=== PATIENT | female | born 1980 | race African-American/Black ===

== ENCOUNTER 2017-02-08 16:02 | Emergency (ER) | payer BC, MEDICAID ==
[~2017-02-08] VITALS: Ht 165.1 cm; Wt 100.0 kg
[2017-02-08 16:03] VITALS: BP 209/104; PULSE 90; RESP 18; TEMP 98.5; O2SAT 99
--- NOTE | 2017-02-08 16:10 | PD ---
Physical Exam Time Seen by Provider: 16:06 Narrative 36yo F c/o migraine EUBANKS and pain down back of neck started today. Hx of migraines. +vomiting. +blurred vision in R eye. Hx of pseudotumor with peritoneal shunt. Not currently on BP medications. Has been given BP medications from here and has not taken them for awhile. Patient seen in triage. VS reviewed. Awaiting bed placement. Data Data Last Documented VS Vital Signs Date Time Temp Pulse Resp B/P Pulse Ox O2 Delivery O2 Flow Rate FiO2 02/08/17 16:03 98.5 90 18 209/104 99 Room Air MDM Supervised Visit with CAMILO: No Scripts No Active Prescriptions or Reported Meds Dary Treviño Feb 08, 2017 16:10
--- NOTE | 2017-02-08 16:46 | PD ---
HPI Chief Complaint: Headache Time Seen by Provider: 16:44 Travel History International Travel<30 days: No Contact w/Intl Traveler<30days: No Traveled to known affect area: No PFSH Past Medical History Autoimmune Disease: No Blood Disorders: No Anxiety: No Depression: Yes Cancer: No Cardiovascular Problems: Yes (HTN) Chemotherapy: No Cerebrovascular Accident: Yes (PT DENIES) Diabetes: No Diminished Hearing: No Endocrine: No Gastrointestinal Disorders: No Genitourinary: No Headaches: Yes Hypertension: Yes Immune Disorder: No Implanted Vascular Access Dvce: Yes Musculoskeletal: No Neurologic: Yes (PSEUDO-TUMOR CEREBRAL) Psychiatric: No Reproductive: No Respiratory: No Migraines: Yes Radiation Therapy: No : 2 Para: 2 Miscarriage: 0 : 0 Tubal Ligation: Yes Past Surgical History AICD: No Body Medical Devices: PERITONEAL SHUNT IN BACK Section: Yes (X1) Cholecystectomy: Yes Gynecologic Surgery: Yes () Neurologic Surgery: Yes (LUMBAR SHUNT 2009) Pacemaker: No Other Surgery: Yes (LUMBAR SHUNT 2009) Social History Alcohol Use: No Tobacco Use: No Substance Use: No Allergies-Medications (Allergen,Severity, Reaction): Coded Allergies: Amoxicillin (Verified Allergy, Mild, Hives, 06/16/16) Reported Meds & Prescriptions Reported Meds & Active Scripts Active No Active Prescriptions or Reported Medications Data Data Last Documented VS Vital Signs Date Time Temp Pulse Resp B/P Pulse Ox O2 Delivery O2 Flow Rate FiO2 02/08/17 16:03 98.5 90 18 209/104 99 Room Air MDM Scripts No Active Prescriptions or Reported Meds Jenny Ocampo Feb 08, 2017 16:46
== END 2017-02-08 16:46 | disposition left against medical advice (07) ==
LOC: NETRI 16:02
DX: R51 Headache (principal); R11.10 Vomiting, unspecified; H53.8 Other visual disturbances; R03.0 Elevated blood-pressure reading, without diagnosis of hypertension; Z86.69 Personal history of other diseases of the nervous system and sense organs
CPT/HCPCS: 99281

== ENCOUNTER 2017-04-09 00:21 | Emergency (ER) | payer MEDICAID ==
[~2017-04-09] VITALS: Ht 165.1 cm; Wt 100.0 kg
[2017-04-09 00:22] VITALS: BP 226/111; PULSE 83; RESP 16; TEMP 98.4; O2SAT 97
[2017-04-09 00:53] VITALS: BP 145/97; PULSE 80; RESP 18; O2SAT 99
[2017-04-09] MEDS ORDERED: PROCHLORPERAZINE INJ 10 MG/2 ML VIAL IV PUSH ONE (01:30)
--- NOTE | 2017-04-09 02:16 | RADRPT ---
EXAM DATE/TIME: 04/09/2017 01:55 [facility] COMPARISON: CT BRAIN W/O CONTRAST, June 16, 2016, 3:19. INDICATIONS : Cephalgia. RADIATION DOSE: 56.35 CTDIvol (mGy) MEDICAL HISTORY : Hypertension. Pseudotumor cerebral. SURGICAL HISTORY : Tubal ligation. ENCOUNTER: Initial ACUITY: 1 day PAIN SCALE: 10/10 LOCATION: cranial TECHNIQUE: Multiple contiguous axial images were obtained of the head. Using automated exposure control and adj ustment of the mA and/or kV according to patient size, radiation dose was kept as low as reasonably a chievable to obtain optimal diagnostic quality images. DICOM format image data is available electro nically for review and comparison. FINDINGS: CEREBRUM: The ventricles are normal for age. No evidence of midline shift, mass lesion, hemorrhage or acute in farction. No extra-axial fluid collections are seen. POSTERIOR FOSSA: The cerebellum and brainstem are intact. The 4th ventricle is midline. The cerebellopontine angle i s unremarkable. EXTRACRANIAL: The visualized portion of the orbits is intact. SKULL: The calvaria is intact. No evidence of skull fracture. CONCLUSION: 1. No acute intracranial abnormalities. Clint Olivia MD on April 09, 2017 at 2:11 Board Certified Radiologist. This report was verified electronically.
[2017-04-09] MEDS ORDERED: TYLE325T PO (03:57)
--- NOTE | 2017-04-09 03:58 | PD ---
HPI Chief Complaint: Headache Time Seen by Provider: 01:12 Travel History International Travel<30 days: No Contact w/Intl Traveler<30days: No Traveled to known affect area: No History of Present Illness HPI 36yo F with PMH of migraine headache, pseudotumor cerebri s/p [employer] shunt presents to the ED with c/o frontal headache since yesterday. Took percocet which relieved pain but returned today. Said she took her last percocet. Denies any fever, chest pain, sob, n/v, abdominal pain, focal weakness or numbness. States it feels like her usual headache. No trauma. PFSH Past Medical History Autoimmune Disease: No Blood Disorders: No Anxiety: No Depression: Yes Cancer: No Cardiovascular Problems: Yes (HTN) Chemotherapy: No Cerebrovascular Accident: Yes (PT DENIES) Diabetes: No Diminished Hearing: No Endocrine: No Gastrointestinal Disorders: No Genitourinary: No Headaches: Yes Hypertension: Yes Immune Disorder: No Implanted Vascular Access Dvce: Yes Musculoskeletal: No Neurologic: Yes (PSEUDO-TUMOR CEREBRAL) Psychiatric: No Reproductive: No Respiratory: No Migraines: Yes Radiation Therapy: No ?: Not LMP: 03/28/17 : 2 Para: 2 Miscarriage: 0 : 0 Tubal Ligation: Yes Past Surgical History AICD: No Body Medical Devices: PERITONEAL SHUNT IN BACK Section: Yes (X1) Cholecystectomy: Yes Gynecologic Surgery: Yes () Neurologic Surgery: Yes (LUMBAR SHUNT 2009) Pacemaker: No Other Surgery: Yes (LUMBAR SHUNT 2009) Social History Alcohol Use: No Tobacco Use: No Substance Use: No Allergies-Medications (Allergen,Severity, Reaction): Coded Allergies: amoxicillin (Unverified Allergy, Mild, Hives, 04/09/17) Reported Meds & Prescriptions Reported Meds & Active Scripts Active No Active Prescriptions or Reported Medications Review of Systems Except as stated in HPI: all other systems reviewed are Neg Physical Exam Narrative GENERAL: 36yo F not in distress. SKIN: Focused skin assessment warm/dry. HEAD: Atraumatic. Normocephalic. EYES: Pupils equal and round. EOMI. ENT: No nasal bleeding or discharge. Mucous membranes pink and moist. NECK: Trachea midline. No JVD. No nuchal rigidity. CARDIOVASCULAR: Regular rate and rhythm. No murmur appreciated. RESPIRATORY: No accessory muscle use. Clear to auscultation. Breath sounds equal bilaterally. GASTROINTESTINAL: Abdomen soft, non-tender, nondistended. Hepatic and splenic margins not palpable. MUSCULOSKELETAL: No obvious deformities. No clubbing. No cyanosis. No edema. NEUROLOGICAL: Awake and alert. No obvious cranial nerve deficits. Motor grossly within normal limits. Normal speech. PSYCHIATRIC: Appropriate mood and affect; insight and judgment normal. Data Data Last Documented VS Vital Signs Date Time Temp Pulse Resp B/P (MAP) Pulse Ox O2 Delivery O2 Flow Rate FiO2 04/09/17 00:53 80 18 145/97 (113) 99 Room Air 04/09/17 00:[address] Brain W/O Iv Contrast(Rout) (04/09/17 ) Ed Urine Pregnancytest Poc (04/09/17 01:29) Prochlorperazine Inj (Compazine Inj) (04/09/17 01:30) MDM Medical Decision Making Medical Screen Exam Complete: Yes Emergency Medical Condition: Yes Differential Diagnosis Migraine headache vs. hydrocephalus vs. tension headache vs. sinus headache Narrative Course 36yo F with history of migraine and pseudotumor cerebri here with her usual headache. Urine negative. CT brain negative. Pt given compazine IV. Pt reevaluated at bedside and headache has resolved. Return precautions given. Diagnosis Primary Impression: Migraine headache Qualified Codes: G43.909 - Migraine, unspecified, not intractable, without status migrainosus Referrals: Kb Whitney PhD MD call for appointment History of pseuotumor cerebri with headaches. Patient Instructions: General Instructions Departure Forms: Tests/Procedures Additional Instructions: Please follow up with neurology as outpatient. Return to the ED if symptoms worsen. Med/Other Pt SpecificInfo: Prescription(s) given Scripts Acetaminophen (Tylenol) 325 Mg Tab 650 MG PO Q6H Y for PAIN SCALE 1 TO 4, #20 TAB 0 Refills Prov: Gema Duong DO 04/09/17 Disposition: 01 DISCHARGE HOME Condition: Stable Gema Duong DO Apr 09, 2017 03:58
== END 2017-04-09 04:39 | disposition home or self-care (01) ==
LOC: NEPE 00:21
DX: G43.909 Migraine, unspecified, not intractable, without status migrainosus (principal); F32.9 Major depressive disorder, single episode, unspecified; I10 Essential (primary) hypertension
CPT/HCPCS: 70450; 84703; 96374; 99285; J0780

== ENCOUNTER 2017-04-27 10:34 | Inpatient (IN) | payer OTHER, MEDICAID ==
[~2017-04-27] VITALS: Ht 165.1 cm; Wt 92.0 kg
[~2017-04-27 10:34] MED LIST: TYLE325T PO
[2017-04-27 10:36] VITALS: BP 168/113; PULSE 138; RESP 20; TEMP 99.3; O2SAT 100
[2017-04-27] MEDS ORDERED: ONDANSETRON HCL 4 MG/2 ML VIAL IV PUSH ONE ×2 (11:15)
[2017-04-27] MEDS ORDERED: MORPHINE SULFATE 4 MG/ML INJ IV PUSH ONE ×2 (11:15)
[2017-04-27] MEDS ORDERED: LABETALOL HCL 100 MG/20 ML VIAL IV PUSH ONE ×2 (11:15)
--- NOTE | 2017-04-27 11:40 | PD ---
HPI Chief Complaint: Back/ Neck Pain or Injury Time Seen by Provider: 10:47 Travel History International Travel<30 days: No Contact w/Intl Traveler<30days: No Traveled to known affect area: No History of Present Illness HPI 37-year-old female complains of headache, neck pain, blurring vision, upper and mid back pain, nausea vomiting. Patient has history of pseudotumor cerebri status post LP shunt placement. Patient states that the LP shunt was placed by Dr. Dumont in the past. Patient has history of recurrent headache and neck pain number back pain. Patient states that the symptoms started about 3 weeks ago. Patient has been taking hydrocodone for the symptom. Patient was admitted to [facility] 4 days ago and discharged yesterday for the same problem. Shunt series done on March reported by radiologist as shunt in place however cannot rule out obstruction. Patient was seen by neurologist today Dr. Branch and was advised to go to ED for evaluation. Patient denies fever chills. Patient states that her blood pressure and pulse has been elevated recently. Patient states the headache is diffuse aching headache over the head. Patient states that she has persistent blurring vision. Patient denies any double vision. Patient denies any stiff neck however complain of neck pain. Patient complains of upper back pain. Patient states that she had chest wall pain. Patient denies any shortness of breath. Patient denies abdominal pain. Patient denies any dysuria or frequency. Patient denies any fever chills. PFSH Past Medical History Autoimmune Disease: No Blood Disorders: No Anxiety: No Depression: Yes Cancer: No Cardiovascular Problems: Yes (HTN) Chemotherapy: No Cerebrovascular Accident: Yes (PT DENIES) Diabetes: No Diminished Hearing: No Endocrine: No Gastrointestinal Disorders: No Genitourinary: No Headaches: Yes Hypertension: Yes Immune Disorder: No Implanted Vascular Access Dvce: Yes Musculoskeletal: No Neurologic: Yes (PSEUDO-TUMOR CEREBRAL) Psychiatric: No Reproductive: No Respiratory: No Migraines: Yes Radiation Therapy: No : 2 Para: 2 Miscarriage: 0 : 0 Tubal Ligation: Yes Past Surgical History AICD: No Body Medical Devices: PERITONEAL SHUNT IN BACK Section: Yes (X1) Cholecystectomy: Yes Gynecologic Surgery: Yes () Neurologic Surgery: Yes (LUMBAR SHUNT 2009) Pacemaker: No Other Surgery: Yes (LUMBAR SHUNT 2009) Social History Alcohol Use: No Tobacco Use: No Substance Use: No Allergies-Medications (Allergen,Severity, Reaction): Coded Allergies: amoxicillin (Unverified Allergy, Mild, Hives, 04/09/17) Reported Meds & Prescriptions Reported Meds & Active Scripts Active Tylenol (Acetaminophen) 325 Mg Tab 650 Mg PO Q6H PRN Review of Systems General / Constitutional: No: Fever Eyes: No: Visual changes HENT: Positive: Headaches, Neck Pain Cardiovascular: Positive: Chest Pain or Discomfort Respiratory: No: Shortness of Breath Gastrointestinal: No: Abdominal Pain Genitourinary: No: Dysuria Musculoskeletal: No: Pain Skin: No Rash Neurologic: No: Weakness Psychiatric: No: Depression Endocrine: No: Polydipsia Hematologic/Lymphatic: No: Easy Bruising Physical Exam Narrative GENERAL: Well-nourished, well-developed patient. SKIN: Focused skin assessment warm/dry. HEAD: Normocephalic. EYES: No scleral icterus. No injection or drainage. Pupils 3 mm equal reactive. Unable to visualize the fundi. NECK: Supple, trachea midline. No JVD or lymphadenopathy. Moderate tenderness paraspinal areas cervical spine. No midline tenderness. No meningismus. CARDIOVASCULAR: Regular rate and rhythm without murmurs, gallops, or rubs. RESPIRATORY: Breath sounds equal bilaterally. No accessory muscle use. GASTROINTESTINAL: Abdomen soft, non-tender, nondistended. MUSCULOSKELETAL: No cyanosis, or edema. BACK: Nontender without obvious deformity. No CVA tenderness. Neurologic exam: Patient's awake and alert oriented 3. No obvious focal neurological deficit. Data Data Last Documented VS Vital Signs Date Time Temp Pulse Resp B/P (MAP) Pulse Ox O2 Delivery O2 Flow Rate FiO2 04/27/17 12:33 81 11 199/113 (141) 98 Room Air 04/27/17 10:36 99.3 Orders Orders Complete Blood Count With Diff (04/27/17 10:57) Comprehensive Metabolic Panel (04/27/17 10:57) Prothrombin Time / Inr (Pt) (04/27/17 10:57) Act Partial Throm Time (Ptt) (04/27/17 10:57) C-Reactive Protein (Crp) (04/27/17 10:57) Urinalysis - C+S If Indicated (04/27/17 10:57) Westergren Sedimentation Rate (04/27/17 10:57) Chest, Single Ap (04/27/17 10:57) Ct Brain W/O Iv Contrast(Rout) (04/27/17 10:57) Iv Access Insert/Monitor (04/27/17 10:57) Ecg Monitoring (04/27/17 10:57) Oximetry (04/27/17 10:57) Shunt Series (04/27/17 ) Sodium Chlor 0.9% 1000 Ml Inj (Ns 1000 M (04/27/17 11:15) Morphine Inj (Morphine Inj) (04/27/17 11:15) Ondansetron Inj (Zofran Inj) (04/27/17 11:15) Labetalol Inj (Trandate Inj) (04/27/17 11:15) Potassium Chlor 20 Meq Premix (Kcl 20 Me (04/27/17 13:00) Lumbar Puncture (04/27/17 ) Vital Signs (Adult) .On admission (04/27/17 13:19) Notify Radiology (04/27/17 13:19) Diet Npo (04/27/17 Lunch) Labs Laboratory Tests Test 04/27/17 11:14 White Blood Count 12.5 TH/MM3 Red Blood Count 4.71 MIL/MM3 Hemoglobin 10.6 GM/DL Hematocrit 32.7 % Mean Corpuscular Volume 69.5 FL Mean Corpuscular Hemoglobin 22.4 PG Mean Corpuscular Hemoglobin Concent 32.3 % Red Cell Distribution Width 18.2 % Platelet Count 542 TH/MM3 Mean Platelet Volume 8.0 FL Neutrophils (%) (Auto) 75.0 % Lymphocytes (%) (Auto) 16.8 % Monocytes (%) (Auto) 6.2 % Eosinophils (%) (Auto) 1.3 % Basophils (%) (Auto) 0.7 % Neutrophils # (Auto) 9.4 TH/MM3 Lymphocytes # (Auto) 2.1 TH/MM3 Monocytes # (Auto) 0.8 TH/MM3 Eosinophils # (Auto) 0.2 TH/MM3 Basophils # (Auto) 0.1 TH/MM3 CBC Comment DIFF FINAL Differential Comment Erythrocyte Sedimentation Rate 45 mm/hr Prothrombin Time 11.9 SEC Prothromb Time International Ratio 1.1 RATIO Activated Partial Thromboplast Time 28.5 SEC Blood Urea Nitrogen 8 MG/DL Creatinine 1.06 MG/DL Random Glucose 91 MG/DL Total Protein 8.2 GM/DL Albumin 3.8 GM/DL Calcium Level 9.4 MG/DL Alkaline Phosphatase 95 U/L Aspartate Amino Transf (AST/SGOT) 45 U/L Alanine Aminotransferase (ALT/SGPT) 105 U/L Total Bilirubin 1.0 MG/DL Sodium Level 132 MEQ/L Potassium Level 3.0 MEQ/L Chloride Level 98 MEQ/L Carbon Dioxide Level 23.3 MEQ/L Anion Gap 11 MEQ/L Estimat Glomerular Filtration Rate 71 ML/MIN C-Reactive Protein 3.80 MG/DL MDM Medical Decision Making Medical Screen Exam Complete: Yes Emergency Medical Condition: Yes Interpretation(s) Last Impressions Head CT 04/27/171056 Signed Impressions: Service Date/Time: Thursday, April 27, 2017 11:16 - CONCLUSION: No acute disease. Sundeep Bolton MD Chest X-Ray 04/27/171056 Signed Impressions: Service Date/Time: Thursday, April 27, 2017 11:34 - CONCLUSION: No acute cardiopulmonary abnormality is identified. Wilian Miguel MD Shunt Study (Imaging) 04/27/17 0000 Signed Impressions: Service Date/Time: Thursday, April 27, 2017 11:37 - CONCLUSION: Lumboperitoneal shunt is identified. The proximal aspect overlying the inferior thoracic spinal canal is stable. However, shunt tubing is discontinuous over the right abdomen adjacent to the connection with the valve. Distal tip is in the left upper quadrant. Wilian Miguel MD 12:49 PM. CBC WBC 12.5. Hemoglobin 10.6 hematocrit 32.7. MCV 69.5. Later 542. 75 neutrophil. ESR 45. Sodium 1:30. Potassium 3.0. Creatinine 1.06. AST 45. ALT 105. C-reactive protein 3.8. Differential Diagnosis Differential diagnosis including migraine headache, shunt malfunction, digital hypertension, hypertensive urgency, hypertensive crisis, encephalitis. Narrative Course 37-year-old female with headache, neck pain, nausea vomiting. History of migraine. History of pseudotumor cerebri status post LP shunt placement. Patient has elevated blood pressure and tachycardia. Normal saline solution 1 25 cc an hour. Labetalol 10 mg IV. Morphine 4 mg IV. Zofran 4 mg IV. KCl 20 mEq IV given. I spoke with Dr. Dumont. Advised medical service admission and consult neurosurgeon. Diagnosis Primary Impression: Lumboperitoneal shunt leak Qualified Codes: T85.635A - Leakage of other nervous system device, implant or graft, initial encounter Additional Impressions: Cephalgia Qualified Codes: R51 - Headache Uncontrolled hypertension Rafael Dykes MD Apr 27, 2017 11:39
--- NOTE | 2017-04-27 11:47 | RADRPT ---
EXAM DATE/TIME: 04/27/2017 11:16 [facility] COMPARISON: CT BRAIN W/O CONTRAST, April 09, 2017, 1:55. INDICATIONS : Cephalgia. History of pseudotumor cerebri LP shunt. RADIATION DOSE: 56.35 CTDIvol (mGy) MEDICAL HISTORY : Hypertension. LP shunt. Pseudo tumor. SURGICAL HISTORY : Tubal ligation. ENCOUNTER: Initial ACUITY: 1 day PAIN SCALE: 0/10 LOCATION: cranial TECHNIQUE: Multiple contiguous axial images were obtained of the head. Using automated exposure control and adj ustment of the mA and/or kV according to patient size, radiation dose was kept as low as reasonably a chievable to obtain optimal diagnostic quality images. DICOM format image data is available electro nically for review and comparison. FINDINGS: CEREBRUM: The ventricles are normal for age. No evidence of midline shift, mass lesion, hemorrhage or acute in farction. No extra-axial fluid collections are seen. POSTERIOR FOSSA: The cerebellum and brainstem are intact. The 4th ventricle is midline. The cerebellopontine angle i s unremarkable. EXTRACRANIAL: The visualized portion of the orbits is intact. SKULL: The calvaria is intact. No evidence of skull fracture. CONCLUSION: No acute disease. Sundeep Bolton MD on April 27, 2017 at 11:44 Board Certified Radiologist. This report was verified electronically.
[2017-04-27 11:48] LABS: AUTOMATED NEUTROPHIL # 9.4 TH/MM3 (1.8-7.7); BASOPHIL # 0.1 TH/MM3 (0-0.2); BASOPHIL % 0.7 % (0.0-2.0); EOSINOPHIL # 0.2 TH/MM3 (0-0.4); EOSINOPHIL % 1.3 % (0.0-4.0); HEMATOCRIT 32.7 % (35.0-46.0); HEMOGLOBIN 10.6 GM/DL (11.6-15.3); LYMPH % 16.8 % (9.0-44.0); LYMPHOCYTE # 2.1 TH/MM3 (1.0-4.8); MEAN CELL VOLUME 69.5 FL (80.0-100.0); MEAN CORPUSCULAR HEMOGLOBIN 22.4 PG (27.0-34.0); MEAN CORPUSCULAR HGB CONC 32.3 % (32.0-36.0); MONO % 6.2 % (0.0-8.0); MONOCYTE # 0.8 TH/MM3 (0-0.9); PLATELET COUNT 542 TH/MM3 (150-450); RED BLOOD COUNT 4.71 MIL/MM3 (4.00-5.30); RED CELL DISTRIBUTION WIDTH 18.2 % (11.6-17.2); WHITE BLOOD COUNT 12.5 TH/MM3 (4.0-11.0)
[2017-04-27 11:58] LABS: INTERNATIONAL NORMALIZED RATIO 1.1 RATIO; PROTHROMBIN TIME - PATIENT 11.9 SEC (9.8-11.6)
--- NOTE | 2017-04-27 12:06 | RADRPT ---
EXAM DATE/TIME: 04/27/2017 11:34 [facility] COMPARISON: SHUNT SERIES, July 26, 2013, 13:12. INDICATIONS : Short of breath. MEDICAL HISTORY : Hypertension. SURGICAL HISTORY : Shunt placed in her back. Cholecystectomy. section ENCOUNTER: Initial ACUITY: 1 day PAIN SCORE: 0/10 LOCATION: Bilateral chest FINDINGS: Portable AP view of the chest demonstrates a normal-sized cardiac silhouette. No effusion, consolidat ion, or pneumothorax is identified. Bones and soft tissues demonstrate no acute finding. EKG lines ov erlie the patient. CONCLUSION: No acute cardiopulmonary abnormality is identified. Wilian Miguel MD on April 27, 2017 at 12:05 Board Certified Radiologist. This report was verified electronically.
[2017-04-27 12:09] LABS: ALBUMIN 3.8 GM/DL (3.4-5.0); ALT (GPT) 105 U/L (10-53); AST (GOT) 45 U/L (15-37); BICARBONATE 23.3 MEQ/L (21.0-32.0); BLOOD UREA NITROGEN 8 MG/DL (7-18); CALCIUM 9.4 MG/DL (8.5-10.1); CHLORIDE 98 MEQ/L (98-107); CREATININE 1.06 MG/DL (0.50-1.00); GLOMERULAR FILTRATION RATE 71 ML/MIN (>89); GLUCOSE,RANDOM 91 MG/DL (74-106); SODIUM (NA) 132 MEQ/L (136-145)
[2017-04-27 12:12] LABS: ALKALINE PHOSPHATASE 95 U/L (45-117); TOTAL PROTEIN 8.2 GM/DL (6.4-8.2)
--- NOTE | 2017-04-27 12:23 | RADRPT ---
EXAM DATE/TIME: 04/27/2017 11:37 [facility] COMPARISON: SHUNT SERIES, July 26, 2013, 13:12. EXTERNAL COMPARISON : None. INDICATIONS : Severe headache, neck ache, dizziness x3 weeks. MEDICAL HISTORY : Lumbar shunt 2009 SURGICAL HISTORY : Lumbar shunt ENCOUNTER: Initial ACUITY: 3 weeks PAIN SCORE: 10/10 LOCATION: Abdomen, skull, neck, chest. FINDINGS: 6 views of the head, neck, chest, abdomen, and pelvis demonstrate a shunt tubing looped over the infe rior thoracic spinal canal with distal tip at the T11 level. The distal tip of the shunt tubing overl ies the left upper quadrant. The valve overlies the right abdomen. There is a gap in the tubing measu ring approximately 2.3 cm adjacent to the valve. Otherwise, cholecystectomy clips are present. A single clip is present in the pelvis. Head, neck, and chest demonstrate no significant abnormality. CONCLUSION: Lumboperitoneal shunt is identified. The proximal aspect overlying the inferior thoracic spinal canal is stable. However, shunt tubing is discontinuous over the right abdomen adjacent to the connection with the valve. Distal tip is in the left upper quadrant. Wilian Miguel MD on April 27, 2017 at 12:17 Board Certified Radiologist. This report was verified electronically.
[2017-04-27] MEDS: SODIUM CHLOR 0.9% 1000 ML INJ 1,000 ML IV SCH ×4 (12:30→19:48)
[2017-04-27 12:33] VITALS: BP 199/113; PULSE 81; RESP 11; O2SAT 98
[2017-04-27] MEDS ORDERED: POTASSIUM CHLOR 20 MEQ PREMIX 100 ML IV ONE ×4 (13:00→15:30)
[2017-04-27 13:54] VITALS: BP 185/96; PULSE 87; RESP 16; O2SAT 98
--- NOTE | 2017-04-27 14:16 | HHI.HP ---
HPI Service Family Medicine Primary Care Physician No Primary Care Physician Admission Diagnosis lumboperitoneal shunt leaking. Cephalgia. Uncontrolled hypertensio Diagnoses: International Travel<30 Days: No Contact w/Intl Traveler<30days: No Known Affected Area: No History of Present Illness Patient is a very pleasant 37 year old woman with a h/o pseudotumor cerebri s/p LP shunt placement and HTN sent to the ED by her neurologist Dr. Branch. Patient reports headaches, blurry vision, vomiting, pain between shoulders as well as neck pain, dizziness, and nausea present for about the past 3 weeks. Symptoms have not gotten any better over this time period. She states she was diagnosed with pseudotumor cerebri back in 2009 and had her LP shunt placed this year as well. Patient states she has been to [facility] 3 times over the past few weeks and most recently was admitted 4 days ago and just discharged yesterday for these same problems. She denies any erika loss of vision. She states her headache is diffuse and aches all over her head. She has had symptoms as severe as this about 3 to 4 times she states since being diagnosed in 2009. She also reports numbness and tingling in the fingers of her left hand and left leg. She reports vomiting multiple times daily over at least the past 2 weeks. States she has not eaten a meal over the past 3 weeks. (Wood Gauthier MD R2) Review of Systems Constitutional: COMPLAINS OF: Weight loss (Mild amount of weight loss secondary to decreased PO intake over past 3 weeks), Change in appetite, DENIES : Fever, Weight gain, Chills, Night Sweats Eyes: COMPLAINS OF: Blurred vision, DENIES: Diplopia, Eye pain, Vision loss, Double Vision Respiratory: DENIES: Cough, Wheezing, Sputum production, Shortness of breath Cardiovascular: COMPLAINS OF: Palpitations (States she does sometimes feel palpitations and her heart racing when moving from sitting to standing position) , DENIES: Chest pain, Lower Extremity Edema Gastrointestinal: COMPLAINS OF: Nausea, Vomiting, DENIES: Abdominal pain, Black stools, Bloody stools, Constipation, Diarrhea Genitourinary: DENIES: Hematuria, Dysuria Musculoskeletal: COMPLAINS OF: Neck pain Integumentary: DENIES: Rash Neurologic: COMPLAINS OF: Headache (Wood Gauthier MD R2) Past Family Social History Past Medical History HTN Pseudotumor cerebri Past Surgical History Cholecystectomy CXN and BTL LP shunt placement (Wood Gauthier MD R2) Allergies: Coded Allergies: amoxicillin (Unverified Allergy, Mild, Hives, 04/09/17) Family History Mother: history of multiple CVAs, HTN Father: from a gunshot wound when patient was 4 years of age Social History Tobacco: denies Etoh: social occasions only Illicit drug use: denies Lives with and two children No PCP (Wood Gauthier MD R2) Physical Exam Vital Signs Vital Signs Date Time Temp Pulse Resp B/P (MAP) Pulse Ox O2 Delivery O2 Flow Rate FiO2 04/27/17 13:54 87 16 185/96 (125) 98 Room Air 04/27/17 12:33 81 11 199/113 (141) 98 Room Air 04/27/17 10:36 99.3 138 20 168/113 (131) 100 Room Air Physical Exam GENERAL: Appearing tired, lying flat in bed with lights out NEURO: Alert. Normal speech. 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 Motor grossly normal. Strength 5/5 in extremities. SKIN: Warm and dry. No rashes or erythema. HEAD: Normocephalic. Atraumatic. EYES: PERRL. EOMI. No scleral icterus. No injection or drainage. ENT: No nasal drainage. Moist mucous membranes. NECK: Supple, trachea midline. No JVD or lymphadenopathy. No thyromegaly. CARDIOVASCULAR: Regular rate and rhythm without murmurs, rubs, or gallops. Peripheral pulses 2+. RESPIRATORY: Breath sounds clear to auscultation and equal bilaterally, without wheezes, rales, or rhonchi. No accessory muscle use. GASTROINTESTINAL: Abdomen soft, nontender, nondistended, normal BS. No organomegaly or masses. No rebound tenderness. No guarding. MUSCULOSKELETAL: No lower extremity edema. Normal range of motion. Laboratory Laboratory Tests Test 04/27/17 11:14 White Blood Count 12.5 Red Blood Count 4.71 Hemoglobin 10.6 Hematocrit 32.7 Mean Corpuscular Volume 69.5 Mean Corpuscular Hemoglobin 22.4 Mean Corpuscular Hemoglobin Concent 32.3 Red Cell Distribution Width 18.2 Platelet Count 542 Mean Platelet Volume 8.0 Neutrophils (%) (Auto) 75.0 Lymphocytes (%) (Auto) 16.8 Monocytes (%) (Auto) 6.2 Eosinophils (%) (Auto) 1.3 Basophils (%) (Auto) 0.7 Neutrophils # (Auto) 9.4 Lymphocytes # (Auto) 2.1 Monocytes # (Auto) 0.8 Eosinophils # (Auto) 0.2 Basophils # (Auto) 0.1 CBC Comment DIFF FINAL Differential Comment Erythrocyte Sedimentation Rate 45 Prothrombin Time 11.9 Prothromb Time International Ratio 1.1 Activated Partial Thromboplast Time 28.5 Blood Urea Nitrogen 8 Creatinine 1.06 Random Glucose 91 Total Protein 8.2 Albumin 3.8 Calcium Level 9.4 Alkaline Phosphatase 95 Aspartate Amino Transf (AST/SGOT) 45 Alanine Aminotransferase (ALT/SGPT) 105 Total Bilirubin 1.0 Sodium Level 132 Potassium Level 3.0 Chloride Level 98 Carbon Dioxide Level 23.3 Anion Gap 11 Estimat Glomerular Filtration Rate 71 C-Reactive Protein 3.80 (Wood Gauthier MD R2) Result Diagram: 04/27/17 1114 04/27/17 1114 Caprini VTE Risk Assessment Caprini VTE Risk Assessment: No/Low Risk (score <= 1) Caprini Risk Assessment Model Point Value = 1 Point Value = 2 Point Value = 3 Point Value = 5 Age 41-60 Minor surgery BMI > 25 kg/m2 Swollen legs Varicose veins or History of unexplained or recurrent spontaneous Oral contraceptives or hormone replacement Sepsis (< 1 month) Serious lung disease, including pneumonia (< 1 month) Abnormal pulmonary function Acute myocardial infarction Congestive heart failure (< 1 month) History of inflammatory bowel disease Medical patient at bed rest Age 61-74 Arthroscopic surgery Major open surgery (> 45 min) Laparoscopic surgery (> 45 min) Malignancy Confined to bed (> 72 hours) Immobilizing plaster cast Central venous access Age >= 75 History of VTE Family history of VTE Factor V Leiden Prothrombin [id number] Lupus anticoagulant Anticardiolipin antibodies Elevated serum homocysteine Heparin-induced thrombocytopenia Other congenital or acquired thrombophilia Stroke (< 1 month) Elective arthroplasty Hip, pelvis, or leg fracture Acute spinal cord injury (< 1 month) Prophylaxis Regimen Total Risk Factor Score Risk Level Prophylaxis Regimen 0-1 Low Early ambulation 2 Moderate Order ONE of the following: *Sequential Compression Device (SCD) *Heparin 5000 units SQ BID 3-4 Higher Order ONE of the following medications: *Heparin 5000 units SQ TID *Enoxaparin/Lovenox 40 mg SQ daily (WT < 150 kg, CrCl > 30 mL/min) *Enoxaparin/Lovenox 30 mg SQ daily (WT < 150 kg, CrCl > 10-29 mL/min) *Enoxaparin/Lovenox 30 mg SQ BID (WT < 150 kg, CrCl > 30 mL/min) AND/OR *Sequential Compression Device (SCD) 5 or more Highest Order ONE of the following medications: *Heparin 5000 units SQ TID (Preferred with Epidurals) *Enoxaparin/Lovenox 40 mg SQ daily (WT < 150 kg, CrCl > 30 mL/min) *Enoxaparin/Lovenox 30 mg SQ daily (WT < 150 kg, CrCl > 10-29 mL/min) *Enoxaparin/Lovenox 30 mg SQ BID (WT < 150 kg, CrCl > 30 mL/min) AND *Sequential Compression Device (SCD) (Wood Gauthier MD R2) Assessment and Plan Assessment and Plan Very pleasant 37 year old woman being admitted with features consistent with pseudotumor cerebri. Code Status Full code Discussed Condition With Dr. Faith Huggins (Wood Gauthier MD R2) Attending Attestation Patient seen and examined. Case reviewed and discussed with the resident team. Agree with plan of care as discussed with me and documented in the resident note. pt seen on admission with residents. appreciate help Neurosurgery (Cheryl Cuevas MD) Problem List: (1) Pseudotumor cerebri ICD Codes: G93.2 - Benign intracranial hypertension Status: Chronic Plan: - Dr. Dykes discussed case with IR as well as Dr. Dumont, neurosurgery. Planning for LP for opening pressure and for symptomatic relief for patient. Consult placed to Dr. Dumont as patient is known to him - Patient to be NPO until LP and evaluation by neurosurgery - Morphine 4 mg IV q4h prn pain - Zofran as needed for nausea - Consider need for medical therapy ie carbonic anhydrase inhibitors or diuretic therapy after resolution of acute symptoms unless symptoms are adequately controlled with repair of LP shunt (2) Lumboperitoneal shunt leak ICD Codes: T85.635A - Leakage of other nervous system device, implant or graft , initial encounter Status: Acute Plan: Neurosurgery consulted Plan as above (3) HTN (hypertension) ICD Codes: I10 - Essential (primary) hypertension Status: Chronic Plan: Continue labetalol 10 mg IV prn BP > 180/100 Vitals q4h (4) Leukocytosis ICD Codes: D72.829 - Elevated white blood cell count, unspecified Status: Acute Plan: Consider secondary to stress reaction Non suspecting meningitis at this time Patient does complain of neck pain and vague symptoms of stiffness but without fevers and neck supple on examination UA ordered CXR normal Continue to monitor clinically (5) AGUS (acute kidney injury) ICD Codes: N17.9 - Acute kidney failure, unspecified Status: Acute Plan: Likely pre-renal due to dehydration Continue MIVF Continue to monitor renal function (6) Hypokalemia ICD Codes: E87.6 - Hypokalemia Status: Acute Plan: 3.0 on admission KCl 40 mEq IV ordered Continue to monitor (7) Hyponatremia ICD Codes: E87.1 - Hypo-osmolality and hyponatremia Status: Acute Plan: Continue NS at 125 cc/hr (8) Anemia ICD Codes: D64.9 - Anemia, unspecified Status: Acute Plan: Hgb 10.6 on admission Microcytic Continue to monitor (9) Nutrition, metabolism, and development symptoms ICD Codes: R63.8 - Other symptoms and signs concerning food and fluid intake Status: Acute Plan: Fluids: NS at 125 cc/hr Electrolytes: as above, continue to monitor Nutrition: NPO DVT ppx: b/l SCDs, no chemical anticoagulation ahead of LP and possible neurosurgical intervention (Wood Gauthier MD R2) Physician Certification 2 Midnight Certification Type: Admission for Inpatient Services Order for Inpatient Services The services are ordered in accordance with Medicare regulations or non- Medicare payer requirements, as applicable. In the case of services not specified as inpatient-only, they are appropriately provided as inpatient services in accordance with the 2-midnight benchmark. Estimated LOS (days): 2 days is the estimated time the patient will need to remain in the hospital, assuming treatment plan goals are met and no additional complications. Post-Hospital Plan: Home (Wood Gauthier MD R2) Problem Qualifiers (1) Lumboperitoneal shunt leak: Qualified Codes: T85.635A - Leakage of other nervous system device, implant or graft, initial encounter (2) HTN (hypertension): Qualified Codes: I15.8 - Other secondary hypertension (3) Leukocytosis: Qualified Codes: D72.829 - Elevated white blood cell count, unspecified (4) Anemia: Qualified Codes: D64.9 - Anemia, unspecified Wood Gauthier MD R2 Apr 27, 2017 14:16 Cheryl Cuevas MD Apr 28, 2017 12:24
[2017-04-27] MEDS ORDERED: SODIUM CHLOR 0.9% 1000 ML INJ 1,000 ML IV SCH ×2 (14:39)
[2017-04-27] MEDS ORDERED: LABETALOL HCL 100 MG/20 ML VIAL IV PUSH PRN ×2 (14:45)
[2017-04-27] MEDS ORDERED: ACETAMINOPHEN 325 MG TAB PO PRN ×2 (14:45)
[2017-04-27] MEDS ORDERED: NALOXONE HCL 0.4 MG/ML AMP IV PUSH PRN ×2 (14:45)
[2017-04-27] MEDS ORDERED: SODIUM CHLORIDE 0.9% FLUSH 10 ML FLUSH IV FLUSH PRN ×2 (14:45)
--- NOTE | 2017-04-27 14:55 | PD.CONS ---
(Shreyas Dumont MD) HPI Consult Requested By Primary Care Physician No Primary Care Physician (Shreyas Dumont MD) Consult Requested By Dr. Dykes Reason for Consult lumboperitoneal shunt History of Present Illness Ms. Landis is a 37-year-old female with a history of idiopathic intracranial hypertension who underwent placement of a lumboperitoneal shunt in 2009. She was doing well until recently she developed recurrent headaches with nausea, vomiting, and blurry vision. She denies fevers and chills. She underwent a CT head which was unremarkable. She underwent a shunt series of her lumbar peritoneal shunt which shows detachment of the catheter from the device. A neurosurgical evaluation was requested. (Ani Langley) Review of Systems Constitutional: DENIES: Fever, Chills Eyes: COMPLAINS OF: Blurred vision Ears, nose, mouth, throat: DENIES: Hearing loss Respiratory: DENIES: Apneas, Hemoptysis, Shortness of breath Gastrointestinal: COMPLAINS OF: Nausea, Vomiting Neurologic: COMPLAINS OF: Headache Psychiatric: DENIES: Hallucinations (Ani Langley) Past Family Social History Allergies: Coded Allergies: amoxicillin (Unverified Allergy, Mild, Hives, 04/09/17) Active Ordered Medications Current Medications Sodium Chloride 1,000 ml @ 125 mls/hr Q8H IV Last administered on 04/27/17 12:30; Start 04/27/17 at 11:15 Morphine Sulfate (Morphine Inj) 4 mg ONCE ONCE IV PUSH Last administered on 12:31; Start 04/27/17 at 11:15; Stop 04/27/17 at 11:16; Status DC Ondansetron HCl (Zofran Inj) 4 mg ONCE ONCE IV PUSH Last administered on 04/27 12:31; Start 04/27/17 at 11:15; Stop 04/27/17 at 11:16; Status DC Labetalol HCl (Trandate Inj) 10 mg ONCE ONCE IV PUSH Last administered on 12:32; Start 04/27/17 at 11:15; Stop 04/27/17 at 11:16; Status DC Potassium Chloride 100 ml @ 50 mls/hr BOLUS ONCE IV Last administered on t 13:12; Start 04/27/17 at 13:00; Stop 04/27/17 at 14:59; Status DC Sodium Chloride 1,000 ml @ 100 mls/hr Q10H IV ; Start 04/27/17 at 14:39; Stop 04/27/17 at 15:03; Status DC Sodium Chloride (NS Flush) 2 ml UNSCH PRN IV FLUSH FLUSH AFTER USING IV ACCESS ; Start 04/27/17 at 14:45 Sodium Chloride (NS Flush) 2 ml BID IV FLUSH ; Start 04/27/17 at 14:45 Acetaminophen (Tylenol) 650 mg Q4H PRN PO TEMP > 100.4; Start 04/27/17 at 14: 45 Ondansetron HCl (Zofran Inj) 4 mg Q6H PRN IVP NAUSEA OR VOMITING; Start at 14:45 Naloxone HCl (Narcan Inj) 0.4 mg UNSCH PRN IV PUSH SEE LABEL COMMENTS; Start 04/27/17 at 14:45 Morphine Sulfate (Morphine Inj) 4 mg Q4HR PRN IV PUSH PAIN SCALE 6 TO 10; Start 04/27/17 at 14:45 Labetalol HCl (Trandate Inj) 10 mg Q6H PRN IV PUSH SBP> OR = 180, DBP> OR = 100 ; Start 04/27/17 at 14:45 Potassium Chloride 100 ml @ 50 mls/hr BOLUS ONCE IV ; Start 04/27/17 at 15:30 ; Stop 04/27/17 at 17:29; Status DC (Shreyas Dumont MD) Past Medical History HTN Pseudotumor cerebri Past Surgical History Cholecystectomy CXN and BTL Lumboperitoneal shunt placement Reported Medications reviewed per EMR Active Ordered Medications Current Medications Medications (Trade) Dose Ordered Sig/David Route PRN Reason Start Time Stop Time Status Last Admin Dose Admin Sodium Chloride 1,000 ml @ 125 mls/hr Q8H IV 04/27/17 11:15 04/27/17 12:30 Sodium Chloride (NS Flush) 2 ml UNSCH PRN IV FLUSH FLUSH AFTER USING IV ACCESS 04/27/17 14:45 UNV Sodium Chloride (NS Flush) 2 ml BID IV FLUSH 04/27/17 14:45 UNV Acetaminophen (Tylenol) 650 mg Q4H PRN PO TEMP > 100.4 04/27/17 14:45 UNV Ondansetron HCl (Zofran Inj) 4 mg Q6H PRN IVP NAUSEA OR VOMITING 04/27/17 14:45 UNV Naloxone HCl (Narcan Inj) 0.4 mg UNSCH PRN IV PUSH SEE LABEL COMMENTS 04/27/17 14:45 UNV Morphine Sulfate (Morphine Inj) 4 mg Q4HR PRN IV PUSH PAIN SCALE 6 TO 10 04/27/17 14:45 UNV Labetalol HCl (Trandate Inj) 10 mg Q6H PRN IV PUSH SBP> OR = 180, DBP> OR = 100 04/27/17 14:45 UNV Potassium Chloride 100 ml @ 50 mls/hr BOLUS ONCE IV 04/27/17 15:15 04/27/17 17:14 UNV Family History Her Mother has had stroke Social History she denies tobacco use, she drinks etoh occasionally (Ani Langley) Physical Exam Vital Signs Vital Signs Date Time Temp Pulse Resp B/P (MAP) Pulse Ox O2 Delivery O2 Flow Rate FiO2 04/27/17 13:54 87 16 185/96 (125) 98 Room Air 04/27/17 12:33 81 11 199/113 (141) 98 Room Air 04/27/17 10:36 99.3 138 20 168/113 (131) 100 Room Air Physical Exam Ms Blanchard is alert, awake and oriented to time, place and person. Speech is fluent. She is very uncomfortable with severe headaches. Cranial nerve examination demonstrates the pupils to be equal, round, and reactive to light. Extra-ocular movements are intact. She has bilateral papiledema. Facial motor and sensory function are normal and symmetrical. Gross hearing is intact, bilaterally. The uvula is midline and elevates symmetrically with the soft palate. Sternocleidomastoid and trapezius muscles have normal and symmetrical strength. Other cranial nerves are intact. Neck is soft and supple. Cervical spine has a full range of motion in anterior flexion, extension, lateral bending, and rotation without pain. There is no tenderness to palpation to the spinous processes or paraspinal muscles. Muscle testing reveals normal bulk and tone overall without rigidity, spasticity , fasciculations, or atrophy. Muscle strength is 5/5 in all muscle groups of both upper extremities including deltoid, biceps, triceps, brachioradialis, wrist extension and network support engineer. In the lower extremities, strength is 5/5 in both iliopsoas, quadriceps, hamstrings, plantar flexion, dorsiflexion, and extensor hallicus longus. Sensory examination is intact to light touch and sharp/dull discrimination in both the upper and lower extremities, symmetrically. Deep tendon reflexes are 2+ and symmetrical in the biceps, triceps, and brachioradialis, bilaterally, in the upper extremities. In the lower extremities , the patellar and Achilles are 2+, bilaterally. There is a bilateral plantar flexion response. Hoffmanns sign is negative. There is no clonus or other abnormal reflexes noted. Cerebellar examination is intact to [id number] test, rapid rhythmic alternating motion. There is no dysmetria, dysdiadochokinesia, truncal ataxia, or tremor. Laboratory Laboratory Tests Test 04/27/17 11:14 White Blood Count 12.5 Red Blood Count 4.71 Hemoglobin 10.6 Hematocrit 32.7 Mean Corpuscular Volume 69.5 Mean Corpuscular Hemoglobin 22.4 Mean Corpuscular Hemoglobin Concent 32.3 Red Cell Distribution Width 18.2 Platelet Count 542 Mean Platelet Volume 8.0 Neutrophils (%) (Auto) 75.0 Lymphocytes (%) (Auto) 16.8 Monocytes (%) (Auto) 6.2 Eosinophils (%) (Auto) 1.3 Basophils (%) (Auto) 0.7 Neutrophils # (Auto) 9.4 Lymphocytes # (Auto) 2.1 Monocytes # (Auto) 0.8 Eosinophils # (Auto) 0.2 Basophils # (Auto) 0.1 CBC Comment DIFF FINAL Differential Comment Erythrocyte Sedimentation Rate 45 Prothrombin Time 11.9 Prothromb Time International Ratio 1.1 Activated Partial Thromboplast Time 28.5 Blood Urea Nitrogen 8 Creatinine 1.06 Random Glucose 91 Total Protein 8.2 Albumin 3.8 Calcium Level 9.4 Alkaline Phosphatase 95 Aspartate Amino Transf (AST/SGOT) 45 Alanine Aminotransferase (ALT/SGPT) 105 Total Bilirubin 1.0 Sodium Level 132 Potassium Level 3.0 Chloride Level 98 Carbon Dioxide Level 23.3 Anion Gap 11 Estimat Glomerular Filtration Rate 71 C-Reactive Protein 3.80 (Shreyas Dumont MD) Result Diagram: 04/27/17 1114 04/27/17 1114 Imaging Last [address] 04/27/17 1057 Signed Impressions: Service Date/Time: Thursday, April 27, 2017 11:16 - CONCLUSION: No acute disease. Sundeep Bolton MD Chest X-Ray 04/27/17 1057 Signed Impressions: Service Date/Time: Thursday, April 27, 2017 11:34 - CONCLUSION: No acute cardiopulmonary abnormality is identified. Wilian Miguel MD Shunt Study (Imaging) 04/27/17 0000 Signed Impressions: Service Date/Time: Thursday, April 27, 2017 11:37 - CONCLUSION: Lumboperitoneal shunt is identified. The proximal aspect overlying the inferior thoracic spinal canal is stable. However, shunt tubing is discontinuous over the right abdomen adjacent to the connection with the valve. Distal tip is in the left upper quadrant. Wilian Miguel MD Lumbar Puncture Fluoroscopy 04/27/17 0000 Signed Impressions: Service Date/Time: Thursday, April 27, 2017 17:34 - CONCLUSION: Uncomplicated fluoroscopically guided lumbar puncture with pressures as above. Albaro Walker MD (Shreyas Dumont MD) Assessment and Plan Assessment and Plan Caprini VTE Risk Assessment Caprini VTE Risk Assessment Caprini VTE Risk Assessment: No/Low Risk (score <= 1) Caprini Risk Assessment Model Point Value = 1 Point Value = 2 Point Value = 3 Point Value = 5 Age 41-60 Minor surgery BMI > 25 kg/m2 Swollen legs Varicose veins or History of unexplained or recurrent spontaneous Oral contraceptives or hormone replacement Sepsis (< 1 month) Serious lung disease, including pneumonia (< 1 month) Abnormal pulmonary function Acute myocardial infarction Congestive heart failure (< 1 month) History of inflammatory bowel disease Medical patient at bed rest Age 61-74 Arthroscopic surgery Major open surgery (> 45 min) Laparoscopic surgery (> 45 min) Malignancy Confined to bed (> 72 hours) Immobilizing plaster cast Central venous access Age >= 75 History of VTE Family history of VTE Factor V Leiden Prothrombin [id number] Lupus anticoagulant Anticardiolipin antibodies Elevated serum homocysteine Heparin-induced thrombocytopenia Other congenital or acquired thrombophilia Stroke (< 1 month) Elective arthroplasty Hip, pelvis, or leg fracture Acute spinal cord injury (< 1 month) Prophylaxis Regimen Total Risk Factor Score Risk Level Prophylaxis Regimen 0-1 Low Early ambulation 2 Moderate Order ONE of the following: *Sequential Compression Device (SCD) *Heparin 5000 units SQ BID 3-4 Higher Order ONE of the following medications: *Heparin 5000 units SQ TID *Enoxaparin/Lovenox 40 mg SQ daily (WT < 150 kg, CrCl > 30 mL/min) *Enoxaparin/Lovenox 30 mg SQ daily (WT < 150 kg, CrCl > 10-29 mL/min) *Enoxaparin/Lovenox 30 mg SQ BID (WT < 150 kg, CrCl > 30 mL/min) AND/OR *Sequential Compression Device (SCD) 5 or more Highest Order ONE of the following medications: *Heparin 5000 units SQ TID (Preferred with Epidurals) *Enoxaparin/Lovenox 40 mg SQ daily (WT < 150 kg, CrCl > 30 mL/min) *Enoxaparin/Lovenox 30 mg SQ daily (WT < 150 kg, CrCl > 10-29 mL/min) *Enoxaparin/Lovenox 30 mg SQ BID (WT < 150 kg, CrCl > 30 mL/min) AND *Sequential Compression Device (SCD) (Shreyas Dumont MD) Attending Statement 37 year old woman with pseudotumor cerebri and shunt malfunction. (1) Pseudotumor cerebri ICD Codes: G93.2 - Benign intracranial hypertension Recominedo LP for opening pressure and for symptomatic relief. NPO after midnight Her opening pressure are elevated. Will proceed with placement of a ventriculoperitoneal shunt. We have discussed the details including the step-by- step details of the surgical procedure, its indications, alternatives, risks, and potential complications. Risks and potential complications include, but are not limited to, infection, blood loss, CSF leak, partial or complete loss of sight in one or both eyes, paresis, paralysis, permanent pain or difficulty swallowing, loss of bowel or bladder function, complications from anesthesia, blood clot, stroke, myocardial infarction, or even . - Morphine 4 mg IV q4h prn pain - Zofran as needed for nausea - Consider need for medical therapy ie carbonic anhydrase inhibitors or diuretic therapy after resolution of acute symptoms unless symptoms are adequately controlled with repair of LP shunt (2) HTN (hypertension) ICD Codes: I10 - Essential (primary) hypertension Status: Chronic Plan: Continue labetalol 10 mg IV prn BP > 180/100 (3) Leukocytosis ICD Codes: D72.829 - Elevated white blood cell count, unspecified Status: Acute Plan: secondary to stress reaction Non suspecting meningitis at this time UA ordered CXR normal Continue to monitor clinically (4) AGUS (acute kidney injury) ICD Codes: N17.9 - Acute kidney failure, unspecified Status: Acute Plan: Likely pre-renal due to dehydration Continue IIVF Continue to monitor renal function (5) Hypokalemia ICD Codes: E87.6 - Hypokalemia Status: Acute Plan: 3.0 on admission KCl 40 mEq IV ordered Continue to monitor (6) Hyponatremia ICD Codes: E87.1 - Hypo-osmolality and hyponatremia Status: Acute Plan: Continue NS at 125 cc/hr (7) Anemia ICD Codes: D64.9 - Anemia, unspecified Status: Acute Plan: Hgb 10.6 on admission Microcytic Continue to monitor (8) Nutrition, metabolism, and development symptoms ICD Codes: R63.8 - Other symptoms and signs concerning food and fluid intake Status: Acute Plan: Fluids: NS at 125 cc/hr Electrolytes: as above, continue to monitor Nutrition: NPO Protonix for stress ulcer prophylaxis DVT Jerrell hose and SCDs, no chemical anticoagulation ahead of LP and possible neurosurgical intervention The exam, history, and the medical decision-making described in the above note were completed with the assistance of the mid-level provider. I reviewed and agree with the findings presented. I attest that I had a [id number] encounter with the patient on the same day, and personally performed and documented my assessment and findings in the medical record. (Shreyas Dumont MD) Shreyas Dumont MD Apr 27, 2017 14:55 Ani Langley Apr 27, 2017 15:18
[2017-04-27 15:21] VITALS: BP 182/96; PULSE 83; RESP 17; O2SAT 98
--- NOTE | 2017-04-27 17:44 | PD.RAD ---
Post Procedure Progress Note Pre Procedure Diagnosis: (1) Pseudotumor cerebri Post Procedure Diagnosis: (1) Pseudotumor cerebri Procedure Date: Apr 27, 2017 Supervising Radiologist: Albaro Walker Proceduralist/Assist: RT Phillip(R) Anesthesia: Local Plan of Activity Patient to Unit: Nursing Unit Patient Condition: Good See PACS Report for procedural detail/treatment Spinal Procedure Lumbar Puncture L3-L4 Fluid Removal (CCs): 25 Fluid Description: Clear (opening pressure 46) Albaro Walker MD Apr 27, 2017 17:43
--- NOTE | 2017-04-27 18:00 | RADRPT ---
EXAM DATE/TIME: 04/27/2017 17:34 [facility] COMPARISON: LUMBAR PUNCTURE W/OPENING PRESSURES, July 26, 2013, 16:04. INDICATIONS : Patient presnts with headache and neck pain, blurry vision, nausea and vomiting. MEDICAL HISTORY : HTN Headaches Migraines Pseudo-Tumor Cerebral SURGICAL HISTORY : Peritoneal Shunt in back Cholecystectomy :umbar Shunt 2009 ENCOUNTER: Initial ACUITY: 3 weeks PAIN SCORE: 8/10 LOCATION: cranial LUMBAR PUNCTURE TIME: 17:32 hours FLUORO TIME: 0.9 minutes IMAGE SERIES: 1 ACCESS LEVEL: L3-4 OPENING PRESSURE: 45 Not requested. FLUID: 16 cc of clear CSF was collected and sent to the laboratory for analysis. PROCEDURE : 1. Fluoroscopic guided lumbar puncture. 2. Recording of opening pressure. The risks, benefits and alternatives to the procedure were explained and verbal and written consent w as obtained. The site was prepped in sterile fashion. Full sterile technique was used, including ca p, mask, sterile gloves and gown and a large sterile sheet. Hand hygiene and 2% chlorhexidine and/or betadine/alcohol prep was utilized per protocol for cutaneous antisepsis. The skin and subcutaneous tissues were infiltrated with local anesthetic solution. With fluoroscopic guidance the lumbar thecal sac was punctured at the above level described above and the opening pressure was recorded. The above described fluid was removed without difficulty. A tota l of 25 cc was removed The patient tolerated the procedure well and there were no complications. CONCLUSION: Uncomplicated fluoroscopically guided lumbar puncture with pressures as above. Albaro Walker MD on April 27, 2017 at 17:58 Board Certified Radiologist. This report was verified electronically.
[2017-04-27 19:41] VITALS: BP 158/97; PULSE 112; RESP 19; TEMP 96.7; O2SAT 98
[2017-04-27] MEDS: SODIUM CHLORIDE 0.9% FLUSH 10 ML FLUSH IV FLUSH SCH ×2 (19:53)
[2017-04-27] MEDS: MORPHINE SULFATE 4 MG/ML INJ IV PUSH PRN ×2 (22:09)
[2017-04-27] MEDS ORDERED: POVIDONE IODINE 5% (ANTISEPSIS KIT) 4 APPLICATIONS EACH NARE PRN ×2 (22:30)
[2017-04-27] MEDS ORDERED: INSULIN HUMAN REGULAR 1,000 UNITS/10 ML VIAL SQ PRN ×2 (22:30)
[2017-04-27] MEDS ORDERED: SODIUM CHLORID 0.9% 500 ML IV PRN ×2 (22:30)
[2017-04-27] MEDS ORDERED: CHLORHEXIDINE GLUCONATE 2 % 1 PACK (2 CLOTHS) TOPICAL PRN ×2 (22:30)
[2017-04-27] MEDS ORDERED: METOPROLOL TARTRATE 25 MG TAB PO PRN ×2 (22:30)
[2017-04-27] MEDS ORDERED: LACTATED RINGER'S 1000 ML IV PRN ×2 (22:30)
[2017-04-28] VITALS (7 sets, daily range): BP systolic 119–187; BP diastolic 65–113; PULSE 95–116; RESP 16–19; TEMP 97.1–98.8; O2SAT 98–100
[2017-04-28 00:49] LABS: AMORPHOUS SEDIMENT, URINE RARE; BACTERIA, URINE MANY /hpf; BILIRUBIN, URINE NEG (NEG); BLOOD, URINE NEG (NEG); GLUCOSE,URINE NEG (NEG); HYALINE CAST, URINE 1 /lpf (RARE); KETONE, URINE TRACE mg/dL (NEG); MUCUS URINE FEW /lpf (OCC); NITRITE,URINE NEG (NEG); PH, URINE 6.5 (5.0-8.5); SQUAMOUS EPITHELIAL CELL URINE 2 /hpf (0-5); URINE COLOR YELLOW (YELLW/STRAW); URINE LEUKOCYTE ESTERASE SMALL (NEG)
[2017-04-28] MEDS: MORPHINE SULFATE 4 MG/ML INJ IV PUSH PRN ×6 (02:42→11:38)
[2017-04-28] MEDS: SODIUM CHLOR 0.9% 1000 ML INJ 1,000 ML IV SCH ×4 (03:15→11:15)
[2017-04-28] MEDS: cloNIDine HCL 0.1 MG TAB PO PRN ×2 (05:27)
[2017-04-28 06:15] LABS: AUTOMATED NEUTROPHIL # 9.7 TH/MM3 (1.8-7.7); BASOPHIL # 0.1 TH/MM3 (0-0.2); BASOPHIL % 0.5 % (0.0-2.0); EOSINOPHIL # 0.2 TH/MM3 (0-0.4); EOSINOPHIL % 1.4 % (0.0-4.0); HEMATOCRIT 29.9 % (35.0-46.0); HEMOGLOBIN 9.2 GM/DL (11.6-15.3); LYMPH % 15.7 % (9.0-44.0); MEAN CELL VOLUME 70.3 FL (80.0-100.0); MEAN CORPUSCULAR HEMOGLOBIN 21.7 PG (27.0-34.0); MEAN CORPUSCULAR HGB CONC 30.9 % (32.0-36.0); MEAN PLATELET VOLUME 7.5 FL (7.0-11.0); MONO % 5.3 % (0.0-8.0); MONOCYTE # 0.7 TH/MM3 (0-0.9); NEUT % 77.1 % (16.0-70.0); PLATELET COUNT 463 TH/MM3 (150-450); RED BLOOD COUNT 4.25 MIL/MM3 (4.00-5.30); RED CELL DISTRIBUTION WIDTH 18.1 % (11.6-17.2); WHITE BLOOD COUNT 12.6 TH/MM3 (4.0-11.0)
[2017-04-28 06:54] LABS: BICARBONATE 26.1 MEQ/L (21.0-32.0); CALCIUM 8.6 MG/DL (8.5-10.1); CREATININE 0.76 MG/DL (0.50-1.00)
[2017-04-28] MEDS ORDERED: GELFOAM SIZE 100 ONE ×2 (07:34)
[2017-04-28] MEDS ORDERED: ceFAZolin 2 GM PREMIX 50 ML ONE ×2 (07:34)
[2017-04-28] MEDS ORDERED: THROMBIN (TOPICAL) 5,000 UNIT VIAL ONE ×2 (07:34)
[2017-04-28] MEDS ORDERED: GENTAMICIN SULFATE 80 MG/2 ML VIAL ONE ×2 (07:35)
[2017-04-28] MEDS ORDERED: BACITRACIN TOP OINT 15 GM TUBE ONE ×2 (07:35)
[2017-04-28] MEDS ORDERED: LIDOCAINE 1%/EPINEPHrine 1:100,000 SOLN 20 ML VIAL ONE ×2 (07:35)
[2017-04-28] MEDS: SODIUM CHLORIDE 0.9% FLUSH 10 ML FLUSH IV FLUSH SCH ×2 (09:00)
[2017-04-28] MEDS: ONDANSETRON HCL 4 MG/2 ML VIAL IVP PRN ×2 (09:24)
--- NOTE | 2017-04-28 09:34 | HHI.HP ---
HPI Service Family Medicine Primary Care Physician No Primary Care Physician Admission Diagnosis lumboperitoneal shunt leaking. Cephalgia. Uncontrolled hypertensio Diagnoses: (1) Pseudotumor cerebri Diagnosis: Principal (2) Lumboperitoneal shunt leak Diagnosis: Principal (3) HTN (hypertension) Diagnosis: Principal (4) Leukocytosis Diagnosis: Principal (5) AGUS (acute kidney injury) Diagnosis: Principal (6) Hypokalemia Diagnosis: Principal (7) Hyponatremia Diagnosis: Principal (8) Anemia Diagnosis: Principal (9) Nutrition, metabolism, and development symptoms Diagnosis: Principal International Travel<30 Days: No Contact w/Intl Traveler<30days: No Known Affected Area: No History of Present Illness Ms Landis is a very pleasant 37 year old woman with a h/o pseudotumor cerebri s/p LP shunt placement and HTN sent to the ED by her neurologist Dr. Branch. Patient reports headaches, blurry vision, vomiting, pain between shoulders as well as neck pain, dizziness, and nausea present for about the past 3 weeks. Symptoms have not gotten any better over this time period. She states she was diagnosed with pseudotumor cerebri back in 2009 and had her LP shunt placed this year as well. Patient states she has been to [facility] 3 times over the past few weeks and most recently was admitted 4 days ago and just discharged yesterday for these same problems. She denies any erika loss of vision. She states her headache is diffuse and aches all over her head. She has had symptoms as severe as this about 3 to 4 times she states since being diagnosed in 2009. She also reports numbness and tingling in the fingers of her left hand and left leg. She reports vomiting multiple times daily over at least the past 2 weeks. States she has not eaten a meal over the past 3 weeks. She had a LP yesterday but is still suffering the same sxs as before. She is scheduled to have a shunt placed today but when her medicine team entered the room she was very anxious and did not want surgery. Gave her 1 mg of ativan and asked her nurse to let Dr Everett know she was nervous. Explained to her that she has been unable to fxn in her current state and she needed to have this fixed. Review of Systems Other Constitutional: COMPLAINS OF: Weight loss (Mild amount of weight loss secondary to decreased PO intake over past 3 weeks), Change in appetite, DENIES : Fever, Weight gain, Chills, Night Sweats Eyes: COMPLAINS OF: Blurred vision, DENIES: Diplopia, Eye pain, Vision loss, Double Vision Respiratory: DENIES: Cough, Wheezing, Sputum production, Shortness of breath Cardiovascular: COMPLAINS OF: Palpitations (States she does sometimes feel palpitations and her heart racing when moving from sitting to standing position) , DENIES: Chest pain, Lower Extremity Edema Gastrointestinal: COMPLAINS OF: Nausea, Vomiting, DENIES: Abdominal pain, Black stools, Bloody stools, Constipation, Diarrhea Genitourinary: DENIES: Hematuria, Dysuria Musculoskeletal: COMPLAINS OF: Neck pain Integumentary: DENIES: Rash Neurologic: COMPLAINS OF: Headache Past Family Social History Past Medical History HTN Pseudotumor cerebri Past Surgical History Cholecystectomy CXN and BTL LP shunt placement Allergies: Coded Allergies: amoxicillin (Unverified Allergy, Mild, Hives, 04/09/17) Family History Mother: history of multiple CVAs, HTN Father: from a gunshot wound when patient was 4 years of age Social History Tobacco: denies Etoh: social occasions only Illicit drug use: denies Lives with and two children No PCP Physical Exam Vital Signs Vital Signs Date Time Temp Pulse Resp B/P (MAP) Pulse Ox O2 Delivery O2 Flow Rate FiO2 04/28/17 07:57 98.5 98 19 167/113 (131) 99 04/28/17 04:20 97.1 99 16 173/107 (129) 100 04/28/17 00:30 98.0 95 16 168/104 (125) 98 04/27/17 19:41 96.7 112 19 158/97 (117) 98 04/27/17 17:45 04/27/17 15:21 83 17 182/96 (124) 98 Room Air 04/27/17 13:54 87 16 185/96 (125) 98 Room Air 04/27/17 12:33 81 11 199/113 (141) 98 Room Air 04/27/17 10:36 99.3 138 20 168/113 (131) 100 Room Air Physical Exam GENERAL: Appearing tired, lying flat in bed with lights out. anxious NEURO: Alert. Normal speech. vacuum bottle assembler intact. Motor grossly normal. Strength 5/5 in extremities. SKIN: Warm and dry. No rashes or erythema. HEAD: Normocephalic. Atraumatic. EYES: PERRL. EOMI. No scleral icterus. No injection or drainage. ENT: No nasal drainage. Moist mucous membranes. NECK: Supple, trachea midline. No JVD or lymphadenopathy. No thyromegaly. CARDIOVASCULAR: Regular rate and rhythm without murmurs, rubs, or gallops. Peripheral pulses 2+. RESPIRATORY: Breath sounds clear to auscultation and equal bilaterally, without wheezes, rales, or rhonchi. No accessory muscle use. GASTROINTESTINAL: Abdomen soft, nontender, nondistended, normal BS. No organomegaly or masses. No rebound tenderness. No guarding. MUSCULOSKELETAL: No lower extremity edema. Normal range of motion. Laboratory Laboratory Tests Test 04/27/17 11:14 04/28/17 00:15 04/28/17 05:05 White Blood Count 12.5 12.6 Red Blood Count 4.71 4.25 Hemoglobin 10.6 9.2 Hematocrit 32.7 29.9 Mean Corpuscular Volume 69.5 70.3 Mean Corpuscular Hemoglobin 22.4 21.7 Mean Corpuscular Hemoglobin Concent 32.3 30.9 Red Cell Distribution Width 18.2 18.1 Platelet Count 542 463 Mean Platelet Volume 8.0 7.5 Neutrophils (%) (Auto) 75.0 77.1 Lymphocytes (%) (Auto) 16.8 15.7 Monocytes (%) (Auto) 6.2 5.3 Eosinophils (%) (Auto) 1.3 1.4 Basophils (%) (Auto) 0.7 0.5 Neutrophils # (Auto) 9.4 9.7 Lymphocytes # (Auto) 2.1 2.0 Monocytes # (Auto) 0.8 0.7 Eosinophils # (Auto) 0.2 0.2 Basophils # (Auto) 0.1 0.1 CBC Comment DIFF FINAL DIFF FINAL Differential Comment Erythrocyte Sedimentation Rate 45 Prothrombin Time 11.9 Prothromb Time International Ratio 1.1 Activated Partial Thromboplast Time 28.5 Blood Urea Nitrogen 8 8 Creatinine 1.06 0.76 Random Glucose 91 96 Total Protein 8.2 Albumin 3.8 Calcium Level 9.4 8.6 Alkaline Phosphatase 95 Aspartate Amino Transf (AST/SGOT) 45 Alanine Aminotransferase (ALT/SGPT) 105 Total Bilirubin 1.0 Sodium Level 132 136 Potassium Level 3.0 3.5 Chloride Level 98 102 Carbon Dioxide Level 23.3 26.1 Anion Gap 11 8 Estimat Glomerular Filtration Rate 71 105 C-Reactive Protein 3.80 Urine Color YELLOW Urine Turbidity HAZY Urine pH 6.5 Urine Specific [place] 1.011 Urine Protein TRACE Urine Glucose (UA) NEG Urine Ketones TRACE Urine Occult Blood NEG Urine Nitrite NEG Urine Bilirubin NEG Urine Urobilinogen LESS THAN 2.0 Urine Leukocyte Esterase SMALL Urine RBC 1 Urine WBC 8 Urine Squamous Epithelial Cells 2 Urine Amorphous Sediment RARE Urine Bacteria MANY Urine Hyaline Casts 1 Urine Mucus FEW Microscopic Urinalysis Comment CULTURE INDICATED Date/Time Source Procedure Growth Status 04/28/17 00:15 Urine Random Urine Urine Culture Pending Received Result Diagram: 04/28/17 0505 04/28/17 0505 Caprintoby VTE Risk Assessment Francoisrini VTE Risk Assessment: No/Low Risk (score <= 1) Caprini Risk Assessment Model Point Value = 1 Point Value = 2 Point Value = 3 Point Value = 5 Age 41-60 Minor surgery BMI > 25 kg/m2 Swollen legs Varicose veins or History of unexplained or recurrent spontaneous Oral contraceptives or hormone replacement Sepsis (< 1 month) Serious lung disease, including pneumonia (< 1 month) Abnormal pulmonary function Acute myocardial infarction Congestive heart failure (< 1 month) History of inflammatory bowel disease Medical patient at bed rest Age 61-74 Arthroscopic surgery Major open surgery (> 45 min) Laparoscopic surgery (> 45 min) Malignancy Confined to bed (> 72 hours) Immobilizing plaster cast Central venous access Age >= 75 History of VTE Family history of VTE Factor V Leiden Prothrombin [id number] Lupus anticoagulant Anticardiolipin antibodies Elevated serum homocysteine Heparin-induced thrombocytopenia Other congenital or acquired thrombophilia Stroke (< 1 month) Elective arthroplasty Hip, pelvis, or leg fracture Acute spinal cord injury (< 1 month) Prophylaxis Regimen Total Risk Factor Score Risk Level Prophylaxis Regimen 0-1 Low Early ambulation 2 Moderate Order ONE of the following: *Sequential Compression Device (SCD) *Heparin 5000 units SQ BID 3-4 Higher Order ONE of the following medications: *Heparin 5000 units SQ TID *Enoxaparin/Lovenox 40 mg SQ daily (WT < 150 kg, CrCl > 30 mL/min) *Enoxaparin/Lovenox 30 mg SQ daily (WT < 150 kg, CrCl > 10-29 mL/min) *Enoxaparin/Lovenox 30 mg SQ BID (WT < 150 kg, CrCl > 30 mL/min) AND/OR *Sequential Compression Device (SCD) 5 or more Highest Order ONE of the following medications: *Heparin 5000 units SQ TID (Preferred with Epidurals) *Enoxaparin/Lovenox 40 mg SQ daily (WT < 150 kg, CrCl > 30 mL/min) *Enoxaparin/Lovenox 30 mg SQ daily (WT < 150 kg, CrCl > 10-29 mL/min) *Enoxaparin/Lovenox 30 mg SQ BID (WT < 150 kg, CrCl > 30 mL/min) AND *Sequential Compression Device (SCD) Assessment and Plan Assessment and Plan Very pleasant 37 year old woman being admitted with features consistent with severe pseudotumor cerebri. Problem List: (1) Pseudotumor cerebri ICD Codes: G93.2 - Benign intracranial hypertension Status: Chronic Plan: - Dr. Dykes discussed case with IR as well as Dr. Dumont, neurosurgery. had LP for opening pressure and for symptomatic relief for patient. Consult placed to Dr. Dumont as patient is known to him - Patient to be NPO until LP and evaluation by neurosurgery - Morphine 4 mg IV q4h prn pain - Zofran as needed for nausea - Consider need for medical therapy ie carbonic anhydrase inhibitors or diuretic therapy after resolution of acute symptoms unless symptoms are adequately controlled with repair of LP shunt (2) Lumboperitoneal shunt leak ICD Codes: T85.635A - Leakage of other nervous system device, implant or graft , initial encounter Status: Acute Plan: Neurosurgery consulted Plan as above (3) HTN (hypertension) ICD Codes: I10 - Essential (primary) hypertension Status: Chronic Plan: Continue labetalol 10 mg IV prn BP > 180/100 Vitals q4h (4) Leukocytosis ICD Codes: D72.829 - Elevated white blood cell count, unspecified Status: Acute Plan: Consider secondary to stress reaction Not suspecting meningitis at this time Patient does complain of neck pain and vague symptoms of stiffness but without fevers and neck supple on examination UA ordered CXR normal Continue to monitor clinically (5) AGUS (acute kidney injury) ICD Codes: N17.9 - Acute kidney failure, unspecified Status: Acute Plan: Likely pre-renal due to dehydration Continue MIVF Continue to monitor renal function (6) Hypokalemia ICD Codes: E87.6 - Hypokalemia Status: Acute Plan: 3.0 on admission KCl 40 mEq IV ordered Continue to monitor (7) Hyponatremia ICD Codes: E87.1 - Hypo-osmolality and hyponatremia Status: Acute Plan: Continue NS at 125 cc/hr (8) Anemia ICD Codes: D64.9 - Anemia, unspecified Status: Acute Plan: Hgb 10.6 on admission Microcytic Continue to monitor can investigate if Fe deficient (9) Nutrition, metabolism, and development symptoms ICD Codes: R63.8 - Other symptoms and signs concerning food and fluid intake Status: Acute Plan: Fluids: NS at 125 cc/hr Electrolytes: as above, continue to monitor Nutrition: NPO DVT ppx: b/l SCDs, no chemical anticoagulation ahead of LP and possible neurosurgical intervention Problem Qualifiers (1) Lumboperitoneal shunt leak: Qualified Codes: T85.635A - Leakage of other nervous system device, implant or graft, initial encounter (2) HTN (hypertension): Qualified Codes: I15.8 - Other secondary hypertension (3) Leukocytosis: Qualified Codes: D72.829 - Elevated white blood cell count, unspecified (4) Anemia: Qualified Codes: D64.9 - Anemia, unspecified Cheryl Cuevas MD Apr 28, 2017 09:34
[2017-04-28] MEDS ORDERED: LORazepam 1 MG TAB PO ONE ×2 (11:30)
[2017-04-28] MEDS: ENALAPRILAT 1.25 MG/ML VIAL IV PUSH PRN ×2 (11:37)
[2017-04-28] MEDS ORDERED: SODIUM CHLOR 0.9% 250 ML INJ 250 ML ONE ×2 (14:34)
[2017-04-28] MEDS ORDERED: VANCOMYCIN HCL 1000 MG VIAL ONE ×2 (14:34)
[2017-04-28] MEDS ORDERED: ACETAMINOPHEN 325 MG TAB PO PRN ×2 (14:45)
[2017-04-28] MEDS ORDERED: SODIUM CHLORIDE 0.9% FLUSH 5 ML FLUSH IVF PRN ×2 (14:45)
[2017-04-28] MEDS ORDERED: NS + KCL 20 MEQ INJ 1,000 ML ONE ×2 (15:49)
[2017-04-28] MEDS ORDERED: DO NOT ADM ANY ANTICOAGULANT DRUGS PRN ×2 (16:07)
[2017-04-28] MEDS: NS + KCL 20 MEQ INJ 1,000 ML IV SCH ×2 (16:30)
[2017-04-28] MEDS ORDERED: niCARdipine 25 MG/NS 250 ML Vial2Bag or IV room IV PRN ×4 (16:45)
--- NOTE | 2017-04-28 17:04 | PD.OP ---
Operative Report Date of Surgery: Apr 28, 2017 Preoperative Diagnosis: Pseudotumor cerebri Postoperative Diagnosis: Pseudotumor cerebri Procedure: Ventriculoperitoneal shunt Anesthesia: general Surgeon: Shreyas Dumont Endoscopy Registered Nurse(s): Tracey Noel Operation and Findings: INTRAOPERATIVE FINDINGS:~ Clear cerebrospinal fluid with an opening pressure of 190 mm of water. INDICATIONS FOR PROCEDURE: Ms Landis is a 37 year old male with history of pseudotumor cerebri and a non functional lumbar peritoneal shunt who presented with intractable headaches and papiledema. She underwent evaluation with a lumbar puncture and cerebrospinal fluid pressured of 450 mm H20 and improvement in her symptoms . A ventriculoperitoneal shunt was indicated The [id number] details of the procedure, its indications, alternatives, risks , and potential complications of the surgery were fully discussed with the patient and his family. They fully understood. All their questions were answered. No guarantees were given. They voiced requesting the surgery and signed informed consent.They were offered the alternative of continuing nonsurgical treatment. DETAILS OF THE SURGICAL PROCEDURE: After the induction of general anesthesia, endotracheal intubation was performed. A Ybarra catheter, bilateral MATA hose and sequential compression devices were placed and kept throughout the procedure. The patient was positioned supine on a 30-80 table with the head over a gel doughnut. All pressure points were carefully padded with eggcrate mattress. The right frontotemporal parietal area was shaved prepped and draped in the usual sterile fashion, as well as the neck, chest and abdomen. A small incision was made in the patient's right upper quadrant with a #10 blade and the dissection was carried out through the subcutaneous tissue and Marga's fascia. The rectus sheath was carefully opened with Metzenbaum scissors and the rectus muscles were split along its fibers. The posterior rectus sheath was elevated and carefully opened. The peritoneum was elevated with mosquitoes and opened in the standard fashion. The peritoneal cavity was visualized and exposed. A pursestring suture was placed around the peritoneal opening. Using a tunneler a subcutaneous tunnel was created connecting the abdominal incision with the planned head incision. A small incision was made in the right frontal area and a self-retaining retractor was placed in the incision. An entry point for the catheter was selected 90 mm posterior to the supraorbital rim and 25 mm lateral to the midline. A Midas Alexander was used to create the justina hole. The dura was coagulated with the bipolar in a cruciform fashion. A peritoneal catheter was placed in the subcutaneous tunnel previously created and a pocket was created underneath the galea for placement of the valve. A [employer] programmable valve has calibrated at a pressure of 120 mmHg and flushed according to the market consultant's instructions. The valve was secured to the proximal end of the peritoneal catheter using a 2-0 silk. Then, a ventricular catheter was advanced into the ventricular system. A good flow of cerebrospinal fluid was obtained. The catheter was connected to the valve and the connection secured with a 2-0 silk. Cerebrospinal fluid was noted to drip through the distal end of the peritoneal catheter. The peritoneal catheter was placed in the peritoneal cavity under direct visualization. The pursestring suture was carefully adjusted with special care not to strangulate the catheter. The rectus sheath was closed using interrupted 2-0 Vicryl suture. The Marga's fascia was approximated with 3-0 Vicryl, and the subcutaneous with 3-0 Vicryl. The skin was closed with running subcuticular 4-0 Vicryl in the abdomen. The skin incision was closed using interrupted 3-0 Vicryl for the galea and yari to the skin. At the end of the procedure, the sponge, needle and instrument counts were all correct. The estimated blood was less than 50 cc. No blood transfusion was given. No intraoperative complications occurred. The patient received preoperative prophylactic antibiotics. The patient was then extubated and transferred to the recovery room in stable condition. Shreyas Dumont MD Apr 28, 2017 17:04
[2017-04-28 17:45] LABS: TOTAL PROTEIN,CSF 16.7 MG/DL (15.0-45.0)
--- NOTE | 2017-04-28 19:23 | PD.CONS ---
HPI Service Critical Care Medicine Consult Requested By Primary Care Physician No Primary Care Physician History of Present Illness 37 year old female with history of pseudotumor cerebri and a non functional lumbar peritoneal shunt presented with intractable headaches and papiledema. She underwent evaluation with a lumbar puncture and cerebrospinal fluid pressured of 450 mm H20 and improvement in her symptoms. She underwent a ventriculoperitoneal shunt placement by Dr. Dumont. Review of Systems Constitutional: DENIES: Diaphoretic episodes, Fatigue, Fever, Weight gain, Weight loss, Chills, Dizziness, Change in appetite, Night Sweats Endocrine: DENIES: Abnorml menstrual pattern, Heat/cold intolerance, Polydipsia , Polyuria, Polyphagia Eyes: COMPLAINS OF: Blurred vision, DENIES: Diplopia, Eye inflammation, Eye pain, Vision loss, Photosensitivity, Double Vision Ears, nose, mouth, throat: DENIES: Tinnitus, Hearing loss, Vertigo, Nasal discharge, Oral lesions, Throat pain, Hoarseness, Ear Pain, Running Nose, Epistaxis, Sinus Pain, Toothache, Odynophagia Respiratory: DENIES: Apneas, Cough, Snoring, Wheezing, Hemoptysis, Sputum production, Shortness of breath Cardiovascular: DENIES: Chest pain, Palpitations, Syncope, Dyspnea on Exertion , PND, Lower Extremity Edema, Orthopnea, Claudication Gastrointestinal: DENIES: Abdominal pain, Black stools, Bloody stools, Constipation, Diarrhea, Nausea, Vomiting, Difficulty Swallowing, Anorexia Genitourinary: DENIES: Abnormal vaginal bleeding, Dysmenorrhea, Dyspareunia, Sexual dysfunction, Urinary frequency, Urinary incontinence, Urgency, Hematuria , Dysuria, Nocturia, Vaginal discharge Musculoskeletal: DENIES: Joint pain, Muscle aches, Stiffness, Joint Swelling, Back pain, Neck pain Integumentary: DENIES: Abnormal pigmentation, Pruritus, Rash, Nail changes, Breast masses, Breast skin changes, Nipple discharge Hematologic/lymphatic: DENIES: Bruising, Lymphadenopathy Immunologic/allergic: DENIES: Eczema, Urticaria Neurologic: COMPLAINS OF: Headache, DENIES: Abnormal gait, Localized weakness, Paresthesias, Seizures, Speech Problems, Tremor, Poor Balance Psychiatric: DENIES: Anxiety, Confusion, Mood changes, Depression, Hallucinations, Agitation, Suicidal Ideation, Homicidal Ideation, Delusions Past Family Social History Allergies: Coded Allergies: amoxicillin (Unverified Allergy, Mild, Hives, 04/09/17) Past Medical History HTN Pseudotumor cerebri Past Surgical History Cholecystectomy CXN and BTL LP shunt placement Reported Medications Reported Meds & Active Scripts Active Tylenol (Acetaminophen) 325 Mg Tab 650 Mg PO Q6H PRN Active Ordered Medications Current Medications Medications (Trade) Dose Ordered Sig/David Route PRN Reason Start Time Stop Time Status Last Admin Dose Admin Ondansetron HCl (Zofran Inj) 4 mg Q6H PRN IVP NAUSEA OR VOMITING 04/27/17 14:45 04/28/17 09:24 Naloxone HCl (Narcan Inj) 0.4 mg UNSCH PRN IV PUSH SEE LABEL COMMENTS 04/27/17 14:45 Metoprolol Tartrate (Lopressor) 25 mg TRANSPORTATION SUPERINTENDENT PRN PO SEE LABEL COMMENTS 04/27/17 22:30 04/30/17 22:29 Povidone Iodine (Betadine 5% Antisepsis Kit) 1 applic TRANSPORTATION SUPERINTENDENT PRN EACH NARE SEE LABEL COMMENTS 04/27/17 22:30 04/30/17 22:29 Chlorhexidine Gluconate (Chlorhexidine 2% Cloth) 3 pack TRANSPORTATION SUPERINTENDENT PRN TOPICAL SEE LABEL COMMENTS 04/27/17 22:30 04/30/17 22:29 Insulin Human Regular (NovoLIN R INJ) See Protocol Table ... TRANSPORTATION SUPERINTENDENT PRN SQ SEE PROTOCOL TABLE 04/27/17 22:30 04/30/17 22:29 Clonidine (Catapres) 0.1 mg Q6H PRN PO SBP> OR = 180, DBP> OR = 100 04/28/17 05:15 04/28/17 05:27 Enalaprilat (Vasotec Inj) 1.25 mg Q6H PRN IV PUSH BP > 180/90 04/28/17 09:45 04/28/17 11:37 Potassium Chloride/Sodium Chloride 1,000 ml @ 100 mls/hr Q10H IV 04/28/17 14:39 04/29/17 01:23 IV Flush (NS Flush) 2 ml UNSCH PRN IVF FLUSH AFTER USING IV ACCESS 04/28/17 14:45 IV Flush (NS Flush) 2 ml BID IVF 04/28/17 21:00 Cefazolin Sodium/ Dextrose 50 ml @ 100 mls/hr Q8H IV 04/28/17 23:00 04/29/17 15:29 11/1/17 23:01 Pantoprazole Sodium (Protonix Inj) 40 mg DAILY IVP 04/29/17 09:00 Acetaminophen/ Hydrocodone Bitart ([place] 10-325 Mg) 1 tab Q4H PRN PO PAIN SCALE 1 TO 5 04/28/17 14:45 Acetaminophen/ Hydrocodone Bitart ([place] 10-325 Mg) 2 tab Q4H PRN PO PAIN SCALE 6 TO 10 04/28/17 14:45 Morphine Sulfate (Morphine Inj) 2 mg Q2H PRN IV PUSH PAIN SCALE 1 TO 6 04/28/17 14:45 Morphine Sulfate (Morphine Inj) 4 mg Q2H PRN IV PUSH PAIN SCALE 7 TO 10 04/28/17 14:45 Acetaminophen (Tylenol) 650 mg Q4H PRN PO TEMPERATURE > 101.5 F 04/28/17 14:45 Miscellaneous Information ALL NURSING DEPARTME... UNSCH PRN .XX SEE LABEL COMMENTS 04/28/17 16:07 04/29/17 16:06 Labetalol HCl 500 mg/Sodium Chloride 250 ml @ 60 mls/hr TITRATE PRN IV Blood pressure management 04/28/17 19:30 04/29/17 00:38 Family History Mother: history of multiple CVAs, HTN Father: from a gunshot wound when patient was 4 years of age Social History Tobacco: denies Etoh: social occasions only Illicit drug use: denies Lives with and two children No PCP Physical Exam Vital Signs Vital Signs Date Time Temp Pulse Resp B/P (MAP) Pulse Ox O2 Delivery O2 Flow Rate FiO2 04/28/17 18:00 106 17 125/67 (86) 98 Nasal Cannula 2 137/65 (89) 04/28/17 17:45 106 16 124/76 (92) 100 Nasal Cannula 2 141/67 (91) 04/28/17 17:30 106 16 125/67 (86) 95 Nasal Cannula 2 146/73 (97) 04/28/17 17:15 106 16 127/71 (89) 100 Nasal Cannula 2 143/72 (95) 04/28/17 17:00 100 16 125/70 (88) 100 Nasal Cannula 2 149/73 (98) 04/28/17 16:45 103 16 127/73 (91) 100 Nasal Cannula 2 153/75 (101) 04/28/17 16:30 99 16 127/73 (91) 100 Nasal Cannula 2 158/74 (102) 04/28/17 16:15 101 16 131/67 (88) 99 Nasal Cannula 2 04/28/17 16:07 98.1 108 16 130/68 (88) 98 Nasal Cannula 2 04/28/17 16:07 108 130/68 04/28/17 16:07 106 147/71 04/28/17 11:46 98.8 100 19 187/102 (130) 99 04/28/17 11:46 184/105 (131) 04/28/17 11:43 18 04/28/17 07:57 98.5 98 19 167/113 (131) 99 04/28/17 04:20 97.1 99 16 173/107 (129) 100 04/28/17 00:30 98.0 95 16 168/104 (125) 98 04/27/17 19:41 96.7 112 19 158/97 (117) 98 Physical Exam GENERAL: Well-nourished, well-developed patient. SKIN: Warm and dry. HEAD: Normocephalic. EYES: No scleral icterus. No injection or drainage. NECK: Supple, trachea midline. No JVD or lymphadenopathy. CARDIOVASCULAR: Regular rate and rhythm without murmurs, gallops, or rubs. RESPIRATORY: Breath sounds equal bilaterally. No accessory muscle use. GASTROINTESTINAL: Abdomen soft, non-tender, nondistended. MUSCULOSKELETAL: No cyanosis, or edema. BACK: Nontender without obvious deformity. NEURO EXAM: Mental Status: The patient is alert and oriented to person, place, and time with normal speech. Cranial Nerves: Visual acuity intact bilaterally. Visual moise normal in all quadrants. Pupils are round, reactive to light. Extraocular movements are intact without ptosis. Hearing is normal bilaterally. Voice is normal. Tongue protrudes midline and moves symmetrically. Reflexes: Biceps, patellar, and Achilles are 2/4 bilaterally. No clonus. Laboratory Laboratory Tests Test 04/28/17 00:15 04/28/17 05:05 04/28/17 15:00 Urine Color YELLOW Urine Turbidity HAZY Urine pH 6.5 Urine Specific [place] 1.011 Urine Protein TRACE Urine Glucose (UA) NEG Urine Ketones TRACE Urine Occult Blood NEG Urine Nitrite NEG Urine Bilirubin NEG Urine Urobilinogen LESS THAN 2.0 Urine Leukocyte Esterase SMALL Urine RBC 1 Urine WBC 8 Urine Squamous Epithelial Cells 2 Urine Amorphous Sediment RARE Urine Bacteria MANY Urine Hyaline Casts 1 Urine Mucus FEW Microscopic Urinalysis Comment CULTURE INDICATED White Blood Count 12.6 Red Blood Count 4.25 Hemoglobin 9.2 Hematocrit 29.9 Mean Corpuscular Volume 70.3 Mean Corpuscular Hemoglobin 21.7 Mean Corpuscular Hemoglobin Concent 30.9 Red Cell Distribution Width 18.1 Platelet Count 463 Mean Platelet Volume 7.5 Neutrophils (%) (Auto) 77.1 Lymphocytes (%) (Auto) 15.7 Monocytes (%) (Auto) 5.3 Eosinophils (%) (Auto) 1.4 Basophils (%) (Auto) 0.5 Neutrophils # (Auto) 9.7 Lymphocytes # (Auto) 2.0 Monocytes # (Auto) 0.7 Eosinophils # (Auto) 0.2 Basophils # (Auto) 0.1 CBC Comment DIFF FINAL Differential Comment Blood Urea Nitrogen 8 Creatinine 0.76 Random Glucose 96 Calcium Level 8.6 Sodium Level 136 Potassium Level 3.5 Chloride Level 102 Carbon Dioxide Level 26.1 Anion Gap 8 Estimat Glomerular Filtration Rate 105 CSF Glucose 67 CSF Total Protein 16.7 Date/Time Source Procedure Growth Status 04/28/17 15:00 Cerebral Spinal Fluid Shunt Fluid Gram Stain - Final Resulted 04/28/17 15:00 Cerebral Spinal Fluid Shunt Fluid CSF Culture Pending Resulted 04/28/17 00:15 Urine Random Urine Urine Culture Pending Received Result Diagram: 04/28/17 0505 04/28/17 0505 Assessment and Plan Assessment and Plan Pseudotumor cerebri - Status post MILL TENDER WARM UP shunt placement by Dr. Dumont - Management per neurosurgeon - Morphine 4 mg IV q4h prn pain - Zofran as needed for nausea Hypertension - With tachycardia - Change Cardene drip to labetalol drip - Labetalol by mouth - SBP goal less than 140 Acute kidney injury - Dehydration - IV fluid resuscitation - Monitor I's and O's while in the ICU - Monitor electrolytes and creatinine levels Leukocytosis - Reactive - No signs of systemic infection - Follow-up cultures - No antibiotics indicated at this time Hyponatremia - Volume replacement with normal saline Anemia - Microcytic - Ferrous sulfate DVT GI prophylaxis - Teds SCDs - Early aggressive mobilization - Pharmacological DVT prophylaxis per neurosurgeon - Regular diet Critical Care: The total critical care time was 35 minutes. Time to perform other separately billable procedures was not included in the critical care time. Vishnu Smith MD Apr 28, 2017 7:23 pm
[2017-04-28] MEDS ORDERED: LABETALOL HCL 100 MG/20 ML VIAL IV PUSH ONE ×2 (19:30)
[2017-04-28 19:48] LABS: CSF NEUTROPHILS 100 %
[2017-04-28 20:09] LABS: CSF LYMPHOCYTES 0 %; RBC TUBE #1 447 /MM3; SUPERNATE COLOR TUBE #1 CLEAR (CLEAR); WBC TUBE #1 5 /MM3 (0-10)
[2017-04-28] MEDS: SODIUM CHLORIDE 0.9% FLUSH 5 ML FLUSH IVF SCH ×2 (20:35)
[2017-04-28] MEDS: LABETALOL INJ 500 MG in SODIUM CHLORIDE 0.9% INJ 150 ML IV PRN ×4 (20:42)
[2017-04-28] MEDS: ceFAZolin 2 GM PREMIX 50 ML IV SCH ×2 (23:01)
[2017-04-29] VITALS (12 sets, daily range): BP systolic 122–151; BP diastolic 70–84; PULSE 71–90; RESP 14–16; TEMP 97.3–98.5; O2SAT 94–99
[2017-04-29] MEDS: LABETALOL INJ 500 MG in SODIUM CHLORIDE 0.9% INJ 150 ML IV PRN ×8 (00:38→04:32)
[2017-04-29] MEDS: NS + KCL 20 MEQ INJ 1,000 ML IV SCH ×6 (01:23→20:38)
[2017-04-29] MEDS: MORPHINE SULFATE 4 MG/ML INJ IV PUSH PRN ×4 (02:40→05:17)
[2017-04-29] MEDS: ONDANSETRON HCL 4 MG/2 ML VIAL IVP PRN ×2 (05:36)
[2017-04-29 05:57] LABS: AUTOMATED NEUTROPHIL # 9.8 TH/MM3 (1.8-7.7); BASOPHIL % 0.2 % (0.0-2.0); EOSINOPHIL % 0.2 % (0.0-4.0); HEMATOCRIT 25.7 % (35.0-46.0); HEMOGLOBIN 8.2 GM/DL (11.6-15.3); LYMPH % 10.5 % (9.0-44.0); LYMPHOCYTE # 1.2 TH/MM3 (1.0-4.8); MEAN CELL VOLUME 71.5 FL (80.0-100.0); MEAN CORPUSCULAR HEMOGLOBIN 22.6 PG (27.0-34.0); MEAN CORPUSCULAR HGB CONC 31.7 % (32.0-36.0); MEAN PLATELET VOLUME 7.4 FL (7.0-11.0); MONO % 4.8 % (0.0-8.0); MONOCYTE # 0.6 TH/MM3 (0-0.9); NEUT % 84.3 % (16.0-70.0); PLATELET COUNT 402 TH/MM3 (150-450); RED CELL DISTRIBUTION WIDTH 18.2 % (11.6-17.2); WHITE BLOOD COUNT 11.7 TH/MM3 (4.0-11.0)
--- NOTE | 2017-04-29 06:01 | RADRPT ---
EXAM DATE/TIME: 04/29/2017 04:48 [facility] COMPARISON: CT BRAIN W/O CONTRAST, April 27, 2017, 11:16. INDICATIONS : Follow up shunt adjustment. RADIATION DOSE: 40.17 CTDIvol (mGy) MEDICAL HISTORY : Hypertension. SURGICAL HISTORY : Cholecystectomy. Tubal ligation. section.LP shunt ENCOUNTER: Subsequent ACUITY: 3 days PAIN SCALE: Non-responsive LOCATION: cranial TECHNIQUE: Multiple contiguous axial images were obtained of the head. Using automated exposure control and adj ustment of the mA and/or kV according to patient size, radiation dose was kept as low as reasonably a chievable to obtain optimal diagnostic quality images. DICOM format image data is available electro nically for review and comparison. FINDINGS: There is been interval placement of a ventricular shunt which enters the right frontal region and microsoft dynamics ax developer sses the frontal horn of left lateral ventricle. Ventricular size and configuration is stable. Minima l pneumocephalus is present post procedure. No evidence of hemorrhage. Shunt tubing then traverses th e right scalp down into the posterior right neck. In yari are present. CONCLUSION: Interval ventricular shunt placement as above Wilian Lewis MD on April 29, 2017 at 5:57 Board Certified Radiologist. This report was verified electronically.
--- NOTE | 2017-04-29 06:01 | RADRPT ---
EXAM DATE/TIME: 04/29/2017 04:48 [facility] COMPARISON: CT BRAIN W/O CONTRAST, April 27, 2017, 11:16. INDICATIONS : Follow up shunt adjustment. RADIATION DOSE: 40.17 CTDIvol (mGy) MEDICAL HISTORY : Hypertension. SURGICAL HISTORY : Cholecystectomy. Tubal ligation. section.LP shunt ENCOUNTER: Subsequent ACUITY: 3 days PAIN SCALE: Non-responsive LOCATION: cranial TECHNIQUE: Multiple contiguous axial images were obtained of the head. Using automated exposure control and adj ustment of the mA and/or kV according to patient size, radiation dose was kept as low as reasonably a chievable to obtain optimal diagnostic quality images. DICOM format image data is available electro nically for review and comparison. FINDINGS: There is been interval placement of a ventricular shunt which enters the right frontal region and crop ranch hand sses the frontal horn of left lateral ventricle. Ventricular size and configuration is stable. Minima l pneumocephalus is present post procedure. No evidence of hemorrhage. Shunt tubing then traverses th e right scalp down into the posterior right neck. In yari are present. CONCLUSION: Interval ventricular shunt placement as above Wilian Lewis MD on April 29, 2017 at 5:57 Board Certified Radiologist. This report was verified electronically.
[2017-04-29 06:22] LABS: BICARBONATE 24.7 MEQ/L (21.0-32.0); CALCIUM 8.3 MG/DL (8.5-10.1); CREATININE 0.82 MG/DL (0.50-1.00)
[2017-04-29] MEDS: ceFAZolin 2 GM PREMIX 50 ML IV SCH ×4 (06:50→16:09)
[2017-04-29] MEDS: PANTOPRAZOLE SODIUM 40 MG VIAL IVP SCH ×2 (08:38)
[2017-04-29] MEDS: LABETALOL HCL 200 MG TAB PO SCH ×4 (08:38→20:37)
[2017-04-29] MEDS: SODIUM CHLORIDE 0.9% FLUSH 5 ML FLUSH IVF SCH ×4 (09:00→20:37)
--- NOTE | 2017-04-29 09:02 | HHI.NSPN ---
(Ani Langley) Note Status Status: Progress Note (Ani Langley) Interval History Interval History Ms. Landis is a 37-year-old female with a history of idiopathic intracranial hypertension who underwent placement of a lumboperitoneal shunt in 2009. She was doing well until recently she developed recurrent headaches with nausea, vomiting, and blurry vision. She denies fevers and chills. She underwent a CT head which was unremarkable. She underwent a shunt series of her lumbar peritoneal shunt which shows detachment of the catheter from the device. A neurosurgical evaluation was requested. 04/29: s/p placement of ventriculoperitoneal shunt on 04/28/17. on labetolol drip for hypertension and tachycardia. pt reports headaches improved, has mild nausea. eating her breakfast. (Ani Langley) Labs, Micro, & Vital Signs Results Date Time Temp Pulse Resp B/P (MAP) Pulse Ox O2 Delivery O2 Flow Rate FiO2 04/29/17 06:00 84 04/29/17 04:00 98.3 88 16 142/72 (95) 99 04/29/17 04:00 88 04/29/17 02:00 85 04/29/17 00:00 98.2 90 14 138/70 (92) 99 04/29/17 00:00 85 04/28/17 22:06 98 21 04/28/17 22:00 108 04/28/17 20:00 116 04/28/17 20:00 98.7 116 16 119/65 (83) 98 04/28/17 19:30 98.6 118 18 126/61 (82) 98 Nasal Cannula 2 130/69 (89) 04/28/17 19:00 121 18 128/68 (88) 98 Nasal Cannula 2 133/70 (91) 04/28/17 18:45 141 18 98 04/28/17 18:30 122 17 126/74 (91) 98 Nasal Cannula 2 148/73 (98) 04/28/17 18:15 112 17 130/63 (85) 98 Nasal Cannula 2 141/65 (90) 04/28/17 18:00 106 17 125/67 (86) 98 Nasal Cannula 2 137/65 (89) 04/28/17 17:45 106 16 124/76 (92) 100 Nasal Cannula 2 141/67 (91) 04/28/17 17:30 106 16 125/67 (86) 95 Nasal Cannula 2 146/73 (97) 04/28/17 17:15 106 16 127/71 (89) 100 Nasal Cannula 2 143/72 (95) 04/28/17 17:00 100 16 125/70 (88) 100 Nasal Cannula 2 149/73 (98) 04/28/17 16:45 103 16 127/73 (91) 100 Nasal Cannula 2 153/75 (101) 04/28/17 16:30 99 16 127/73 (91) 100 Nasal Cannula 2 158/74 (102) 04/28/17 16:15 101 16 131/67 (88) 99 Nasal Cannula 2 04/28/17 16:07 98.1 108 16 130/68 (88) 98 Nasal Cannula 2 04/28/17 16:07 108 130/68 04/28/17 16:07 106 147/71 04/28/17 11:46 98.8 100 19 187/102 (130) 99 04/28/17 11:46 184/105 (131) 04/28/17 11:43 18 Constitutional Vital Signs Date Time Temp Pulse Resp B/P (MAP) Pulse Ox O2 Delivery O2 Flow Rate FiO2 04/29/17 06:00 84 04/29/17 04:00 98.3 88 16 142/72 (95) 99 04/29/17 04:00 88 04/29/17 02:00 85 04/29/17 00:00 98.2 90 14 138/70 (92) 99 04/29/17 00:00 85 04/28/17 22:06 98 21 04/28/17 22:00 108 04/28/17 20:00 116 04/28/17 20:00 98.7 116 16 119/65 (83) 98 04/28/17 19:30 98.6 118 18 126/61 (82) 98 Nasal Cannula 2 130/69 (89) 04/28/17 19:00 121 18 128/68 (88) 98 Nasal Cannula 2 133/70 (91) 04/28/17 18:45 141 18 98 04/28/17 18:30 122 17 126/74 (91) 98 Nasal Cannula 2 148/73 (98) 04/28/17 18:15 112 17 130/63 (85) 98 Nasal Cannula 2 141/65 (90) 04/28/17 18:00 106 17 125/67 (86) 98 Nasal Cannula 2 137/65 (89) 04/28/17 17:45 106 16 124/76 (92) 100 Nasal Cannula 2 141/67 (91) 04/28/17 17:30 106 16 125/67 (86) 95 Nasal Cannula 2 146/73 (97) 04/28/17 17:15 106 16 127/71 (89) 100 Nasal Cannula 2 143/72 (95) 04/28/17 17:00 100 16 125/70 (88) 100 Nasal Cannula 2 149/73 (98) 04/28/17 16:45 103 16 127/73 (91) 100 Nasal Cannula 2 153/75 (101) 04/28/17 16:30 99 16 127/73 (91) 100 Nasal Cannula 2 158/74 (102) 04/28/17 16:15 101 16 131/67 (88) 99 Nasal Cannula 2 04/28/17 16:07 98.1 108 16 130/68 (88) 98 Nasal Cannula 2 04/28/17 16:07 108 130/68 04/28/17 16:07 106 147/71 04/28/17 11:46 98.8 100 19 187/102 (130) 99 04/28/17 11:46 184/105 (131) 04/28/17 11:43 18 (Ani Langley) Review of Systems Constitutional: DENIES: Fever, Chills Eyes: COMPLAINS OF: Blurred vision Gastrointestinal: COMPLAINS OF: Nausea Neurologic: COMPLAINS OF: Headache (mild and improved) (Ani Langley) Physical Exam Ms. Landis is alert, awake and oriented to time, place and person. Speech is fluent. Eating her breakfast. Surgical incision with clean, dry dressing. Cranial nerve examination: pupils 4 mm equal, round and reactive to light. Extra-ocular movements are intact. Facial motor and sensory function are normal and symmetrical. Neck is soft and supple Motor: moving all four extremities well (Ani Langley) Medications Current Medications Current Medications Medications (Trade) Dose Ordered Sig/David Route PRN Reason Start Time Stop Time Status Last Admin Dose Admin Ondansetron HCl (Zofran Inj) 4 mg Q6H PRN IVP NAUSEA OR VOMITING 04/27/17 14:45 04/29/17 05:36 Naloxone HCl (Narcan Inj) 0.4 mg UNSCH PRN IV PUSH SEE LABEL COMMENTS 04/27/17 14:45 Metoprolol Tartrate (Lopressor) 25 mg WORKFORCE MANAGER PRN PO SEE LABEL COMMENTS 04/27/17 22:30 04/30/17 22:29 Povidone Iodine (Betadine 5% Antisepsis Kit) 1 applic WORKFORCE MANAGER PRN EACH NARE SEE LABEL COMMENTS 04/27/17 22:30 04/30/17 22:29 Chlorhexidine Gluconate (Chlorhexidine 2% Cloth) 3 pack WORKFORCE MANAGER PRN TOPICAL SEE LABEL COMMENTS 04/27/17 22:30 04/30/17 22:29 Insulin Human Regular (NovoLIN R INJ) See Protocol Table ... WORKFORCE MANAGER PRN SQ SEE PROTOCOL TABLE 04/27/17 22:30 04/30/17 22:29 Clonidine (Catapres) 0.1 mg Q6H PRN PO SBP> OR = 180, DBP> OR = 100 04/28/17 05:15 04/28/17 05:27 Enalaprilat (Vasotec Inj) 1.25 mg Q6H PRN IV PUSH BP > 180/90 04/28/17 09:45 04/28/17 11:37 Potassium Chloride/Sodium Chloride 1,000 ml @ 100 mls/hr Q10H IV 04/28/17 14:39 04/29/17 01:23 IV Flush (NS Flush) 2 ml UNSCH PRN IVF FLUSH AFTER USING IV ACCESS 04/28/17 14:45 IV Flush (NS Flush) 2 ml BID IVF 04/28/17 21:00 Cefazolin Sodium/ Dextrose 50 ml @ 100 mls/hr Q8H IV 04/28/17 23:00 04/29/17 15:29 04/29/17 06:50 Pantoprazole Sodium (Protonix Inj) 40 mg DAILY IVP 04/29/17 09:00 04/29/17 08:38 Acetaminophen/ Hydrocodone Bitart ([place] 10-325 Mg) 1 tab Q4H PRN PO PAIN SCALE 1 TO 5 04/28/17 14:45 Acetaminophen/ Hydrocodone Bitart ([place] 10-325 Mg) 2 tab Q4H PRN PO PAIN SCALE 6 TO 10 04/28/17 14:45 Morphine Sulfate (Morphine Inj) 2 mg Q2H PRN IV PUSH PAIN SCALE 1 TO 6 04/28/17 14:45 04/29/17 05:17 Morphine Sulfate (Morphine Inj) 4 mg Q2H PRN IV PUSH PAIN SCALE 7 TO 10 04/28/17 14:45 Acetaminophen (Tylenol) 650 mg Q4H PRN PO TEMPERATURE > 101.5 F 04/28/17 14:45 Miscellaneous Information ALL NURSING DEPARTME... UNSCH PRN .XX SEE LABEL COMMENTS 04/28/17 16:07 04/29/17 16:06 Labetalol HCl 500 mg/Sodium Chloride 250 ml @ 60 mls/hr TITRATE PRN IV Blood pressure management 04/28/17 19:30 04/29/17 04:32 Labetalol HCl (Trandate) 200 mg Q12HR PO 04/29/17 09:00 04/29/17 08:38 (Ani Langley) Medical Decision Making MDM Remarks 37 y/o female with idiopathic intracranial hypertension, with nonfunctioning lumboperitoneal shunt s/p placement of ventriculoperitoneal shunt 04/28/17 (Ani Langley) Plan Plan Remarks cont bp mgt per critical care clear to restart PT, OOB in chair supportive care antiemetics prn N/V SCDs and TEDs for DVT prophylaxis Protonix for GI proph (Ani Langley) Attending Statement The exam, history, and the medical decision-making described in the above note were completed with the assistance of the mid-level provider. I reviewed and agree with the findings presented. I attest that I had a [id number] encounter with the patient on the same day, and personally performed and documented my assessment and findings in the medical record. (Shreyas Dumont MD) Ani Langley Apr 29, 2017 09:02 Shreyas Dumont MD Apr 30, 2017 21:40
--- NOTE | 2017-04-29 09:02 | HHI.NSPN ---
(Ani Langley) Note Status Status: Progress Note (Ani Langley) Interval History Interval History Ms. Landis is a 37-year-old female with a history of idiopathic intracranial hypertension who underwent placement of a lumboperitoneal shunt in 2009. She was doing well until recently she developed recurrent headaches with nausea, vomiting, and blurry vision. She denies fevers and chills. She underwent a CT head which was unremarkable. She underwent a shunt series of her lumbar peritoneal shunt which shows detachment of the catheter from the device. A neurosurgical evaluation was requested. 04/29: s/p placement of ventriculoperitoneal shunt on 04/28/17. on labetolol drip for hypertension and tachycardia. pt reports headaches improved, has mild nausea. eating her breakfast. (Ani Langley) Labs, Micro, & Vital Signs Results Date Time Temp Pulse Resp B/P (MAP) Pulse Ox O2 Delivery O2 Flow Rate FiO2 04/29/17 06:00 84 04/29/17 04:00 98.3 88 16 142/72 (95) 99 04/29/17 04:00 88 04/29/17 02:00 85 04/29/17 00:00 98.2 90 14 138/70 (92) 99 04/29/17 00:00 85 04/28/17 22:06 98 21 04/28/17 22:00 108 04/28/17 20:00 116 04/28/17 20:00 98.7 116 16 119/65 (83) 98 04/28/17 19:30 98.6 118 18 126/61 (82) 98 Nasal Cannula 2 130/69 (89) 04/28/17 19:00 121 18 128/68 (88) 98 Nasal Cannula 2 133/70 (91) 04/28/17 18:45 141 18 98 04/28/17 18:30 122 17 126/74 (91) 98 Nasal Cannula 2 148/73 (98) 04/28/17 18:15 112 17 130/63 (85) 98 Nasal Cannula 2 141/65 (90) 04/28/17 18:00 106 17 125/67 (86) 98 Nasal Cannula 2 137/65 (89) 04/28/17 17:45 106 16 124/76 (92) 100 Nasal Cannula 2 141/67 (91) 04/28/17 17:30 106 16 125/67 (86) 95 Nasal Cannula 2 146/73 (97) 04/28/17 17:15 106 16 127/71 (89) 100 Nasal Cannula 2 143/72 (95) 04/28/17 17:00 100 16 125/70 (88) 100 Nasal Cannula 2 149/73 (98) 04/28/17 16:45 103 16 127/73 (91) 100 Nasal Cannula 2 153/75 (101) 04/28/17 16:30 99 16 127/73 (91) 100 Nasal Cannula 2 158/74 (102) 04/28/17 16:15 101 16 131/67 (88) 99 Nasal Cannula 2 04/28/17 16:07 98.1 108 16 130/68 (88) 98 Nasal Cannula 2 04/28/17 16:07 108 130/68 04/28/17 16:07 106 147/71 04/28/17 11:46 98.8 100 19 187/102 (130) 99 04/28/17 11:46 184/105 (131) 04/28/17 11:43 18 Constitutional Vital Signs Date Time Temp Pulse Resp B/P (MAP) Pulse Ox O2 Delivery O2 Flow Rate FiO2 04/29/17 06:00 84 04/29/17 04:00 98.3 88 16 142/72 (95) 99 04/29/17 04:00 88 04/29/17 02:00 85 04/29/17 00:00 98.2 90 14 138/70 (92) 99 04/29/17 00:00 85 04/28/17 22:06 98 21 04/28/17 22:00 108 04/28/17 20:00 116 04/28/17 20:00 98.7 116 16 119/65 (83) 98 04/28/17 19:30 98.6 118 18 126/61 (82) 98 Nasal Cannula 2 130/69 (89) 04/28/17 19:00 121 18 128/68 (88) 98 Nasal Cannula 2 133/70 (91) 04/28/17 18:45 141 18 98 04/28/17 18:30 122 17 126/74 (91) 98 Nasal Cannula 2 148/73 (98) 04/28/17 18:15 112 17 130/63 (85) 98 Nasal Cannula 2 141/65 (90) 04/28/17 18:00 106 17 125/67 (86) 98 Nasal Cannula 2 137/65 (89) 04/28/17 17:45 106 16 124/76 (92) 100 Nasal Cannula 2 141/67 (91) 04/28/17 17:30 106 16 125/67 (86) 95 Nasal Cannula 2 146/73 (97) 04/28/17 17:15 106 16 127/71 (89) 100 Nasal Cannula 2 143/72 (95) 04/28/17 17:00 100 16 125/70 (88) 100 Nasal Cannula 2 149/73 (98) 04/28/17 16:45 103 16 127/73 (91) 100 Nasal Cannula 2 153/75 (101) 04/28/17 16:30 99 16 127/73 (91) 100 Nasal Cannula 2 158/74 (102) 04/28/17 16:15 101 16 131/67 (88) 99 Nasal Cannula 2 04/28/17 16:07 98.1 108 16 130/68 (88) 98 Nasal Cannula 2 04/28/17 16:07 108 130/68 04/28/17 16:07 106 147/71 04/28/17 11:46 98.8 100 19 187/102 (130) 99 04/28/17 11:46 184/105 (131) 04/28/17 11:43 18 (Ani Langley) Review of Systems Constitutional: DENIES: Fever, Chills Eyes: COMPLAINS OF: Blurred vision Gastrointestinal: COMPLAINS OF: Nausea Neurologic: COMPLAINS OF: Headache (mild and improved) (Ani Langley) Physical Exam Ms. Landis is alert, awake and oriented to time, place and person. Speech is fluent. Eating her breakfast. Surgical incision with clean, dry dressing. Cranial nerve examination: pupils 4 mm equal, round and reactive to light. Extra-ocular movements are intact. Facial motor and sensory function are normal and symmetrical. Neck is soft and supple Motor: moving all four extremities well (Ani Langley) Medications Current Medications Current Medications Medications (Trade) Dose Ordered Sig/David Route PRN Reason Start Time Stop Time Status Last Admin Dose Admin Ondansetron HCl (Zofran Inj) 4 mg Q6H PRN IVP NAUSEA OR VOMITING 04/27/17 14:45 04/29/17 05:36 Naloxone HCl (Narcan Inj) 0.4 mg UNSCH PRN IV PUSH SEE LABEL COMMENTS 04/27/17 14:45 Metoprolol Tartrate (Lopressor) 25 mg NEWSPAPER DELIVERY COUNSELOR PRN PO SEE LABEL COMMENTS 04/27/17 22:30 04/30/17 22:29 Povidone Iodine (Betadine 5% Antisepsis Kit) 1 applic NEWSPAPER DELIVERY COUNSELOR PRN EACH NARE SEE LABEL COMMENTS 04/27/17 22:30 04/30/17 22:29 Chlorhexidine Gluconate (Chlorhexidine 2% Cloth) 3 pack NEWSPAPER DELIVERY COUNSELOR PRN TOPICAL SEE LABEL COMMENTS 04/27/17 22:30 04/30/17 22:29 Insulin Human Regular (NovoLIN R INJ) See Protocol Table ... NEWSPAPER DELIVERY COUNSELOR PRN SQ SEE PROTOCOL TABLE 04/27/17 22:30 04/30/17 22:29 Clonidine (Catapres) 0.1 mg Q6H PRN PO SBP> OR = 180, DBP> OR = 100 04/28/17 05:15 04/28/17 05:27 Enalaprilat (Vasotec Inj) 1.25 mg Q6H PRN IV PUSH BP > 180/90 04/28/17 09:45 04/28/17 11:37 Potassium Chloride/Sodium Chloride 1,000 ml @ 100 mls/hr Q10H IV 04/28/17 14:39 04/29/17 01:23 IV Flush (NS Flush) 2 ml UNSCH PRN IVF FLUSH AFTER USING IV ACCESS 04/28/17 14:45 IV Flush (NS Flush) 2 ml BID IVF 04/28/17 21:00 Cefazolin Sodium/ Dextrose 50 ml @ 100 mls/hr Q8H IV 04/28/17 23:00 04/29/17 15:29 04/29/17 06:50 Pantoprazole Sodium (Protonix Inj) 40 mg DAILY IVP 04/29/17 09:00 04/29/17 08:38 Acetaminophen/ Hydrocodone Bitart ([place] 10-325 Mg) 1 tab Q4H PRN PO PAIN SCALE 1 TO 5 04/28/17 14:45 Acetaminophen/ Hydrocodone Bitart ([place] 10-325 Mg) 2 tab Q4H PRN PO PAIN SCALE 6 TO 10 04/28/17 14:45 Morphine Sulfate (Morphine Inj) 2 mg Q2H PRN IV PUSH PAIN SCALE 1 TO 6 04/28/17 14:45 04/29/17 05:17 Morphine Sulfate (Morphine Inj) 4 mg Q2H PRN IV PUSH PAIN SCALE 7 TO 10 04/28/17 14:45 Acetaminophen (Tylenol) 650 mg Q4H PRN PO TEMPERATURE > 101.5 F 04/28/17 14:45 Miscellaneous Information ALL NURSING DEPARTME... UNSCH PRN .XX SEE LABEL COMMENTS 04/28/17 16:07 04/29/17 16:06 Labetalol HCl 500 mg/Sodium Chloride 250 ml @ 60 mls/hr TITRATE PRN IV Blood pressure management 04/28/17 19:30 04/29/17 04:32 Labetalol HCl (Trandate) 200 mg Q12HR PO 04/29/17 09:00 04/29/17 08:38 (Ani Langley) Medical Decision Making MDM Remarks 37 y/o female with idiopathic intracranial hypertension, with nonfunctioning lumboperitoneal shunt s/p placement of ventriculoperitoneal shunt 04/28/17 (Ani Langley) Plan Plan Remarks cont bp mgt per critical care clear to restart PT, OOB in chair supportive care antiemetics prn N/V SCDs and TEDs for DVT prophylaxis Protonix for GI proph (Ani Langley) Attending Statement The exam, history, and the medical decision-making described in the above note were completed with the assistance of the mid-level provider. I reviewed and agree with the findings presented. I attest that I had a [id number] encounter with the patient on the same day, and personally performed and documented my assessment and findings in the medical record. (Shreyas Dumont MD) Ani Langley Apr 29, 2017 09:02 Shreyas Dumont MD Apr 30, 2017 21:40
--- NOTE | 2017-04-29 09:02 | HHI.NSPN ---
(Ani Langley) Note Status Status: Progress Note (Ani Langley) Interval History Interval History Ms. Landis is a 37-year-old female with a history of idiopathic intracranial hypertension who underwent placement of a lumboperitoneal shunt in 2009. She was doing well until recently she developed recurrent headaches with nausea, vomiting, and blurry vision. She denies fevers and chills. She underwent a CT head which was unremarkable. She underwent a shunt series of her lumbar peritoneal shunt which shows detachment of the catheter from the device. A neurosurgical evaluation was requested. 04/29: s/p placement of ventriculoperitoneal shunt on 04/28/17. on labetolol drip for hypertension and tachycardia. pt reports headaches improved, has mild nausea. eating her breakfast. (Ani Langley) Labs, Micro, & Vital Signs Results Date Time Temp Pulse Resp B/P (MAP) Pulse Ox O2 Delivery O2 Flow Rate FiO2 04/29/17 06:00 84 04/29/17 04:00 98.3 88 16 142/72 (95) 99 04/29/17 04:00 88 04/29/17 02:00 85 04/29/17 00:00 98.2 90 14 138/70 (92) 99 04/29/17 00:00 85 04/28/17 22:06 98 21 04/28/17 22:00 108 04/28/17 20:00 116 04/28/17 20:00 98.7 116 16 119/65 (83) 98 04/28/17 19:30 98.6 118 18 126/61 (82) 98 Nasal Cannula 2 130/69 (89) 04/28/17 19:00 121 18 128/68 (88) 98 Nasal Cannula 2 133/70 (91) 04/28/17 18:45 141 18 98 04/28/17 18:30 122 17 126/74 (91) 98 Nasal Cannula 2 148/73 (98) 04/28/17 18:15 112 17 130/63 (85) 98 Nasal Cannula 2 141/65 (90) 04/28/17 18:00 106 17 125/67 (86) 98 Nasal Cannula 2 137/65 (89) 04/28/17 17:45 106 16 124/76 (92) 100 Nasal Cannula 2 141/67 (91) 04/28/17 17:30 106 16 125/67 (86) 95 Nasal Cannula 2 146/73 (97) 04/28/17 17:15 106 16 127/71 (89) 100 Nasal Cannula 2 143/72 (95) 04/28/17 17:00 100 16 125/70 (88) 100 Nasal Cannula 2 149/73 (98) 04/28/17 16:45 103 16 127/73 (91) 100 Nasal Cannula 2 153/75 (101) 04/28/17 16:30 99 16 127/73 (91) 100 Nasal Cannula 2 158/74 (102) 04/28/17 16:15 101 16 131/67 (88) 99 Nasal Cannula 2 04/28/17 16:07 98.1 108 16 130/68 (88) 98 Nasal Cannula 2 04/28/17 16:07 108 130/68 04/28/17 16:07 106 147/71 04/28/17 11:46 98.8 100 19 187/102 (130) 99 04/28/17 11:46 184/105 (131) 04/28/17 11:43 18 Constitutional Vital Signs Date Time Temp Pulse Resp B/P (MAP) Pulse Ox O2 Delivery O2 Flow Rate FiO2 04/29/17 06:00 84 04/29/17 04:00 98.3 88 16 142/72 (95) 99 04/29/17 04:00 88 04/29/17 02:00 85 04/29/17 00:00 98.2 90 14 138/70 (92) 99 04/29/17 00:00 85 04/28/17 22:06 98 21 04/28/17 22:00 108 04/28/17 20:00 116 04/28/17 20:00 98.7 116 16 119/65 (83) 98 04/28/17 19:30 98.6 118 18 126/61 (82) 98 Nasal Cannula 2 130/69 (89) 04/28/17 19:00 121 18 128/68 (88) 98 Nasal Cannula 2 133/70 (91) 04/28/17 18:45 141 18 98 04/28/17 18:30 122 17 126/74 (91) 98 Nasal Cannula 2 148/73 (98) 04/28/17 18:15 112 17 130/63 (85) 98 Nasal Cannula 2 141/65 (90) 04/28/17 18:00 106 17 125/67 (86) 98 Nasal Cannula 2 137/65 (89) 04/28/17 17:45 106 16 124/76 (92) 100 Nasal Cannula 2 141/67 (91) 04/28/17 17:30 106 16 125/67 (86) 95 Nasal Cannula 2 146/73 (97) 04/28/17 17:15 106 16 127/71 (89) 100 Nasal Cannula 2 143/72 (95) 04/28/17 17:00 100 16 125/70 (88) 100 Nasal Cannula 2 149/73 (98) 04/28/17 16:45 103 16 127/73 (91) 100 Nasal Cannula 2 153/75 (101) 04/28/17 16:30 99 16 127/73 (91) 100 Nasal Cannula 2 158/74 (102) 04/28/17 16:15 101 16 131/67 (88) 99 Nasal Cannula 2 04/28/17 16:07 98.1 108 16 130/68 (88) 98 Nasal Cannula 2 04/28/17 16:07 108 130/68 04/28/17 16:07 106 147/71 04/28/17 11:46 98.8 100 19 187/102 (130) 99 04/28/17 11:46 184/105 (131) 04/28/17 11:43 18 (Ani Langley) Review of Systems Constitutional: DENIES: Fever, Chills Eyes: COMPLAINS OF: Blurred vision Gastrointestinal: COMPLAINS OF: Nausea Neurologic: COMPLAINS OF: Headache (mild and improved) (Ani Langley) Physical Exam Ms. Landis is alert, awake and oriented to time, place and person. Speech is fluent. Eating her breakfast. Surgical incision with clean, dry dressing. Cranial nerve examination: pupils 4 mm equal, round and reactive to light. Extra-ocular movements are intact. Facial motor and sensory function are normal and symmetrical. Neck is soft and supple Motor: moving all four extremities well (Ani Langley) Medications Current Medications Current Medications Medications (Trade) Dose Ordered Sig/David Route PRN Reason Start Time Stop Time Status Last Admin Dose Admin Ondansetron HCl (Zofran Inj) 4 mg Q6H PRN IVP NAUSEA OR VOMITING 04/27/17 14:45 04/29/17 05:36 Naloxone HCl (Narcan Inj) 0.4 mg UNSCH PRN IV PUSH SEE LABEL COMMENTS 04/27/17 14:45 Metoprolol Tartrate (Lopressor) 25 mg DIRECTOR OF FIELD COORDINATION PRN PO SEE LABEL COMMENTS 04/27/17 22:30 04/30/17 22:29 Povidone Iodine (Betadine 5% Antisepsis Kit) 1 applic DIRECTOR OF FIELD COORDINATION PRN EACH NARE SEE LABEL COMMENTS 04/27/17 22:30 04/30/17 22:29 Chlorhexidine Gluconate (Chlorhexidine 2% Cloth) 3 pack DIRECTOR OF FIELD COORDINATION PRN TOPICAL SEE LABEL COMMENTS 04/27/17 22:30 04/30/17 22:29 Insulin Human Regular (NovoLIN R INJ) See Protocol Table ... DIRECTOR OF FIELD COORDINATION PRN SQ SEE PROTOCOL TABLE 04/27/17 22:30 04/30/17 22:29 Clonidine (Catapres) 0.1 mg Q6H PRN PO SBP> OR = 180, DBP> OR = 100 04/28/17 05:15 04/28/17 05:27 Enalaprilat (Vasotec Inj) 1.25 mg Q6H PRN IV PUSH BP > 180/90 04/28/17 09:45 04/28/17 11:37 Potassium Chloride/Sodium Chloride 1,000 ml @ 100 mls/hr Q10H IV 04/28/17 14:39 04/29/17 01:23 IV Flush (NS Flush) 2 ml UNSCH PRN IVF FLUSH AFTER USING IV ACCESS 04/28/17 14:45 IV Flush (NS Flush) 2 ml BID IVF 04/28/17 21:00 Cefazolin Sodium/ Dextrose 50 ml @ 100 mls/hr Q8H IV 04/28/17 23:00 04/29/17 15:29 04/29/17 06:50 Pantoprazole Sodium (Protonix Inj) 40 mg DAILY IVP 04/29/17 09:00 04/29/17 08:38 Acetaminophen/ Hydrocodone Bitart ([place] 10-325 Mg) 1 tab Q4H PRN PO PAIN SCALE 1 TO 5 04/28/17 14:45 Acetaminophen/ Hydrocodone Bitart ([place] 10-325 Mg) 2 tab Q4H PRN PO PAIN SCALE 6 TO 10 04/28/17 14:45 Morphine Sulfate (Morphine Inj) 2 mg Q2H PRN IV PUSH PAIN SCALE 1 TO 6 04/28/17 14:45 04/29/17 05:17 Morphine Sulfate (Morphine Inj) 4 mg Q2H PRN IV PUSH PAIN SCALE 7 TO 10 04/28/17 14:45 Acetaminophen (Tylenol) 650 mg Q4H PRN PO TEMPERATURE > 101.5 F 04/28/17 14:45 Miscellaneous Information ALL NURSING DEPARTME... UNSCH PRN .XX SEE LABEL COMMENTS 04/28/17 16:07 04/29/17 16:06 Labetalol HCl 500 mg/Sodium Chloride 250 ml @ 60 mls/hr TITRATE PRN IV Blood pressure management 04/28/17 19:30 04/29/17 04:32 Labetalol HCl (Trandate) 200 mg Q12HR PO 04/29/17 09:00 04/29/17 08:38 (Ani Langley) Medical Decision Making MDM Remarks 37 y/o female with idiopathic intracranial hypertension, with nonfunctioning lumboperitoneal shunt s/p placement of ventriculoperitoneal shunt 04/28/17 (Ani Langley) Plan Plan Remarks cont bp mgt per critical care clear to restart PT, OOB in chair supportive care antiemetics prn N/V SCDs and TEDs for DVT prophylaxis Protonix for GI proph (Ani Langley) Attending Statement The exam, history, and the medical decision-making described in the above note were completed with the assistance of the mid-level provider. I reviewed and agree with the findings presented. I attest that I had a [id number] encounter with the patient on the same day, and personally performed and documented my assessment and findings in the medical record. (Shreyas Dumont MD) Ani Langley Apr 29, 2017 09:02 Shreyas Dumont MD Apr 30, 2017 21:40
--- NOTE | 2017-04-29 13:56 | EKG ---
Date Performed: 04/28/2017 Time Performed: 12:29:47 PTAGE: 37 years EKG: Sinus rhythm MODERATE VOLTAGE CRITERIA FOR LVH, CONSIDER NORMAL VARIANT MODERATE T-WAVE ABNORMALITY, CONSIDER ANT ERIOR ISCHEMIA Anterior ST T changes are new since prior tracing Clinical correlation is recommended ABNORMAL ECG PREVIOUS TRACING : 03/18/2010 14.00 DOCTOR: Dre Fong Interpretating Date/Time 04/29/2017 13:54:57
[2017-04-29] MEDS: ACETAMINOPHEN/HYDROcodone 325 MG/10 MG TAB PO PRN ×6 (14:05→20:55)
--- NOTE | 2017-04-29 14:20 | HHI.CCPN ---
Subjective Remarks/Hospital Course 04/28: 37 year old female with history of pseudotumor cerebri and a non functional lumbar peritoneal shunt presented with intractable headaches and papilledema. She underwent evaluation with a lumbar puncture and cerebrospinal fluid pressured of 450 mm H20 and improvement in her symptoms. She underwent a ventriculoperitoneal shunt placement by Dr. Dumont. 04/29: Underwent EXPENDITURE REQUISITION CLERK shunt placement yesterday. Awake and alert. On labetalol drip for hypertension. Objective Vital Signs Date Time Temp Pulse Resp B/P (MAP) Pulse Ox O2 Delivery O2 Flow Rate FiO2 04/29/17 10:14 Room Air 04/29/17 10:00 86 04/29/17 08:00 97.3 14 122/74 (90) 98 144/84 (104) 04/28/17 22:06 21 04/28/17 19:30 2 Intake and Output 04/29/17 04/29/17 04/30/17 08:00 16:00 00:00 Intake Total 1941 ml Output Total 900 ml Balance 1041 ml Result Diagram: 04/29/17 0540 04/29/17 0540 Objective Remarks GENERAL: Well-nourished, well-developed patient. SKIN: Warm and dry. HEAD: Normocephalic. EYES: No scleral icterus. No injection or drainage. NECK: Supple, trachea midline. No JVD or lymphadenopathy. CARDIOVASCULAR: Regular rate and rhythm without murmurs, gallops, or rubs. RESPIRATORY: Breath sounds equal bilaterally. No accessory muscle use. GASTROINTESTINAL: Abdomen soft, non-tender, nondistended. MUSCULOSKELETAL: No cyanosis, or edema. BACK: Nontender without obvious deformity. NEURO EXAM: Mental Status: The patient is alert and oriented to person, place, and time with normal speech. Cranial Nerves: Visual acuity intact bilaterally. Visual moise normal in all quadrants. Pupils are round, reactive to light. Extraocular movements are intact without ptosis. Hearing is normal bilaterally. Voice is normal. Tongue protrudes midline and moves symmetrically. Reflexes: Biceps, patellar, and Achilles are 2/4 bilaterally. No clonus. A/P Assessment and Plan Pseudotumor cerebri - Status post EXPENDITURE REQUISITION CLERK shunt placement by Dr. Dumont - Management per neurosurgeon - Morphine 4 mg IV q4h prn pain - Zofran as needed for nausea Hypertension - With tachycardia - labetalol drip, labetalol 10 mg IV every 4 hourly when necessary. - Labetalol by mouth. Add lisinopril 10 mg by mouth daily - SBP goal less than 140 Acute kidney injury - Dehydration - IV fluid resuscitation - Monitor I's and O's while in the ICU - Monitor electrolytes and creatinine levels Leukocytosis - Reactive - No signs of systemic infection - Follow-up cultures - No antibiotics indicated at this time Hyponatremia - Volume replacement with normal saline Anemia - Microcytic - Ferrous sulfate DVT GI prophylaxis - Teds SCDs - Early aggressive mobilization - Pharmacological DVT prophylaxis per neurosurgeon - Regular diet Jose Phoenix MD Apr 29, 2017 14:20
[2017-04-29] MEDS: LISINOPRIL 10 MG TAB PO SCH ×2 (14:32)
[2017-04-29] MEDS: LABETALOL HCL 100 MG/20 ML VIAL IV PUSH PRN ×4 (14:33→18:11)
--- NOTE | 2017-04-29 14:46 | HHI.FPPN ---
Subjective Remarks No acute events overnight. Patient states overall she feels better. Her headache is much improved she states but still present and primarily in the occipital region. Still having nausea and vomiting. Denies blurry vision, dizziness, fevers, chills, neck pain or stiffness, chest pain, SOB. (Wood Gauthier MD R2) Objective Vitals Vital Signs Date Time Temp Pulse Resp B/P (MAP) Pulse Ox O2 Delivery O2 Flow Rate FiO2 04/29/17 14:00 73 04/29/17 12:00 71 04/29/17 10:14 Room Air 04/29/17 10:00 86 04/29/17 08:00 80 04/29/17 08:00 97.3 80 14 122/74 (90) 98 144/84 (104) 04/29/17 06:00 84 04/29/17 04:00 98.3 88 16 142/72 (95) 99 04/29/17 04:00 88 04/29/17 02:00 85 04/29/17 00:00 98.2 90 14 138/70 (92) 99 04/29/17 00:00 85 04/28/17 22:06 98 21 04/28/17 22:00 108 04/28/17 20:00 116 04/28/17 20:00 98.7 116 16 119/65 (83) 98 04/28/17 19:30 98.6 118 18 126/61 (82) 98 Nasal Cannula 2 130/69 (89) 04/28/17 19:00 121 18 128/68 (88) 98 Nasal Cannula 2 133/70 (91) 04/28/17 18:45 141 18 98 04/28/17 18:30 122 17 126/74 (91) 98 Nasal Cannula 2 148/73 (98) 04/28/17 18:15 112 17 130/63 (85) 98 Nasal Cannula 2 141/65 (90) 04/28/17 18:00 106 17 125/67 (86) 98 Nasal Cannula 2 137/65 (89) 04/28/17 17:45 106 16 124/76 (92) 100 Nasal Cannula 2 141/67 (91) 04/28/17 17:30 106 16 125/67 (86) 95 Nasal Cannula 2 146/73 (97) 04/28/17 17:15 106 16 127/71 (89) 100 Nasal Cannula 2 143/72 (95) 04/28/17 17:00 100 16 125/70 (88) 100 Nasal Cannula 2 149/73 (98) 04/28/17 16:45 103 16 127/73 (91) 100 Nasal Cannula 2 153/75 (101) 04/28/17 16:30 99 16 127/73 (91) 100 Nasal Cannula 2 158/74 (102) 04/28/17 16:15 101 16 131/67 (88) 99 Nasal Cannula 2 04/28/17 16:07 98.1 108 16 130/68 (88) 98 Nasal Cannula 2 04/28/17 16:07 108 130/68 04/28/17 16:07 106 147/71 I/O 04/28/17 04/28/17 04/28/17 04/29/17 04/29/17 04/29/17 07:00 15:00 23:00 07:00 15:00 23:00 Intake Total 0 ml 0 ml 2830 ml 1941 ml Output Total 1070 ml 900 ml Balance 0 ml 0 ml 1760 ml 1041 ml Intake Oral 0 ml 0 ml IV Total 330 ml 1941 ml Other 2500 ml Output Urine Total 1050 ml 900 ml Estimated Blood Loss 20 ml # Voids 1 3 # Bowel Movements 0 1 (Wood Gauthier MD R2) Result Diagram: 04/29/1753904/29/17539 Objective Remarks GENERAL: Appearing tired, lying in bed with lights out NEURO: Alert. Normal speech. surgical garment assembler intact. Motor grossly normal. SKIN: Warm and dry. No rashes or erythema. HEAD: Normocephalic. Atraumatic. EYES: EOMI. No injection or drainage. ENT: No nasal drainage. Moist mucous membranes. NECK: Supple, trachea midline. No JVD. CARDIOVASCULAR: Regular rate and rhythm without murmurs, rubs, or gallops. Peripheral pulses 2+. RESPIRATORY: Breath sounds clear to auscultation and equal bilaterally, without wheezes, rales, or rhonchi. No accessory muscle use. GASTROINTESTINAL: Abdomen soft, nontender, nondistended. No organomegaly or masses. No rebound tenderness. No guarding. MUSCULOSKELETAL: No lower extremity edema. (Wood Gauthier MD R2) A/P Assessment and Plan Very pleasant 37 year old woman being admitted with pseudotumor cerebri and shunt malfunction. (Wood Gauthier MD R2) Attending Attestation Patient seen and examined. Case reviewed and discussed with the resident team. Agree with plan of care as discussed with me and documented in the resident note. she is markedly improved from admission and the weeks before. she and her requested disability paperwork to be filled out as she has been out of work for 3 weeks. I asked them to bring it into the hospital or have it faxed here if possible and it can be addressed (Cheryl Cuevas MD) Problem List: (1) Pseudotumor cerebri ICD Codes: G93.2 - Benign intracranial hypertension Status: Chronic Plan: - Neurosurgery consulted, Dr. Dumont managing - S/p placement of ventriculoperitoneal shunt on 04/28 by NS - Morphine 4 mg IV q4h prn pain - Zofran as needed for nausea - DVT ppx per neurosurgery, b/l SCDs and TEDs - Stress ulcer prophylaxis with protonix (2) Lumboperitoneal shunt leak ICD Codes: T85.635A - Leakage of other nervous system device, implant or graft , initial encounter Status: Resolved Plan: Neurosurgery consulted Plan as above (3) HTN (hypertension) ICD Codes: I10 - Essential (primary) hypertension Status: Chronic Plan: Continue labetalol drip as needed for control of blood pressure Continue labetalol 200 mg po q12h (4) Leukocytosis ICD Codes: D72.829 - Elevated white blood cell count, unspecified Status: Acute Plan: Consider secondary to stress reaction Not suspecting meningitis at this time Without fevers and neck supple on examination CXR normal Continue to monitor clinically (5) AGUS (acute kidney injury) ICD Codes: N17.9 - Acute kidney failure, unspecified Status: Resolved Plan: Likely pre-renal due to dehydration Continue MIVF Continue to monitor renal function (6) Hypokalemia ICD Codes: E87.6 - Hypokalemia Status: Resolved Plan: Resolved Continue to monitor (7) Hyponatremia ICD Codes: E87.1 - Hypo-osmolality and hyponatremia Status: Resolved Plan: Continue NS at 125 cc/hr (8) Anemia ICD Codes: D64.9 - Anemia, unspecified Status: Acute Plan: Hgb 10.6 on admission Microcytic Noted to be downtrending May be dilutional vs post-surgical however EBL less than 50 cc in OR Continue to monitor Further workup if Hgb continues to downtrend (9) Nutrition, metabolism, and development symptoms ICD Codes: R63.8 - Other symptoms and signs concerning food and fluid intake Status: Acute Plan: Fluids: NS at 100 cc/hr Electrolytes: WNL, continue to monitor Nutrition: CLD DVT ppx: b/l SCDs GI ppx: Protonix (Wood Gauthier MD R2) Problem Qualifiers (1) Lumboperitoneal shunt leak: Qualified Codes: T85.635A - Leakage of other nervous system device, implant or graft, initial encounter (2) HTN (hypertension): Qualified Codes: I15.8 - Other secondary hypertension (3) Leukocytosis: Qualified Codes: D72.829 - Elevated white blood cell count, unspecified (4) Anemia: Qualified Codes: D64.9 - Anemia, unspecified Wood Gauthier MD R2 Apr 29, 2017 14:46 Cheryl Cuevas MD Apr 30, 2017 15:46
[2017-04-30] VITALS (12 sets, daily range): BP systolic 143–189; BP diastolic 74–88; PULSE 66–82; RESP 15–18; TEMP 98.2–98.6; O2SAT 96–97
[2017-04-30] MEDS: cloNIDine HCL 0.1 MG TAB PO PRN ×2 (00:17)
[2017-04-30] MEDS: LABETALOL HCL 100 MG/20 ML VIAL IV PUSH PRN ×8 (02:16→17:16)
[2017-04-30] MEDS: ACETAMINOPHEN/HYDROcodone 325 MG/10 MG TAB PO PRN ×8 (02:26→19:56)
[2017-04-30] MEDS: ENALAPRILAT 1.25 MG/ML VIAL IV PUSH PRN ×4 (03:11→17:16)
[2017-04-30] MEDS: LABETALOL INJ 500 MG in SODIUM CHLORIDE 0.9% INJ 150 ML IV PRN ×24 (04:00→22:28)
[2017-04-30] MEDS: NS + KCL 20 MEQ INJ 1,000 ML IV SCH ×4 (05:15→11:50)
[2017-04-30 05:17] LABS: AUTOMATED NEUTROPHIL # 6.5 TH/MM3 (1.8-7.7); BASOPHIL # 0.1 TH/MM3 (0-0.2); BASOPHIL % 0.8 % (0.0-2.0); EOSINOPHIL # 0.5 TH/MM3 (0-0.4); EOSINOPHIL % 5.5 % (0.0-4.0); HEMATOCRIT 23.9 % (35.0-46.0); HEMOGLOBIN 7.4 GM/DL (11.6-15.3); LYMPH % 15.5 % (9.0-44.0); LYMPHOCYTE # 1.4 TH/MM3 (1.0-4.8); MEAN CELL VOLUME 70.9 FL (80.0-100.0); MEAN CORPUSCULAR HEMOGLOBIN 21.9 PG (27.0-34.0); MEAN CORPUSCULAR HGB CONC 30.9 % (32.0-36.0); MEAN PLATELET VOLUME 7.2 FL (7.0-11.0); MONO % 6.7 % (0.0-8.0); MONOCYTE # 0.6 TH/MM3 (0-0.9); NEUT % 71.5 % (16.0-70.0); PLATELET COUNT 363 TH/MM3 (150-450); RED BLOOD COUNT 3.37 MIL/MM3 (4.00-5.30); RED CELL DISTRIBUTION WIDTH 18.6 % (11.6-17.2); WHITE BLOOD COUNT 9.1 TH/MM3 (4.0-11.0)
[2017-04-30 05:42] LABS: BICARBONATE 26.4 MEQ/L (21.0-32.0); CREATININE 0.68 MG/DL (0.50-1.00)
[2017-04-30] MEDS: LISINOPRIL 10 MG TAB PO SCH ×2 (08:59)
[2017-04-30] MEDS: PANTOPRAZOLE SODIUM 40 MG VIAL IVP SCH ×2 (08:59)
[2017-04-30] MEDS: LABETALOL HCL 200 MG TAB PO SCH ×2 (08:59)
[2017-04-30] MEDS: SODIUM CHLORIDE 0.9% FLUSH 5 ML FLUSH IVF SCH ×4 (09:00→21:00)
[2017-04-30] MEDS ORDERED: amLODIPine BESYLATE 5 MG TAB PO ONE ×2 (11:30)
[2017-04-30] MEDS: CARVEDILOL 12.5 MG TAB PO SCH ×4 (11:40→19:56)
--- NOTE | 2017-04-30 12:39 | HHI.NSPN ---
(Ani Langley) Note Status Status: Progress Note (Ani Langley) Interval History Interval History Ms. Landis is a 37-year-old female with a history of idiopathic intracranial hypertension who underwent placement of a lumboperitoneal shunt in 2009. She was doing well until recently she developed recurrent headaches with nausea, vomiting, and blurry vision. She denies fevers and chills. She underwent a CT head which was unremarkable. She underwent a shunt series of her lumbar peritoneal shunt which shows detachment of the catheter from the device. A neurosurgical evaluation was requested. 04/29: s/p placement of ventriculoperitoneal shunt on 04/28/17. on labetolol drip for hypertension and tachycardia. pt reports headaches improved, has mild nausea. eating her breakfast. 04/30: remains on labetolol drip for blood pressure control. no acute events overnight, tolerating clear liquid diet better. (Ani Langley) Labs, Micro, & Vital Signs Results Date Time Temp Pulse Resp B/P (MAP) Pulse Ox O2 Delivery O2 Flow Rate FiO2 04/30/17 10:00 75 04/30/17 08:00 98.6 72 18 150/86 (107) 97 04/30/17 08:00 72 04/30/17 06:00 77 04/30/17 04:00 98.6 77 16 171/76 (107) 96 04/30/17 04:00 77 04/30/17 02:00 69 04/30/17 00:00 71 04/30/17 00:00 98.6 66 16 173/88 (116) 96 04/29/17 22:00 74 04/29/17 20:00 86 04/29/17 20:00 98.5 86 16 151/81 (104) 94 Arterial Line 04/29/17 18:00 78 04/29/17 16:00 74 04/29/17 14:00 73 Constitutional Vital Signs Date Time Temp Pulse Resp B/P (MAP) Pulse Ox O2 Delivery O2 Flow Rate FiO2 04/30/17 10:00 75 04/30/17 08:00 98.6 72 18 150/86 (107) 97 04/30/17 08:00 72 04/30/17 06:00 77 04/30/17 04:00 98.6 77 16 171/76 (107) 96 04/30/17 04:00 77 04/30/17 02:00 69 04/30/17 00:00 71 04/30/17 00:00 98.6 66 16 173/88 (116) 96 04/29/17 22:00 74 04/29/17 20:00 86 04/29/17 20:00 98.5 86 16 151/81 (104) 94 Arterial Line 04/29/17 18:00 78 04/29/17 16:00 74 04/29/17 14:00 73 (Ani Langley) Review of Systems Constitutional: DENIES: Fever, Chills Cardiovascular: DENIES: Chest pain Neurologic: COMPLAINS OF: Headache (mild), DENIES: Seizures (Ani Langley ) Physical Exam Ms. Landis is alert, awake and oriented to time, place and person. Speech is fluent. Eating her breakfast. Surgical incision with clean, dry dressing. Cranial nerve examination: pupils 4 mm equal, round and reactive to light. Extra-ocular movements are intact. Facial motor and sensory function are normal and symmetrical. Neck is soft and supple Motor: moving all four extremities well (Ani Langley) Medications Current Medications Current Medications Medications (Trade) Dose Ordered Sig/David Route PRN Reason Start Time Stop Time Status Last Admin Dose Admin Ondansetron HCl (Zofran Inj) 4 mg Q6H PRN IVP NAUSEA OR VOMITING 04/27/17 14:45 04/29/17 05:36 Naloxone HCl (Narcan Inj) 0.4 mg UNSCH PRN IV PUSH SEE LABEL COMMENTS 04/27/17 14:45 Metoprolol Tartrate (Lopressor) 25 mg STORAGE ENGINEER PRN PO SEE LABEL COMMENTS 04/27/17 22:30 04/30/17 22:29 Povidone Iodine (Betadine 5% Antisepsis Kit) 1 applic STORAGE ENGINEER PRN EACH NARE SEE LABEL COMMENTS 04/27/17 22:30 04/30/17 22:29 Chlorhexidine Gluconate (Chlorhexidine 2% Cloth) 3 pack STORAGE ENGINEER PRN TOPICAL SEE LABEL COMMENTS 04/27/17 22:30 04/30/17 22:29 Insulin Human Regular (NovoLIN R INJ) See Protocol Table ... STORAGE ENGINEER PRN SQ SEE PROTOCOL TABLE 04/27/17 22:30 04/30/17 22:29 Clonidine (Catapres) 0.1 mg Q6H PRN PO SBP> OR = 180, DBP> OR = 100 04/28/17 05:15 04/30/17 00:17 Enalaprilat (Vasotec Inj) 1.25 mg Q6H PRN IV PUSH BP > 180/90 04/28/17 09:45 04/30/17 03:11 Potassium Chloride/Sodium Chloride 1,000 ml @ 100 mls/hr Q10H IV 04/28/17 14:39 04/30/17 11:50 IV Flush (NS Flush) 2 ml UNSCH PRN IVF FLUSH AFTER USING IV ACCESS 04/28/17 14:45 IV Flush (NS Flush) 2 ml BID IVF 04/28/17 21:00 04/30/17 09:00 Pantoprazole Sodium (Protonix Inj) 40 mg DAILY IVP 04/29/17 09:00 04/30/17 08:59 Acetaminophen/ Hydrocodone Bitart ([place] 10-325 Mg) 1 tab Q4H PRN PO PAIN SCALE 1 TO 5 04/28/17 14:45 04/29/17 16:55 Acetaminophen/ Hydrocodone Bitart ([place] 10-325 Mg) 2 tab Q4H PRN PO PAIN SCALE 6 TO 10 04/28/17 14:45 04/30/17 09:00 Morphine Sulfate (Morphine Inj) 2 mg Q2H PRN IV PUSH PAIN SCALE 1 TO 6 04/28/17 14:45 04/29/17 05:17 Morphine Sulfate (Morphine Inj) 4 mg Q2H PRN IV PUSH PAIN SCALE 7 TO 10 04/28/17 14:45 Acetaminophen (Tylenol) 650 mg Q4H PRN PO TEMPERATURE > 101.5 F 04/28/17 14:45 Labetalol HCl 500 mg/Sodium Chloride 250 ml @ 60 mls/hr TITRATE PRN IV Blood pressure management 04/28/17 19:30 04/30/17 10:28 Labetalol HCl (Trandate Inj) 10 mg Q4H PRN IV PUSH SBP greater than 145mm Hg 04/29/17 15:00 04/30/17 09:30 Lisinopril (Prinivil) 10 mg Q12HR PO 04/30/17 21:00 Carvedilol (Coreg) 12.5 mg Q12HR PO 04/30/17 11:00 04/30/17 11:40 Amlodipine Besylate (Norvasc) 5 mg DAILY PO 05/01/17 09:00 (Ani Langley) Medical Decision Making MDM Remarks 37 y/o female with idiopathic intracranial hypertension, with nonfunctioning lumboperitoneal shunt s/p placement of ventriculoperitoneal shunt 04/28/[address] Head 04/29 stable postop findings uncontrolled hypertension, remains on labetolol drip (Ani Langley) Plan Plan Remarks cont bp mgt per critical care clear to restart PT, OOB in chair cont supportive care antiemetics prn N/V advance diet as tolerated cont SCDs and TEDs for DVT prophylaxis Protonix for GI proph (Ani Langley) Attending Statement The exam, history, and the medical decision-making described in the above note were completed with the assistance of the mid-level provider. I reviewed and agree with the findings presented. I attest that I had a [id number] encounter with the patient on the same day, and personally performed and documented my assessment and findings in the medical record. (Shreyas Dumont MD) Ani Langley Apr 30, 2017 12:39 Shreyas Dumont MD Apr 30, 2017 21:46
--- NOTE | 2017-04-30 12:39 | HHI.NSPN ---
(Ani Langley) Note Status Status: Progress Note (Ani Langley) Interval History Interval History Ms. Landis is a 37-year-old female with a history of idiopathic intracranial hypertension who underwent placement of a lumboperitoneal shunt in 2009. She was doing well until recently she developed recurrent headaches with nausea, vomiting, and blurry vision. She denies fevers and chills. She underwent a CT head which was unremarkable. She underwent a shunt series of her lumbar peritoneal shunt which shows detachment of the catheter from the device. A neurosurgical evaluation was requested. 04/29: s/p placement of ventriculoperitoneal shunt on 04/28/17. on labetolol drip for hypertension and tachycardia. pt reports headaches improved, has mild nausea. eating her breakfast. 04/30: remains on labetolol drip for blood pressure control. no acute events overnight, tolerating clear liquid diet better. (Ani Langley) Labs, Micro, & Vital Signs Results Date Time Temp Pulse Resp B/P (MAP) Pulse Ox O2 Delivery O2 Flow Rate FiO2 04/30/17 10:00 75 04/30/17 08:00 98.6 72 18 150/86 (107) 97 04/30/17 08:00 72 04/30/17 06:00 77 04/30/17 04:00 98.6 77 16 171/76 (107) 96 04/30/17 04:00 77 04/30/17 02:00 69 04/30/17 00:00 71 04/30/17 00:00 98.6 66 16 173/88 (116) 96 04/29/17 22:00 74 04/29/17 20:00 86 04/29/17 20:00 98.5 86 16 151/81 (104) 94 Arterial Line 04/29/17 18:00 78 04/29/17 16:00 74 04/29/17 14:00 73 Constitutional Vital Signs Date Time Temp Pulse Resp B/P (MAP) Pulse Ox O2 Delivery O2 Flow Rate FiO2 04/30/17 10:00 75 04/30/17 08:00 98.6 72 18 150/86 (107) 97 04/30/17 08:00 72 04/30/17 06:00 77 04/30/17 04:00 98.6 77 16 171/76 (107) 96 04/30/17 04:00 77 04/30/17 02:00 69 04/30/17 00:00 71 04/30/17 00:00 98.6 66 16 173/88 (116) 96 04/29/17 22:00 74 04/29/17 20:00 86 04/29/17 20:00 98.5 86 16 151/81 (104) 94 Arterial Line 04/29/17 18:00 78 04/29/17 16:00 74 04/29/17 14:00 73 (Ani Langley) Review of Systems Constitutional: DENIES: Fever, Chills Cardiovascular: DENIES: Chest pain Neurologic: COMPLAINS OF: Headache (mild), DENIES: Seizures (Ani Langley ) Physical Exam Ms. Landis is alert, awake and oriented to time, place and person. Speech is fluent. Eating her breakfast. Surgical incision with clean, dry dressing. Cranial nerve examination: pupils 4 mm equal, round and reactive to light. Extra-ocular movements are intact. Facial motor and sensory function are normal and symmetrical. Neck is soft and supple Motor: moving all four extremities well (Ani Langley) Medications Current Medications Current Medications Medications (Trade) Dose Ordered Sig/David Route PRN Reason Start Time Stop Time Status Last Admin Dose Admin Ondansetron HCl (Zofran Inj) 4 mg Q6H PRN IVP NAUSEA OR VOMITING 04/27/17 14:45 04/29/17 05:36 Naloxone HCl (Narcan Inj) 0.4 mg UNSCH PRN IV PUSH SEE LABEL COMMENTS 04/27/17 14:45 Metoprolol Tartrate (Lopressor) 25 mg WEB OFFSET PRESS FEEDER PRN PO SEE LABEL COMMENTS 04/27/17 22:30 04/30/17 22:29 Povidone Iodine (Betadine 5% Antisepsis Kit) 1 applic WEB OFFSET PRESS FEEDER PRN EACH NARE SEE LABEL COMMENTS 04/27/17 22:30 04/30/17 22:29 Chlorhexidine Gluconate (Chlorhexidine 2% Cloth) 3 pack WEB OFFSET PRESS FEEDER PRN TOPICAL SEE LABEL COMMENTS 04/27/17 22:30 04/30/17 22:29 Insulin Human Regular (NovoLIN R INJ) See Protocol Table ... WEB OFFSET PRESS FEEDER PRN SQ SEE PROTOCOL TABLE 04/27/17 22:30 04/30/17 22:29 Clonidine (Catapres) 0.1 mg Q6H PRN PO SBP> OR = 180, DBP> OR = 100 04/28/17 05:15 04/30/17 00:17 Enalaprilat (Vasotec Inj) 1.25 mg Q6H PRN IV PUSH BP > 180/90 04/28/17 09:45 04/30/17 03:11 Potassium Chloride/Sodium Chloride 1,000 ml @ 100 mls/hr Q10H IV 04/28/17 14:39 04/30/17 11:50 IV Flush (NS Flush) 2 ml UNSCH PRN IVF FLUSH AFTER USING IV ACCESS 04/28/17 14:45 IV Flush (NS Flush) 2 ml BID IVF 04/28/17 21:00 04/30/17 09:00 Pantoprazole Sodium (Protonix Inj) 40 mg DAILY IVP 04/29/17 09:00 04/30/17 08:59 Acetaminophen/ Hydrocodone Bitart ([place] 10-325 Mg) 1 tab Q4H PRN PO PAIN SCALE 1 TO 5 04/28/17 14:45 04/29/17 16:55 Acetaminophen/ Hydrocodone Bitart ([place] 10-325 Mg) 2 tab Q4H PRN PO PAIN SCALE 6 TO 10 04/28/17 14:45 04/30/17 09:00 Morphine Sulfate (Morphine Inj) 2 mg Q2H PRN IV PUSH PAIN SCALE 1 TO 6 04/28/17 14:45 04/29/17 05:17 Morphine Sulfate (Morphine Inj) 4 mg Q2H PRN IV PUSH PAIN SCALE 7 TO 10 04/28/17 14:45 Acetaminophen (Tylenol) 650 mg Q4H PRN PO TEMPERATURE > 101.5 F 04/28/17 14:45 Labetalol HCl 500 mg/Sodium Chloride 250 ml @ 60 mls/hr TITRATE PRN IV Blood pressure management 04/28/17 19:30 04/30/17 10:28 Labetalol HCl (Trandate Inj) 10 mg Q4H PRN IV PUSH SBP greater than 145mm Hg 04/29/17 15:00 04/30/17 09:30 Lisinopril (Prinivil) 10 mg Q12HR PO 04/30/17 21:00 Carvedilol (Coreg) 12.5 mg Q12HR PO 04/30/17 11:00 04/30/17 11:40 Amlodipine Besylate (Norvasc) 5 mg DAILY PO 05/01/17 09:00 (Ani Langley) Medical Decision Making MDM Remarks 37 y/o female with idiopathic intracranial hypertension, with nonfunctioning lumboperitoneal shunt s/p placement of ventriculoperitoneal shunt 04/28/[address] Head 04/29 stable postop findings uncontrolled hypertension, remains on labetolol drip (Ani Langley) Plan Plan Remarks cont bp mgt per critical care clear to restart PT, OOB in chair cont supportive care antiemetics prn N/V advance diet as tolerated cont SCDs and TEDs for DVT prophylaxis Protonix for GI proph (Ani Langley) Attending Statement The exam, history, and the medical decision-making described in the above note were completed with the assistance of the mid-level provider. I reviewed and agree with the findings presented. I attest that I had a [id number] encounter with the patient on the same day, and personally performed and documented my assessment and findings in the medical record. (Shreyas Dumont MD) Ani Langley Apr 30, 2017 12:39 Shreyas Dumont MD Apr 30, 2017 21:46
--- NOTE | 2017-04-30 12:39 | HHI.NSPN ---
(Ani Langley) Note Status Status: Progress Note (Ani Langley) Interval History Interval History Ms. Landis is a 37-year-old female with a history of idiopathic intracranial hypertension who underwent placement of a lumboperitoneal shunt in 2009. She was doing well until recently she developed recurrent headaches with nausea, vomiting, and blurry vision. She denies fevers and chills. She underwent a CT head which was unremarkable. She underwent a shunt series of her lumbar peritoneal shunt which shows detachment of the catheter from the device. A neurosurgical evaluation was requested. 04/29: s/p placement of ventriculoperitoneal shunt on 04/28/17. on labetolol drip for hypertension and tachycardia. pt reports headaches improved, has mild nausea. eating her breakfast. 04/30: remains on labetolol drip for blood pressure control. no acute events overnight, tolerating clear liquid diet better. (Ani Langley) Labs, Micro, & Vital Signs Results Date Time Temp Pulse Resp B/P (MAP) Pulse Ox O2 Delivery O2 Flow Rate FiO2 04/30/17 10:00 75 04/30/17 08:00 98.6 72 18 150/86 (107) 97 04/30/17 08:00 72 04/30/17 06:00 77 04/30/17 04:00 98.6 77 16 171/76 (107) 96 04/30/17 04:00 77 04/30/17 02:00 69 04/30/17 00:00 71 04/30/17 00:00 98.6 66 16 173/88 (116) 96 04/29/17 22:00 74 04/29/17 20:00 86 04/29/17 20:00 98.5 86 16 151/81 (104) 94 Arterial Line 04/29/17 18:00 78 04/29/17 16:00 74 04/29/17 14:00 73 Constitutional Vital Signs Date Time Temp Pulse Resp B/P (MAP) Pulse Ox O2 Delivery O2 Flow Rate FiO2 04/30/17 10:00 75 04/30/17 08:00 98.6 72 18 150/86 (107) 97 04/30/17 08:00 72 04/30/17 06:00 77 04/30/17 04:00 98.6 77 16 171/76 (107) 96 04/30/17 04:00 77 04/30/17 02:00 69 04/30/17 00:00 71 04/30/17 00:00 98.6 66 16 173/88 (116) 96 04/29/17 22:00 74 04/29/17 20:00 86 04/29/17 20:00 98.5 86 16 151/81 (104) 94 Arterial Line 04/29/17 18:00 78 04/29/17 16:00 74 04/29/17 14:00 73 (Ani Langley) Review of Systems Constitutional: DENIES: Fever, Chills Cardiovascular: DENIES: Chest pain Neurologic: COMPLAINS OF: Headache (mild), DENIES: Seizures (Ani Langley ) Physical Exam Ms. Landis is alert, awake and oriented to time, place and person. Speech is fluent. Eating her breakfast. Surgical incision with clean, dry dressing. Cranial nerve examination: pupils 4 mm equal, round and reactive to light. Extra-ocular movements are intact. Facial motor and sensory function are normal and symmetrical. Neck is soft and supple Motor: moving all four extremities well (Ani Langley) Medications Current Medications Current Medications Medications (Trade) Dose Ordered Sig/David Route PRN Reason Start Time Stop Time Status Last Admin Dose Admin Ondansetron HCl (Zofran Inj) 4 mg Q6H PRN IVP NAUSEA OR VOMITING 04/27/17 14:45 04/29/17 05:36 Naloxone HCl (Narcan Inj) 0.4 mg UNSCH PRN IV PUSH SEE LABEL COMMENTS 04/27/17 14:45 Metoprolol Tartrate (Lopressor) 25 mg PACKING ROOM INSPECTOR PRN PO SEE LABEL COMMENTS 04/27/17 22:30 04/30/17 22:29 Povidone Iodine (Betadine 5% Antisepsis Kit) 1 applic PACKING ROOM INSPECTOR PRN EACH NARE SEE LABEL COMMENTS 04/27/17 22:30 04/30/17 22:29 Chlorhexidine Gluconate (Chlorhexidine 2% Cloth) 3 pack PACKING ROOM INSPECTOR PRN TOPICAL SEE LABEL COMMENTS 04/27/17 22:30 04/30/17 22:29 Insulin Human Regular (NovoLIN R INJ) See Protocol Table ... PACKING ROOM INSPECTOR PRN SQ SEE PROTOCOL TABLE 04/27/17 22:30 04/30/17 22:29 Clonidine (Catapres) 0.1 mg Q6H PRN PO SBP> OR = 180, DBP> OR = 100 04/28/17 05:15 04/30/17 00:17 Enalaprilat (Vasotec Inj) 1.25 mg Q6H PRN IV PUSH BP > 180/90 04/28/17 09:45 04/30/17 03:11 Potassium Chloride/Sodium Chloride 1,000 ml @ 100 mls/hr Q10H IV 04/28/17 14:39 04/30/17 11:50 IV Flush (NS Flush) 2 ml UNSCH PRN IVF FLUSH AFTER USING IV ACCESS 04/28/17 14:45 IV Flush (NS Flush) 2 ml BID IVF 04/28/17 21:00 04/30/17 09:00 Pantoprazole Sodium (Protonix Inj) 40 mg DAILY IVP 04/29/17 09:00 04/30/17 08:59 Acetaminophen/ Hydrocodone Bitart ([place] 10-325 Mg) 1 tab Q4H PRN PO PAIN SCALE 1 TO 5 04/28/17 14:45 04/29/17 16:55 Acetaminophen/ Hydrocodone Bitart ([place] 10-325 Mg) 2 tab Q4H PRN PO PAIN SCALE 6 TO 10 04/28/17 14:45 04/30/17 09:00 Morphine Sulfate (Morphine Inj) 2 mg Q2H PRN IV PUSH PAIN SCALE 1 TO 6 04/28/17 14:45 04/29/17 05:17 Morphine Sulfate (Morphine Inj) 4 mg Q2H PRN IV PUSH PAIN SCALE 7 TO 10 04/28/17 14:45 Acetaminophen (Tylenol) 650 mg Q4H PRN PO TEMPERATURE > 101.5 F 04/28/17 14:45 Labetalol HCl 500 mg/Sodium Chloride 250 ml @ 60 mls/hr TITRATE PRN IV Blood pressure management 04/28/17 19:30 04/30/17 10:28 Labetalol HCl (Trandate Inj) 10 mg Q4H PRN IV PUSH SBP greater than 145mm Hg 04/29/17 15:00 04/30/17 09:30 Lisinopril (Prinivil) 10 mg Q12HR PO 04/30/17 21:00 Carvedilol (Coreg) 12.5 mg Q12HR PO 04/30/17 11:00 04/30/17 11:40 Amlodipine Besylate (Norvasc) 5 mg DAILY PO 05/01/17 09:00 (Ani Langley) Medical Decision Making MDM Remarks 37 y/o female with idiopathic intracranial hypertension, with nonfunctioning lumboperitoneal shunt s/p placement of ventriculoperitoneal shunt 04/28/[address] Head 04/29 stable postop findings uncontrolled hypertension, remains on labetolol drip (Ani Langley) Plan Plan Remarks cont bp mgt per critical care clear to restart PT, OOB in chair cont supportive care antiemetics prn N/V advance diet as tolerated cont SCDs and TEDs for DVT prophylaxis Protonix for GI proph (Ani Langley) Attending Statement The exam, history, and the medical decision-making described in the above note were completed with the assistance of the mid-level provider. I reviewed and agree with the findings presented. I attest that I had a [id number] encounter with the patient on the same day, and personally performed and documented my assessment and findings in the medical record. (Shreyas Dumont MD) Ani Langley Apr 30, 2017 12:39 Shreyas Dumont MD Apr 30, 2017 21:46
--- NOTE | 2017-04-30 14:04 | HHI.CCPN ---
Subjective Remarks/Hospital Course 04/28: 37 year old female with history of pseudotumor cerebri and a non functional lumbar peritoneal shunt presented with intractable headaches and papilledema. She underwent evaluation with a lumbar puncture and cerebrospinal fluid pressured of 450 mm H20 and improvement in her symptoms. She underwent a ventriculoperitoneal shunt placement by Dr. Dumont. 04/29: Underwent BOX COVERING MACHINE OPERATOR shunt placement yesterday. Awake and alert. On labetalol drip for hypertension. Subjective 04/30: Headache currently 4-10. Previously 03/07 before receiving hydrocodone/ acetaminophen. Remains hypertensive. Goal systolic blood pressure less than 150 per neurosurgery. Objective Vital Signs Date Time Temp Pulse Resp B/P (MAP) Pulse Ox O2 Delivery O2 Flow Rate FiO2 04/30/17 12:00 80 04/30/17 12:00 98.2 15 143/74 (97) 97 04/29/17 10:14 Room Air 04/28/17 22:06 21 04/28/17 19:30 2 Intake and Output 04/30/17 04/30/17 05/01/17 08:00 16:00 00:00 Intake Total 2920 ml Output Total 1000 ml Balance 1920 ml Result Diagram: 04/30/17 0437 04/30/17 0437 Other Results Microbiology Date/Time Source Procedure Growth Status 04/28/17 15:00 Cerebral Spinal Fluid Shunt Fluid Gram Stain - Final Resulted 04/28/17 15:00 Cerebral Spinal Fluid Shunt Fluid CSF Culture - Preliminary NO GROWTH IN 48 HOURS. Resulted 04/28/17 00:15 Urine Random Urine Urine Culture - Preliminary Streptococcus Species Resulted Imaging Last Impressions Head CT 04/29/17 0000 Signed Impressions: Service Date/Time: April 04:48 - CONCLUSION: Interval ventricular shunt placement as above Wilian Lewis MD Chest X-Ray 04/27/17 1057 Signed Impressions: Service Date/Time: Thursday, April 27, 2017 11:34 - CONCLUSION: No acute cardiopulmonary abnormality is identified. Wilian Miguel MD Shunt Study (Imaging) 04/27/17 0000 Signed Impressions: Service Date/Time: Thursday, April 27, 2017 11:37 - CONCLUSION: Lumboperitoneal shunt is identified. The proximal aspect overlying the inferior thoracic spinal canal is stable. However, shunt tubing is discontinuous over the right abdomen adjacent to the connection with the valve. Distal tip is in the left upper quadrant. Wilian Miguel MD Lumbar Puncture Fluoroscopy 04/27/17 0000 Signed Impressions: Service Date/Time: Thursday, April 27, 2017 17:34 - CONCLUSION: Uncomplicated fluoroscopically guided lumbar puncture with pressures as above. Albaro Walker MD Objective Remarks GENERAL: 37-year-old AA female resting in bed in no acute distress SKIN: Warm and dry. HEAD: Surgical incision is clean dry and intact EYES: Pupils equal and round 4 mm bilaterally and reactive. No scleral icterus. No injection or drainage. ENT: No nasal bleeding or discharge. Mucous membranes pink and moist. NECK: Trachea midline. No JVD. CARDIOVASCULAR: Regular rate and rhythm. S1, S2. No S4. RESPIRATORY: No accessory muscle use. Clear to auscultation. Breath sounds equal bilaterally. GASTROINTESTINAL: Abdomen soft, non-tender, nondistended. Hepatic and splenic margins not palpable. MUSCULOSKELETAL: Extremities without clubbing, cyanosis, or edema. No obvious deformities. NEUROLOGICAL: Awake and alert. No obvious cranial nerve deficits. Motor grossly within normal limits. Five out of 5 muscle strength in the arms and legs. Normal speech. A/P Assessment and Plan Neuro/Psych: Status post BOX COVERING MACHINE OPERATOR shunt secondary to pseudotumor tumor cerebri with nonfunctioning lumbar drain/intractable headaches with papilledema Headache NOS Currently on acetaminophen/hydrocodone 10/325 one every 4 hours as needed pain along with morphine sulfate 2-4 mill grams IV every 2 hours. As needed for pain Neurosurgery - Dr. Dumont actively following Opening pressures - 190 IR - 04/27 - nonfunctioning lumbar drain CV: Hypertension Currently on carvedilol 12.5 mg 2x daily, amlodipine 5 mill grams daily and lisinopril 10 mg twice a day for hypertension. Labetalol drip to be weaned off today if able Resp: Patient is currently in room air Incentive spirometry while awake GI: Currently on pantoprazole 40 mg by mouth daily : No indication for Ybarra catheter with underlying cystitis Endo: Sliding-scale insulin if indicated Renal: Monitor urine output Accurate I's and O's Currently on normal saline with 20 mEq KCl 200 cc an hour Heme: Microcytic anemia Monitor CBC daily. Follow trends No indication for transfusion of blood proximally at this time ID: Cystitis Levofloxacin 250 mg by mouth daily 3 days for strep species and urine MSK: Out of bed/PT evaluate and treat FEN: Replace electrolytes as clinically indicated Prophylaxis GI - pantoprazole DVT - SCD/pharmacological prophylaxis when okay with neurosurgery Level II follow-up Jluis Penny MD Apr 30, 2017 14:04
--- NOTE | 2017-04-30 15:32 | HHI.FPPN ---
Subjective Remarks Ms Landis is lying in bed resting when we entered room but woke to the sound of our voices. She complained mainly about nausea. Her headache is markedly improved since she had the shunt placed but is still present at a low level. Her BPs are controlled with her labetolol drip today and other meds. Objective Vitals Vital Signs Date Time Temp Pulse Resp B/P (MAP) Pulse Ox O2 Delivery O2 Flow Rate FiO2 04/30/17 14:00 75 04/30/17 12:00 80 04/30/17 12:00 98.2 80 15 143/74 (97) 97 04/30/17 10:00 75 04/30/17 08:00 98.6 72 18 150/86 (107) 97 04/30/17 08:00 72 04/30/17 06:00 77 04/30/17 04:00 98.6 77 16 171/76 (107) 96 04/30/17 04:00 77 04/30/17 02:00 69 04/30/17 00:00 71 04/30/17 00:00 98.6 66 16 173/88 (116) 96 04/29/17 22:00 74 04/29/17 20:00 86 04/29/17 20:00 98.5 86 16 151/81 (104) 94 Arterial Line 04/29/17 18:00 78 04/29/17 16:00 74 I/O 04/29/17 04/29/17 04/29/17 04/30/17 04/30/17 04/30/17 07:00 15:00 23:00 07:00 15:00 23:00 Intake Total 1941 ml 950 ml 650 ml 2920 ml Output Total 900 ml 300 ml 1000 ml Balance 1041 ml 950 ml 350 ml 1920 ml Intake Oral 600 ml 720 ml IV Total 1941 ml 950 ml 50 ml 2200 ml Output Urine Total 900 ml 300 ml 1000 ml # Bowel Movements 0 Result Diagram: 04/30/1743604/30/17436 Objective Remarks GENERAL: Appearing tired, lying in bed with lights out NEURO: Alert. Normal speech. 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 Motor grossly normal. SKIN: Warm and dry. No rashes or erythema. HEAD: Normocephalic. Atraumatic. EYES: EOMI. No injection or drainage. ENT: No nasal drainage. Moist mucous membranes. NECK: Supple, trachea midline. No JVD. CARDIOVASCULAR: Regular rate and rhythm without murmurs, rubs, or gallops. Peripheral pulses 2+. RESPIRATORY: Breath sounds clear to auscultation and equal bilaterally, without wheezes, rales, or rhonchi. No accessory muscle use. GASTROINTESTINAL: Abdomen soft, nontender, nondistended. No organomegaly or masses. No rebound tenderness. No guarding. MUSCULOSKELETAL: No lower extremity edema. A/P Assessment and Plan Very pleasant 37 year old woman admitted with pseudotumor cerebri and shunt malfunction s/p shunt replacement. Problem List: (1) Pseudotumor cerebri ICD Codes: G93.2 - Benign intracranial hypertension Status: Chronic Plan: - Neurosurgery consulted, Dr. Dumont managing this problem, as well as Accounting Machine Servicer with her need for close monitoring in SICU - S/p placement of ventriculoperitoneal shunt on 04/28 by NS - Morphine 4 mg IV q4h prn pain - Zofran as needed for nausea - DVT ppx per neurosurgery, b/l SCDs and TEDs - Stress ulcer prophylaxis with protonix unsure when to restart anticoagulants (2) Lumboperitoneal shunt leak ICD Codes: T85.635A - Leakage of other nervous system device, implant or graft , initial encounter Status: Resolved Plan: Neurosurgery consulted Plan as above (3) HTN (hypertension) ICD Codes: I10 - Essential (primary) hypertension Status: Chronic Plan: Continue labetalol drip as needed for control of blood pressure Continue labetalol 200 mg po q12h (4) Leukocytosis ICD Codes: D72.829 - Elevated white blood cell count, unspecified Status: Acute Plan: Consider secondary to stress reaction Not suspecting meningitis at this time Without fevers and neck supple on examination CXR normal Continue to monitor clinically (5) AGUS (acute kidney injury) ICD Codes: N17.9 - Acute kidney failure, unspecified Status: Resolved Plan: Likely pre-renal due to dehydration Continue MIVF Continue to monitor renal function (6) Hypokalemia ICD Codes: E87.6 - Hypokalemia Status: Resolved Plan: Resolved Continue to monitor (7) Hyponatremia ICD Codes: E87.1 - Hypo-osmolality and hyponatremia Status: Resolved Plan: Continue NS at 125 cc/hr (8) Anemia ICD Codes: D64.9 - Anemia, unspecified Status: Acute Plan: Hgb 10.6 on admission Microcytic Noted to be downtrending May be dilutional vs post-surgical however EBL less than 50 cc in OR Continue to monitor Further workup if Hgb continues to downtrend as a young woman Fe deficiency anemia is the most likely (9) Nutrition, metabolism, and development symptoms ICD Codes: R63.8 - Other symptoms and signs concerning food and fluid intake Status: Acute Plan: Fluids: NS at 100 cc/hr Electrolytes: WNL, continue to monitor Nutrition: CLD DVT ppx: b/l SCDs GI ppx: Protonix Problem Qualifiers (1) Lumboperitoneal shunt leak: Qualified Codes: T85.635A - Leakage of other nervous system device, implant or graft, initial encounter (2) HTN (hypertension): Qualified Codes: I15.8 - Other secondary hypertension (3) Leukocytosis: Qualified Codes: D72.829 - Elevated white blood cell count, unspecified (4) Anemia: Qualified Codes: D64.9 - Anemia, unspecified Cheryl Cuevas MD Apr 30, 2017 15:32
[2017-04-30] MEDS: LEVOFLOXACIN 250 MG TAB PO SCH ×2 (17:18)
[2017-04-30] MEDS: ONDANSETRON HCL 4 MG/2 ML VIAL IVP SCH ×2 (18:00)
[2017-04-30] MEDS ORDERED: LISINOPRIL 10 MG TAB PO SCH ×2 (21:00)
[2017-05-01] VITALS (12 sets, daily range): BP systolic 120–169; BP diastolic 71–88; PULSE 74–92; RESP 15–28; TEMP 97.1–98.7; O2SAT 78–98
[2017-05-01] MEDS: LABETALOL HCL 300 MG TAB PO SCH ×4 (00:42→04:40)
[2017-05-01] MEDS: MORPHINE SULFATE 4 MG/ML INJ IV PUSH PRN ×8 (00:43→19:46)
[2017-05-01] MEDS: ONDANSETRON HCL 4 MG/2 ML VIAL IVP SCH ×10 (00:43→23:48)
[2017-05-01] MEDS: LABETALOL INJ 500 MG in SODIUM CHLORIDE 0.9% INJ 150 ML IV PRN ×24 (01:51→09:47)
[2017-05-01] MEDS: NS + KCL 20 MEQ INJ 1,000 ML IV SCH ×6 (04:00→19:39)
[2017-05-01] MEDS: ACETAMINOPHEN/HYDROcodone 325 MG/10 MG TAB PO PRN ×6 (04:41→23:06)
[2017-05-01 05:59] LABS: HEMATOCRIT 22.6 % (35.0-46.0); HEMOGLOBIN 7.3 GM/DL (11.6-15.3); MEAN CELL VOLUME 71.7 FL (80.0-100.0); MEAN CORPUSCULAR HEMOGLOBIN 23.1 PG (27.0-34.0); MEAN CORPUSCULAR HGB CONC 32.3 % (32.0-36.0); MEAN PLATELET VOLUME 7.7 FL (7.0-11.0); PLATELET COUNT 342 TH/MM3 (150-450); RED BLOOD COUNT 3.15 MIL/MM3 (4.00-5.30); RED CELL DISTRIBUTION WIDTH 18.4 % (11.6-17.2); WHITE BLOOD COUNT 9.4 TH/MM3 (4.0-11.0)
[2017-05-01 06:19] LABS: BICARBONATE 25.7 MEQ/L (21.0-32.0); BLOOD UREA NITROGEN 3 MG/DL (7-18); CALCIUM 8.1 MG/DL (8.5-10.1); CHLORIDE 103 MEQ/L (98-107); CREATININE 0.56 MG/DL (0.50-1.00); GLOMERULAR FILTRATION RATE 149 ML/MIN (>89); GLUCOSE,RANDOM 110 MG/DL (74-106); MAGNESIUM 1.4 MG/DL (1.5-2.5); PHOSPHORUS 2.3 MG/DL (2.5-4.9); SODIUM (NA) 135 MEQ/L (136-145)
[2017-05-01] MEDS ORDERED: SODIUM PHOSPHATE INJ 30 MMOL in SODIUM CHLOR 0.9% 250 ML INJ 250 ML IV ONE ×4 (06:45)
--- NOTE | 2017-05-01 06:47 | HHI.CCPN ---
Subjective Remarks/Hospital Course 04/28: 37 year old female with history of pseudotumor cerebri and a non functional lumbar peritoneal shunt presented with intractable headaches and papilledema. She underwent evaluation with a lumbar puncture and cerebrospinal fluid pressured of 450 mm H20 and improvement in her symptoms. She underwent a ventriculoperitoneal shunt placement by Dr. Dumont. 04/29: Underwent COMPRESSION MOLDING MACHINE TENDER shunt placement yesterday. Awake and alert. On labetalol drip for hypertension. 04/30: Headache currently 4-10. Previously 03/07 before receiving hydrocodone/ acetaminophen. Remains hypertensive. Goal systolic blood pressure less than 150 per neurosurgery. Subjective 05/01: Remains on labetalol drip currently at 4 mg a minute which is above maximum dosage daily. Increase maximum dosages of carvedilol, amlodipine and lisinopril oral dosages and added hydrochlorothiazide. Pain management with narcotics for headache acutely. Obviously amlodipine could be contributing to headache Objective Vital Signs Date Time Temp Pulse Resp B/P (MAP) Pulse Ox O2 Delivery O2 Flow Rate FiO2 05/01/17 06:00 81 05/01/17 04:00 98.7 17 144/82 (102) 78 04/29/17 10:14 Room Air 04/28/17 22:06 21 04/28/17 19:30 2 Intake and Output 05/01/17 05/01/17 05/02/17 08:00 16:00 00:00 Intake Total 2000 ml Output Total 1400 ml Balance 600 ml Result Diagram: 05/01/17 0437 05/01/17 0437 Other Results Microbiology Date/Time Source Procedure Growth Status 04/28/17 15:00 Cerebral Spinal Fluid Shunt Fluid Gram Stain - Final Resulted 04/28/17 15:00 Cerebral Spinal Fluid Shunt Fluid CSF Culture - Preliminary NO GROWTH IN 48 HOURS. Resulted 04/28/17 00:15 Urine Random Urine Urine Culture - Final Enterococcus Faecalis Complete Imaging Last Impressions Head CT 04/29/17 0000 Signed Impressions: Service Date/Time: April 04:48 - CONCLUSION: Interval ventricular shunt placement as above Wilian Lewis MD Chest X-Ray 04/27/17 1057 Signed Impressions: Service Date/Time: Thursday, April 27, 2017 11:34 - CONCLUSION: No acute cardiopulmonary abnormality is identified. Wilian Miguel MD Shunt Study (Imaging) 04/27/17 0000 Signed Impressions: Service Date/Time: Thursday, April 27, 2017 11:37 - CONCLUSION: Lumboperitoneal shunt is identified. The proximal aspect overlying the inferior thoracic spinal canal is stable. However, shunt tubing is discontinuous over the right abdomen adjacent to the connection with the valve. Distal tip is in the left upper quadrant. Wilian Miguel MD Lumbar Puncture Fluoroscopy 04/27/17 0000 Signed Impressions: Service Date/Time: Thursday, April 27, 2017 17:34 - CONCLUSION: Uncomplicated fluoroscopically guided lumbar puncture with pressures as above. Ablaro Walker MD Objective Remarks GENERAL: 37-year-old AA female resting in bed in no acute distress SKIN: Warm and dry. HEAD: Surgical incision is clean dry and intact EYES: Pupils equal and round 4 mm bilaterally and reactive. No scleral icterus. No injection or drainage. ENT: No nasal bleeding or discharge. Mucous membranes pink and moist. NECK: Trachea midline. No JVD. CARDIOVASCULAR: Regular rate and rhythm. S1, S2. No S4. RESPIRATORY: No accessory muscle use. Clear to auscultation. Breath sounds equal bilaterally. GASTROINTESTINAL: Abdomen soft, non-tender, nondistended. Hepatic and splenic margins not palpable. MUSCULOSKELETAL: Extremities without clubbing, cyanosis, or edema. No obvious deformities. NEUROLOGICAL: Awake and alert. No obvious cranial nerve deficits. Motor grossly within normal limits. Five out of 5 muscle strength in the arms and legs. Normal speech. A/P Assessment and Plan Neuro/Psych: Status post COMPRESSION MOLDING MACHINE TENDER shunt secondary to pseudotumor tumor cerebri with nonfunctioning lumbar drain/intractable headaches with papilledema Headache NOS Currently on acetaminophen/hydrocodone 10/325 one to 2 tablets every 4 hours as needed pain along with morphine sulfate 2-4 mill grams IV every 2 hours. As needed for pain Neurosurgery - Dr. Dumont actively following Opening pressures - 190 IR - 04/27 - nonfunctioning lumbar drain Plan for repeat CT brain 05/02 CV: Hypertension Currently on carvedilol 25 mg 2x daily, amlodipine 10 mill grams daily and lisinopril 20 mg twice a day and added hydrochlorothiazide 25 mg for hypertension. Labetalol drip to be weaned off today if able. Currently 4 mg a minute Goal keep sets systolic blood pressure less than 160 per neurosurgery As needed enalapril, hydralazine and clonidine ordered Resp: Patient is currently in room air Incentive spirometry while awake GI: Elevated transaminases on 04/27 Advanced to full liquid diet Currently on pantoprazole 40 mg by mouth daily Recheck LFTs in a.m. 05/02 : No indication for Ybarra catheter with underlying cystitis Endo: Sliding-scale insulin if indicated Renal: Monitor urine output Accurate I's and O's Currently on normal saline with 20 mEq KCl 200 cc an hour Heme: Microcytic anemia Monitor CBC daily. Follow trends No indication for transfusion of blood proximally at this time ID: Cystitis - uncomplicated Levofloxacin 250 mg by mouth daily 3 days for Enterococcus faecalis species MSK: Out of bed/PT evaluate and treat FEN: Hypophosphatemia Hyponatremia Hypo-magnesium 2 g mag sulfate and Mag-Ox 40 mg twice a day 1 day, sodium phosphate 30 mmol IV 1. Recheck in a.m. Replace electrolytes as clinically indicated Prophylaxis GI - pantoprazole DVT - SCD/pharmacological prophylaxis when okay with neurosurgery Discontinue Ybarra catheter Level II follow-up Jluis Penny MD May 01, 2017 06:47
[2017-05-01] MEDS: SODIUM CHLORIDE 0.9% FLUSH 5 ML FLUSH IVF SCH ×4 (09:00→20:22)
[2017-05-01] MEDS ORDERED: amLODIPine BESYLATE 5 MG TAB PO SCH ×2 (09:00)
[2017-05-01] MEDS: MAGNESIUM SULFATE 1 GM PREMIX 100 ML IV SCH ×4 (09:12→10:14)
[2017-05-01] MEDS: PANTOPRAZOLE SOD 40 MG DELAYED RELEASE TAB PO SCH ×2 (09:13)
[2017-05-01] MEDS: LEVOFLOXACIN 250 MG TAB PO SCH ×2 (09:13)
[2017-05-01] MEDS: HYDROCHLOROTHIAZIDE 25 MG TAB PO SCH ×2 (09:13)
[2017-05-01] MEDS: LISINOPRIL 20 MG TAB PO SCH ×4 (09:13→20:24)
[2017-05-01] MEDS: CARVEDILOL 12.5 MG TAB PO SCH ×4 (09:13→20:23)
[2017-05-01 09:23] LABS: RETIC # 49.8 MIL/L (20.0-150.0); RETIC % 1.6 % (0.4-3.0)
[2017-05-01 09:37] LABS: % SATURATION IRON PROFILE 4.3 % (20-50); IRON (FE) 13 MCG/DL (50-170); TOTAL IRON BINDING CAPACITY 302 MCG/DL (250-450)
[2017-05-01] MEDS ORDERED: MAGNESIUM SULFATE 1 GM PREMIX 100 ML IV SCH ×2 (10:00)
--- NOTE | 2017-05-01 10:04 | HHI.NSPN ---
(Ani Langley) Note Status Status: Progress Note (Ani Langley) Interval History Interval History Ms. Landis is a 37-year-old female with a history of idiopathic intracranial hypertension who underwent placement of a lumboperitoneal shunt in 2009. She was doing well until recently she developed recurrent headaches with nausea, vomiting, and blurry vision. She denies fevers and chills. She underwent a CT head which was unremarkable. She underwent a shunt series of her lumbar peritoneal shunt which shows detachment of the catheter from the device. A neurosurgical evaluation was requested. 04/29: s/p placement of ventriculoperitoneal shunt on 04/28/17. on labetolol drip for hypertension and tachycardia. pt reports headaches improved, has mild nausea. eating her breakfast. 04/30: remains on labetolol drip for blood pressure control. no acute events overnight, tolerating clear liquid diet better. 05/01: increased headaches today with visual disturbance, mild nausea. blood pressure remains elevated on labetolol drip. (Ani Langley) Labs, Micro, & Vital Signs Results Date Time Temp Pulse Resp B/P (MAP) Pulse Ox O2 Delivery O2 Flow Rate FiO2 05/01/17 08:00 81 05/01/17 08:00 98.4 80 15 139/82 (101) 94 05/01/17 06:00 81 05/01/17 04:00 98.7 78 17 144/82 (102) 78 05/01/17 04:00 92 05/01/17 02:00 84 05/01/17 00:00 88 05/01/17 00:00 98.6 88 26 154/88 (110) 98 04/30/17 22:00 80 04/30/17 20:00 76 04/30/17 20:00 98.5 75 17 189/87 (121) 96 04/30/17 18:00 80 04/30/17 16:00 82 04/30/17 16:00 98.2 82 17 152/83 (106) 96 04/30/17 14:00 75 04/30/17 12:00 80 04/30/17 12:00 98.2 80 15 143/74 (97) 97 05/02/17 07:00 Intake Total 215 ml Balance 215 ml Constitutional Vital Signs Date Time Temp Pulse Resp B/P (MAP) Pulse Ox O2 Delivery O2 Flow Rate FiO2 05/01/17 08:00 81 05/01/17 08:00 98.4 80 15 139/82 (101) 94 05/01/17 06:00 81 05/01/17 04:00 98.7 78 17 144/82 (102) 78 05/01/17 04:00 92 05/01/17 02:00 84 05/01/17 00:00 88 05/01/17 00:00 98.6 88 26 154/88 (110) 98 04/30/17 22:00 80 04/30/17 20:00 76 04/30/17 20:00 98.5 75 17 189/87 (121) 96 04/30/17 18:00 80 04/30/17 16:00 82 04/30/17 16:00 98.2 82 17 152/83 (106) 96 04/30/17 14:00 75 04/30/17 12:00 80 04/30/17 12:00 98.2 80 15 143/74 (97) 97 05/02/17 07:00 Intake Total 215 ml Balance 215 ml (Ani Langley) Review of Systems Constitutional: DENIES: Fever Eyes: COMPLAINS OF: Blurred vision Cardiovascular: DENIES: Chest pain Neurologic: COMPLAINS OF: Headache, DENIES: Seizures (Ani Langley) Physical Exam Ms. Landis is alert and oriented to time, place and person. Speech is slow but fluent. Surgical incisions are healing well, new dressing placed. Cranial nerve examination: pupils 4 mm equal, round and reactive to light. Extra-ocular movements are intact. Facial motor and sensory function are normal and symmetrical. Neck is soft and supple Motor: moving all four extremities symmetrically, poor effort with examination Sensory: reports intact to light touch x 4 Plantars downgoing bilaterally (Ani Langley) Medications Current Medications Current Medications Medications (Trade) Dose Ordered Sig/David Route PRN Reason Start Time Stop Time Status Last Admin Dose Admin Naloxone HCl (Narcan Inj) 0.4 mg UNSCH PRN IV PUSH SEE LABEL COMMENTS 04/27/17 14:45 Clonidine (Catapres) 0.1 mg Q6H PRN PO SBP> OR = 165, DBP> OR = 90 04/28/17 05:15 04/30/17 00:17 Potassium Chloride/Sodium Chloride 1,000 ml @ 100 mls/hr Q10H IV 04/28/17 14:39 05/01/17 05:51 IV Flush (NS Flush) 2 ml UNSCH PRN IVF FLUSH AFTER USING IV ACCESS 04/28/17 14:45 IV Flush (NS Flush) 2 ml BID IVF 04/28/17 21:00 05/01/17 09:00 Acetaminophen/ Hydrocodone Bitart ([place] 10-325 Mg) 1 tab Q4H PRN PO PAIN SCALE 1 TO 5 04/28/17 14:45 04/29/17 16:55 Acetaminophen/ Hydrocodone Bitart ([place] 10-325 Mg) 2 tab Q4H PRN PO PAIN SCALE 6 TO 10 04/28/17 14:45 05/01/17 04:41 Morphine Sulfate (Morphine Inj) 2 mg Q2H PRN IV PUSH PAIN SCALE 1 TO 6 04/28/17 14:45 05/01/17 00:43 Morphine Sulfate (Morphine Inj) 4 mg Q2H PRN IV PUSH PAIN SCALE 7 TO 10 04/28/17 14:45 05/01/17 04:59 Acetaminophen (Tylenol) 650 mg Q4H PRN PO TEMPERATURE > 101.5 F 04/28/17 14:45 Labetalol HCl 500 mg/Sodium Chloride 250 ml @ 60 mls/hr TITRATE PRN IV Blood pressure management 04/28/17 19:30 05/01/17 09:47 Labetalol HCl (Trandate Inj) 10 mg Q4H PRN IV PUSH SBP>155, DBP>90, HR>65 04/29/17 15:00 04/30/17 17:16 Enalaprilat (Vasotec Inj) 1.25 mg Q1HR PRN IV PUSH BP > 165/90 04/30/17 14:15 04/30/17 17:16 Pantoprazole Sodium (Protonix) 40 mg DAILY PO 05/01/17 09:00 05/01/17 09:13 Levofloxacin (Levaquin) 250 mg DAILY PO 04/30/17 14:15 05/03/17 14:14 05/01/17 09:13 Ondansetron HCl (Zofran Inj) 4 mg Q6HR IVP 04/30/17 18:00 05/01/17 00:43 Amlodipine Besylate (Norvasc) 10 mg DAILY PO 04/30/17 22:45 05/01/17 09:13 Sodium Phosphate 30 mmol/Sodium Chloride 260 ml @ 43.333 mls/ hr ONCE ONCE IV 05/01/17 06:45 05/01/17 12:44 05/01/17 09:12 Magnesium Oxide (Mag-Ox) 400 mg Q12H PO 05/01/17 11:00 05/02/17 10:59 Carvedilol (Coreg) 25 mg Q12HR PO 05/01/17 09:00 05/01/17 09:13 Lisinopril (Prinivil) 20 mg Q12HR PO 05/01/17 09:00 05/01/17 09:13 Hydrochlorothiazide (Hydrodiuril) 25 mg DAILY PO 05/01/17 09:00 05/01/17 09:13 Hydralazine HCl (Apresoline Inj) 10 mg Q1HR PRN IV PUSH SBP>165, DBP>90 05/01/17 06:45 Magnesium Sulfate/ Dextrose 100 ml @ 100 mls/hr Q1H IV 05/01/17 10:00 05/01/17 10:59 (Ani Langley) Medical Decision Making MDM Remarks 37 y/o female with idiopathic intracranial hypertension, with nonfunctioning lumboperitoneal shunt s/p placement of ventriculoperitoneal shunt 04/28/[address] Head 04/29 stable postop findings uncontrolled hypertension (Ani Langley) Plan Plan Remarks cont bp mgt per critical care PT, ambulate, encourage mobilization OOB, decrease her shunt to 90 mm H20, with xray confirmation cont supportive care antiemetics prn N/V advance diet as tolerated (Ani Langley) Attending Statement The exam, history, and the medical decision-making described in the above note were completed with the assistance of the mid-level provider. I reviewed and agree with the findings presented. I attest that I had a [id number] encounter with the patient on the same day, and personally performed and documented my assessment and findings in the medical record. (Shreyas Dumont MD) Ani Langley May 01, 2017 10:04 Shreyas Dumont MD May 02, 2017 19:08
--- NOTE | 2017-05-01 10:20 | HHI.FPPN ---
Subjective Remarks No acute events overnight. BPs ranging 130s-180s/70s-80s over past 24 hours. HR WNL. Patient sleeping in bed this morning. She continues to report a headache that is dull, achy, and constant that is similar in pain to yesterday. Overall headache is improved since admission. She endorses continued nausea and vomiting as well. States she has not been ambulatory much. Denying blurry vision. (Wood Gauthier MD R2) Objective Vitals Vital Signs Date Time Temp Pulse Resp B/P (MAP) Pulse Ox O2 Delivery O2 Flow Rate FiO2 05/01/17 08:00 81 05/01/17 08:00 98.4 80 15 139/82 (101) 94 05/01/17 06:00 81 05/01/17 04:00 98.7 78 17 144/82 (102) 78 05/01/17 04:00 92 05/01/17 02:00 84 05/01/17 00:00 88 05/01/17 00:00 98.6 88 26 154/88 (110) 98 04/30/17 22:00 80 04/30/17 20:00 76 04/30/17 20:00 98.5 75 17 189/87 (121) 96 04/30/17 18:00 80 04/30/17 16:00 82 04/30/17 16:00 98.2 82 17 152/83 (106) 96 04/30/17 14:00 75 04/30/17 12:00 80 04/30/17 12:00 98.2 80 15 143/74 (97) 97 I/O 04/30/17 04/30/17 04/30/17 05/01/17 05/01/17 05/01/17 07:00 15:00 23:00 07:00 15:00 23:00 Intake Total 2920 ml 1220 ml 2000 ml 315 ml Output Total 1000 ml 650 ml 1400 ml Balance 1920 ml 570 ml 600 ml 315 ml Intake Oral 720 ml 720 ml IV Total 2200 ml 500 ml 2000 ml 315 ml Output Urine Total 1000 ml 650 ml 1400 ml # Bowel Movements 0 0 (Wood Gauthier MD R2) Result Diagram: 05/01/1743605/01/17436 Objective Remarks GENERAL: Appearing tired, lying in bed with lights out NEURO: Alert. Normal speech. design sales consultant intact. Motor grossly normal. SKIN: Warm and dry. No rashes or erythema. HEAD: Normocephalic. Atraumatic. EYES: EOMI. No injection or drainage. ENT: No nasal drainage. Moist mucous membranes. NECK: Supple, trachea midline. No JVD. CARDIOVASCULAR: Regular rate and rhythm without murmurs, rubs, or gallops. Peripheral pulses 2+. RESPIRATORY: Breath sounds clear to auscultation and equal bilaterally, without wheezes, rales, or rhonchi. No accessory muscle use. GASTROINTESTINAL: Abdomen soft, nontender, nondistended. No organomegaly or masses. No rebound tenderness. No guarding. MUSCULOSKELETAL: No lower extremity edema. (Wood Gauthier MD R2) A/P Assessment and Plan Very pleasant 37 year old woman admitted with pseudotumor cerebri and shunt malfunction s/p shunt replacement. (Wood Gauthier MD R2) Attending Attestation Patient seen and examined. Case reviewed and discussed with the resident team. Agree with plan of care as discussed with me and documented in the resident note. appreciate help of Dr Everett! (Cheryl Cuevas MD) Problem List: (1) Pseudotumor cerebri ICD Codes: G93.2 - Benign intracranial hypertension Status: Chronic Plan: - Neurosurgery consulted, Dr. Dumont managing, as well as Sales Representative [employer] with her need for close monitoring in SICU - S/p placement of ventriculoperitoneal shunt on 04/28 by NS - Morphine 4 mg IV q4h prn pain - Zofran as needed for nausea - DVT ppx per neurosurgery, b/l SCDs and TEDs - Stress ulcer prophylaxis with Protonix (2) HTN (hypertension) ICD Codes: I10 - Essential (primary) hypertension Status: Chronic Plan: Continue labetalol drip for blood pressure control, wean as tolerated, management per critical care Continue Coreg 25 mg po q12h Continue amlodipine 10 mg po daily Continue lisinopril 20 mg po q12h Continue HCTZ 25 mg po daily (3) Lumboperitoneal shunt leak ICD Codes: T85.635A - Leakage of other nervous system device, implant or graft , initial encounter Status: Resolved Plan: Neurosurgery consulted Plan as above (4) Leukocytosis ICD Codes: D72.829 - Elevated white blood cell count, unspecified Status: Resolved Plan: Resolved Continue to monitor (5) Anemia ICD Codes: D64.9 - Anemia, unspecified Status: Acute Plan: Hgb 10.6 on admission Microcytic Noted to be downtrending to 7.3 this AM May be dilutional vs post-surgical however EBL less than 50 cc in OR Continue to monitor Further workup if Hgb continues to downtrend Iron panel c/w iron deficiency anemia, ferritin not obtained Transfuse if Hgb < 7.0 Started ferrous sulfate 325 mg po bid (6) Nutrition, metabolism, and development symptoms ICD Codes: R63.8 - Other symptoms and signs concerning food and fluid intake Status: Acute Plan: Fluids: NS at 100 cc/hr Electrolytes: WNL, continue to monitor Nutrition: CLD DVT ppx: b/l SCDs GI ppx: Protonix (Wood Gauthier MD R2) Problem Qualifiers (1) HTN (hypertension): Qualified Codes: I15.8 - Other secondary hypertension (2) Lumboperitoneal shunt leak: Qualified Codes: T85.635A - Leakage of other nervous system device, implant or graft, initial encounter (3) Leukocytosis: Qualified Codes: D72.829 - Elevated white blood cell count, unspecified (4) Anemia: Qualified Codes: D50.8 - Other iron deficiency anemias Wood Gauthier MD R2 May 01, 2017 10:20 Cheryl Cuevas MD May 04, 2017 14:16
[2017-05-01] MEDS: MAGNESIUM OXIDE 400 MG TAB PO SCH ×4 (12:00→23:08)
--- NOTE | 2017-05-01 17:30 | RADRPT ---
EXAM DATE/TIME: 05/01/2017 16:43 [facility] COMPARISON: No previous studies available for comparison. INDICATIONS : Access codman shunt setting is at 90. MEDICAL HISTORY : Hypertension. SURGICAL HISTORY : Cholecystectomy. Tubal ligation. section.LP shunt ENCOUNTER: Subsequent ACUITY: 4 - 6 days PAIN SCORE: Non-responsive. LOCATION: Cranial. FINDINGS: Ventriculostomy catheter with valve present. Valve setting is 100 mm of water. CONCLUSION: Valve set at 100 mm H2O. Wilian Tinajero MD on May 01, 2017 at 17:26 Board Certified Radiologist. This report was verified electronically.
[2017-05-01] MEDS: FERROUS SULFATE 325 MG (65 MG ELEMENTAL IRON) TAB PO SCH ×2 (20:23)
[2017-05-01] MEDS: cloNIDine HCL 0.1 MG TAB PO PRN ×2 (21:50)
[2017-05-01] MEDS: ENALAPRILAT 1.25 MG/ML VIAL IV PUSH PRN ×4 (21:51→23:48)
[2017-05-02] VITALS (9 sets, daily range): BP systolic 140–189; BP diastolic 63–89; PULSE 72–91; RESP 14–20; TEMP 97.3–99.1; O2SAT 95–100
[2017-05-02] MEDS: hydrALAZINE HCL 20 MG/ML VIAL IV PUSH PRN ×6 (00:33→12:42)
[2017-05-02] MEDS: MORPHINE SULFATE 4 MG/ML INJ IV PUSH PRN ×10 (01:46→21:18)
[2017-05-02] MEDS: ENALAPRILAT 1.25 MG/ML VIAL IV PUSH PRN ×6 (02:33→17:31)
[2017-05-02] MEDS: cloNIDine HCL 0.1 MG TAB PO PRN ×2 (05:06)
[2017-05-02] MEDS: ONDANSETRON HCL 4 MG/2 ML VIAL IVP SCH ×6 (05:06→17:31)
[2017-05-02 06:26] LABS: AUTOMATED NEUTROPHIL # 6.8 TH/MM3 (1.8-7.7); BASOPHIL # 0.1 TH/MM3 (0-0.2); BASOPHIL % 0.6 % (0.0-2.0); EOSINOPHIL # 0.7 TH/MM3 (0-0.4); HEMATOCRIT 24.7 % (35.0-46.0); LYMPH % 14.3 % (9.0-44.0); LYMPHOCYTE # 1.4 TH/MM3 (1.0-4.8); MEAN CELL VOLUME 70.8 FL (80.0-100.0); MEAN CORPUSCULAR HEMOGLOBIN 22.9 PG (27.0-34.0); MEAN CORPUSCULAR HGB CONC 32.3 % (32.0-36.0); MEAN PLATELET VOLUME 7.5 FL (7.0-11.0); MONOCYTE # 0.7 TH/MM3 (0-0.9); NEUT % 71.1 % (16.0-70.0); PLATELET COUNT 373 TH/MM3 (150-450); RED BLOOD COUNT 3.48 MIL/MM3 (4.00-5.30); RED CELL DISTRIBUTION WIDTH 18.4 % (11.6-17.2); WHITE BLOOD COUNT 9.5 TH/MM3 (4.0-11.0)
[2017-05-02 06:43] LABS: ALBUMIN 2.6 GM/DL (3.4-5.0); BICARBONATE 27.7 MEQ/L (21.0-32.0); CREATININE 0.57 MG/DL (0.50-1.00); DIRECT BILIRUBIN ADULT 0.1 MG/DL (0.0-0.2); MAGNESIUM 1.9 MG/DL (1.5-2.5)
[2017-05-02 06:45] LABS: INDIRECT BILIRUBIN 0.3 MG/DL (0.0-0.8); PHOSPHORUS 2.5 MG/DL (2.5-4.9); TOTAL BILIRUBIN ADULT 0.4 MG/DL (0.2-1.0); TOTAL PROTEIN 6.4 GM/DL (6.4-8.2)
[2017-05-02] MEDS ORDERED: BISACODYL 10 MG SUPP RECTAL PRN ×2 (07:45)
[2017-05-02] MEDS ORDERED: LACTULOSE SYRUP 20 GM/30 ML CUP PO PRN ×2 (07:45)
[2017-05-02] MEDS ORDERED: MAGNESIUM HYDROXIDE SUSP 30 ML CUP PO PRN ×2 (07:45)
[2017-05-02] MEDS ORDERED: SENNOSIDES 8.6 MG TAB PO PRN ×2 (07:45)
--- NOTE | 2017-05-02 08:09 | HHI.CCPN ---
Subjective Remarks/Hospital Course 04/28: 37 year old female with history of pseudotumor cerebri and a non functional lumbar peritoneal shunt presented with intractable headaches and papilledema. She underwent evaluation with a lumbar puncture and cerebrospinal fluid pressured of 450 mm H20 and improvement in her symptoms. She underwent a ventriculoperitoneal shunt placement by Dr. Dumont. 04/29: Underwent PACKAGING SALES REPRESENTATIVE shunt placement yesterday. Awake and alert. On labetalol drip for hypertension. 04/30: Headache currently 4-10. Previously 03/07 before receiving hydrocodone/ acetaminophen. Remains hypertensive. Goal systolic blood pressure less than 150 per neurosurgery. Subjective 05/01: Remains on labetalol drip currently at 4 mg a minute which is above maximum dosage daily. Increase maximum dosages of carvedilol, amlodipine and lisinopril oral dosages and added hydrochlorothiazide. Pain management with narcotics for headache acutely. Obviously amlodipine could be contributing to headache. 05/02: Off labetalol. Add oral prn BP meds. Otherwise doing well. Objective Vital Signs Date Time Temp Pulse Resp B/P (MAP) Pulse Ox O2 Delivery O2 Flow Rate FiO2 05/02/17 07:35 100 21 05/02/17 06:00 78 05/02/17 04:00 97.5 16 171/82 (111) 04/29/17 10:14 Room Air 04/28/17 19:30 2 Intake and Output 05/02/17 05/02/17 05/03/17 08:00 16:00 00:00 Intake Total 720 ml Balance 720 ml Result Diagram: 05/02/17 0514 05/02/17 0514 Imaging Last Impressions Head CT 04/29/17 0000 Signed Impressions: Service Date/Time: April 04:48 - CONCLUSION: Interval ventricular shunt placement as above Wilian Lewis MD Chest X-Ray 04/27/17 1057 Signed Impressions: Service Date/Time: Thursday, April 27, 2017 11:34 - CONCLUSION: No acute cardiopulmonary abnormality is identified. Wilian Miguel MD Shunt Study (Imaging) 04/27/17 0000 Signed Impressions: Service Date/Time: Thursday, April 27, 2017 11:37 - CONCLUSION: Lumboperitoneal shunt is identified. The proximal aspect overlying the inferior thoracic spinal canal is stable. However, shunt tubing is discontinuous over the right abdomen adjacent to the connection with the valve. Distal tip is in the left upper quadrant. Wilian Miguel MD Lumbar Puncture Fluoroscopy 04/27/17 0000 Signed Impressions: Service Date/Time: Thursday, April 27, 2017 17:34 - CONCLUSION: Uncomplicated fluoroscopically guided lumbar puncture with pressures as above. Albaro Walker MD Objective Remarks GENERAL: 37-year-old AA female resting in bed, calm and in no acute distress SKIN: Warm and dry. HEAD: Surgical incision is clean dry and intact EYES: Pupils equal and round 3 mm bilaterally and reactive. No scleral icterus. No injection or drainage. ENT: No nasal bleeding or discharge. Mucous membranes pink and moist. NECK: Trachea midline. Airway widely patent. CARDIOVASCULAR: Regular rate and rhythm. S1, S2. No S4. No JVD. RESPIRATORY: No accessory muscle use. Clear to auscultation. Breath sounds equal bilaterally. GASTROINTESTINAL: Abdomen soft, non-tender, nondistended. BS active. MUSCULOSKELETAL: Extremities without clubbing, cyanosis, or edema. No obvious deformities. Well perfused. NEUROLOGICAL: Awake and alert. No obvious cranial nerve deficits. Motor grossly within normal limits. Five out of 5 muscle strength in the arms and legs. Normal speech. A/P Assessment and Plan Neuro/Psych: Status post PACKAGING SALES REPRESENTATIVE shunt secondary to pseudotumor tumor cerebri with nonfunctioning lumbar drain/intractable headaches with papilledema Headache NOS Currently on acetaminophen/hydrocodone 10/325 one to 2 tablets every 4 hours as needed pain along with morphine sulfate 2-4 mill grams IV every 2 hours. As needed for pain Neurosurgery - Dr. Dumont actively following Opening pressures - 190 IR - 04/27 - nonfunctioning lumbar drain Plan for repeat CT brain 05/02 CV: Hypertension Currently on carvedilol 25 mg 2x daily, amlodipine 10 mill grams daily and lisinopril 20 mg twice a day and added hydrochlorothiazide 25 mg for hypertension. Labetalol drip to be weaned off today if able. Currently 4 mg a minute Goal keep sets systolic blood pressure less than 160 per neurosurgery As needed enalapril, hydralazine and clonidine ordered Resp: Patient is currently in room air Incentive spirometry while awake GI: Elevated transaminases on 04/27 Full liquid diet Currently on pantoprazole 40 mg by mouth daily Recheck LFTs in a.m. 05/02 : No indication for Ybarra catheter with underlying cystitis Endo: Sliding-scale insulin if indicated Renal: Monitor urine output Accurate I's and O's Heme: Microcytic anemia Monitor CBC daily. Follow trends No indication for transfusion of blood proximally at this time ID: Cystitis - uncomplicated Levofloxacin 250 mg by mouth daily 3 days for Enterococcus faecalis species MSK: Out of bed/PT evaluate and treat FEN: Hypophosphatemia Hyponatremia Hypo-magnesium 2 g mag sulfate and Mag-Ox 40 mg twice a day 1 day, sodium phosphate 30 mmol IV 1. Recheck in a.m. Replace electrolytes as clinically indicated Prophylaxis GI - pantoprazole DVT - SCD/pharmacological prophylaxis when okay with neurosurgery Discontinue Ybarra catheter Overall: Stable neurological status. Transfer to floor. Increase oral BP meds. Adan Osuna MD May 02, 2017 08:09
[2017-05-02] MEDS: NS + KCL 20 MEQ INJ 1,000 ML IV SCH ×4 (08:48→17:31)
[2017-05-02] MEDS: SODIUM CHLORIDE 0.9% FLUSH 5 ML FLUSH IVF SCH ×4 (09:00→21:00)
[2017-05-02] MEDS: LISINOPRIL 20 MG TAB PO SCH ×4 (09:12→21:18)
[2017-05-02] MEDS: DOCUSATE SODIUM 50 MG/SENNA 8.6 MG TAB PO SCH ×4 (09:12→21:18)
[2017-05-02] MEDS: FERROUS SULFATE 325 MG (65 MG ELEMENTAL IRON) TAB PO SCH ×4 (09:12→21:18)
[2017-05-02] MEDS: CARVEDILOL 12.5 MG TAB PO SCH ×4 (09:12→21:18)
[2017-05-02] MEDS: HYDROCHLOROTHIAZIDE 25 MG TAB PO SCH ×2 (09:12)
[2017-05-02] MEDS: LEVOFLOXACIN 250 MG TAB PO SCH ×2 (09:12)
[2017-05-02] MEDS: PANTOPRAZOLE SOD 40 MG DELAYED RELEASE TAB PO SCH ×2 (09:12)
[2017-05-02] MEDS: ACETAMINOPHEN/HYDROcodone 325 MG/10 MG TAB PO PRN ×4 (09:13→14:44)
[2017-05-02] MEDS: hydrALAZINE HCL 50 MG TAB PO SCH ×6 (09:17→21:18)
--- NOTE | 2017-05-02 10:28 | HHI.NSPN ---
(Ani Langley) Note Status Status: Progress Note (Ani Langley) Interval History Interval History Ms. Landis is a 37-year-old female with a history of idiopathic intracranial hypertension who underwent placement of a lumboperitoneal shunt in 2009. She was doing well until recently she developed recurrent headaches with nausea, vomiting, and blurry vision. She denies fevers and chills. She underwent a CT head which was unremarkable. She underwent a shunt series of her lumbar peritoneal shunt which shows detachment of the catheter from the device. A neurosurgical evaluation was requested. 04/29: s/p placement of ventriculoperitoneal shunt on 04/28/17. on labetolol drip for hypertension and tachycardia. pt reports headaches improved, has mild nausea. eating her breakfast. 04/30: remains on labetolol drip for blood pressure control. no acute events overnight, tolerating clear liquid diet better. 05/01: increased headaches today with visual disturbance, mild nausea. blood pressure remains elevated on labetolol drip. 05/02: reports headaches a bit better today, no changes to neuro checks overnight. (Ani Langley) Labs, Micro, & Vital Signs Results Date Time Temp Pulse Resp B/P (MAP) Pulse Ox O2 Delivery O2 Flow Rate FiO2 05/02/17 08:00 87 05/02/17 07:35 100 21 05/02/17 06:00 78 05/02/17 04:00 74 05/02/17 04:00 97.5 74 16 171/82 (111) 97 05/02/17 02:00 79 05/02/17 00:00 78 05/02/17 00:00 97.3 78 14 189/89 (122) 95 05/01/17 22:00 88 05/01/17 20:00 97.1 90 28 169/79 (109) 98 05/01/17 20:00 90 05/01/17 18:00 84 05/01/17 16:00 74 05/01/17 16:00 98.4 74 18 156/81 (106) 97 05/01/17 14:00 74 05/01/17 12:00 80 05/01/17 12:00 98.3 80 15 120/71 (87) 94 Constitutional Vital Signs Date Time Temp Pulse Resp B/P (MAP) Pulse Ox O2 Delivery O2 Flow Rate FiO2 05/02/17 08:00 87 05/02/17 07:35 100 21 05/02/17 06:00 78 05/02/17 04:00 74 05/02/17 04:00 97.5 74 16 171/82 (111) 97 05/02/17 02:00 79 05/02/17 00:00 78 05/02/17 00:00 97.3 78 14 189/89 (122) 95 05/01/17 22:00 88 05/01/17 20:00 97.1 90 28 169/79 (109) 98 05/01/17 20:00 90 05/01/17 18:00 84 05/01/17 16:00 74 05/01/17 16:00 98.4 74 18 156/81 (106) 97 05/01/17 14:00 74 05/01/17 12:00 80 05/01/17 12:00 98.3 80 15 120/71 (87) 94 (Ani Langley) Review of Systems Eyes: COMPLAINS OF: Blurred vision Neurologic: COMPLAINS OF: Headache (Ani Langley) Physical Exam Ms. Landis is alert and oriented to time, place and person. Speech is slow but fluent. Surgical incisions are healing well, new dressing placed. Cranial nerve examination: pupils 4 mm equal, round and reactive to light. Extra-ocular movements are intact. Facial motor and sensory function are normal and symmetrical. Neck is soft and supple Motor: moving all four extremities symmetrically, poor effort with examination Sensory: reports intact to light touch x 4 Plantars downgoing bilaterally (Ani Langley) Medications Current Medications Current Medications Medications (Trade) Dose Ordered Sig/David Route PRN Reason Start Time Stop Time Status Last Admin Dose Admin Naloxone HCl (Narcan Inj) 0.4 mg UNSCH PRN IV PUSH SEE LABEL COMMENTS 04/27/17 14:45 Clonidine (Catapres) 0.1 mg Q6H PRN PO SBP> OR = 165, DBP> OR = 90 04/28/17 05:15 05/02/17 05:06 Potassium Chloride/Sodium Chloride 1,000 ml @ 75 mls/hr [id number] IV 04/28/17 14:39 05/01/17 04:00 IV Flush (NS Flush) 2 ml UNSCH PRN IVF FLUSH AFTER USING IV ACCESS 04/28/17 14:45 IV Flush (NS Flush) 2 ml BID IVF 04/28/17 21:00 05/02/17 09:00 Acetaminophen/ Hydrocodone Bitart ([place] 10-325 Mg) 1 tab Q4H PRN PO PAIN SCALE 1 TO 5 04/28/17 14:45 04/29/17 16:55 Acetaminophen/ Hydrocodone Bitart ([place] 10-325 Mg) 2 tab Q4H PRN PO PAIN SCALE 6 TO 10 04/28/17 14:45 05/02/17 09:13 Morphine Sulfate (Morphine Inj) 2 mg Q2H PRN IV PUSH PAIN SCALE 1 TO 6 04/28/17 14:45 05/01/17 00:43 Morphine Sulfate (Morphine Inj) 4 mg Q2H PRN IV PUSH PAIN SCALE 7 TO 10 04/28/17 14:45 05/02/17 05:13 Acetaminophen (Tylenol) 650 mg Q4H PRN PO TEMPERATURE > 101.5 F 04/28/17 14:45 Labetalol HCl 500 mg/Sodium Chloride 250 ml @ 60 mls/hr TITRATE PRN IV Blood pressure management 04/28/17 19:30 05/01/17 09:47 Labetalol HCl (Trandate Inj) 10 mg Q4H PRN IV PUSH SBP>155, DBP>90, HR>65 04/29/17 15:00 04/30/17 17:16 Enalaprilat (Vasotec Inj) 1.25 mg Q1HR PRN IV PUSH BP > 165/90 04/30/17 14:15 05/02/17 05:06 Pantoprazole Sodium (Protonix) 40 mg DAILY PO 05/01/17 09:00 05/02/17 09:12 Levofloxacin (Levaquin) 250 mg DAILY PO 04/30/17 14:15 05/03/17 14:14 05/02/17 09:12 Ondansetron HCl (Zofran Inj) 4 mg Q6HR IVP 04/30/17 18:00 05/02/17 05:06 Amlodipine Besylate (Norvasc) 10 mg DAILY PO 04/30/17 22:45 05/02/17 09:12 Magnesium Oxide (Mag-Ox) 400 mg Q12H PO 05/01/17 11:00 05/02/17 10:59 05/01/17 23:08 Carvedilol (Coreg) 25 mg Q12HR PO 05/01/17 09:00 05/02/17 09:12 Lisinopril (Prinivil) 20 mg Q12HR PO 05/01/17 09:00 05/02/17 09:12 Hydrochlorothiazide (Hydrodiuril) 25 mg DAILY PO 05/01/17 09:00 05/02/17 09:12 Hydralazine HCl (Apresoline Inj) 10 mg Q1HR PRN IV PUSH SBP>165, DBP>90 05/01/17 06:45 05/02/17 06:12 Ferrous Sulfate (Ferrous Sulfate) 325 mg BID PO 05/01/17 21:00 05/02/17 09:12 Senna/Docusate Sodium (Mary-Colace) 1 tab BID PO 05/02/17 09:00 05/02/17 09:12 Magnesium Hydroxide (Milk Of Magnesia Liq) 30 ml Q12H PRN PO Mild constipation 05/02/17 07:45 Sennosides (Senokot) 17.2 mg Q12H PRN PO Moderate constipation 05/02/17 07:45 Bisacodyl (Dulcolax Supp) 10 mg DAILY PRN RECTAL SEVERE CONSITIPATION 05/02/17 07:45 Lactulose (Lactulose Liq) 30 ml DAILY PRN PO SEVERE CONSITIPATION 05/02/17 07:45 Hydralazine HCl (Apresoline) 50 mg Q8HR PO 05/02/17 09:00 05/02/17 09:17 (Ani Langley) Medical Decision Making MDM Remarks 37 y/o female with idiopathic intracranial hypertension, with nonfunctioning lumboperitoneal shunt s/p placement of ventriculoperitoneal shunt 04/28/17, shunt readjusted 05/01 with xray confirmation set to [address] Head 04/29 stable postop findings uncontrolled hypertension (Ani Langley) Plan Plan Remarks cont bp mgt per critical care cont PT, ambulate, encourage mobilization OOB, cont supportive care advance diet as tolerated (Ani Langley) Attending Statement The exam, history, and the medical decision-making described in the above note were completed with the assistance of the mid-level provider. I reviewed and agree with the findings presented. I attest that I had a [id number] encounter with the patient on the same day, and personally performed and documented my assessment and findings in the medical record. (Shreyas Dumont MD) Ani Langley May 02, 2017 10:28 Shreyas Dumont MD May 02, 2017 19:09
[2017-05-02] MEDS ORDERED: POTASSIUM CHLORIDE 10 MEQ CONTROLLED RELEASE TAB PO ONE ×2 (11:30)
--- NOTE | 2017-05-02 13:20 | HHI.FPPN ---
Subjective Remarks Patient states her headache has improved, no vomiting, improved PO intake, no other complaints. Got up and sat in chair yesterday. (Chary Huggins MD R1) Objective Vitals Vital Signs Date Time Temp Pulse Resp B/P (MAP) Pulse Ox O2 Delivery O2 Flow Rate FiO2 05/02/17 12:00 98.8 72 17 159/80 (106) 99 05/02/17 12:00 72 05/02/17 08:00 98.4 86 18 140/63 (88) 99 05/02/17 08:00 87 05/02/17 07:35 100 21 05/02/17 06:00 78 05/02/17 04:00 74 05/02/17 04:00 97.5 74 16 171/82 (111) 97 05/02/17 02:00 79 05/02/17 00:00 78 05/02/17 00:00 97.3 78 14 189/89 (122) 95 05/01/17 22:00 88 05/01/17 20:00 97.1 90 28 169/79 (109) 98 05/01/17 20:00 90 05/01/17 18:00 84 05/01/17 16:00 74 05/01/17 16:00 98.4 74 18 156/81 (106) 97 05/01/17 14:00 74 I/O 05/01/17 05/01/17 05/01/17 05/02/17 05/02/17 05/02/17 07:00 15:00 23:00 07:00 15:00 23:00 Intake Total 2000 ml 1115 ml 1480 ml 720 ml 664 ml Output Total 1400 ml 3650 ml 1000 ml Balance 600 ml 1115 ml -2170 ml -280 ml 664 ml Intake Oral 480 ml 720 ml IV Total 2000 ml 1115 ml 1000 ml 664 ml Output Urine Total 1400 ml 3500 ml 1000 ml Emesis 150 ml # Bowel Movements 0 (Chary Huggins MD R1) Result Diagram: 05/02/1751305/02/17513 Objective Remarks GENERAL: Appearing tired, lying in bed with lights out NEURO: Alert. Normal speech. tunnel miner intact. Motor grossly normal. SKIN: Warm and dry. No rashes or erythema. HEAD: Normocephalic. Atraumatic. EYES: EOMI. No injection or drainage. ENT: No nasal drainage. Moist mucous membranes. NECK: Supple, trachea midline. No JVD. CARDIOVASCULAR: Regular rate and rhythm without murmurs, rubs, or gallops. RESPIRATORY: Breath sounds clear to auscultation and equal bilaterally, without wheezes, rales, or rhonchi. No accessory muscle use. GASTROINTESTINAL: Abdomen soft, nontender, nondistended. No organomegaly or masses. MUSCULOSKELETAL: No lower extremity edema. (Chary Huggins MD R1) A/P Assessment and Plan Very pleasant 37 year old woman admitted with pseudotumor cerebri and shunt malfunction s/p shunt replacement. Plan for transfer to floor. Will transition BP meds to PO. Discharge Planning May require home with home health per PT recs. PT ordered for 5x/week to prepare for D/C (Chary Huggins MD R1) Attending Attestation Patient seen and examined. Case reviewed and discussed with the resident team. Agree with plan of care as discussed with me and documented in the resident note. improving daily (Cheryl Cuevas MD) Problem List: (1) Pseudotumor cerebri ICD Codes: G93.2 - Benign intracranial hypertension Status: Chronic Plan: Neurosurgery consulted, Dr. Dumont managing, as well as Sonography Technician with her need for close monitoring in SICU S/p placement of ventriculoperitoneal shunt on 04/28 by NS, readjusted 05/01 to obtain reading of 100mm H2O Patient likely symptomatic due to readjustment to new intracranial pressures, likely to continue in the next few days - D/C labetalol, will transition BP meds to PO for transfer - encourage ambulation, PT ordered for 5x/week - Morphine 4 mg IV q4h prn pain - Zofran as needed for nausea - DVT ppx per neurosurgery, b/l SCDs - Stress ulcer prophylaxis with Protonix (2) HTN (hypertension) ICD Codes: I10 - Essential (primary) hypertension Status: Chronic Plan: BP parameters below 165/90 - PO hydralazine Q8HR, amlodipine 10 mg daily, lisinopril 20 mg BID, HCTZ 25 mg daily - PRNs PO clonidine Q6H for BP >180/100s and IV Vasotec for BP >165/90 (3) Lumboperitoneal shunt leak ICD Codes: T85.635A - Leakage of other nervous system device, implant or graft , initial encounter Status: Resolved Plan: Neurosurgery consulted Plan as above (4) Anemia ICD Codes: D64.9 - Anemia, unspecified Status: Acute Plan: Hgb 10.6 on admission Microcytic Iron panel c/w iron deficiency anemia, ferritin not obtained Improved 8.0 today (7.3) Ferrous sulfate 325 mg po bid Pericolace BID PO, Milk of magnesia PRN, senokot PRN, basacodyl PRN, lactulose PRN Transfuse if Hgb < 7.0 Daily CBC monitoring (5) Nutrition, metabolism, and development symptoms ICD Codes: R63.8 - Other symptoms and signs concerning food and fluid intake Status: Acute Plan: Fluids: NS +KCl at 75 cc/hr Electrolytes: K+ 3.3, KCl 30 meq x1, recheck BMP tomorrow Nutrition: Heart healthy DVT ppx: b/l SCDs GI ppx: Protonix (Chary Huggins MD R1) Problem Qualifiers (1) HTN (hypertension): Qualified Codes: I15.8 - Other secondary hypertension (2) Lumboperitoneal shunt leak: Qualified Codes: T85.635A - Leakage of other nervous system device, implant or graft, initial encounter (3) Anemia: Qualified Codes: D50.8 - Other iron deficiency anemias Chary Huggins MD R1 May 02, 2017 13:20 Cheryl Cuevas MD May 04, 2017 14:16
--- NOTE | 2017-05-02 22:43 | HHI.PR ---
Addendum to Inpatient Note Additional Information OFF SERVICE NOTE P: 37 y/o F w/hx of HTN and pseudotumor cerebri (s/p shunt placement in the last year) presenting w/severe, intractable headache, nausea, and vomiting. Consulted nuerosurgery, IR, and critical care. LP shunt found to be displaced/ disconnected. She underwent evaluation with a lumbar puncture and cerebrospinal fluid pressured of 450 mm H20 with improvement in her symptoms. She underwent a ventriculoperitoneal shunt placement by Dr. Dumont on 04/28 and transferred to the ICU. Placed on labetalol drip for hypertension. Goal BP parameters 165/90 per neurosurgery. Was weaned off labetalol drip on 05/02, and oral PRN BP meds were added. Symptoms improved today, gait limited to several steps and pivot. PT and case management were consulted, PT recommends possible home with home health PT. Patient was transferred to the floor with plan to participate in PT 5x/week. Please let me know if any questions thus far. Thank you for caring for this patient. Chary Huggins MD R1 May 02, 2017 22:43
[2017-05-03] VITALS (7 sets, daily range): BP systolic 136–167; BP diastolic 78–96; PULSE 87–102; RESP 16–20; TEMP 97.5–99.1; O2SAT 96–99
[2017-05-03] MEDS: ONDANSETRON HCL 4 MG/2 ML VIAL IVP SCH ×8 (05:28→18:00)
[2017-05-03] MEDS: MORPHINE SULFATE 4 MG/ML INJ IV PUSH PRN ×4 (05:28→11:10)
[2017-05-03] MEDS: hydrALAZINE HCL 50 MG TAB PO SCH ×6 (05:28→21:25)
[2017-05-03] MEDS: CARVEDILOL 12.5 MG TAB PO SCH ×4 (08:24→21:26)
[2017-05-03] MEDS: ACETAMINOPHEN/HYDROcodone 325 MG/10 MG TAB PO PRN ×4 (08:24→14:07)
[2017-05-03] MEDS: FERROUS SULFATE 325 MG (65 MG ELEMENTAL IRON) TAB PO SCH ×6 (08:24→21:26)
[2017-05-03] MEDS: LISINOPRIL 20 MG TAB PO SCH ×4 (08:25→21:26)
[2017-05-03] MEDS: DOCUSATE SODIUM 50 MG/SENNA 8.6 MG TAB PO SCH ×6 (08:25→21:25)
[2017-05-03] MEDS: HYDROCHLOROTHIAZIDE 25 MG TAB PO SCH ×2 (08:25)
[2017-05-03] MEDS: PANTOPRAZOLE SOD 40 MG DELAYED RELEASE TAB PO SCH ×2 (08:25)
[2017-05-03] MEDS: SODIUM CHLORIDE 0.9% FLUSH 5 ML FLUSH IVF SCH ×4 (08:28→21:00)
[2017-05-03 08:50] LABS: HEMATOCRIT 27.9 % (35.0-46.0); HEMOGLOBIN 9.1 GM/DL (11.6-15.3); MEAN CELL VOLUME 69.7 FL (80.0-100.0); MEAN CORPUSCULAR HEMOGLOBIN 22.7 PG (27.0-34.0); MEAN CORPUSCULAR HGB CONC 32.5 % (32.0-36.0); MEAN PLATELET VOLUME 7.2 FL (7.0-11.0); PLATELET COUNT 450 TH/MM3 (150-450); RED BLOOD COUNT 4.01 MIL/MM3 (4.00-5.30); RED CELL DISTRIBUTION WIDTH 18.3 % (11.6-17.2); WHITE BLOOD COUNT 10.4 TH/MM3 (4.0-11.0)
[2017-05-03 09:35] LABS: BICARBONATE 28.4 MEQ/L (21.0-32.0); CALCIUM 8.9 MG/DL (8.5-10.1); CREATININE 0.72 MG/DL (0.50-1.00)
[2017-05-03] MEDS: LEVOFLOXACIN 250 MG TAB PO SCH ×2 (11:09)
[2017-05-03] MEDS: NS + KCL 20 MEQ INJ 1,000 ML IV SCH ×2 (11:11)
--- NOTE | 2017-05-03 11:54 | HHI.NSPN ---
Note Status Status: Progress Note Interval History Interval History Ms. Landis is a 37-year-old female with a history of idiopathic intracranial hypertension who underwent placement of a lumboperitoneal shunt in 2009. She was doing well until recently she developed recurrent headaches with nausea, vomiting, and blurry vision. She denies fevers and chills. She underwent a CT head which was unremarkable. She underwent a shunt series of her lumbar peritoneal shunt which shows detachment of the catheter from the device. A neurosurgical evaluation was requested. 04/29: s/p placement of ventriculoperitoneal shunt on 04/28/17. on labetolol drip for hypertension and tachycardia. pt reports headaches improved, has mild nausea. eating her breakfast. 04/30: remains on labetolol drip for blood pressure control. no acute events overnight, tolerating clear liquid diet better. 05/01: increased headaches today with visual disturbance, mild nausea. blood pressure remains elevated on labetolol drip. 05/02: reports headaches a bit better today, no changes to neuro checks overnight. 05/03: feeling better today, headaches better. blood pressure improved and better controlled. Labs, Micro, & Vital Signs Results Date Time Temp Pulse Resp B/P (MAP) Pulse Ox O2 Delivery O2 Flow Rate FiO2 05/03/17 08:30 21 05/03/17 08:15 98.6 101 20 142/82 (102) 98 05/03/17 04:00 99.1 102 18 152/93 (112) 96 05/03/17 00:00 97.5 87 18 137/78 (97) 98 05/02/17 20:55 21 05/02/17 20:00 97.9 91 18 144/80 (101) 98 05/02/17 16:00 99.1 79 20 162/81 (108) 98 05/02/17 12:00 98.8 72 17 159/80 (106) 99 05/02/17 12:00 72 Constitutional Vital Signs Date Time Temp Pulse Resp B/P (MAP) Pulse Ox O2 Delivery O2 Flow Rate FiO2 05/03/17 08:30 21 05/03/17 08:15 98.6 101 20 142/82 (102) 98 05/03/17 04:00 99.1 102 18 152/93 (112) 96 05/03/17 00:00 97.5 87 18 137/78 (97) 98 05/02/17 20:55 21 05/02/17 20:00 97.9 91 18 144/80 (101) 98 05/02/17 16:00 99.1 79 20 162/81 (108) 98 05/02/17 12:00 98.8 72 17 159/80 (106) 99 05/02/17 12:00 72 Review of Systems Constitutional: DENIES: Fever, Chills Neurologic: COMPLAINS OF: Headache (improved), DENIES: Localized weakness Physical Exam Ms. Landis is alert and oriented to time, place and person. More conversant. Surgical incisions are healing well without signs of infection Cranial nerve examination: pupils 4 mm equal, round and reactive to light. Extra-ocular movements are intact. Facial motor and sensory function are normal and symmetrical. Neck is soft and supple Motor: moving all four extremities well Medications Current Medications Current Medications Medications (Trade) Dose Ordered Sig/David Route PRN Reason Start Time Stop Time Status Last Admin Dose Admin Naloxone HCl (Narcan Inj) 0.4 mg UNSCH PRN IV PUSH SEE LABEL COMMENTS 04/27/17 14:45 Clonidine (Catapres) 0.1 mg Q6H PRN PO SBP> OR = 180, DBP> OR = 100 04/28/17 05:15 05/02/17 05:06 Potassium Chloride/Sodium Chloride 1,000 ml @ 75 mls/hr [id number] IV 04/28/17 14:39 05/03/17 11:11 IV Flush (NS Flush) 2 ml UNSCH PRN IVF FLUSH AFTER USING IV ACCESS 04/28/17 14:45 IV Flush (NS Flush) 2 ml BID IVF 04/28/17 21:00 05/03/17 08:28 Acetaminophen/ Hydrocodone Bitart ([place] 10-325 Mg) 1 tab Q4H PRN PO PAIN SCALE 1 TO 5 04/28/17 14:45 04/29/17 16:55 Acetaminophen/ Hydrocodone Bitart ([place] 10-325 Mg) 2 tab Q4H PRN PO PAIN SCALE 6 TO 10 04/28/17 14:45 05/03/17 08:24 Morphine Sulfate (Morphine Inj) 2 mg Q2H PRN IV PUSH PAIN SCALE 1 TO 6 04/28/17 14:45 05/01/17 00:43 Morphine Sulfate (Morphine Inj) 4 mg Q2H PRN IV PUSH PAIN SCALE 7 TO 10 04/28/17 14:45 05/03/17 11:10 Acetaminophen (Tylenol) 650 mg Q4H PRN PO TEMPERATURE > 101.5 F 04/28/17 14:45 Enalaprilat (Vasotec Inj) 1.25 mg Q1HR PRN IV PUSH BP > 165/90 04/30/17 14:15 05/02/17 17:31 Pantoprazole Sodium (Protonix) 40 mg DAILY PO 05/01/17 09:00 05/03/17 08:25 Levofloxacin (Levaquin) 250 mg DAILY PO 04/30/17 14:15 05/03/17 14:14 05/03/17 11:09 Ondansetron HCl (Zofran Inj) 4 mg Q6HR IVP 04/30/17 18:00 05/03/17 11:10 Amlodipine Besylate (Norvasc) 10 mg DAILY PO 04/30/17 22:45 05/03/17 08:24 Carvedilol (Coreg) 25 mg Q12HR PO 05/01/17 09:00 05/03/17 08:24 Lisinopril (Prinivil) 20 mg Q12HR PO 05/01/17 09:00 05/03/17 08:25 Hydrochlorothiazide (Hydrodiuril) 25 mg DAILY PO 05/01/17 09:00 05/03/17 08:25 Ferrous Sulfate (Ferrous Sulfate) 325 mg BID PO 05/01/17 21:00 05/03/17 08:24 Senna/Docusate Sodium (Mary-Colace) 1 tab BID PO 05/02/17 09:00 05/03/17 08:25 Magnesium Hydroxide (Milk Of Magnesia Liq) 30 ml Q12H PRN PO Mild constipation 05/02/17 07:45 Sennosides (Senokot) 17.2 mg Q12H PRN PO Moderate constipation 05/02/17 07:45 05/03/17 08:25 Bisacodyl (Dulcolax Supp) 10 mg DAILY PRN RECTAL SEVERE CONSITIPATION 05/02/17 07:45 Lactulose (Lactulose Liq) 30 ml DAILY PRN PO SEVERE CONSITIPATION 05/02/17 07:45 Hydralazine HCl (Apresoline) 50 mg Q8HR PO 05/02/17 09:00 05/03/17 05:28 Medical Decision Making MDM Remarks 37 y/o female with idiopathic intracranial hypertension, with nonfunctioning lumboperitoneal shunt s/p placement of ventriculoperitoneal shunt 04/28/17, shunt readjusted 05/01 with xray confirmation set to 100 mm H20. headaches improving postop CT Head 04/29 stable postop findings hypertension, controlled Plan Plan Remarks cont medical mgt - bp control cont PT, ambulate, encourage mobilization OOB, neuro stable, clear to dc from NRS standpoint, f/u in office 2 weeks po for staple removal Ani Langley May 03, 2017 11:54
[2017-05-03] MEDS ORDERED: NITROFURANTOIN MONOHYD MACROCR 100 MG CAP PO ONE ×2 (12:30)
--- NOTE | 2017-05-03 14:36 | HHI.FPPN ---
Subjective Remarks No acute events overnight, BP stable, today feels tired but denies headache or vision changes (Roberto Carbajal MD R2) Objective Vitals Vital Signs Date Time Temp Pulse Resp B/P (MAP) Pulse Ox O2 Delivery O2 Flow Rate FiO2 05/03/17 12:02 98.2 94 20 148/91 (110) 99 05/03/17 08:30 21 05/03/17 08:15 98.6 101 20 142/82 (102) 98 05/03/17 04:00 99.1 102 18 152/93 (112) 96 05/03/17 00:00 97.5 87 18 137/78 (97) 98 05/02/17 20:55 21 05/02/17 20:00 97.9 91 18 144/80 (101) 98 05/02/17 16:00 99.1 79 20 162/81 (108) 98 I/O 05/02/17 05/02/17 05/02/17 05/03/17 05/03/17 05/03/17 07:00 15:00 23:00 07:00 15:00 23:00 Intake Total 720 ml 904 ml 240 ml Output Total 1000 ml 2000 ml Balance -280 ml -1096 ml 240 ml Intake Oral 720 ml 240 ml 240 ml IV Total 664 ml Output Urine Total 1000 ml 2000 ml # Voids 3 3 (Roberto Carbajal MD R2) Result Diagram: 05/03/17 0758 05/03/17 0758 Objective Remarks GENERAL: Appearing tired, lying in bed with lights out NEURO: Alert. Normal speech. director housekeeping intact. Motor grossly normal. CARDIOVASCULAR: Regular rate and rhythm without murmurs, rubs, or gallops. RESPIRATORY: Breath sounds clear to auscultation and equal bilaterally, without wheezes, rales, or rhonchi. No accessory muscle use. MUSCULOSKELETAL: No lower extremity edema. (Roberto Carbajal MD R2) A/P Assessment and Plan Very pleasant 37 year old woman admitted with pseudotumor cerebri and shunt malfunction s/p shunt replacement. Plan for transfer to floor. Will transition BP meds to PO. Discharge Planning Cleared from D/C per neurosurgery; keep overnight to adjust pain regimen (off opiates) and ensure BP stability prior to D/C Anticipate D/C 05/04 (Roberto Carbajal MD R2) Attending Attestation Patient seen and examined. Case reviewed and discussed with the resident team. Agree with plan of care as discussed with me and documented in the resident note. much improved. finally able to keep food down without vomiting (Cheryl Cuevas MD) Problem List: (1) Pseudotumor cerebri ICD Codes: G93.2 - Benign intracranial hypertension Status: Chronic Plan: S/p placement of ventriculoperitoneal shunt on 04/28 by NS, readjusted 05/01 to obtain reading of 100mm H2O - Neurosurgery consulted, appreciate recs - BP goal < 165/90 - Zofran as needed for nausea - Cleared for discharge from neurosurgery standpoint - F/u in 2 weeks - Stress ulcer prophylaxis with Protonix while hospitalized - encourage ambulation, PT ordered for 5x/week (2) HTN (hypertension) ICD Codes: I10 - Essential (primary) hypertension Status: Chronic Plan: BP parameters below 165/90 - PO hydralazine 50 mg Q8HR, amlodipine 10 mg daily, lisinopril 20 mg BID, HCTZ 25 mg daily - PRNs PO clonidine Q6H for BP >180/100s and IV Vasotec for BP >165/90 (3) Lumboperitoneal shunt leak ICD Codes: T85.635A - Leakage of other nervous system device, implant or graft , initial encounter Status: Resolved Plan: Neurosurgery consulted Plan as above (4) Anemia ICD Codes: D64.9 - Anemia, unspecified Status: Acute Plan: Microcytic anemia, iron panel c/w iron deficiency anemia, ferritin not obtained Improved, Hgb 9.3 Ferrous sulfate 325 mg po bid Pericolace BID PO, Milk of magnesia PRN, senokot PRN, basacodyl PRN, lactulose PRN Transfuse if Hgb < 7.0 Daily CBC monitoring (5) Nutrition, metabolism, and development symptoms ICD Codes: R63.8 - Other symptoms and signs concerning food and fluid intake Status: Acute Plan: Fluids: NS +KCl at 75 cc/hr Electrolytes: K+ 3.2, KCl 50 meq x1, recheck BMP tomorrow Nutrition: Heart healthy DVT ppx: b/l SCDs GI ppx: Protonix Pain: Tylenol 650 mg Q6H pain 3-5, Toradol 30 mg IV Q6H pain 6-10, Tramadol 50 mg Q6H PRN breakthrough (Roberto Carbajal MD R2) Problem Qualifiers (1) HTN (hypertension): Qualified Codes: I15.8 - Other secondary hypertension (2) Lumboperitoneal shunt leak: Qualified Codes: T85.635A - Leakage of other nervous system device, implant or graft, initial encounter (3) Anemia: Qualified Codes: D50.8 - Other iron deficiency anemias Roberto Carbajal MD R2 May 03, 2017 14:36 Cheryl Cuevas MD May 04, 2017 14:17
[2017-05-03] MEDS ORDERED: traMADol HCL 50 MG TAB PO PRN ×2 (17:45)
[2017-05-03] MEDS ORDERED: POTASSIUM CHLORIDE 25 MEQ EFFERVESCENT TAB PO ONE ×2 (18:00)
[2017-05-03] MEDS ORDERED: NITROFURANTOIN MONOHYD MACROCR 100 MG CAP PO SCH ×2 (18:00)
[2017-05-03] MEDS: KETOROLAC TROMETHAMINE 30 MG/ML (IVP) VIAL IV PUSH PRN ×2 (18:27)
[2017-05-04 00:14] VITALS: BP 162/91
[2017-05-04] MEDS: ONDANSETRON HCL 4 MG/2 ML VIAL IVP SCH ×4 (00:15→06:05)
[2017-05-04] MEDS: KETOROLAC TROMETHAMINE 30 MG/ML (IVP) VIAL IV PUSH PRN ×4 (00:16→06:06)
[2017-05-04] MEDS: ENALAPRILAT 1.25 MG/ML VIAL IV PUSH PRN ×2 (00:30)
[2017-05-04 01:52] VITALS: BP 164/93
[2017-05-04 05:26] VITALS: BP 156/74; PULSE 88; RESP 17; TEMP 98.6; O2SAT 96
[2017-05-04] MEDS: hydrALAZINE HCL 50 MG TAB PO SCH ×2 (06:05)
[2017-05-04] MEDS ORDERED: ACETAMINOPHEN 325 MG TAB PO SCH ×2 (08:00)
[2017-05-04 08:21] VITALS: BP 143/93; PULSE 84; RESP 19; TEMP 99; O2SAT 98
[2017-05-04] MEDS ORDERED: HYDR25TA5 PO ×2 (08:53)
[2017-05-04] MEDS ORDERED: CARV25TA PO ×2 (08:53)
[2017-05-04] MEDS ORDERED: ONDA4TAB7 SL ×2 (08:53)
[2017-05-04] MEDS ORDERED: HYDR-3800 PO ×2 (08:53)
[2017-05-04] MEDS ORDERED: FERR325T20 PO ×2 (08:53)
[2017-05-04] MEDS ORDERED: LISI-515 PO ×2 (08:53)
[2017-05-04] MEDS ORDERED: AMLO10TA2 PO ×2 (08:54)
[2017-05-04] MEDS: HYDROCHLOROTHIAZIDE 25 MG TAB PO SCH ×2 (08:56)
[2017-05-04] MEDS: PANTOPRAZOLE SOD 40 MG DELAYED RELEASE TAB PO SCH ×2 (08:56)
[2017-05-04] MEDS: CARVEDILOL 12.5 MG TAB PO SCH ×2 (08:56)
[2017-05-04] MEDS: FERROUS SULFATE 325 MG (65 MG ELEMENTAL IRON) TAB PO SCH ×2 (08:56)
[2017-05-04] MEDS: DOCUSATE SODIUM 50 MG/SENNA 8.6 MG TAB PO SCH ×2 (08:57)
[2017-05-04] MEDS: LISINOPRIL 20 MG TAB PO SCH ×2 (08:57)
[2017-05-04] MEDS: SODIUM CHLORIDE 0.9% FLUSH 5 ML FLUSH IVF SCH ×2 (08:58)
--- NOTE | 2017-05-04 09:01 | HHI.FF ---
Face to Face Verification Diagnosis: (1) Pseudotumor cerebri Physical Therapy Order: Evaluate and Treat Home Health Nursing Order: Medical education I have seen patient Jennifer Landis on 05/04/17. My clinical findings support the need for the requested home health care services because: Ltd mobility - disease progression I certify that my clinical findings support that this patient is homebound because: Unsteady gait/balance Estela Brasher MD, R1 May 04, 2017 09:01
--- NOTE | 2017-05-04 09:10 | HHI.DCPOC ---
Discharge Care Plan Diagnosis: (1) HTN (hypertension) (2) Pseudotumor cerebri (3) Lumboperitoneal shunt leak Goals to Promote Your Health * To prevent worsening of your condition and complications * To maintain your health at the optimal level Directions to Meet Your Goals Take your medications as prescribed Follow your dietary instruction Follow activity as directed Keep your appointments as scheduled Take your immunizations and boosters as scheduled If your symptoms worsen call your PCP, if no PCP go to Urgent Care Center or Emergency Room Smoking is Dangerous to Your Health. Avoid second hand smoke Call the 24-hour hour crisis hotline for domestic abuse at Estela Brasher MD, R1 May 04, 2017 09:10
--- NOTE | 2017-05-04 09:10 | HHI.DCPOC ---
Discharge Care Plan Diagnosis: (1) HTN (hypertension) (2) Pseudotumor cerebri (3) Lumboperitoneal shunt leak Goals to Promote Your Health * To prevent worsening of your condition and complications * To maintain your health at the optimal level Directions to Meet Your Goals Take your medications as prescribed Follow your dietary instruction Follow activity as directed Keep your appointments as scheduled Take your immunizations and boosters as scheduled If your symptoms worsen call your PCP, if no PCP go to Urgent Care Center or Emergency Room Smoking is Dangerous to Your Health. Avoid second hand smoke Call the 24-hour hour crisis hotline for domestic abuse at Estela Brasher MD, R1 May 04, 2017 09:10
--- NOTE | 2017-05-04 09:10 | HHI.DCPOC ---
Discharge Care Plan Diagnosis: (1) HTN (hypertension) (2) Pseudotumor cerebri (3) Lumboperitoneal shunt leak Goals to Promote Your Health * To prevent worsening of your condition and complications * To maintain your health at the optimal level Directions to Meet Your Goals Take your medications as prescribed Follow your dietary instruction Follow activity as directed Keep your appointments as scheduled Take your immunizations and boosters as scheduled If your symptoms worsen call your PCP, if no PCP go to Urgent Care Center or Emergency Room Smoking is Dangerous to Your Health. Avoid second hand smoke Call the 24-hour hour crisis hotline for domestic abuse at Estela Brasher MD, R1 May 04, 2017 09:10
[2017-05-04] MEDS ORDERED: TRAM50TA PO ×2 (10:11)
--- NOTE | 2017-05-04 12:04 | HHI.FPPN ---
Subjective Remarks Acute events overnight. Afebrile, blood pressure slightly elevated but at goal of less than 165/90. Pain well controlled on Toradol and Tylenol overnight. Denies chest pain, shortness of breath, headache, vision changes. Wants to go home today. Objective Vitals Vital Signs Date Time Temp Pulse Resp B/P (MAP) Pulse Ox O2 Delivery O2 Flow Rate FiO2 05/04/17 08:21 99.0 84 19 143/93 (110) 98 05/04/17 05:26 98.6 88 17 156/74 (101) 96 05/04/17 01:52 164/93 (116) 05/04/17 00:14 162/91 (114) 05/03/17 23:07 98.3 88 16 167/96 (119) 98 05/03/17 20:30 98.0 89 17 167/91 (116) 96 05/03/17 16:27 98.6 90 20 136/84 (101) 97 05/03/17 12:02 98.2 94 20 148/91 (110) 99 I/O 05/03/17 05/03/17 05/03/17 05/04/17 05/04/17 05/04/17 07:00 15:00 23:00 07:00 15:00 23:00 Intake Total 1290 ml 480 ml 120 ml Balance 1290 ml 480 ml 120 ml Intake Oral 240 ml 480 ml 120 ml IV Total 1050 ml # Voids 3 3 1 2 # Bowel Movements 1 Result Diagram: 05/03/17 0758 05/03/17 0758 Objective Remarks GENERAL: Appearing tired, lying in bed with lights out NEURO: Alert. Normal speech. 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 Motor grossly normal. NECK: ROM full and without pain. Supple. CARDIOVASCULAR: Regular rate and rhythm without murmurs, rubs, or gallops. RESPIRATORY: Breath sounds clear to auscultation and equal bilaterally, without wheezes, rales, or rhonchi. No accessory muscle use. MUSCULOSKELETAL: No lower extremity edema. A/P Assessment and Plan 37 yo with history of pseudotumor cerebri presenting with: Discharge Planning Home today Problem List: (1) Pseudotumor cerebri ICD Codes: G93.2 - Benign intracranial hypertension Status: Chronic Plan: S/p placement of ventriculoperitoneal shunt on 04/28 by NS, readjusted 05/01 to obtain reading of 100mm H2O - Neurosurgery consulted, appreciate recs - BP goal < 165/90 - Zofran as needed for nausea - Cleared for discharge from neurosurgery standpoint - F/u in 2 weeks - Home with home health PT - Tylenol and Motrin as needed for pain at home; tramadol 50 mg Q6H for breakthrough (2) HTN (hypertension) ICD Codes: I10 - Essential (primary) hypertension Status: Chronic Plan: BP parameters below 165/90, currently at goal for most measurements - PO hydralazine 50 mg Q8HR, amlodipine 10 mg daily, lisinopril 20 mg BID, HCTZ 25 mg daily - PRNs PO clonidine Q6H for BP >180/100s and IV Vasotec for BP >165/90 (3) Lumboperitoneal shunt leak ICD Codes: T85.635A - Leakage of other nervous system device, implant or graft , initial encounter Status: Resolved Plan: Neurosurgery consulted Plan as above (4) Anemia ICD Codes: D64.9 - Anemia, unspecified Status: Acute Plan: Microcytic anemia, iron panel c/w iron deficiency anemia, ferritin not obtained Improved, Hgb stable around 9 Ferrous sulfate 325 mg po bid F/u with PCP Problem Qualifiers (1) HTN (hypertension): Qualified Codes: I15.8 - Other secondary hypertension (2) Lumboperitoneal shunt leak: Qualified Codes: T85.635A - Leakage of other nervous system device, implant or graft, initial encounter (3) Anemia: Qualified Codes: D50.8 - Other iron deficiency anemias Roberto Carbajal MD R2 May 04, 2017 12:04 pm
--- NOTE | 2017-05-04 12:25 | HHI.DS ---
Discharge Summary Admission Date Apr 27, 2017 at 2:03 pm Discharge Date: May 04, 2017 Admitting Diagnosis lumboperitoneal shunt leaking. Cephalgia. Uncontrolled hypertensio (1) Pseudotumor cerebri Diagnosis: Principal Plan: S/p placement of ventriculoperitoneal shunt on 04/28 by NS, readjusted 05/01 to obtain reading of 100mm H2O - Neurosurgery consulted, appreciate recs - BP goal < 165/90 - Zofran as needed for nausea - Cleared for discharge from neurosurgery standpoint - F/u in 2 weeks - Home with home health PT - Tylenol and Motrin as needed for pain at home; tramadol 50 mg Q6H for breakthrough ICD Codes: G93.2 - Benign intracranial hypertension Status: Chronic (2) HTN (hypertension) Diagnosis: Secondary Plan: BP parameters below 165/90, currently at goal for most measurements - PO hydralazine 50 mg Q8HR, amlodipine 10 mg daily, lisinopril 20 mg BID, HCTZ 25 mg daily - PRNs PO clonidine Q6H for BP >180/100s and IV Vasotec for BP >165/90 ICD Codes: I10 - Essential (primary) hypertension Status: Chronic (3) Lumboperitoneal shunt leak Diagnosis: Principal Plan: Neurosurgery consulted Plan as above ICD Codes: T85.635A - Leakage of other nervous system device, implant or graft , initial encounter Status: Resolved (4) Anemia Diagnosis: Secondary Plan: Microcytic anemia, iron panel c/w iron deficiency anemia, ferritin not obtained Improved, Hgb stable around 9 Ferrous sulfate 325 mg po bid F/u with PCP ICD Codes: D64.9 - Anemia, unspecified Status: Acute Consultants Neurosurgery - Dr. Dumont Procedures Ventriculo-peritoneal shunt - 04/28/17 Brief History Ms Landis is a very pleasant 37 year old woman with a h/o pseudotumor cerebri s/p LP shunt placement and HTN sent to the ED by her neurologist Dr. Branch. Patient reports headaches, blurry vision, vomiting, pain between shoulders as well as neck pain, dizziness, and nausea present for about the past 3 weeks. Symptoms have not gotten any better over this time period. She states she was diagnosed with pseudotumor cerebri back in 2009 and had her LP shunt placed this year as well. Patient states she has been to [facility] 3 times over the past few weeks and most recently was admitted 4 days ago and just discharged yesterday for these same problems. She denies any erika loss of vision. She states her headache is diffuse and aches all over her head. She has had symptoms as severe as this about 3 to 4 times she states since being diagnosed in 2009. She also reports numbness and tingling in the fingers of her left hand and left leg. She reports vomiting multiple times daily over at least the past 2 weeks. States she has not eaten a meal over the past 3 weeks. She had a LP yesterday but is still suffering the same sxs as before. She is scheduled to have a shunt placed today but when her medicine team entered the room she was very anxious and did not want surgery. Gave her 1 mg of ativan and asked her nurse to let Dr Everett know she was nervous. Explained to her that she has been unable to fxn in her current state and she needed to have this fixed. CBC/BMP: 05/03/17 0758 05/03/17 0758 Significant Findings Laboratory Tests Test 05/02/17 05:14 05/03/17 07:58 Red Blood Count 3.48 MIL/MM3 (4.00-5.30) Hemoglobin 8.0 GM/DL (11.6-15.3) 9.1 GM/DL (11.6-15.3) Hematocrit 24.7 % (35.0-46.0) 27.9 % (35.0-46.0) Mean Corpuscular Volume 70.8 FL (80.0-100.0) 69.7 FL (80.0-100.0) Mean Corpuscular Hemoglobin 22.9 PG (27.0-34.0) 22.7 PG (27.0-34.0) Red Cell Distribution Width 18.4 % (11.6-17.2) 18.3 % (11.6-17.2) Neutrophils (%) (Auto) 71.1 % (16.0-70.0) Eosinophils (%) (Auto) 7.0 % (0.0-4.0) Eosinophils # (Auto) 0.7 TH/MM3 (0-0.4) Blood Urea Nitrogen 4 MG/DL (7-18) 6 MG/DL (7-18) Albumin 2.6 GM/DL (3.4-5.0) Calcium Level 8.0 MG/DL (8.5-10.1) Alanine Aminotransferase (ALT/SGPT) 57 U/L (10-53) Potassium Level 3.3 MEQ/L (3.5-5.1) 3.2 MEQ/L (3.5-5.1) Random Glucose 108 MG/DL (74-106) Sodium Level 134 MEQ/L (136-145) Chloride Level 96 MEQ/L (98-107) Imaging Last Impressions Skull X-Ray 05/01/17 0000 Signed Impressions: Service Date/Time: Monday, May 01, 2017 16:43 - CONCLUSION: Valve set at 100 mm H2O. Wilian Tinajero MD Head CT 04/29/17 0000 Signed Impressions: Service Date/Time: April 04:48 - CONCLUSION: Interval ventricular shunt placement as above Wilian Lewis MD Chest X-Ray 04/27/17 1057 Signed Impressions: Service Date/Time: Thursday, April 27, 2017 11:34 - CONCLUSION: No acute cardiopulmonary abnormality is identified. Wilian Miguel MD Shunt Study (Imaging) 04/27/17 0000 Signed Impressions: Service Date/Time: Thursday, April 27, 2017 11:37 - CONCLUSION: Lumboperitoneal shunt is identified. The proximal aspect overlying the inferior thoracic spinal canal is stable. However, shunt tubing is discontinuous over the right abdomen adjacent to the connection with the valve. Distal tip is in the left upper quadrant. Wilian Miguel MD Lumbar Puncture Fluoroscopy 04/27/17 0000 Signed Impressions: Service Date/Time: Thursday, April 27, 2017 17:34 - CONCLUSION: Uncomplicated fluoroscopically guided lumbar puncture with pressures as above. Albaro Walker MD PE at Discharge GENERAL: Appearing tired, lying in bed with lights out NEURO: Alert. Normal speech. 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 Motor grossly normal. NECK: ROM full and without pain. Supple. CARDIOVASCULAR: Regular rate and rhythm without murmurs, rubs, or gallops. RESPIRATORY: Breath sounds clear to auscultation and equal bilaterally, without wheezes, rales, or rhonchi. No accessory muscle use. MUSCULOSKELETAL: No lower extremity edema. Hospital Course 37 y/o F w/hx of HTN and pseudotumor cerebri (s/p shunt placement in the last year) presenting w/severe, intractable headache, nausea, and vomiting. Consulted nuerosurgery, IR, and critical care. LP shunt found to be displaced/ disconnected. She underwent evaluation with a lumbar puncture which showed cerebrospinal fluid pressure of 450 mm H20. LP removal of fluid improved symptoms markedly. She underwent a ventriculoperitoneal shunt placement by Dr. Dumont on 04/28 and was transferred to the ICU for monitoring. Her blood pressure was titrated to maintain goal < 165/90 mmHg. On date of discharge, symptoms still resolved, pain controlled, and BP at goal. Cleared for discharge with PT at home for a few sessions. F/u as noted below. Pt Condition on Discharge: Stable Discharge Disposition: Disch w/ Home Health Serv Discharge Instructions DIET: Follow Instructions for: As Tolerated, No Restrictions Activities you can perform: Weight Bearing as [place] Follow up Referrals: Appointment for Follow Up - 3-5 Days with [facility],Physician Neurosurgery - 2 Weeks with Shreyas Dumont MD New Medications: Amlodipine (Amlodipine) 10 Mg Tab 10 MG PO DAILY for Blood Pressure Management, #30 TAB 0 Refills Carvedilol (Carvedilol) 25 Mg Tab 25 MG PO BID, #60 TAB 0 Refills Ondansetron Odt (Ondansetron Odt) 4 Mg Tab 4 MG SL Q8HR PRN for Nausea/Vomiting, #90 TAB 0 Refills Tramadol (Tramadol) 50 Mg Tab 50 MG PO Q6H PRN for BREAKTHROUGH PAIN, #20 TAB 0 Refills To be used if Tylenol and ibuprofen have not brought pain down to a 3 or less Ferrous Sulfate (Ferosul) 325 Mg (65 Mg Iron) Tablet 325 MG PO BID, #60 TAB Hydralazine HCl (Hydralazine HCl) 50 Mg Tablet 50 MG PO Q8HR, #90 TAB Hydrochlorothiazide (Hydrochlorothiazide) 25 Mg Tab 25 MG PO DAILY, #30 TAB Lisinopril (Lisinopril) 20 Mg Tab 20 MG PO Q12HR, #60 TAB Continued Medications: Acetaminophen (Tylenol) 325 Mg Tab 650 MG PO Q6H PRN for PAIN SCALE 1 TO 4, #20 TAB 0 Refills Roberto Carbajal MD R2 May 04, 2017 12:24 pm
== END 2017-05-04 11:45 | disposition home health service (06) | DRG 32 ==
LOC: NEPE 10:34 → NEDA 14:03 → N06B 18:05 → N03B 04-28 16:16 → N05A 05-02 13:42
PROVIDERS: ADMIT Family Medicine; ATTEND Family Medicine
PROC: 009U3ZX Drainage of Spinal Canal, Percutaneous Approach, Diagnostic (ICD-10-PCS; 2017-04-27)
PROC: 00163J6 Bypass Cerebral Ventricle to Peritoneal Cavity with Synthetic Substitute, Percutaneous Approach (ICD-10-PCS; principal; 2017-04-28 13:37)
DX: T85.635A Leakage of other nervous system device, implant or graft, initial encounter (principal); G93.2 Benign intracranial hypertension; N17.9 Acute kidney failure, unspecified; I15.9 Secondary hypertension, unspecified; E87.1 Hypo-osmolality and hyponatremia; E83.42 Hypomagnesemia; G43.909 Migraine, unspecified, not intractable, without status migrainosus; H53.8 Other visual disturbances; R00.0 Tachycardia, unspecified; M54.2 Cervicalgia; Z82.3 Family history of stroke; Z82.49 Family history of ischemic heart disease and other diseases of the circulatory system; E86.0 Dehydration; E87.6 Hypokalemia; D50.8 Other iron deficiency anemias; E83.39 Other disorders of phosphorus metabolism; F43.9 Reaction to severe stress, unspecified; N30.90 Cystitis, unspecified without hematuria; Y75.3 Surgical instruments, materials and neurological devices (including sutures) associated with adverse incidents; Y92.009 Unspecified place in unspecified non-institutional (private) residence as the place of occurrence of the external cause; Y83.8 Other surgical procedures as the cause of abnormal reaction of the patient, or of later complication, without mention of misadventure at the time of the procedure
CPT/HCPCS: 62270; 70250; 70450; 71010; 72040; 74000; 77003; 80048; 80053; 80076; 81001; 82945; 83540; 83550; 83735; 84100; 84157; 84439; 84443; 84702; 85025; 85027; 85044; 85610; 85652; 85730; 86140; 87070; 87077; 87086; 87186; 87205; 89051; 93005; 94150; 96365; 96375; C9113; J0360; J0690; J1580; J1885; J2270; J2405; J3370; J3475; J3480; J7030; J7050; J7120

== ENCOUNTER 2017-05-28 10:02 | Inpatient (IN) | payer OTHER, MEDICAID ==
[~2017-05-28] VITALS: Ht 165.1 cm; Wt 89.6 kg
[2017-05-28 10:02] VITALS: BP 144/99; PULSE 121; RESP 20; TEMP 99.3; O2SAT 100
[~2017-05-28 10:02] MED LIST changes: +AMLO10TA2 PO; +CARV25TA PO; +FERR325T20 PO; +HYDR-3800 PO; +HYDR25TA5 PO; +LISI-515 PO; +ONDA4TAB7 SL; +TRAM50TA PO
[2017-05-28] MEDS ORDERED: SODIUM CHLORIDE 0.9% FLUSH 10 ML FLUSH IV FLUSH PRN ×2 (10:30→13:15)
[2017-05-28 10:42] VITALS: O2SAT 100
[2017-05-28 10:47] LABS: AUTOMATED NEUTROPHIL # 7.4 TH/MM3 (1.8-7.7); BASOPHIL # 0.1 TH/MM3 (0-0.2); BASOPHIL % 0.8 % (0.0-2.0); EOSINOPHIL # 0.2 TH/MM3 (0-0.4); EOSINOPHIL % 1.5 % (0.0-4.0); HEMATOCRIT 30.8 % (35.0-46.0); HEMO FLAGS DIFF FINAL; LYMPH % 20.2 % (9.0-44.0); LYMPHOCYTE # 2.1 TH/MM3 (1.0-4.8); MEAN CELL VOLUME 72.1 FL (80.0-100.0); MEAN CORPUSCULAR HEMOGLOBIN 23.4 PG (27.0-34.0); MEAN CORPUSCULAR HGB CONC 32.5 % (32.0-36.0); MONO % 6.8 % (0.0-8.0); NEUT % 70.7 % (16.0-70.0); PLATELET COUNT 433 TH/MM3 (150-450); RED BLOOD COUNT 4.28 MIL/MM3 (4.00-5.30); RED CELL DISTRIBUTION WIDTH 19.5 % (11.6-17.2); WHITE BLOOD COUNT 10.5 TH/MM3 (4.0-11.0)
[2017-05-28 10:55] LABS: APTT (PATIENT) 25.4 SEC (24.3-30.1); INTERNATIONAL NORMALIZED RATIO 1.1 RATIO; PROTHROMBIN TIME - PATIENT 11.2 SEC (9.8-11.6)
--- NOTE | 2017-05-28 11:11 | PD ---
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 PFSH Past Medical History Autoimmune Disease: No Blood Disorders: No Anxiety: No Depression: Yes Cancer: No Cardiovascular Problems: Yes (HTN) Chemotherapy: No Cerebrovascular Accident: Yes (NOT SURE) Diabetes: No Diminished Hearing: No Endocrine: No Gastrointestinal Disorders: No Genitourinary: No Headaches: Yes Hypertension: Yes Immune Disorder: No Implanted Vascular Access Dvce: Yes Musculoskeletal: No Neurologic: Yes (PSEUDO-TUMOR CEREBRAL) Psychiatric: No Reproductive: No Respiratory: No Migraines: Yes Radiation Therapy: No ?: Unknown : 2 Para: 2 Miscarriage: 0 : 0 Tubal Ligation: Yes Past Surgical History AICD: No Body Medical Devices: PERITONEAL SHUNT IN BACK Section: Yes (X1) Cholecystectomy: Yes Gynecologic Surgery: Yes () Neurologic Surgery: Yes (LUMBAR SHUNT 2009) Pacemaker: No Other Surgery: Yes (LUMBAR SHUNT 2009) Social History Alcohol Use: No Tobacco Use: No Substance Use: No Allergies-Medications (Allergen,Severity, Reaction): Coded Allergies: amoxicillin (Unverified Allergy, Mild, Hives, 05/28/17) Reported Meds & Prescriptions Reported Meds & Active Scripts Active Tramadol (Tramadol HCl) 50 Mg Tab 50 Mg PO Q6H PRN To be used if Tylenol and ibuprofen have not brought pain down to a 3 or less Amlodipine (Amlodipine Besylate) 10 Mg Tab 10 Mg PO DAILY Ondansetron Odt 4 Mg Tab 4 Mg SL Q8HR PRN Hydrochlorothiazide 25 Mg Tab 25 Mg PO DAILY Lisinopril 20 Mg Tab 20 Mg PO Q12HR Carvedilol 25 Mg Tab 25 Mg PO BID Hydralazine HCl 50 Mg Tablet 50 Mg PO Q8HR Ferosul (Ferrous Sulfate) 325 Mg (65 Mg Iron) Tablet 325 Mg PO BID Tylenol (Acetaminophen) 325 Mg Tab 650 Mg PO Q6H PRN Data Data Last Documented VS Vital Signs Date Time Temp Pulse Resp B/P (MAP) Pulse Ox O2 Delivery O2 Flow Rate FiO2 05/28/17 11:45 105 16 150/99 (116) 100 Room Air 05/28/17 10:02 99.3 Orders Orders Shunt Series (05/28/17 ) Complete Blood Count With Diff (05/28/17 10:16) Comprehensive Metabolic Panel (05/28/17 10:16) Prothrombin Time / Inr (Pt) (05/28/17 10:16) Act Partial Throm Time (Ptt) (05/28/17 10:16) Troponin I (05/28/17 10:16) Thyroid Stimulating Hormone (05/28/17 10:16) Ct Brain W/O Iv Contrast(Rout) (05/28/17 10:16) Blood Glucose (05/28/17 10:16) Ecg Monitoring (05/28/17 10:16) Iv Access Insert/Monitor (05/28/17 10:16) Oximetry (05/28/17 10:16) Sodium Chloride 0.9% Flush (Ns Flush) (05/28/17 10:30) Lipase (05/28/17 10:16) Hydromorphone Pf Inj (Dilaudid Pf Inj) (05/28/17 11:15) Ondansetron Inj (Zofran Inj) (05/28/17 11:15) Potassium Chloride (Kcl) (05/28/17 11:30) Labs Laboratory Tests Test 05/28/17 10:30 White Blood Count 10.5 TH/MM3 Red Blood Count 4.28 MIL/MM3 Hemoglobin 10.0 GM/DL Hematocrit 30.8 % Mean Corpuscular Volume 72.1 FL Mean Corpuscular Hemoglobin 23.4 PG Mean Corpuscular Hemoglobin Concent 32.5 % Red Cell Distribution Width 19.5 % Platelet Count 433 TH/MM3 Mean Platelet Volume 7.1 FL Neutrophils (%) (Auto) 70.7 % Lymphocytes (%) (Auto) 20.2 % Monocytes (%) (Auto) 6.8 % Eosinophils (%) (Auto) 1.5 % Basophils (%) (Auto) 0.8 % Neutrophils # (Auto) 7.4 TH/MM3 Lymphocytes # (Auto) 2.1 TH/MM3 Monocytes # (Auto) 0.7 TH/MM3 Eosinophils # (Auto) 0.2 TH/MM3 Basophils # (Auto) 0.1 TH/MM3 CBC Comment DIFF FINAL Differential Comment Prothrombin Time 11.2 SEC Prothromb Time International Ratio 1.1 RATIO Activated Partial Thromboplast Time 25.4 SEC Blood Urea Nitrogen 5 MG/DL Creatinine 1.04 MG/DL Random Glucose 110 MG/DL Total Protein 7.9 GM/DL Albumin 3.6 GM/DL Calcium Level 9.5 MG/DL Alkaline Phosphatase 87 U/L Aspartate Amino Transf (AST/SGOT) 8 U/L Alanine Aminotransferase (ALT/SGPT) 12 U/L Total Bilirubin 0.5 MG/DL Sodium Level 135 MEQ/L Potassium Level 2.6 MEQ/L Chloride Level 97 MEQ/L Carbon Dioxide Level 30.3 MEQ/L Anion Gap 8 MEQ/L Estimat Glomerular Filtration Rate 73 ML/MIN Troponin I LESS THAN 0.02 NG/ML Lipase 209 U/L Thyroid Stimulating Hormone 3rd Gen 0.623 uIU/ML MDM Medical Decision Making Medical Screen Exam Complete: Yes Emergency Medical Condition: Yes Medical Record Reviewed: Yes Differential Diagnosis SHUNT DISCONNECT V ICH Rafael Ortega MD May 28, 2017 11:11
[2017-05-28 11:13] LABS: ANION GAP 8 MEQ/L (5-15); AST (GOT) 8 U/L (15-37); BICARBONATE 30.3 MEQ/L (21.0-32.0); BLOOD UREA NITROGEN 5 MG/DL (7-18); CHLORIDE 97 MEQ/L (98-107); GLOMERULAR FILTRATION RATE 73 ML/MIN (>89); SODIUM (NA) 135 MEQ/L (136-145)
[2017-05-28 11:14] LABS: POTASSIUM 2.6 MEQ/L (3.5-5.1)
[2017-05-28] MEDS ORDERED: HYDROmorphone HCL PF 1 MG/ML VIAL IV PUSH ONE (11:15)
[2017-05-28] MEDS ORDERED: ONDANSETRON HCL 4 MG/2 ML VIAL IV PUSH ONE (11:15)
--- NOTE | 2017-05-28 11:15 | RADRPT ---
EXAM DATE/TIME: 05/28/2017 10:53 [facility] COMPARISON: CT BRAIN W/O CONTRAST, April 29, 2017, 4:48. INDICATIONS : Headache. Shunt evaluation. RADIATION DOSE: 56.35 CTDIvol (mGy) MEDICAL HISTORY : Cardiovascular disease. Hypertension. Shunt SURGICAL HISTORY : Cholecystectomy. Tubal ligation. ENCOUNTER: Initial ACUITY: 1 day PAIN SCALE: 5/10 LOCATION: cranial TECHNIQUE: Multiple contiguous axial images were obtained of the head. Using automated exposure control and adj ustment of the mA and/or kV according to patient size, radiation dose was kept as low as reasonably a chievable to obtain optimal diagnostic quality images. DICOM format image data is available electro nically for review and comparison. FINDINGS: Ventriculostomy shunt enters from the right frontal region and is stable in position crossing the fro ntal horn of left lateral ventricle. The ventricles are stable symmetric and normal. There is no evid ence of intracranial hemorrhage or mass. There is nothing to suggest acute infarction. Cranial struct ures are benign and intact. CONCLUSION: Stable brain appearance. Shunt is unchanged and there is no ventricular dilatation Wilian Lewis MD on May 28, 2017 at 11:10 Board Certified Radiologist. This report was verified electronically.
[2017-05-28 11:16] LABS: ALKALINE PHOSPHATASE 87 U/L (45-117); ALT (GPT) 12 U/L (10-53); TOTAL BILIRUBIN ADULT 0.5 MG/DL (0.2-1.0)
[2017-05-28] MEDS ORDERED: POTASSIUM CHLORIDE 10 MEQ CONTROLLED RELEASE TAB PO ONE (11:30)
--- NOTE | 2017-05-28 11:40 | RADRPT ---
EXAM DATE/TIME: 05/28/2017 10:45 [facility] COMPARISON: SHUNT SERIES, April 27, 2017, 11:37. INDICATIONS : Headaches, neck aches, Recent placement of Codman shunt. MEDICAL HISTORY : Cephalgia. History of pseudotumor cerebri LP shunt. SURGICAL HISTORY : Codman shunt ENCOUNTER: Initial ACUITY: 1 day PAIN SCORE: 10/10 LOCATION: Shunt series FINDINGS: Radiograph of the skull, neck, chest and abdomen performed to evaluate shunt patency. The shunt ente rs the skull via a right parietal approach with the tip terminating across the midline within the lef t. The catheter courses down the right neck and midline of the chest and coils within the epigastric region. There is an old lumbar peritoneal shunt which is unchanged in position from the prior study. The MANAGER CLUB shunt is new from the prior study. The visualized heart, lungs and abdominal structures are intact. CONCLUSION: Intact shunt. Kendrick Jimenez Jr., MD on May 28, 2017 at 11:35 Board Certified Radiologist. This report was verified electronically.
[2017-05-28 11:45] VITALS: BP 150/99; PULSE 105; RESP 16; O2SAT 100
[2017-05-28] MEDS ORDERED: BISACODYL 10 MG SUPP RECTAL PRN (13:15)
[2017-05-28] MEDS ORDERED: MAGNESIUM HYDROXIDE SUSP 30 ML CUP PO PRN (13:15)
[2017-05-28] MEDS ORDERED: LACTULOSE SYRUP 20 GM/30 ML CUP PO PRN (13:15)
[2017-05-28] MEDS ORDERED: NALOXONE HCL 0.4 MG/ML AMP IV PUSH PRN (13:15)
[2017-05-28] MEDS ORDERED: PROCHLORPERAZINE 25 MG SUPP RECTAL PRN (13:15)
[2017-05-28] MEDS ORDERED: ACETAMINOPHEN 325 MG TAB PO PRN (13:15)
[2017-05-28] MEDS ORDERED: SENNOSIDES 8.6 MG TAB PO PRN (13:15)
--- NOTE | 2017-05-28 13:15 | HHI.HP ---
[facility] Olivier Sullivan MD Admission Diagnosis INTRACTABLE HEADACHE Diagnoses: Travel History International Travel<30 Days: No Contact w/Intl Traveler <30 Da: No Traveled to Known Affected Are: No History of Present Illness 37-year-old female with past medical history significant for pseudotumor cerebri status post MULE OPERATOR shunt placement and hypertension who presents to the emergency department with intractable vomiting and headache since her discharge on 05/04/17. The patient is status post placement of MULE OPERATOR shunt on 04/28 which was then readjusted on 05/01. She was seen in clinic today where she continued to complain of intractable emesis and headache and referred to the emergency department for further workup. Head CT and shunt study showed a stable brain appearance with no ventricular dilation, shunt is intact. Patient was also found to be hypokalemic with a potassium of 2.6. Review of Systems Denies fever or chills Denies blurry vision, otorrhea, rhinorrhea Denies sore throat and cough No chest pain, palpitations, shortness of breath No abdominal pain Denies constipation/diarrhea. Positive nausea/vomiting Denies muscle pain/weakness No rashes Past Family Social History Past Medical History Hypertension Pseudotumor cerebri Past Surgical History Bilateral tubal ligation Cholecystectomy LP shunt placement Reported Medications Reported Meds & Active Scripts Active Tramadol (Tramadol HCl) 50 Mg Tab 50 Mg PO Q6H PRN To be used if Tylenol and ibuprofen have not brought pain down to a 3 or less Amlodipine (Amlodipine Besylate) 10 Mg Tab 10 Mg PO DAILY Ondansetron Odt 4 Mg Tab 4 Mg SL Q8HR PRN Hydrochlorothiazide 25 Mg Tab 25 Mg PO DAILY Lisinopril 20 Mg Tab 20 Mg PO Q12HR Carvedilol 25 Mg Tab 25 Mg PO BID Hydralazine HCl 50 Mg Tablet 50 Mg PO Q8HR Ferosul (Ferrous Sulfate) 325 Mg (65 Mg Iron) Tablet 325 Mg PO BID Tylenol (Acetaminophen) 325 Mg Tab 650 Mg PO Q6H PRN Allergies: Coded Allergies: amoxicillin (Unverified Allergy, Mild, Hives, 05/28/17) Family History Mother with a history significant for hypertension and CVA. Social History Denies tobacco, alcohol and illicit drugs. Physical Exam Vital Signs Vital Signs Date Time Temp Pulse Resp B/P (MAP) Pulse Ox O2 Delivery O2 Flow Rate FiO2 05/28/17 11:45 105 16 150/99 (116) 100 Room Air 05/28/17 10:42 100 Room Air 05/28/17 10:02 99.3 121 20 144/99 (114) 100 Room Air Physical Exam GENERAL: [place] female sitting up in bed, vomiting SKIN: No rashes, ecchymoses or lesions. Cool and dry. HEAD: Atraumatic. Normocephalic. No temporal or scalp tenderness. EYES: Pupils equal round and reactive. Extraocular motions intact. No scleral icterus. No injection or drainage. ENT: Nose without bleeding, purulent drainage or septal hematoma. Throat without erythema, tonsillar hypertrophy or exudate. Uvula midline. Airway patent. NECK: Trachea midline. No JVD or lymphadenopathy. Supple, nontender, no meningeal signs. CARDIOVASCULAR: Regular rate and rhythm without murmurs, gallops, or rubs. RESPIRATORY: Clear to auscultation. Breath sounds equal bilaterally. No wheezes , rales, or rhonchi. GASTROINTESTINAL: Abdomen soft, non-tender, nondistended. No hepato-splenomegaly , or palpable masses. No guarding. MUSCULOSKELETAL: Extremities without clubbing, cyanosis, or edema. No joint tenderness, effusion, or edema noted. No calf tenderness. Negative Homans sign bilaterally. NEUROLOGICAL: Awake and alert. Cranial nerves II through XII intact. Motor and sensory grossly within normal limits. Five out of 5 muscle strength in all muscle groups. Normal speech. Laboratory Laboratory Tests Test 05/28/17 10:30 White Blood Count 10.5 Red Blood Count 4.28 Hemoglobin 10.0 Hematocrit 30.8 Mean Corpuscular Volume 72.1 Mean Corpuscular Hemoglobin 23.4 Mean Corpuscular Hemoglobin Concent 32.5 Red Cell Distribution Width 19.5 Platelet Count 433 Mean Platelet Volume 7.1 Neutrophils (%) (Auto) 70.7 Lymphocytes (%) (Auto) 20.2 Monocytes (%) (Auto) 6.8 Eosinophils (%) (Auto) 1.5 Basophils (%) (Auto) 0.8 Neutrophils # (Auto) 7.4 Lymphocytes # (Auto) 2.1 Monocytes # (Auto) 0.7 Eosinophils # (Auto) 0.2 Basophils # (Auto) 0.1 CBC Comment DIFF FINAL Differential Comment Prothrombin Time 11.2 Prothromb Time International Ratio 1.1 Activated Partial Thromboplast Time 25.4 Blood Urea Nitrogen 5 Creatinine 1.04 Random Glucose 110 Total Protein 7.9 Albumin 3.6 Calcium Level 9.5 Alkaline Phosphatase 87 Aspartate Amino Transf (AST/SGOT) 8 Alanine Aminotransferase (ALT/SGPT) 12 Total Bilirubin 0.5 Sodium Level 135 Potassium Level 2.6 Chloride Level 97 Carbon Dioxide Level 30.3 Anion Gap 8 Estimat Glomerular Filtration Rate 73 Troponin I LESS THAN 0.02 Lipase 209 Thyroid Stimulating Hormone 3rd Gen 0.623 Result Diagram: 05/28/17 1030 05/28/17 1030 Taylor VTE Risk Assessment Taylor VTE Risk Assessment: No/Low Risk (score <= 1) Caprini Risk Assessment Model Point Value = 1 Point Value = 2 Point Value = 3 Point Value = 5 Age 41-60 Minor surgery BMI > 25 kg/m2 Swollen legs Varicose veins or History of unexplained or recurrent spontaneous Oral contraceptives or hormone replacement Sepsis (< 1 month) Serious lung disease, including pneumonia (< 1 month) Abnormal pulmonary function Acute myocardial infarction Congestive heart failure (< 1 month) History of inflammatory bowel disease Medical patient at bed rest Age 61-74 Arthroscopic surgery Major open surgery (> 45 min) Laparoscopic surgery (> 45 min) Malignancy Confined to bed (> 72 hours) Immobilizing plaster cast Central venous access Age >= 75 History of VTE Family history of VTE Factor V Leiden Prothrombin [id number] Lupus anticoagulant Anticardiolipin antibodies Elevated serum homocysteine Heparin-induced thrombocytopenia Other congenital or acquired thrombophilia Stroke (< 1 month) Elective arthroplasty Hip, pelvis, or leg fracture Acute spinal cord injury (< 1 month) Prophylaxis Regimen Total Risk Factor Score Risk Level Prophylaxis Regimen 0-1 Low Early ambulation 2 Moderate Order ONE of the following: *Sequential Compression Device (SCD) *Heparin 5000 units SQ BID 3-4 Higher Order ONE of the following medications: *Heparin 5000 units SQ TID *Enoxaparin/Lovenox 40 mg SQ daily (WT < 150 kg, CrCl > 30 mL/min) *Enoxaparin/Lovenox 30 mg SQ daily (WT < 150 kg, CrCl > 10-29 mL/min) *Enoxaparin/Lovenox 30 mg SQ BID (WT < 150 kg, CrCl > 30 mL/min) AND/OR *Sequential Compression Device (SCD) 5 or more Highest Order ONE of the following medications: *Heparin 5000 units SQ TID (Preferred with Epidurals) *Enoxaparin/Lovenox 40 mg SQ daily (WT < 150 kg, CrCl > 30 mL/min) *Enoxaparin/Lovenox 30 mg SQ daily (WT < 150 kg, CrCl > 10-29 mL/min) *Enoxaparin/Lovenox 30 mg SQ BID (WT < 150 kg, CrCl > 30 mL/min) AND *Sequential Compression Device (SCD) Assessment and Plan Assessment and Plan 37-year-old female with MULE OPERATOR shunt placement on 04/28 presents with intractable emesis and headaches since her discharge on 05/04. 1. Pseudotumor cerebri Patient status post MULE OPERATOR shunt placement on 04/28/[address], shunt series done in the ER today unremarkable 2. Intractable emesis/headache Patient reports her symptoms have been worsening since her discharge Likely related to intracranial hypertension Consult neurosurgery, appreciate recommendations Control symptoms with antiemetics, pain medication 3. Hypokalemia Patient vomited her by mouth replacement in the ED Supplement with IV potassium Monitor BMP 4. Hypertension Continue home hydralazine, carvedilol, amlodipine, lisinopril, hydrochlorothiazide 5. Iron deficiency anemia Continue home ferrous sulfate FEN Heart healthy diet Electrolytes: As above SCDs Physician Certification 2 Midnight Certification Type: Admission for Inpatient Services Order for Inpatient Services The services are ordered in accordance with Medicare regulations or non- Medicare payer requirements, as applicable. In the case of services not specified as inpatient-only, they are appropriately provided as inpatient services in accordance with the 2-midnight benchmark. Estimated LOS (days): 2 2 days is the estimated time the patient will need to remain in the hospital, assuming treatment plan goals are met and no additional complications. Post-Hospital Plan: Not yet determined Betty Gann MD May 28, 2017 13:15
[2017-05-28 13:29] VITALS: BP 168/93; PULSE 102; RESP 18; O2SAT 100
[2017-05-28] MEDS: POTASSIUM CHLOR 10 MEQ PREMIX 100 ML IV SCH ×3 (13:55→19:01)
[2017-05-28] MEDS: hydrALAZINE HCL 50 MG TAB PO SCH ×2 (13:56→22:02)
[2017-05-28] MEDS: traMADol HCL 50 MG TAB PO PRN (14:56)
[2017-05-28] MEDS: ONDANSETRON HCL 4 MG/2 ML VIAL IVP PRN (14:57)
[2017-05-28 15:30] VITALS: BP 172/104; PULSE 115; RESP 20; TEMP 98.3; O2SAT 98
[2017-05-28] MEDS: SODIUM CHLOR 0.9% 1000 ML INJ 1,000 ML IV SCH (16:30)
[2017-05-28] MEDS: MORPHINE SULFATE 4 MG/ML INJ IV PUSH PRN ×2 (16:50→22:15)
[2017-05-28] MEDS: SODIUM CHLORIDE 0.9% FLUSH 10 ML FLUSH IV FLUSH SCH (16:53)
[2017-05-28 20:00] VITALS: BP 150/98; PULSE 108; RESP 18; TEMP 97.7; O2SAT 98
[2017-05-28] MEDS: FERROUS SULFATE 325 MG (65 MG ELEMENTAL IRON) TAB PO SCH (22:01)
[2017-05-28] MEDS: CARVEDILOL 12.5 MG TAB PO SCH (22:01)
[2017-05-28] MEDS: LISINOPRIL 20 MG TAB PO SCH (22:01)
[2017-05-28] MEDS: DOCUSATE SODIUM 50 MG/SENNA 8.6 MG TAB PO SCH (22:02)
[2017-05-29] VITALS: BP 139/85; PULSE 98; RESP 18; TEMP 98.2; O2SAT 99
[2017-05-29] MEDS: POTASSIUM CHLOR 10 MEQ PREMIX 100 ML IV SCH ×3 (00:18→07:33)
[2017-05-29 04:00] VITALS: BP 119/74; PULSE 89; RESP 18; TEMP 97.4; O2SAT 96
[2017-05-29] MEDS: hydrALAZINE HCL 50 MG TAB PO SCH ×4 (05:22→23:15)
[2017-05-29] MEDS: MORPHINE SULFATE 4 MG/ML INJ IV PUSH PRN ×4 (06:40→19:04)
--- NOTE | 2017-05-29 08:44 | HHI.PR ---
Subjective Remarks This is a pleasant 37 y/o Female with history of Pseudotumor Cerebri status post PERFECT BINDER OPERATOR shunt placement and Hypertension, who came to ER with Intractable vomiting and headache since her discharge on 05/04/17. The patient is status post placement of PERFECT BINDER OPERATOR shunt on 04/28 which was then readjusted on 05/01. She was seen in clinic on the day of admission but she complained of intractable emesis and headache, was than referred to ER for evaluation, Head CT and shunt study showed a stable brain appearance with no ventricular dilation, shunt is intact. Patient was also found to be hypokalemic with a potassium of 2.6. at this time and no laboratory is in EMR asked for Potassium level stat, seen by Neurology specialist doctor Rodney Sepulveda, with Diagnosis of Pseudotumor Cerebri to check shunt pressures, if negative will check MRI brain, Cubital tunnel syndrome on the left to avoid excessive Flexion/Extension. seen in her bedroom in the presence of her Mr. Tovar not able to take by mouth due to nausea, no diarrhea. Objective Vital Signs Date Time Temp Pulse Resp B/P (MAP) Pulse Ox O2 Delivery O2 Flow Rate FiO2 05/29/17 04:00 97.4 89 18 119/74 (89) 96 05/29/17 00:00 98.2 98 18 139/85 (103) 99 05/28/17 20:00 97.7 108 18 150/98 (115) 98 05/28/17 17:00 18 05/28/17 16:45 16 05/28/17 15:30 98.3 115 20 172/104 (126) 98 05/28/17 13:29 102 18 168/93 (118) 100 Room Air 05/28/17 11:45 105 16 150/99 (116) 100 Room Air 05/28/17 10:42 100 Room Air 05/28/17 10:02 99.3 121 20 144/99 (114) 100 Room Air Result Diagram: 05/28/17 1030 05/28/17 1030 Imaging Last Impressions Head CT 05/28/17 1016 Signed Impressions: Service Date/Time: Sunday, May 28, 2017 10:53 - CONCLUSION: Stable brain appearance. Shunt is unchanged and there is no ventricular dilatation Wilian Lewis MD Shunt Study (Imaging) 05/28/17 0000 Signed Impressions: Service Date/Time: Sunday, May 28, 2017 10:45 - CONCLUSION: Intact shunt. Kendrick Jimenez Jr., MD Procedures None Other Results Laboratory Tests Test 05/28/17 10:30 White Blood Count 10.5 TH/MM3 Red Blood Count 4.28 MIL/MM3 Hemoglobin 10.0 GM/DL Hematocrit 30.8 % Mean Corpuscular Volume 72.1 FL Mean Corpuscular Hemoglobin 23.4 PG Mean Corpuscular Hemoglobin Concent 32.5 % Red Cell Distribution Width 19.5 % Platelet Count 433 TH/MM3 Mean Platelet Volume 7.1 FL Neutrophils (%) (Auto) 70.7 % Lymphocytes (%) (Auto) 20.2 % Monocytes (%) (Auto) 6.8 % Eosinophils (%) (Auto) 1.5 % Basophils (%) (Auto) 0.8 % Neutrophils # (Auto) 7.4 TH/MM3 Lymphocytes # (Auto) 2.1 TH/MM3 Monocytes # (Auto) 0.7 TH/MM3 Eosinophils # (Auto) 0.2 TH/MM3 Basophils # (Auto) 0.1 TH/MM3 CBC Comment DIFF FINAL Differential Comment Prothrombin Time 11.2 SEC Prothromb Time International Ratio 1.1 RATIO Activated Partial Thromboplast Time 25.4 SEC Blood Urea Nitrogen 5 MG/DL Creatinine 1.04 MG/DL Random Glucose 110 MG/DL Total Protein 7.9 GM/DL Albumin 3.6 GM/DL Calcium Level 9.5 MG/DL Alkaline Phosphatase 87 U/L Aspartate Amino Transf (AST/SGOT) 8 U/L Alanine Aminotransferase (ALT/SGPT) 12 U/L Total Bilirubin 0.5 MG/DL Sodium Level 135 MEQ/L Potassium Level 2.6 MEQ/L Chloride Level 97 MEQ/L Carbon Dioxide Level 30.3 MEQ/L Anion Gap 8 MEQ/L Estimat Glomerular Filtration Rate 73 ML/MIN Troponin I LESS THAN 0.02 NG/ML Lipase 209 U/L Thyroid Stimulating Hormone 3rd Gen 0.623 uIU/ML Objective Remarks GENERAL: No acute distress at this time. SKIN: No rashes, ecchymoses or lesions. Cool and dry. HEAD: Atraumatic. Normocephalic. No temporal or scalp tenderness. EYES: Pupils equal round and reactive. Extraocular motions intact. No scleral icterus. No injection or drainage. ENT: Nose without bleeding, purulent drainage or septal hematoma. Throat without erythema, tonsillar hypertrophy or exudate. Uvula midline. Airway patent. NECK: Trachea midline. No JVD or lymphadenopathy. Supple, nontender, no meningeal signs. CARDIOVASCULAR: Regular rate and rhythm without murmurs, gallops, or rubs. RESPIRATORY: Clear to auscultation. Breath sounds equal bilaterally. No wheezes , rales, or rhonchi. GASTROINTESTINAL: Abdomen soft, non-tender, nondistended. No hepato-splenomegaly , or palpable masses. No guarding. MUSCULOSKELETAL: Extremities without clubbing, cyanosis, or edema. No joint tenderness, effusion, or edema noted. No calf tenderness. Negative Homans sign bilaterally. NEUROLOGICAL: Awake and alert. Cranial nerves II through XII intact. Motor and sensory grossly within normal limits. Five out of 5 muscle strength in all muscle groups. Normal speech. Medications and IVs Current Medications Medications (Trade) Dose Ordered Sig/David Route Start Time Stop Time Status Last Admin (NS Flush) 2 ml UNSCH PRN IV FLUSH 05/28/17 13:15 (NS Flush) 2 ml BID IV FLUSH 05/28/17 21:00 05/28/17 16:53 (Tylenol) 650 mg Q4H PRN PO 05/28/17 13:15 05/29/17 05:26 (Zofran Inj) 4 mg Q6H PRN IVP 05/28/17 13:15 05/28/17 14:57 (Compazine Supp) 25 mg Q12H PRN RECTAL 05/28/17 13:15 (Narcan Inj) 0.4 mg UNSCH PRN IV PUSH 05/28/17 13:15 (Mary-Colace) 1 tab BID PO 05/28/17 21:00 05/28/17 22:02 (Milk Of Magnesia Liq) 30 ml Q12H PRN PO 05/28/17 13:15 (Senokot) 17.2 mg Q12H PRN PO 05/28/17 13:15 (Dulcolax Supp) 10 mg DAILY PRN RECTAL 05/28/17 13:15 (Lactulose Liq) 30 ml DAILY PRN PO 05/28/17 13:15 (Norvasc) 10 mg DAILY PO 05/29/17 09:00 (Coreg) 25 mg BID PO 05/28/17 21:00 05/28/17 22:01 (Ferrous Sulfate) 325 mg BID PO 05/28/17 21:00 05/28/17 22:01 (Apresoline) 50 mg Q8HR PO 05/28/17 14:00 05/29/17 05:22 (Hydrodiuril) 25 mg DAILY PO 05/29/17 09:00 (Prinivil) 20 mg Q12HR PO 05/28/17 21:00 05/28/17 22:01 (Ultram) 50 mg Q6H PRN PO 05/28/17 13:15 05/28/17 14:56 Sodium Chloride 1,000 ml @ 30 mls/hr Q24H IV 05/28/17 16:30 05/28/17 16:30 (Morphine Inj) 4 mg Q3H PRN IV PUSH 05/28/17 16:30 05/29/17 06:40 A/P Assessment and Plan 37-year-old female with PERFECT BINDER OPERATOR shunt placement on 04/28 presents with intractable emesis and headaches since her discharge on 05/04. 1. Pseudotumor cerebri Patient status post PERFECT BINDER OPERATOR shunt placement on 04/28/[address], shunt series done in the ER today unremarkable Seen by Neurology specialist doctor Rodney Sepulveda, recommended to check shunt pressures, if negative will check MRI brain, Cubital tunnel syndrome on the left to avoid excessive Flexion/Extension. 2. Intractable emesis/headache Patient reports her symptoms have been worsening since her discharge Likely related to intracranial hypertension, Neurosurgery following. 3. Electrolyte derangement replaced and following. 4. Hypertension controlled. 5. Iron deficiency anemia Continue home ferrous sulfate FEN Heart healthy diet Electrolytes: As above SCDs Discharge Planning Once cleared by specialists. Gelacio River MD May 29, 2017 08:44
[2017-05-29 08:46] VITALS: BP 124/80; PULSE 92; RESP 17; TEMP 97.5; O2SAT 96
[2017-05-29] MEDS: FERROUS SULFATE 325 MG (65 MG ELEMENTAL IRON) TAB PO SCH ×3 (09:00→23:15)
[2017-05-29] MEDS: DOCUSATE SODIUM 50 MG/SENNA 8.6 MG TAB PO SCH ×3 (09:00→23:15)
[2017-05-29] MEDS: LISINOPRIL 20 MG TAB PO SCH ×3 (09:00→23:15)
[2017-05-29] MEDS: SODIUM CHLORIDE 0.9% FLUSH 10 ML FLUSH IV FLUSH SCH ×2 (09:00→21:00)
[2017-05-29] MEDS: HYDROCHLOROTHIAZIDE 25 MG TAB PO SCH (09:00)
[2017-05-29] MEDS: CARVEDILOL 12.5 MG TAB PO SCH ×3 (09:00→23:14)
[2017-05-29] MEDS: ONDANSETRON HCL 4 MG/2 ML VIAL IVP PRN (09:11)
--- NOTE | 2017-05-29 11:20 | PD.CONS ---
History of Present Illness Service Neurology Consult Requested By nsx Reason for Consult headache Primary Care Physician Olivier Sullivan MD History of Present Illness 37-year-old female admitted for headache, n/v. The patient is status post placement of PARKING ENFORCER shunt on 04/28 which was then readjusted on 05/01. partner feels her gait and vision are worse. she denies any focal weakness, vertigo, or neck pain. does have mild headache with mild photo/phonophobia. no b/b incontinence. hx of chronic IIH with papilledema and previous shunt in the early . also has occasional left elbow pain and tingling in the left 4,5th digit, occurs when she sleeps and improves with arm positional change. Review of Systems as above and admit hp Past Family Social History Past Medical History Hypertension Pseudotumor cerebri Past Surgical History Bilateral tubal ligation Cholecystectomy LP shunt placement Reported Medications Reported Meds & Active Scripts Active Tramadol (Tramadol HCl) 50 Mg Tab 50 Mg PO Q6H PRN To be used if Tylenol and ibuprofen have not brought pain down to a 3 or less Amlodipine (Amlodipine Besylate) 10 Mg Tab 10 Mg PO DAILY Ondansetron Odt 4 Mg Tab 4 Mg SL Q8HR PRN Hydrochlorothiazide 25 Mg Tab 25 Mg PO DAILY Lisinopril 20 Mg Tab 20 Mg PO Q12HR Carvedilol 25 Mg Tab 25 Mg PO BID Hydralazine HCl 50 Mg Tablet 50 Mg PO Q8HR Ferosul (Ferrous Sulfate) 325 Mg (65 Mg Iron) Tablet 325 Mg PO BID Tylenol (Acetaminophen) 325 Mg Tab 650 Mg PO Q6H PRN Allergies: Coded Allergies: amoxicillin (Unverified Allergy, Mild, Hives, 05/28/17) Family History Mother -hypertension and CVA. Social History Denies tobacco, alcohol and illicit drugs. Review of Systems All other ROS: ROS reviewed as documented in chart Past Family Social History Allergies: Coded Allergies: amoxicillin (Unverified Allergy, Mild, Hives, 05/28/17) Active Ordered Medications Current Medications Medications (Trade) Dose Ordered Sig/David Route Start Time Stop Time Status Last Admin (NS Flush) 2 ml UNSCH PRN IV FLUSH 05/28/17 13:15 (NS Flush) 2 ml BID IV FLUSH 05/28/17 21:00 05/28/17 16:53 (Tylenol) 650 mg Q4H PRN PO 05/28/17 13:15 05/29/17 05:26 (Zofran Inj) 4 mg Q6H PRN IVP 05/28/17 13:15 05/29/17 09:11 (Compazine Supp) 25 mg Q12H PRN RECTAL 05/28/17 13:15 (Narcan Inj) 0.4 mg UNSCH PRN IV PUSH 05/28/17 13:15 (Mary-Colace) 1 tab BID PO 05/28/17 21:00 05/28/17 22:02 (Milk Of Magnesia Liq) 30 ml Q12H PRN PO 05/28/17 13:15 (Senokot) 17.2 mg Q12H PRN PO 05/28/17 13:15 (Dulcolax Supp) 10 mg DAILY PRN RECTAL 05/28/17 13:15 (Lactulose Liq) 30 ml DAILY PRN PO 05/28/17 13:15 (Norvasc) 10 mg DAILY PO 05/29/17 09:00 (Coreg) 25 mg BID PO 05/28/17 21:00 05/28/17 22:01 (Ferrous Sulfate) 325 mg BID PO 05/28/17 21:00 05/28/17 22:01 (Apresoline) 50 mg Q8HR PO 05/28/17 14:00 05/29/17 05:22 (Hydrodiuril) 25 mg DAILY PO 05/29/17 09:00 (Prinivil) 20 mg Q12HR PO 05/28/17 21:00 05/28/17 22:01 (Ultram) 50 mg Q6H PRN PO 05/28/17 13:15 05/28/17 14:56 Sodium Chloride 1,000 ml @ 30 mls/hr Q24H IV 05/28/17 16:30 05/28/17 16:30 (Morphine Inj) 4 mg Q3H PRN IV PUSH 05/28/17 16:30 05/29/17 09:49 Exam I&O / VS Vital Signs Date Time Temp Pulse Resp B/P (MAP) Pulse Ox O2 Delivery O2 Flow Rate FiO2 05/29/17 08:46 97.5 92 17 124/80 (95) 96 05/29/17 04:00 97.4 89 18 119/74 (89) 96 05/29/17 00:00 98.2 98 18 139/85 (103) 99 05/28/17 20:00 97.7 108 18 150/98 (115) 98 05/28/17 17:00 18 05/28/17 16:45 16 05/28/17 15:30 98.3 115 20 172/104 (126) 98 05/28/17 13:29 102 18 168/93 (118) 100 Room Air 05/28/17 11:45 105 16 150/99 (116) 100 Room Air General: Alert and Oriented, No acute distress Eye: EOMI Respiratory: Non-labored respirations Neurologic: Alert, Oriented Psychiatric: Cooperative Exam Comments ox 3, slow speech, left esotropia, mild dysconjugate gaze, appears to have concentric visual field loss but able to see me difficulty with reading, left gaze nystagmus, ou 3-2mm, face sym, [place] to gravity, 5/5, no drift, Mild tinel at left elbow, pin nml, msr sym Review/Management Diagnosis/Plan: (1) Pseudotumor cerebri ICD Codes: G93.2 - Benign intracranial hypertension Status: Chronic Plan: d/w nsx they will check shunt pressures if negative then will check mri brain pt wants to hold off any po preventative meds until she is tolerating po better. d/w topamax which could be started at 25mg qhs will follow with you (2) Cephalgia ICD Codes: R51 - Headache Status: Chronic (3) Cubital tunnel syndrome on left ICD Codes: G56.22 - Lesion of ulnar nerve, left upper limb Status: Chronic Plan: probable no motor/sensory deficit avoid excessive arm flexion/extension Emigdio Sepulveda MD May 29, 2017 11:20
--- NOTE | 2017-05-29 12:16 | HHI.NSPN ---
(Ani Langley) Note Status Status: Progress Note (Ani Langley) Interval History Interval History Ms. Landis is a 37 year old female with history of idiopathic intracranial hypertension underwent placement of GENERATOR WORKER shunt on 04/28/17 due to nonfunctioning LP shunt placed 10 years ago. She was recently seen in the office a few weeks ago and a f/u CT Head was ordered at that time but was not completed. She presents to the ED for worsening headaches and nausea. She also complains of numbness of the left arm. A CT Head has been complete which shows shunt in good position without acute intracranial findings. A shunt study also obtained and is intact. (Ani Langley) Labs, Micro, & Vital Signs Results Date Time Temp Pulse Resp B/P (MAP) Pulse Ox O2 Delivery O2 Flow Rate FiO2 05/29/17 08:46 97.5 92 17 124/80 (95) 96 05/29/17 04:00 97.4 89 18 119/74 (89) 96 05/29/17 00:00 98.2 98 18 139/85 (103) 99 05/28/17 20:00 97.7 108 18 150/98 (115) 98 05/28/17 17:00 18 05/28/17 16:45 16 05/28/17 15:30 98.3 115 20 172/104 (126) 98 05/28/17 13:29 102 18 168/93 (118) 100 Room Air Constitutional Vital Signs Date Time Temp Pulse Resp B/P (MAP) Pulse Ox O2 Delivery O2 Flow Rate FiO2 05/29/17 08:46 97.5 92 17 124/80 (95) 96 05/29/17 04:00 97.4 89 18 119/74 (89) 96 05/29/17 00:00 98.2 98 18 139/85 (103) 99 05/28/17 20:00 97.7 108 18 150/98 (115) 98 05/28/17 17:00 18 05/28/17 16:45 16 05/28/17 15:30 98.3 115 20 172/104 (126) 98 05/28/17 13:29 102 18 168/93 (118) 100 Room Air (Ani Langley) Physical Exam Ms. Landis appears uncomfortable complains of headaches. She is awake but keeps eyes closed, oriented. Speech is fluent. Cranial nerve examination: pupils equal, round and reactive to light. Extra- ocular movements are intact. Facial motor symmetric. Neck is soft and supple Muscle strength is normal in all muscle groups of both upper and lower extremities. Cerebellar examination is unremarkable, without deficits. (Ani Langley) Medications Current Medications Current Medications Medications (Trade) Dose Ordered Sig/David Route PRN Reason Start Time Stop Time Status Last Admin Dose Admin Sodium Chloride (NS Flush) 2 ml UNSCH PRN IV FLUSH FLUSH AFTER USING IV ACCESS 05/28/17 13:15 Sodium Chloride (NS Flush) 2 ml BID IV FLUSH 05/28/17 21:00 05/28/17 16:53 Acetaminophen (Tylenol) 650 mg Q4H PRN PO TEMP > 100.4 05/28/17 13:15 05/29/17 05:26 Ondansetron HCl (Zofran Inj) 4 mg Q6H PRN IVP NAUSEA OR VOMITING 05/28/17 13:15 05/29/17 09:11 Prochlorperazine (Compazine Supp) 25 mg Q12H PRN RECTAL NAUSEA OR VOMITING 05/28/17 13:15 Naloxone HCl (Narcan Inj) 0.4 mg UNSCH PRN IV PUSH SEE LABEL COMMENTS 05/28/17 13:15 Senna/Docusate Sodium (Mary-Colace) 1 tab BID PO 05/28/17 21:00 05/28/17 22:02 Magnesium Hydroxide (Milk Of Magnesia Liq) 30 ml Q12H PRN PO Mild constipation 05/28/17 13:15 Sennosides (Senokot) 17.2 mg Q12H PRN PO Moderate constipation 05/28/17 13:15 Bisacodyl (Dulcolax Supp) 10 mg DAILY PRN RECTAL SEVERE CONSITIPATION 05/28/17 13:15 Lactulose (Lactulose Liq) 30 ml DAILY PRN PO SEVERE CONSITIPATION 05/28/17 13:15 Amlodipine Besylate (Norvasc) 10 mg DAILY PO 05/29/17 09:00 Carvedilol (Coreg) 25 mg BID PO 05/28/17 21:00 05/28/17 22:01 Ferrous Sulfate (Ferrous Sulfate) 325 mg BID PO 05/28/17 21:00 05/28/17 22:01 Hydralazine HCl (Apresoline) 50 mg Q8HR PO 05/28/17 14:00 05/29/17 05:22 Hydrochlorothiazide (Hydrodiuril) 25 mg DAILY PO 05/29/17 09:00 Lisinopril (Prinivil) 20 mg Q12HR PO 05/28/17 21:00 05/28/17 22:01 Tramadol HCl (Ultram) 50 mg Q6H PRN PO BREAKTHROUGH PAIN 05/28/17 13:15 05/28/17 14:56 Sodium Chloride 1,000 ml @ 30 mls/hr Q24H IV 05/28/17 16:30 05/28/17 16:30 Morphine Sulfate (Morphine Inj) 4 mg Q3H PRN IV PUSH pain 6-10 05/28/17 16:30 05/29/17 09:49 (Ani Langley) Medical Decision Making MDM Remarks 37 y/o female with idiopathic intracranial hypertension, s/p placement of GENERATOR WORKER shunt 04/28/17. presents for headaches, nausea and vomiting CT Brain 05/28 stable (Ani Langley) Plan Plan Remarks GENERATOR WORKER shunt decreased from 100 to 80 mm H20 to promote more CSF drainage, obtain confirmation xrays of adjustment if her headaches does not improve following shunt adjustment, recommend obtain repeat LP to check opening pressures consult Neurology to assist in mgt of headaches and evaluate left arm numbness cont supportive care dw patient and (Ani Langley) Attending Statement Using a [employer] computer, the shunt was reprogrammed as follows: Ultrasound gel was placed over the valve and the transfuser was calibrated at a pressure of 90 mm/H20. The shunt was then reprogrammed and an audible sound confirmed the new settings. The patient tolerated the procedure well without complication. The exam, history, and the medical decision-making described in the above note were completed with the assistance of the mid-level provider. I reviewed and agree with the findings presented. I attest that I had a [id number] encounter with the patient on the same day, and personally performed and documented my assessment and findings in the medical record. (Shreyas Dumont MD) Ani Langley May 29, 2017 12:16 Shreyas Dumont MD May 30, 2017 17:06
[2017-05-29 13:13] VITALS: BP 134/84; PULSE 89; RESP 18; TEMP 98.3; O2SAT 93
[2017-05-29 13:18] LABS: AUTOMATED NEUTROPHIL # 6.5 TH/MM3 (1.8-7.7); BASOPHIL % 0.5 % (0.0-2.0); EOSINOPHIL # 0.3 TH/MM3 (0-0.4); EOSINOPHIL % 2.9 % (0.0-4.0); HEMATOCRIT 28.8 % (35.0-46.0); HEMO FLAGS DIFF FINAL; LYMPH % 16.4 % (9.0-44.0); LYMPHOCYTE # 1.5 TH/MM3 (1.0-4.8); MEAN CELL VOLUME 74.2 FL (80.0-100.0); MEAN CORPUSCULAR HEMOGLOBIN 23.9 PG (27.0-34.0); MEAN CORPUSCULAR HGB CONC 32.2 % (32.0-36.0); MONO % 6.5 % (0.0-8.0); NEUT % 73.7 % (16.0-70.0); PLATELET COUNT 360 TH/MM3 (150-450); RED BLOOD COUNT 3.88 MIL/MM3 (4.00-5.30); RED CELL DISTRIBUTION WIDTH 19.8 % (11.6-17.2); WHITE BLOOD COUNT 8.8 TH/MM3 (4.0-11.0)
[2017-05-29 13:50] LABS: BICARBONATE 30.4 MEQ/L (21.0-32.0); POTASSIUM 3.3 MEQ/L (3.5-5.1)
[2017-05-29 15:07] LABS: HEMATOCRIT 30.8 % (35.0-46.0); MEAN CELL VOLUME 74.1 FL (80.0-100.0); MEAN CORPUSCULAR HEMOGLOBIN 23.8 PG (27.0-34.0); MEAN CORPUSCULAR HGB CONC 32.1 % (32.0-36.0); PLATELET COUNT 389 TH/MM3 (150-450); RED BLOOD COUNT 4.16 MIL/MM3 (4.00-5.30); RED CELL DISTRIBUTION WIDTH 20.2 % (11.6-17.2); REVIEW FLAG FINAL; WHITE BLOOD COUNT 10.3 TH/MM3 (4.0-11.0)
[2017-05-29 15:17] LABS: APTT (PATIENT) 26.3 SEC (24.3-30.1); INTERNATIONAL NORMALIZED RATIO 1.1 RATIO; PROTHROMBIN TIME - PATIENT 11.2 SEC (9.8-11.6)
[2017-05-29] MEDS: SODIUM CHLOR 0.9% 1000 ML INJ 1,000 ML IV SCH (16:30)
--- NOTE | 2017-05-29 16:34 | RADRPT ---
EXAM DATE/TIME: 05/29/2017 15:58 [facility] COMPARISON: SKULL LIMITED (<4 VWS), May 01, 2017, 16:43. INDICATIONS : Confirm Codman CLINICAL INTERVIEWER shunt settings. MEDICAL HISTORY : None. SURGICAL HISTORY : Codman CLINICAL INTERVIEWER shunt. ENCOUNTER: Initial ACUITY: 1 day PAIN SCORE: 0/10 LOCATION: Skull. FINDINGS: A two view examination of the skull demonstrates no evidence of fracture. The pituitary fossa is nor mal in configuration. No radiopaque foreign bodies are seen. Patient has a ventriculostomy catheter. The valve is set to 90 mm of water. CONCLUSION: Ventriculostomy catheter with a programmable valve set at 90 mm of water. Wilian Tinajero MD on May 29, 2017 at 16:30 Board Certified Radiologist. This report was verified electronically.
[2017-05-29] MEDS: SUCRALFATE 1 GM/10 ML CUP PO SCH ×2 (17:00→23:14)
[2017-05-29] MEDS: FAMOTIDINE 20 MG/2 ML VIAL IV PUSH SCH (19:04)
[2017-05-29 20:00] VITALS: BP 147/99; PULSE 100; RESP 18; TEMP 98.1; O2SAT 99
[2017-05-29 23:50] VITALS: BP 141/97; PULSE 85; RESP 13; TEMP 98.6; O2SAT 100
[2017-05-30] VITALS: BP 139/93; PULSE 90; RESP 18; TEMP 98.1; O2SAT 98
--- NOTE | 2017-05-30 00:32 | RADRPT ---
EXAM DATE/TIME: 05/30/2017 00:03 [facility] COMPARISON: CT BRAIN W/O CONTRAST, May 28, 2017, 10:53. INDICATIONS : Altered mental status. Status-post CANAL BOAT OPERATOR shunt adjustment. RADIATION DOSE: 48.79 CTDIvol (mGy) MEDICAL HISTORY : Hypertension. SURGICAL HISTORY : Cholecystectomy. Tubal ligation. section.Lumbar shunt. CANAL BOAT OPERATOR shunt. ENCOUNTER: Initial ACUITY: 1 day PAIN SCALE: Non-responsive LOCATION: cranial TECHNIQUE: Multiple contiguous axial images were obtained of the head. Using automated exposure control and adj ustment of the mA and/or kV according to patient size, radiation dose was kept as low as reasonably a chievable to obtain optimal diagnostic quality images. DICOM format image data is available electro nically for review and comparison. FINDINGS: CEREBRUM: Right frontal CANAL BOAT OPERATOR shunt remains present with distal aspect crossing the midline and left frontal horn and terminating in the left basal ganglia. Ventricles are normal in size and slightly smaller than on the prior study. No midline shift, mass lesion, hemorrhage or acute infarction. No extra-axial flu id collections are seen. POSTERIOR FOSSA: The cerebellum and brainstem demonstrate no acute finding. The 4th ventricle is midline. The cerebe llopontine angle is unremarkable. EXTRACRANIAL: Visualized sinuses are clear. SKULL: The calvaria is intact. No evidence of skull fracture. CONCLUSION: CANAL BOAT OPERATOR shunt in unchanged position with distal catheter crossing the left frontal horn and terminating in the left basal ganglia. Ventricles are normal in size and slightly smaller than the study from 2 day s ago. Wilian Miguel MD on May 30, 2017 at 0:28 Board Certified Radiologist. This report was verified electronically.
[2017-05-30 04:00] VITALS: BP 152/81; PULSE 97; RESP 18; TEMP 98.5; O2SAT 97
[2017-05-30] MEDS: hydrALAZINE HCL 50 MG TAB PO SCH ×4 (04:29→21:37)
[2017-05-30] MEDS: traMADol HCL 50 MG TAB PO PRN (04:29)
[2017-05-30] MEDS: FAMOTIDINE 20 MG/2 ML VIAL IV PUSH SCH ×2 (04:35→18:00)
[2017-05-30] MEDS: MORPHINE SULFATE 4 MG/ML INJ IV PUSH PRN ×4 (05:00→21:39)
[2017-05-30 08:00] VITALS: BP 138/78; PULSE 109; RESP 18; TEMP 98.8; O2SAT 98
--- NOTE | 2017-05-30 09:10 | HHI.PR ---
Subjective Remarks This is a pleasant 37 y/o Female with history of Pseudotumor Cerebri status post FINISHED GOODS STOCK CLERK shunt placement and Hypertension, who came to ER with Intractable vomiting and headache since her discharge on 05/04/17. The patient is status post placement of FINISHED GOODS STOCK CLERK shunt on 04/28 which was then readjusted on 05/01. She was seen in clinic on the day of admission but she complained of intractable emesis and headache, was than referred to ER for evaluation, Head CT and shunt study showed a stable brain appearance with no ventricular dilation, shunt is intact. Patient was also found to be hypokalemic with a potassium of 2.6. at this time and no laboratory is in EMR asked for Potassium level stat, seen by Neurology specialist doctor Rodney Sepulveda, with Diagnosis of Pseudotumor Cerebri to check shunt pressures, if negative will check MRI brain, Cubital tunnel syndrome on the left to avoid excessive Flexion/Extension. seen in her bedroom in the presence of her Mr. Tovar not able to take by mouth. 05/30: Seen in her bedroom at this time in the presence of her Mother, Neurosurgery following, LP pending will be performed tomorrow as per Neurology to consider Topamax at 25 mg QHS, control blood pressure, no nausea, vomit or diarrhea. Objective Vital Signs Date Time Temp Pulse Resp B/P (MAP) Pulse Ox O2 Delivery O2 Flow Rate FiO2 05/30/17 08:00 98.8 109 18 138/78 (98) 98 05/30/17 04:00 98.5 97 18 152/81 (104) 97 05/30/17 00:00 98.1 90 18 139/93 (108) 98 05/29/17 20:00 98.1 100 18 147/99 (115) 99 05/29/17 13:13 98.3 89 18 134/84 (101) 93 Result Diagram: 05/29/17 1450 05/29/17 1450 Imaging Last Impressions Skull X-Ray 05/29/17 0000 Signed Impressions: Service Date/Time: Monday, May 29, 2017 15:58 - CONCLUSION: Ventriculostomy catheter with a programmable valve set at 90 mm of water. Wilian Tinajero MD Head CT 05/29/17 0000 Signed Impressions: Service Date/Time: Tuesday, May 30, 2017 00:03 - CONCLUSION: FINISHED GOODS STOCK CLERK shunt in unchanged position with distal catheter crossing the left frontal horn and terminating in the left basal ganglia. Ventricles are normal in size and slightly smaller than the study from 2 days ago. Wilian Miguel MD Shunt Study (Imaging) 05/28/17 0000 Signed Impressions: Service Date/Time: Sunday, May 28, 2017 10:45 - CONCLUSION: Intact shunt. Kendrick Jimenez Jr., MD Procedures None Other Results Laboratory Tests Test 05/28/17 10:30 05/29/17 12:47 05/29/17 13:09 05/29/17 14:50 Blood Urea Nitrogen 5 MG/DL 8 MG/DL Creatinine 1.04 MG/DL 0.92 MG/DL Random Glucose 110 MG/DL 101 MG/DL Total Protein 7.9 GM/DL Albumin 3.6 GM/DL Calcium Level 9.5 MG/DL 8.9 MG/DL Alkaline Phosphatase 87 U/L Aspartate Amino Transf (AST/SGOT) 8 U/L Alanine Aminotransferase (ALT/SGPT) 12 U/L Total Bilirubin 0.5 MG/DL Sodium Level 135 MEQ/L 138 MEQ/L Potassium Level 2.6 MEQ/L 3.3 MEQ/L 3.3 MEQ/L Chloride Level 97 MEQ/L 101 MEQ/L Carbon Dioxide Level 30.3 MEQ/L 30.4 MEQ/L Troponin I LESS THAN 0.02 NG/ML Lipase 209 U/L Erythrocyte Sedimentation Rate 56 mm/hr Anion Gap 7 MEQ/L Estimat Glomerular Filtration Rate 84 ML/MIN C-Reactive Protein 3.26 MG/DL Vitamin B12 Level 418 PG/ML Thyroid Stimulating Hormone 3rd Gen 0.525 uIU/ML Neutrophils (%) (Auto) 73.7 % Lymphocytes (%) (Auto) 16.4 % Monocytes (%) (Auto) 6.5 % Eosinophils (%) (Auto) 2.9 % Basophils (%) (Auto) 0.5 % Neutrophils # (Auto) 6.5 TH/MM3 Lymphocytes # (Auto) 1.5 TH/MM3 Monocytes # (Auto) 0.6 TH/MM3 Eosinophils # (Auto) 0.3 TH/MM3 Basophils # (Auto) 0.0 TH/MM3 CBC Comment DIFF FINAL Differential Comment White Blood Count 10.3 TH/MM3 Red Blood Count 4.16 MIL/MM3 Hemoglobin 9.9 GM/DL Hematocrit 30.8 % Mean Corpuscular Volume 74.1 FL Mean Corpuscular Hemoglobin 23.8 PG Mean Corpuscular Hemoglobin Concent 32.1 % Red Cell Distribution Width 20.2 % Platelet Count 389 TH/MM3 Mean Platelet Volume 7.4 FL Prothrombin Time 11.2 SEC Prothromb Time International Ratio 1.1 RATIO Activated Partial Thromboplast Time 26.3 SEC Objective Remarks GENERAL: No acute distress at this time. SKIN: No rashes, ecchymoses or lesions. Cool and dry. HEAD: Atraumatic. Normocephalic. No temporal or scalp tenderness. EYES: Pupils equal round and reactive. Extraocular motions intact. No scleral icterus. No injection or drainage. ENT: Nose without bleeding, purulent drainage or septal hematoma. Throat without erythema, tonsillar hypertrophy or exudate. Uvula midline. Airway patent. NECK: Trachea midline. No JVD or lymphadenopathy. Supple, nontender, no meningeal signs. CARDIOVASCULAR: Regular rate and rhythm without murmurs, gallops, or rubs. RESPIRATORY: Clear to auscultation. Breath sounds equal bilaterally. No wheezes , rales, or rhonchi. GASTROINTESTINAL: Abdomen soft, non-tender, nondistended. No hepato-splenomegaly , or palpable masses. No guarding. MUSCULOSKELETAL: Extremities without clubbing, cyanosis, or edema. No joint tenderness, effusion, or edema noted. No calf tenderness. Negative Homans sign bilaterally. NEUROLOGICAL: Awake and alert. Cranial nerves II through XII intact. Motor and sensory grossly within normal limits. Five out of 5 muscle strength in all muscle groups. Normal speech. Medications and IVs Current Medications Medications (Trade) Dose Ordered Sig/David Route Start Time Stop Time Status Last Admin (NS Flush) 2 ml UNSCH PRN IV FLUSH 05/28/17 13:15 (NS Flush) 2 ml BID IV FLUSH 05/28/17 21:00 05/29/17 21:00 (Tylenol) 650 mg Q4H PRN PO 05/28/17 13:15 05/29/17 05:26 (Zofran Inj) 4 mg Q6H PRN IVP 05/28/17 13:15 05/29/17 09:11 (Compazine Supp) 25 mg Q12H PRN RECTAL 05/28/17 13:15 (Narcan Inj) 0.4 mg UNSCH PRN IV PUSH 05/28/17 13:15 (Mary-Colace) 1 tab BID PO 05/28/17 21:00 05/28/17 22:02 (Milk Of Magnesia Liq) 30 ml Q12H PRN PO 05/28/17 13:15 (Senokot) 17.2 mg Q12H PRN PO 05/28/17 13:15 (Dulcolax Supp) 10 mg DAILY PRN RECTAL 05/28/17 13:15 (Lactulose Liq) 30 ml DAILY PRN PO 05/28/17 13:15 (Norvasc) 10 mg DAILY PO 05/29/17 09:00 (Coreg) 25 mg BID PO 05/28/17 21:00 05/28/17 22:01 (Ferrous Sulfate) 325 mg BID PO 05/28/17 21:00 05/28/17 22:01 (Apresoline) 50 mg Q8HR PO 05/28/17 14:00 05/30/17 05:39 (Hydrodiuril) 25 mg DAILY PO 05/29/17 09:00 (Prinivil) 20 mg Q12HR PO 05/28/17 21:00 05/28/17 22:01 (Ultram) 50 mg Q6H PRN PO 05/28/17 13:15 05/30/17 04:29 Sodium Chloride 1,000 ml @ 30 mls/hr Q24H IV 05/28/17 16:30 05/28/17 16:30 (Morphine Inj) 4 mg Q3H PRN IV PUSH 05/28/17 16:30 05/30/17 05:00 (Carafate Liq) 1 gm ACHS PO 05/29/17 17:00 05/29/17 23:14 (Pepcid Inj) 20 mg Q12H IV PUSH 05/29/17 18:00 05/30/17 04:35 A/P Assessment and Plan 37-year-old female with FINISHED GOODS STOCK CLERK shunt placement on 04/28 presents with intractable emesis and headaches since her discharge on 05/04. 1. Pseudotumor cerebri Patient status post FINISHED GOODS STOCK CLERK shunt placement on 04/28/[address], shunt series done in the ER today unremarkable Seen by Neurology specialist doctor Rodney Sepulveda, recommended to check shunt pressures, if negative will check MRI brain, Cubital tunnel syndrome on the left to avoid excessive Flexion/Extension. Awaiting LP for opening Pressure and CSF cultures, intractable Emesis probable related to Intracranial Hypertension. 3. Electrolyte derangement replaced and following. in am tomorrow. 4. Hypertension controlled. 5. Iron deficiency anemia Continue home ferrous sulfate FEN Heart healthy diet Electrolytes: As above SCDs Discharge Planning Once cleared by specialists. Gelacio River MD May 30, 2017 09:10
--- NOTE | 2017-05-30 10:54 | HHI.NSPN ---
(Ani Langley) Note Status Status: Progress Note (Ani Langley) Interval History Interval History Ms. Landis is a 37 year old female with history of idiopathic intracranial hypertension underwent placement of LAUNCH OPERATOR shunt on 04/28/17 due to nonfunctioning LP shunt placed 10 years ago. She was recently seen in the office a few weeks ago and a f/u CT Head was ordered at that time but was not completed. She presents to the ED for worsening headaches and nausea. She also complains of numbness of the left arm. A CT Head has been complete which shows shunt in good position without acute intracranial findings. A shunt study also obtained and is intact. 05/30: reports vision better following shunt adjustment yesterday. acute mental status change last night with stable f/u CT Head. LP pending. denies fevers or chills. (Ani Langley) Labs, Micro, & Vital Signs Results Date Time Temp Pulse Resp B/P (MAP) Pulse Ox O2 Delivery O2 Flow Rate FiO2 05/30/17 08:00 98.8 109 18 138/78 (98) 98 05/30/17 04:00 98.5 97 18 152/81 (104) 97 05/30/17 00:00 98.1 90 18 139/93 (108) 98 05/29/17 23:50 98.6 85 13 141/97 (112) 100 05/29/17 20:00 98.1 100 18 147/99 (115) 99 05/29/17 13:13 98.3 89 18 134/84 (101) 93 05/31/17 07:00 Intake Total 100 ml Balance 100 ml Constitutional Vital Signs Date Time Temp Pulse Resp B/P (MAP) Pulse Ox O2 Delivery O2 Flow Rate FiO2 05/30/17 08:00 98.8 109 18 138/78 (98) 98 05/30/17 04:00 98.5 97 18 152/81 (104) 97 05/30/17 00:00 98.1 90 18 139/93 (108) 98 05/29/17 23:50 98.6 85 13 141/97 (112) 100 05/29/17 20:00 98.1 100 18 147/99 (115) 99 05/29/17 13:13 98.3 89 18 134/84 (101) 93 05/31/17 07:00 Intake Total 100 ml Balance 100 ml (Ani Langley) Physical Exam Ms. Landis appears to be sleeping comfortably, awakens but again keeps eyes closed, oriented. Only mildly converses, speech is soft. Cranial nerve: pupils equal, round and reactive to light. Facial motor symmetric. Neck is soft and supple Muscle strength is normal in all muscle groups of both upper and lower extremities. (Ani Langley) Medications Current Medications Current Medications Medications (Trade) Dose Ordered Sig/David Route PRN Reason Start Time Stop Time Status Last Admin Dose Admin Sodium Chloride (NS Flush) 2 ml UNSCH PRN IV FLUSH FLUSH AFTER USING IV ACCESS 05/28/17 13:15 Sodium Chloride (NS Flush) 2 ml BID IV FLUSH 05/28/17 21:00 05/29/17 21:00 Acetaminophen (Tylenol) 650 mg Q4H PRN PO TEMP > 100.4 05/28/17 13:15 05/29/17 05:26 Ondansetron HCl (Zofran Inj) 4 mg Q6H PRN IVP NAUSEA OR VOMITING 05/28/17 13:15 05/29/17 09:11 Prochlorperazine (Compazine Supp) 25 mg Q12H PRN RECTAL NAUSEA OR VOMITING 05/28/17 13:15 Naloxone HCl (Narcan Inj) 0.4 mg UNSCH PRN IV PUSH SEE LABEL COMMENTS 05/28/17 13:15 Senna/Docusate Sodium (Mary-Colace) 1 tab BID PO 05/28/17 21:00 05/28/17 22:02 Magnesium Hydroxide (Milk Of Magnesia Liq) 30 ml Q12H PRN PO Mild constipation 05/28/17 13:15 Sennosides (Senokot) 17.2 mg Q12H PRN PO Moderate constipation 05/28/17 13:15 Bisacodyl (Dulcolax Supp) 10 mg DAILY PRN RECTAL SEVERE CONSITIPATION 05/28/17 13:15 Lactulose (Lactulose Liq) 30 ml DAILY PRN PO SEVERE CONSITIPATION 05/28/17 13:15 Amlodipine Besylate (Norvasc) 10 mg DAILY PO 05/29/17 09:00 Carvedilol (Coreg) 25 mg BID PO 05/28/17 21:00 05/28/17 22:01 Ferrous Sulfate (Ferrous Sulfate) 325 mg BID PO 05/28/17 21:00 05/28/17 22:01 Hydralazine HCl (Apresoline) 50 mg Q8HR PO 05/28/17 14:00 05/30/17 05:39 Hydrochlorothiazide (Hydrodiuril) 25 mg DAILY PO 05/29/17 09:00 Lisinopril (Prinivil) 20 mg Q12HR PO 05/28/17 21:00 05/28/17 22:01 Tramadol HCl (Ultram) 50 mg Q6H PRN PO BREAKTHROUGH PAIN 05/28/17 13:15 05/30/17 04:29 Sodium Chloride 1,000 ml @ 30 mls/hr Q24H IV 05/28/17 16:30 05/28/17 16:30 Morphine Sulfate (Morphine Inj) 4 mg Q3H PRN IV PUSH pain 6-10 05/28/17 16:30 05/30/17 05:00 Sucralfate (Carafate Liq) 1 gm ACHS PO 05/29/17 17:00 05/29/17 23:14 Famotidine (Pepcid Inj) 20 mg Q12H IV PUSH 05/29/17 18:00 05/30/17 04:35 Potassium Chloride 100 ml @ 50 mls/hr Q2H IV 05/30/17 10:00 05/30/17 13:59 (Ani Langley) Medical Decision Making MDM Remarks 37 y/o female with idiopathic intracranial hypertension, s/p placement of LAUNCH OPERATOR shunt 04/28/17. presents for headaches, nausea and vomiting xray shunt confirmation at 90 mm H20 AMS, with repeat CT Brain 05/29 w/o acute findings (Ani Langley) Plan Plan Remarks awaiting LP for opening pressures and CSF cultures, Neurology following, appreciate assistance cont neuro checks dw again treatment plan, he understands and his questions answered dw nursing (Ani Langley) Attending Statement The exam, history, and the medical decision-making described in the above note were completed with the assistance of the mid-level provider. I reviewed and agree with the findings presented. I attest that I had a [id number] encounter with the patient on the same day, and personally performed and documented my assessment and findings in the medical record. (Shreyas Dumont MD) Ani Langley May 30, 2017 10:54 Shreyas Dumont MD May 30, 2017 17:17
[2017-05-30 11:47] VITALS: BP 149/89; PULSE 97; RESP 18; TEMP 98.6; O2SAT 97
[2017-05-30] MEDS: SUCRALFATE 1 GM/10 ML CUP PO SCH ×3 (11:51→21:36)
[2017-05-30] MEDS: CARVEDILOL 12.5 MG TAB PO SCH ×2 (11:52→21:38)
[2017-05-30] MEDS: HYDROCHLOROTHIAZIDE 25 MG TAB PO SCH (11:52)
[2017-05-30] MEDS: LISINOPRIL 20 MG TAB PO SCH ×2 (11:52→21:00)
[2017-05-30] MEDS: DOCUSATE SODIUM 50 MG/SENNA 8.6 MG TAB PO SCH ×2 (11:53→21:37)
[2017-05-30] MEDS: FERROUS SULFATE 325 MG (65 MG ELEMENTAL IRON) TAB PO SCH ×2 (11:53→21:37)
[2017-05-30] MEDS: POTASSIUM CHLOR 20 MEQ PREMIX 100 ML IV SCH ×2 (12:03→18:00)
--- NOTE | 2017-05-30 13:12 | HHI.PR ---
Review/Management Diagnosis/Plan: (1) Pseudotumor cerebri ICD Codes: G93.2 - Benign intracranial hypertension Status: Chronic Plan: continue to follow with nsx she is noting improvement after adjustment of shunt LP pending pt wants to hold off any po preventative meds until she is tolerating po better. consider topamax which could be started at 25mg qhs BP control (2) Cephalgia ICD Codes: R51 - Headache Status: Chronic (3) Cubital tunnel syndrome on left ICD Codes: G56.22 - Lesion of ulnar nerve, left upper limb Status: Chronic Plan: probable no motor/sensory deficit avoid excessive arm flexion/extension (Mariela Hernandez) Daily Summary pt seen and examined. d/w PA. 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 going for lp in am. follow exam (Emigdio Sepulveda MD) Subjective Subjective Comments No acute events reported feels vision is improving since adjustment of shunt, though impairments not completely resolved headaches slightly improved, she is unsure if related to shunt adjustment or pain meds no new problems Active Medications Current Medications Medications (Trade) Dose Ordered Sig/David Route Start Time Stop Time Status Last Admin (NS Flush) 2 ml UNSCH PRN IV FLUSH 05/28/17 13:15 (NS Flush) 2 ml BID IV FLUSH 05/28/17 21:00 05/29/17 21:00 (Tylenol) 650 mg Q4H PRN PO 05/28/17 13:15 05/29/17 05:26 (Zofran Inj) 4 mg Q6H PRN IVP 05/28/17 13:15 05/29/17 09:11 (Compazine Supp) 25 mg Q12H PRN RECTAL 05/28/17 13:15 (Narcan Inj) 0.4 mg UNSCH PRN IV PUSH 05/28/17 13:15 (Mary-Colace) 1 tab BID PO 05/28/17 21:00 05/30/17 11:53 (Milk Of Magnesia Liq) 30 ml Q12H PRN PO 05/28/17 13:15 (Senokot) 17.2 mg Q12H PRN PO 05/28/17 13:15 (Dulcolax Supp) 10 mg DAILY PRN RECTAL 05/28/17 13:15 (Lactulose Liq) 30 ml DAILY PRN PO 05/28/17 13:15 (Norvasc) 10 mg DAILY PO 05/29/17 09:00 05/30/17 11:52 (Coreg) 25 mg BID PO 05/28/17 21:00 05/30/17 11:52 (Ferrous Sulfate) 325 mg BID PO 05/28/17 21:00 05/30/17 11:53 (Apresoline) 50 mg Q8HR PO 05/28/17 14:00 05/30/17 05:39 (Hydrodiuril) 25 mg DAILY PO 05/29/17 09:00 05/30/17 11:52 (Prinivil) 20 mg Q12HR PO 05/28/17 21:00 05/30/17 11:52 (Ultram) 50 mg Q6H PRN PO 05/28/17 13:15 05/30/17 04:29 Sodium Chloride 1,000 ml @ 30 mls/hr Q24H IV 05/28/17 16:30 05/28/17 16:30 (Morphine Inj) 4 mg Q3H PRN IV PUSH 05/28/17 16:30 05/30/17 11:58 (Carafate Liq) 1 gm ACHS PO 05/29/17 17:00 05/30/17 11:51 (Pepcid Inj) 20 mg Q12H IV PUSH 05/29/17 18:00 05/30/17 04:35 Potassium Chloride 100 ml @ 50 mls/hr Q2H IV 05/30/17 10:00 05/30/17 13:59 05/30/17 12:03 Allergies Allergies Coded Allergies amoxicillin (Unverified Allergy, Mild, Hives, 05/28/17) (Mariela Hernandez) Review of Systems All other ROS: ROS reviewed as documented in chart (Mariela Hernandez) Exam I&O / VS 05/30/17 05/30/17 05/31/17 15:00 23:00 07:00 Intake Total 100 ml Balance 100 ml Intake IV Total 100 ml Vital Signs Date Time Temp Pulse Resp B/P (MAP) Pulse Ox O2 Delivery O2 Flow Rate FiO2 05/30/17 11:47 98.6 97 18 149/89 (109) 97 05/30/17 08:00 98.8 109 18 138/78 (98) 98 05/30/17 04:00 98.5 97 18 152/81 (104) 97 05/30/17 00:00 98.1 90 18 139/93 (108) 98 05/29/17 23:50 98.6 85 13 141/97 (112) 100 05/29/17 20:00 98.1 100 18 147/99 (115) 99 05/29/17 13:13 98.3 89 18 134/84 (101) 93 General: Alert and Oriented, No acute distress Eye: EOMI Respiratory: Non-labored respirations Neurologic: Alert, Oriented Psychiatric: Cooperative Exam Comments a&o x 3, left esotropia, mild dysconjugate gaze, appears to have concentric visual field loss, left gaze nystagmus, ou 3-2mm, face sym, [place] to gravity, 5/5 , no drift, Mild tinel at left elbow, pin nml, msr sym (Mariela Hernandez) Objective Radiology Results Last 48 hours Impressions Skull X-Ray 05/29/17 0000 Signed Impressions: Service Date/Time: Monday, May 29, 2017 15:58 - CONCLUSION: Ventriculostomy catheter with a programmable valve set at 90 mm of water. Wilian Tinajero MD Head CT 05/29/17 0000 Signed Impressions: Service Date/Time: Tuesday, May 30, 2017 00:03 - CONCLUSION: CELLAR SUPERVISOR shunt in unchanged position with distal catheter crossing the left frontal horn and terminating in the left basal ganglia. Ventricles are normal in size and slightly smaller than the study from 2 days ago. Wilian Miguel MD Micro and Labs Laboratory Tests Test 05/29/17 13:09 05/29/17 14:50 White Blood Count 8.8 10.3 Red Blood Count 3.88 4.16 Hemoglobin 9.3 9.9 Hematocrit 28.8 30.8 Mean Corpuscular Volume 74.2 74.1 Mean Corpuscular Hemoglobin 23.9 23.8 Mean Corpuscular Hemoglobin Concent 32.2 32.1 Red Cell Distribution Width 19.8 20.2 Platelet Count 360 389 Mean Platelet Volume 7.0 7.4 Neutrophils (%) (Auto) 73.7 Lymphocytes (%) (Auto) 16.4 Monocytes (%) (Auto) 6.5 Eosinophils (%) (Auto) 2.9 Basophils (%) (Auto) 0.5 Neutrophils # (Auto) 6.5 Lymphocytes # (Auto) 1.5 Monocytes # (Auto) 0.6 Eosinophils # (Auto) 0.3 Basophils # (Auto) 0.0 CBC Comment DIFF FINAL Differential Comment Prothrombin Time 11.2 Prothromb Time International Ratio 1.1 Activated Partial Thromboplast Time 26.3 Potassium Level 3.3 (Mariela Hernandez) Mariela Hernandez May 30, 2017 13:12 Emigdio Sepulveda MD May 30, 2017 15:07
[2017-05-30 13:47] LABS: MAGNESIUM 1.8 MG/DL (1.5-2.5)
[2017-05-30] MEDS: MAGNESIUM SULFATE 1 GM PREMIX 100 ML IV SCH ×2 (15:00→23:00)
[2017-05-30 16:00] VITALS: BP 170/106; PULSE 98; RESP 18; TEMP 98.2; O2SAT 100
[2017-05-30] MEDS: SODIUM CHLOR 0.9% 1000 ML INJ 1,000 ML IV SCH (19:00)
[2017-05-30 20:00] VITALS: BP 162/84; PULSE 91; RESP 18; TEMP 98.1; O2SAT 98
[2017-05-30] MEDS: SODIUM CHLORIDE 0.9% FLUSH 10 ML FLUSH IV FLUSH SCH (21:00)
[2017-05-31] VITALS: BP 165/94; PULSE 95; RESP 18; TEMP 98.5; O2SAT 97
[2017-05-31 04:00] VITALS: BP 148/93; PULSE 91; RESP 18; TEMP 97.6; O2SAT 98
[2017-05-31] MEDS: MAGNESIUM SULFATE 1 GM PREMIX 100 ML IV SCH ×2 (06:11)
[2017-05-31] MEDS: MORPHINE SULFATE 4 MG/ML INJ IV PUSH PRN ×5 (06:11→21:27)
[2017-05-31] MEDS: hydrALAZINE HCL 50 MG TAB PO SCH ×3 (06:14→21:16)
[2017-05-31] MEDS: FAMOTIDINE 20 MG/2 ML VIAL IV PUSH SCH ×2 (06:14→18:31)
[2017-05-31 08:00] VITALS: BP 153/89; PULSE 88; RESP 18; TEMP 98.1; O2SAT 97
--- NOTE | 2017-05-31 08:36 | HHI.PR ---
Review/Management Diagnosis/Plan: (1) Pseudotumor cerebri ICD Codes: G93.2 - Benign intracranial hypertension Status: Chronic Plan: neuro stable LP pending pt wants to hold off any po preventative meds until she is tolerating po better. consider topamax which could be started at 25mg qhs (2) Cephalgia ICD Codes: R51 - Headache Status: Chronic (3) Cubital tunnel syndrome on left ICD Codes: G56.22 - Lesion of ulnar nerve, left upper limb Status: Chronic Plan: probable no motor/sensory deficit avoid excessive arm flexion/extension Subjective Subjective Comments No acute events reported slept well, nausea better No chest pain No dyspnea Active Medications Current Medications Medications (Trade) Dose Ordered Sig/David Route Start Time Stop Time Status Last Admin (NS Flush) 2 ml UNSCH PRN IV FLUSH 05/28/17 13:15 05/31/17 06:12 (NS Flush) 2 ml BID IV FLUSH 05/28/17 21:00 05/30/17 21:00 (Tylenol) 650 mg Q4H PRN PO 05/28/17 13:15 05/29/17 05:26 (Zofran Inj) 4 mg Q6H PRN IVP 05/28/17 13:15 05/29/17 09:11 (Compazine Supp) 25 mg Q12H PRN RECTAL 05/28/17 13:15 (Narcan Inj) 0.4 mg UNSCH PRN IV PUSH 05/28/17 13:15 (Mary-Colace) 1 tab BID PO 05/28/17 21:00 05/30/17 21:37 (Milk Of Magnesia Liq) 30 ml Q12H PRN PO 05/28/17 13:15 (Senokot) 17.2 mg Q12H PRN PO 05/28/17 13:15 (Dulcolax Supp) 10 mg DAILY PRN RECTAL 05/28/17 13:15 (Lactulose Liq) 30 ml DAILY PRN PO 05/28/17 13:15 (Norvasc) 10 mg DAILY PO 05/29/17 09:00 05/30/17 11:52 (Coreg) 25 mg BID PO 05/28/17 21:00 05/30/17 21:38 (Ferrous Sulfate) 325 mg BID PO 05/28/17 21:00 05/30/17 21:37 (Apresoline) 50 mg Q8HR PO 05/28/17 14:00 05/31/17 06:14 (Hydrodiuril) 25 mg DAILY PO 05/29/17 09:00 05/30/17 11:52 (Prinivil) 20 mg Q12HR PO 05/28/17 21:00 05/30/17 11:52 (Ultram) 50 mg Q6H PRN PO 05/28/17 13:15 05/30/17 04:29 Sodium Chloride 1,000 ml @ 30 mls/hr Q24H IV 05/28/17 16:30 05/28/17 16:30 (Morphine Inj) 4 mg Q3H PRN IV PUSH 05/28/17 16:30 05/31/17 06:11 (Carafate Liq) 1 gm ACHS PO 05/29/17 17:00 05/30/17 21:36 (Pepcid Inj) 20 mg Q12H IV PUSH 05/29/17 18:00 05/31/17 06:14 Allergies Allergies Coded Allergies amoxicillin (Unverified Allergy, Mild, Hives, 05/28/17) Review of Systems All other ROS: ROS reviewed as documented in chart Exam I&O / VS 05/31/17 05/31/17 06/01/17 14:59 22:59 06:59 # Voids 4 Vital Signs Date Time Temp Pulse Resp B/P (MAP) Pulse Ox O2 Delivery O2 Flow Rate FiO2 05/31/17 04:00 97.6 91 18 148/93 (111) 98 05/31/17 00:00 98.5 95 18 165/94 (117) 97 05/30/17 20:00 98.1 91 18 162/84 (110) 98 05/30/17 16:00 98.2 98 18 170/106 (127) 100 05/30/17 11:47 98.6 97 18 149/89 (109) 97 General: Alert and Oriented, No acute distress Eye: EOMI Respiratory: Non-labored respirations Neurologic: Alert, Oriented Psychiatric: Cooperative Exam Comments ox 3, slow speech,mild rt 6th paresis, ou 3-2mm, face sym, [place] to gravity, 5/5, no drift Objective Micro and Labs Laboratory Tests Test 05/30/17 12:59 Phosphorus Level 3.1 Magnesium Level 1.8 Emigdio Sepulveda MD May 31, 2017 08:36
[2017-05-31] MEDS: LISINOPRIL 20 MG TAB PO SCH ×2 (09:00→21:00)
[2017-05-31] MEDS: SODIUM CHLORIDE 0.9% FLUSH 10 ML FLUSH IV FLUSH SCH ×2 (09:00→21:00)
[2017-05-31] MEDS: HYDROCHLOROTHIAZIDE 25 MG TAB PO SCH (09:39)
[2017-05-31] MEDS: SUCRALFATE 1 GM/10 ML CUP PO SCH ×4 (09:39→21:16)
[2017-05-31] MEDS: DOCUSATE SODIUM 50 MG/SENNA 8.6 MG TAB PO SCH ×2 (09:40→21:15)
[2017-05-31] MEDS: CARVEDILOL 12.5 MG TAB PO SCH ×2 (09:40→21:16)
[2017-05-31] MEDS: FERROUS SULFATE 325 MG (65 MG ELEMENTAL IRON) TAB PO SCH ×2 (09:40→21:16)
--- NOTE | 2017-05-31 10:24 | HHI.NSPN ---
(Ani Langley) Note Status Status: Progress Note (Ani Langley) Interval History Interval History Ms. Landis is a 37 year old female with history of idiopathic intracranial hypertension underwent placement of [employer] shunt on 04/28/17 due to nonfunctioning LP shunt placed 10 years ago. She was recently seen in the office a few weeks ago and a f/u CT Head was ordered at that time but was not completed. She presents to the ED for worsening headaches and nausea. She also complains of numbness of the left arm. A CT Head has been complete which shows shunt in good position without acute intracranial findings. A shunt study also obtained and is intact. 05/30: reports vision better following shunt adjustment yesterday. acute mental status change last night with stable f/u CT Head. LP pending. denies fevers or chills. 05/31: headaches slowly improving and feeling much better this morning. going down for LP now. (Ani Langley) Labs, Micro, & Vital Signs Results Date Time Temp Pulse Resp B/P (MAP) Pulse Ox O2 Delivery O2 Flow Rate FiO2 05/31/17 08:00 98.1 88 18 153/89 (110) 97 05/31/17 04:00 97.6 91 18 148/93 (111) 98 05/31/17 00:00 98.5 95 18 165/94 (117) 97 05/30/17 20:00 98.1 91 18 162/84 (110) 98 05/30/17 16:00 98.2 98 18 170/106 (127) 100 05/30/17 11:47 98.6 97 18 149/89 (109) 97 Constitutional Vital Signs Date Time Temp Pulse Resp B/P (MAP) Pulse Ox O2 Delivery O2 Flow Rate FiO2 05/31/17 08:00 98.1 88 18 153/89 (110) 97 05/31/17 04:00 97.6 91 18 148/93 (111) 98 05/31/17 00:00 98.5 95 18 165/94 (117) 97 05/30/17 20:00 98.1 91 18 162/84 (110) 98 05/30/17 16:00 98.2 98 18 170/106 (127) 100 05/30/17 11:47 98.6 97 18 149/89 (109) 97 (Ani Langley) Physical Exam Ms. Landis appears more awake and alert and being wheeled down to IR. Eyes open and conversing more. Cranial nerve: pupils equal, round and reactive to light. Facial motor symmetric. gross eoms intact. Neck is soft and supple Muscle strength is normal in all muscle groups of both upper and lower extremities. (Ani Langley) Medications Current Medications Current Medications Medications (Trade) Dose Ordered Sig/David Route PRN Reason Start Time Stop Time Status Last Admin Dose Admin Sodium Chloride (NS Flush) 2 ml UNSCH PRN IV FLUSH FLUSH AFTER USING IV ACCESS 05/28/17 13:15 05/31/17 06:12 Sodium Chloride (NS Flush) 2 ml BID IV FLUSH 05/28/17 21:00 05/31/17 09:00 Acetaminophen (Tylenol) 650 mg Q4H PRN PO TEMP > 100.4 05/28/17 13:15 05/29/17 05:26 Ondansetron HCl (Zofran Inj) 4 mg Q6H PRN IVP NAUSEA OR VOMITING 05/28/17 13:15 05/29/17 09:11 Prochlorperazine (Compazine Supp) 25 mg Q12H PRN RECTAL NAUSEA OR VOMITING 05/28/17 13:15 Naloxone HCl (Narcan Inj) 0.4 mg UNSCH PRN IV PUSH SEE LABEL COMMENTS 05/28/17 13:15 Senna/Docusate Sodium (Mary-Colace) 1 tab BID PO 05/28/17 21:00 05/31/17 09:40 Magnesium Hydroxide (Milk Of Magnesia Liq) 30 ml Q12H PRN PO Mild constipation 05/28/17 13:15 Sennosides (Senokot) 17.2 mg Q12H PRN PO Moderate constipation 05/28/17 13:15 Bisacodyl (Dulcolax Supp) 10 mg DAILY PRN RECTAL SEVERE CONSITIPATION 05/28/17 13:15 Lactulose (Lactulose Liq) 30 ml DAILY PRN PO SEVERE CONSITIPATION 05/28/17 13:15 Amlodipine Besylate (Norvasc) 10 mg DAILY PO 05/29/17 09:00 05/31/17 09:40 Carvedilol (Coreg) 25 mg BID PO 05/28/17 21:00 05/31/17 09:40 Ferrous Sulfate (Ferrous Sulfate) 325 mg BID PO 05/28/17 21:00 05/31/17 09:40 Hydralazine HCl (Apresoline) 50 mg Q8HR PO 05/28/17 14:00 05/31/17 06:14 Hydrochlorothiazide (Hydrodiuril) 25 mg DAILY PO 05/29/17 09:00 05/31/17 09:39 Lisinopril (Prinivil) 20 mg Q12HR PO 05/28/17 21:00 05/30/17 11:52 Tramadol HCl (Ultram) 50 mg Q6H PRN PO BREAKTHROUGH PAIN 05/28/17 13:15 05/30/17 04:29 Sodium Chloride 1,000 ml @ 30 mls/hr Q24H IV 05/28/17 16:30 05/28/17 16:30 Morphine Sulfate (Morphine Inj) 4 mg Q3H PRN IV PUSH pain 6-10 05/28/17 16:30 05/31/17 09:33 Sucralfate (Carafate Liq) 1 gm ACHS PO 05/29/17 17:00 05/31/17 09:39 Famotidine (Pepcid Inj) 20 mg Q12H IV PUSH 05/29/17 18:00 05/31/17 06:14 (Ani Langley) Medical Decision Making MDM Remarks 37 y/o female with idiopathic intracranial hypertension, s/p placement of [employer] shunt 04/28/17. presents for headaches, nausea and vomiting xray shunt confirmation at 90 mm H20 AMS, with repeat CT Brain 05/29 w/o acute findings (Ani Langley) Plan Plan Remarks awaiting LP for opening pressures and CSF cultures, Neurology following, appreciate assistance cont neuro checks dw again treatment plan, he understands and his questions answered dw nursing (Ani Langley) Attending Statement The exam, history, and the medical decision-making described in the above note were completed with the assistance of the mid-level provider. I reviewed and agree with the findings presented. I attest that I had a [id number] encounter with the patient on the same day, and personally performed and documented my assessment and findings in the medical record. (Shreyas Dumont MD) Ani Langley May 31, 2017 10:24 Shreyas Dumont MD Jun 01, 2017 21:09
--- NOTE | 2017-05-31 10:42 | PD.RAD ---
Post Procedure Progress Note Pre Procedure Diagnosis: (1) Cephalgia Post Procedure Diagnosis: (1) Cephalgia Procedure Date: May 31, 2017 Supervising Radiologist: Anil Ca Proceduralist/Assist: Nita Steele, RT(R), Jasmina Isidro RT(R)(CV) Anesthesia: Local Plan of Activity Patient to Unit: [facility] Patient Condition: Good See PACS Report for procedural detail/treatment Anil Ca MD May 31, 2017 10:42
[2017-05-31 11:40] LABS: GROSS BLOOD TUBE #1 TRACE (0); GROSS BLOOD TUBE #2 TRACE (0); GROSS BLOOD TUBE #3 0 (0); SUPERNATE COLOR TUBE #1 CLEAR (CLEAR); SUPERNATE COLOR TUBE #2 CLEAR (CLEAR); SUPERNATE COLOR TUBE #3 CLEAR (CLEAR); SUPERNATE COLOR TUBE #4 CLEAR (CLEAR); VOLUME TUBE # 3 5.5 ML; WBC TUBE #4 8 /MM3 (0-10)
[2017-05-31 11:45] LABS: CSF LYMPHOCYTES 64 %; CSF MONOCYTES 29 %; CSF NEUTROPHILS 7 %
--- NOTE | 2017-05-31 11:50 | RADRPT ---
EXAM DATE/TIME: 05/31/2017 11:16 [facility] COMPARISON: LUMBAR PUNCTURE W/OPENING PRESSURES, April 27, 2017, 17:34. INDICATIONS : Headache and nausea .History of INSTRUCTION[employer] DES[employer]SULTANT shunt on 04/28/17. MEDICAL HISTORY : 1.Pseudotumor cerebri 2. HTN SURGICAL HISTORY : 1. Lp shunt placement 2. C section 3. Cholecysectomy ENCOUNTER: Initial ACUITY: 1 month PAIN SCORE: 4/10 LOCATION: headache LUMBAR PUNCTURE TIME: 1018 hours FLUORO TIME: 0.433 minutes ACCESS LEVEL: L4-5 OPENING PRESSURE: 60 + cm of water CLOSING PRESSURE: 12 cm of water FLUID: 22 cc of clear CSF was collected and sent to the laboratory for analysis. PROCEDURE : 1. Fluoroscopic guided lumbar puncture. 2. Recording of opening pressure. The risks, benefits and alternatives to the procedure were explained and verbal and written consent w as obtained. The site was prepped in sterile fashion. Full sterile technique was used, including ca p, mask, sterile gloves and gown and a large sterile sheet. Hand hygiene and 2% chlorhexidine and/or betadine/alcohol prep was utilized per protocol for cutaneous antisepsis. The skin and subcutaneous tissues were infiltrated with local anesthetic solution. With fluoroscopic guidance the lumbar thecal sac was punctured at the L3-4. However, no significant f luid could be aspirated despite multiple repositionings. Therefore, the lumbar thecal sac was punctur ed at the L4-5 level and the opening pressure was recorded. The above described fluid was removed wi thout difficulty. The patient tolerated the procedure well and there were no complications. CONCLUSION: Uncomplicated fluoroscopically guided lumbar puncture with pressures as above. Anil Ca MD on May 31, 2017 at 11:47 Board Certified Radiologist. This report was verified electronically.
[2017-05-31 11:59] LABS: GROSS BLOOD TUBE #4 TRACE (0)
[2017-05-31 12:00] VITALS: BP 165/97; PULSE 83; RESP 19; TEMP 97.6; O2SAT 96
--- NOTE | 2017-05-31 13:09 | HHI.PR ---
Subjective Remarks in no acute distress. LP done earlier. still with some headache but she says that it's better. Objective Vitals Vital Signs Date Time Temp Pulse Resp B/P (MAP) Pulse Ox O2 Delivery O2 Flow Rate FiO2 05/31/17 08:00 98.1 88 18 153/89 (110) 97 05/31/17 04:00 97.6 91 18 148/93 (111) 98 05/31/17 00:00 98.5 95 18 165/94 (117) 97 05/30/17 20:00 98.1 91 18 162/84 (110) 98 05/30/17 16:00 98.2 98 18 170/106 (127) 100 I/O 05/30/17 05/30/17 05/30/17 05/31/17 05/31/17 05/31/17 07:00 15:00 23:00 07:00 15:00 23:00 Intake Total 150 ml 100 ml 200 ml 100 ml Balance 150 ml 100 ml 200 ml 100 ml Intake IV Total 150 ml 100 ml 200 ml 100 ml # Voids 2 4 Result Diagram: 05/29/17 1450 05/29/17 1450 Imaging Last Impressions Lumbar Puncture Fluoroscopy 05/31/17 0000 Signed Impressions: Service Date/Time: Wednesday, May 31, 2017 11:16 - CONCLUSION: Uncomplicated fluoroscopically guided lumbar puncture with pressures as above. Anil Ca MD Skull X-Ray 05/29/17 0000 Signed Impressions: Service Date/Time: Monday, May 29, 2017 15:58 - CONCLUSION: Ventriculostomy catheter with a programmable valve set at 90 mm of water. Wilian Tinajero MD Head CT 05/29/17 0000 Signed Impressions: Service Date/Time: Tuesday, May 30, 2017 00:03 - CONCLUSION: HOT SAW HELPER shunt in unchanged position with distal catheter crossing the left frontal horn and terminating in the left basal ganglia. Ventricles are normal in size and slightly smaller than the study from 2 days ago. Wilian Miguel MD Shunt Study (Imaging) 05/28/17 0000 Signed Impressions: Service Date/Time: Sunday, May 28, 2017 10:45 - CONCLUSION: Intact shunt. Kendrick Jimenez Jr., MD Objective Remarks GENERAL: This is a well-nourished, well-developed patient, in no apparent distress. CARDIOVASCULAR: Regular rate and regular rhythm without murmurs, gallops, or rubs. RESPIRATORY: Clear to auscultation. Breath sounds equal bilaterally. No wheezes , rales, or rhonchi. GASTROINTESTINAL: Abdomen soft, non-tender, nondistended. Normal, active bowel sounds MUSCULOSKELETAL: Extremities without clubbing, cyanosis, or edema. NEURO: Alert & Oriented x4 to person, place, time, situation. Moves all ext x4 Procedures LP Medications and IVs Current Medications Sodium Chloride (NS Flush) 2 ml UNSCH PRN IV FLUSH FLUSH AFTER USING IV ACCESS ; Start 05/28/17 at 10:30; Stop 05/28/17 at 13:17; Status DC Hydromorphone HCl (Dilaudid Pf Inj) 1 mg ONCE ONCE IV PUSH Last administered on 05/28/17 11:39; Start 05/28/17 at 11:15; Stop 05/28/17 at 11:17; Status DC Ondansetron HCl (Zofran Inj) 4 mg ONCE ONCE IV PUSH Last administered on 11:39; Start 05/28/17 at 11:15; Stop 05/28/17 at 11:17; Status DC Potassium Chloride (KCl) 40 meq ONCE ONCE PO Last administered on 05/28/17 11 :40; Start 05/28/17 at 11:30; Stop 05/28/17 at 11:31; Status DC Sodium Chloride (NS Flush) 2 ml UNSCH PRN IV FLUSH FLUSH AFTER USING IV ACCESS Last administered on 05/31/17 06:12; Start 05/28/17 at 13:15 Sodium Chloride (NS Flush) 2 ml BID IV FLUSH Last administered on 05/31/17 09: 00; Start 05/28/17 at 21:00 Acetaminophen (Tylenol) 650 mg Q4H PRN PO TEMP > 100.4 Last administered on 05:26; Start 05/28/17 at 13:15 Ondansetron HCl (Zofran Inj) 4 mg Q6H PRN IVP NAUSEA OR VOMITING Last administered on 05/29/17 09:11; Start 05/28/17 at 13:15 Prochlorperazine (Compazine Supp) 25 mg Q12H PRN RECTAL NAUSEA OR VOMITING; Start 05/28/17 at 13:15 Naloxone HCl (Narcan Inj) 0.4 mg UNSCH PRN IV PUSH SEE LABEL COMMENTS; Start 05/28/17 at 13:15 Senna/Docusate Sodium (Mary-Colace) 1 tab BID PO Last administered on 09:40; Start 05/28/17 at 21:00 Magnesium Hydroxide (Milk Of Magnesia Liq) 30 ml Q12H PRN PO Mild constipation ; Start 05/28/17 at 13:15 Sennosides (Senokot) 17.2 mg Q12H PRN PO Moderate constipation; Start 05/28/17 at 13:15 Bisacodyl (Dulcolax Supp) 10 mg DAILY PRN RECTAL SEVERE CONSITIPATION; Start 05/28/17 at 13:15 Lactulose (Lactulose Liq) 30 ml DAILY PRN PO SEVERE CONSITIPATION; Start at 13:15 Potassium Chloride 100 ml @ 100 mls/hr Q1H IV Last administered on 05/29/17 07:33; Start 05/28/17 at 13:15; Stop 05/28/17 at 19:15; Status DC Amlodipine Besylate (Norvasc) 10 mg DAILY PO Last administered on 05/31/17 09: 40; Start 05/29/17 at 09:00 Carvedilol (Coreg) 25 mg BID PO Last administered on 05/31/17 09:40; Start at 21:00 Ferrous Sulfate (Ferrous Sulfate) 325 mg BID PO Last administered on 05/31/17 09:40; Start 05/28/17 at 21:00 Hydralazine HCl (Apresoline) 50 mg Q8HR PO Last administered on 05/31/17 06:14 ; Start 05/28/17 at 14:00 Hydrochlorothiazide (Hydrodiuril) 25 mg DAILY PO Last administered on 09:39; Start 05/29/17 at 09:00 Lisinopril (Prinivil) 20 mg Q12HR PO Last administered on 05/30/17 11:52; Start 05/28/17 at 21:00 Tramadol HCl (Ultram) 50 mg Q6H PRN PO BREAKTHROUGH PAIN Last administered on 05/30/17 04:29; Start 05/28/17 at 13:15 Sodium Chloride 1,000 ml @ 30 mls/hr Q24H IV Last administered on 05/28/17 16 :30; Start 05/28/17 at 16:30 Morphine Sulfate (Morphine Inj) 4 mg Q3H PRN IV PUSH pain 6-10 Last administered on 05/31/17 09:33; Start 05/28/17 at 16:30 Sucralfate (Carafate Liq) 1 gm ACHS PO Last administered on 05/31/17 09:39; Start 05/29/17 at 17:00 Famotidine (Pepcid Inj) 20 mg Q12H IV PUSH Last administered on 05/31/17 06:14 ; Start 05/29/17 at 18:00 Potassium Chloride 100 ml @ 50 mls/hr Q2H IV Last administered on 05/30/17 18 :00; Start 05/30/17 at 10:00; Stop 05/30/17 at 13:59; Status DC Magnesium Sulfate/ Dextrose 100 ml @ 100 mls/hr Q1H IV Last administered on 06:11; Start 05/30/17 at 15:00; Stop 05/30/17 at 16:59; Status DC Magnesium Sulfate/ Dextrose 100 ml @ 100 mls/hr Q1H IV Last administered on 23:00; Start 05/30/17 at 23:00; Stop 05/31/17 at 00:59; Status DC A/P Assessment and Plan 1. Pseudotumor cerebri Patient status post HOT SAW HELPER shunt placement on 04/28/[address], shunt series done in the ER today unremarkable s/p LP. neurology following. 3. hypokalemia; replaced- BMP in am. 4. Hypertension controlled. 5. Iron deficiency anemia Continue home ferrous sulfate Jacquelyn Issa MD May 31, 2017 13:09
[2017-05-31 16:00] VITALS: BP 140/90; PULSE 83; RESP 18; TEMP 98.4; O2SAT 98
[2017-05-31] MEDS: SODIUM CHLOR 0.9% 1000 ML INJ 1,000 ML IV SCH ×2 (16:30→21:28)
[2017-05-31 20:30] VITALS: BP 173/97; PULSE 77; RESP 17; TEMP 98.3; O2SAT 96
[2017-06-01] VITALS (8 sets, daily range): BP systolic 140–186; BP diastolic 77–107; PULSE 68–89; RESP 16–20; TEMP 98.2–99.2; O2SAT 95–99
[2017-06-01] MEDS: ONDANSETRON HCL 4 MG/2 ML VIAL IVP PRN (01:05)
[2017-06-01] MEDS ORDERED: SUMAtriptan SUCCINATE 25 MG TAB PO ONE (01:45)
[2017-06-01] MEDS ORDERED: cloNIDine HCL 0.1 MG TAB PO ONE (01:45)
[2017-06-01] MEDS: MORPHINE SULFATE 4 MG/ML INJ IV PUSH PRN ×3 (03:29→22:58)
[2017-06-01] MEDS: hydrALAZINE HCL 50 MG TAB PO SCH ×3 (05:06→22:04)
[2017-06-01] MEDS: FAMOTIDINE 20 MG/2 ML VIAL IV PUSH SCH ×2 (05:06→17:57)
--- NOTE | 2017-06-01 08:03 | HHI.PR ---
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 consider topamax which could be started at 25mg qhs (2) Cephalgia ICD Codes: R51 - Headache Status: Chronic (3) Cubital tunnel syndrome on left ICD Codes: G56.22 - Lesion of ulnar nerve, left upper limb Status: Chronic Plan: probable no motor/sensory deficit avoid excessive arm flexion/extension Subjective Subjective Comments No acute events reported headache-better after lp No chest pain No dyspnea Active Medications Current Medications Medications (Trade) Dose Ordered Sig/David Route Start Time Stop Time Status Last Admin (NS Flush) 2 ml UNSCH PRN IV FLUSH 05/28/17 13:15 05/31/17 06:12 (NS Flush) 2 ml BID IV FLUSH 05/28/17 21:00 05/31/17 21:00 (Tylenol) 650 mg Q4H PRN PO 05/28/17 13:15 05/29/17 05:26 (Zofran Inj) 4 mg Q6H PRN IVP 05/28/17 13:15 06/01/17 01:05 (Compazine Supp) 25 mg Q12H PRN RECTAL 05/28/17 13:15 (Narcan Inj) 0.4 mg UNSCH PRN IV PUSH 05/28/17 13:15 (Mary-Colace) 1 tab BID PO 05/28/17 21:00 05/31/17 21:15 (Milk Of Magnesia Liq) 30 ml Q12H PRN PO 05/28/17 13:15 (Senokot) 17.2 mg Q12H PRN PO 05/28/17 13:15 (Dulcolax Supp) 10 mg DAILY PRN RECTAL 05/28/17 13:15 (Lactulose Liq) 30 ml DAILY PRN PO 05/28/17 13:15 (Norvasc) 10 mg DAILY PO 05/29/17 09:00 05/31/17 09:40 (Coreg) 25 mg BID PO 05/28/17 21:00 05/31/17 21:16 (Ferrous Sulfate) 325 mg BID PO 05/28/17 21:00 05/31/17 21:16 (Apresoline) 50 mg Q8HR PO 05/28/17 14:00 06/01/17 05:06 (Hydrodiuril) 25 mg DAILY PO 05/29/17 09:00 05/31/17 09:39 (Prinivil) 20 mg Q12HR PO 05/28/17 21:00 05/30/17 11:52 (Ultram) 50 mg Q6H PRN PO 05/28/17 13:15 05/30/17 04:29 Sodium Chloride 1,000 ml @ 30 mls/hr Q24H IV 05/28/17 16:30 05/31/17 21:28 (Morphine Inj) 4 mg Q3H PRN IV PUSH 05/28/17 16:30 06/01/17 03:29 (Carafate Liq) 1 gm ACHS PO 05/29/17 17:00 05/31/17 21:16 (Pepcid Inj) 20 mg Q12H IV PUSH 05/29/17 18:00 06/01/17 05:06 Allergies Allergies Coded Allergies amoxicillin (Unverified Allergy, Mild, Hives, 05/28/17) Review of Systems All other ROS: ROS reviewed as documented in chart Exam I&O / VS Vital Signs Date Time Temp Pulse Resp B/P (MAP) Pulse Ox O2 Delivery O2 Flow Rate FiO2 06/01/17 04:30 98.6 83 17 165/94 (117) 98 06/01/17 03:24 99.2 68 16 175/84 (114) 99 06/01/17 00:41 75 182/101 (128) 06/01/17 00:14 98.2 71 17 186/107 (133) 95 05/31/17 20:30 98.3 77 17 173/97 (122) 96 05/31/17 16:00 98.4 83 18 140/90 (107) 98 05/31/17 12:00 97.6 83 19 165/97 (119) 96 General: Alert and Oriented, No acute distress Eye: EOMI Respiratory: Non-labored respirations Neurologic: Alert, Oriented Psychiatric: Cooperative Exam Comments ox 3, slow speech, rt 6th paresis, ou 3-2mm, face sym, [place] to gravity, 5/5, no drift Objective Micro and Labs Laboratory Tests Test 05/31/17 10:18 06/01/17 07:00 CSF Volume (Tube 1) 5.0 CSF Supernatant Color (tube 1) CLEAR CSF Gross Blood (Tube 1) TRACE CSF Volume (Tube 2) 5.0 CSF Supernatant Color (tube 2) CLEAR CSF Gross Blood (Tube 2) TRACE CSF Volume (Tube 3) 5.5 CSF Supernatant Color (tube 3) CLEAR CSF Gross Blood (Tube 3) 0 CSF Volume (Tube 4) 6.0 CSF Supernatant Color (tube 4) CLEAR CSF Gross Blood (Tube 4) TRACE CSF WBC (Tube 4) 8 CSF RBC (Tube 4) 23 CSF Neutrophils 7 CSF Lymphocytes 64 CSF Monocytes 29 CSF Glucose 63 CSF Total Protein 30.3 Date/Time Source Procedure Growth Status 05/31/17 10:18 Cerebral Spinal Fluid Lumbar Puncture Fungal Smear - Final NO FUNGAL ELEMENTS SEEN. Resulted 05/31/17 10:18 Cerebral Spinal Fluid Lumbar Puncture Fungal Culture Pending Resulted Emigdio Sepulvdea MD Jun 01, 2017 08:03
[2017-06-01] MEDS: SODIUM CHLORIDE 0.9% FLUSH 10 ML FLUSH IV FLUSH SCH ×2 (09:00→22:59)
[2017-06-01] MEDS ORDERED: ENALAPRILAT 1.25 MG/ML VIAL IV PUSH PRN (09:30)
--- NOTE | 2017-06-01 09:34 | HHI.PR ---
Subjective Remarks still complaining of some headache. no nausea. no other complaints. d/w the RN. Objective Vitals Vital Signs Date Time Temp Pulse Resp B/P (MAP) Pulse Ox O2 Delivery O2 Flow Rate FiO2 06/01/17 08:38 98.4 80 20 177/100 (125) 98 06/01/17 04:30 98.6 83 17 165/94 (117) 98 06/01/17 03:24 99.2 68 16 175/84 (114) 99 06/01/17 00:41 75 182/101 (128) 06/01/17 00:14 98.2 71 17 186/107 (133) 95 05/31/17 20:30 98.3 77 17 173/97 (122) 96 05/31/17 16:00 98.4 83 18 140/90 (107) 98 05/31/17 12:00 97.6 83 19 165/97 (119) 96 I/O 05/31/17 05/31/17 05/31/17 06/01/17 06/01/17 06/01/17 07:00 15:00 23:00 07:00 15:00 23:00 Intake Total 100 ml 1240 ml 120 ml Balance 100 ml 1240 ml 120 ml Intake Oral 240 ml 120 ml IV Total 100 ml 1000 ml # Voids 4 2 1 Result Diagram: 05/29/17 1450 05/29/17 1450 Imaging Last Impressions Lumbar Puncture Fluoroscopy 05/31/17 0000 Signed Impressions: Service Date/Time: Wednesday, May 31, 2017 11:16 - CONCLUSION: Uncomplicated fluoroscopically guided lumbar puncture with pressures as above. Anil Ca MD Skull X-Ray 05/29/17 0000 Signed Impressions: Service Date/Time: Monday, May 29, 2017 15:58 - CONCLUSION: Ventriculostomy catheter with a programmable valve set at 90 mm of water. Wilian Tinajero MD Head CT 05/29/17 0000 Signed Impressions: Service Date/Time: Tuesday, May 30, 2017 00:03 - CONCLUSION: SUPERVISOR [employer] SHEAR[employer] shunt in unchanged position with distal catheter crossing the left frontal horn and terminating in the left basal ganglia. Ventricles are normal in size and slightly smaller than the study from 2 days ago. Wilian Miguel MD Shunt Study (Imaging) 05/28/17 0000 Signed Impressions: Service Date/Time: Sunday, May 28, 2017 10:45 - CONCLUSION: Intact shunt. Kendrick Jimenez Jr., MD Objective Remarks GENERAL: This is a well-nourished, well-developed patient, in no apparent distress. CARDIOVASCULAR: Regular rate and regular rhythm without murmurs, gallops, or rubs. RESPIRATORY: Clear to auscultation. Breath sounds equal bilaterally. No wheezes , rales, or rhonchi. GASTROINTESTINAL: Abdomen soft, non-tender, nondistended. Normal, active bowel sounds MUSCULOSKELETAL: Extremities without clubbing, cyanosis, or edema. NEURO: Alert & Oriented x4 to person, place, time, situation. Moves all ext x4 Procedures LP Medications and IVs Current Medications Sodium Chloride (NS Flush) 2 ml UNSCH PRN IV FLUSH FLUSH AFTER USING IV ACCESS ; Start 05/28/17 at 10:30; Stop 05/28/17 at 13:17; Status DC Hydromorphone HCl (Dilaudid Pf Inj) 1 mg ONCE ONCE IV PUSH Last administered on 05/28/17 11:39; Start 05/28/17 at 11:15; Stop 05/28/17 at 11:17; Status DC Ondansetron HCl (Zofran Inj) 4 mg ONCE ONCE IV PUSH Last administered on 11:39; Start 05/28/17 at 11:15; Stop 05/28/17 at 11:17; Status DC Potassium Chloride (KCl) 40 meq ONCE ONCE PO Last administered on 05/28/17 11 :40; Start 05/28/17 at 11:30; Stop 05/28/17 at 11:31; Status DC Sodium Chloride (NS Flush) 2 ml UNSCH PRN IV FLUSH FLUSH AFTER USING IV ACCESS Last administered on 05/31/17 06:12; Start 05/28/17 at 13:15 Sodium Chloride (NS Flush) 2 ml BID IV FLUSH Last administered on 05/31/17 21: 00; Start 05/28/17 at 21:00 Acetaminophen (Tylenol) 650 mg Q4H PRN PO TEMP > 100.4 Last administered on 05:26; Start 05/28/17 at 13:15 Ondansetron HCl (Zofran Inj) 4 mg Q6H PRN IVP NAUSEA OR VOMITING Last administered on 06/01/17 01:05; Start 05/28/17 at 13:15 Prochlorperazine (Compazine Supp) 25 mg Q12H PRN RECTAL NAUSEA OR VOMITING; Start 05/28/17 at 13:15 Naloxone HCl (Narcan Inj) 0.4 mg UNSCH PRN IV PUSH SEE LABEL COMMENTS; Start 05/28/17 at 13:15 Senna/Docusate Sodium (Mary-Colace) 1 tab BID PO Last administered on 21:15; Start 05/28/17 at 21:00 Magnesium Hydroxide (Milk Of Magnesia Liq) 30 ml Q12H PRN PO Mild constipation ; Start 05/28/17 at 13:15 Sennosides (Senokot) 17.2 mg Q12H PRN PO Moderate constipation; Start 05/28/17 at 13:15 Bisacodyl (Dulcolax Supp) 10 mg DAILY PRN RECTAL SEVERE CONSITIPATION; Start 05/28/17 at 13:15 Lactulose (Lactulose Liq) 30 ml DAILY PRN PO SEVERE CONSITIPATION; Start at 13:15 Potassium Chloride 100 ml @ 100 mls/hr Q1H IV Last administered on 05/29/17 07:33; Start 05/28/17 at 13:15; Stop 05/28/17 at 19:15; Status DC Amlodipine Besylate (Norvasc) 10 mg DAILY PO Last administered on 05/31/17 09: 40; Start 05/29/17 at 09:00 Carvedilol (Coreg) 25 mg BID PO Last administered on 05/31/17 21:16; Start at 21:00 Ferrous Sulfate (Ferrous Sulfate) 325 mg BID PO Last administered on 05/31/17 21:16; Start 05/28/17 at 21:00 Hydralazine HCl (Apresoline) 50 mg Q8HR PO Last administered on 06/01/17 05:06 ; Start 05/28/17 at 14:00 Hydrochlorothiazide (Hydrodiuril) 25 mg DAILY PO Last administered on 09:39; Start 05/29/17 at 09:00 Lisinopril (Prinivil) 20 mg Q12HR PO Last administered on 05/30/17 11:52; Start 05/28/17 at 21:00 Tramadol HCl (Ultram) 50 mg Q6H PRN PO BREAKTHROUGH PAIN Last administered on 05/30/17 04:29; Start 05/28/17 at 13:15 Sodium Chloride 1,000 ml @ 30 mls/hr Q24H IV Last administered on 05/31/17 21 :28; Start 05/28/17 at 16:30 Morphine Sulfate (Morphine Inj) 4 mg Q3H PRN IV PUSH pain 6-10 Last administered on 06/01/17 03:29; Start 05/28/17 at 16:30 Sucralfate (Carafate Liq) 1 gm ACHS PO Last administered on 05/31/17 21:16; Start 05/29/17 at 17:00 Famotidine (Pepcid Inj) 20 mg Q12H IV PUSH Last administered on 06/01/17 05:06 ; Start 05/29/17 at 18:00 Potassium Chloride 100 ml @ 50 mls/hr Q2H IV Last administered on 05/30/17 18 :00; Start 05/30/17 at 10:00; Stop 05/30/17 at 13:59; Status DC Magnesium Sulfate/ Dextrose 100 ml @ 100 mls/hr Q1H IV Last administered on 06:11; Start 05/30/17 at 15:00; Stop 05/30/17 at 16:59; Status DC Magnesium Sulfate/ Dextrose 100 ml @ 100 mls/hr Q1H IV Last administered on 23:00; Start 05/30/17 at 23:00; Stop 05/31/17 at 00:59; Status DC Clonidine (Catapres) 0.1 mg ONCE ONCE PO Last administered on 06/01/17 01:54 ; Start 06/01/17 at 01:45; Stop 06/01/17 at 01:46; Status DC Sumatriptan Succinate (Imitrex) 25 mg ONCE ONCE PO Last administered on 01:45; Start 06/01/17 at 01:45; Stop 06/01/17 at 01:46; Status DC A/P Assessment and Plan 1. Pseudotumor cerebri- still with headache Patient status post SUPERVISOR [employer] shunt placement on 04/28/[address], shunt series done in the ER today unremarkable s/p LP. neurology follow-up appreciated; for MRI/MRV of the brain today. neurosurgery following. 3. hypokalemia; replaced- BMP in am. 4. Hypertension- continue amlodipine,HCTZ,coreg,hydralazine and lisinopril- vasotec as needed. 5. Iron deficiency anemia Continue home ferrous sulfate Jacquelyn Issa MD Jun 01, 2017 09:34
[2017-06-01] MEDS: LISINOPRIL 20 MG TAB PO SCH ×2 (09:43→22:04)
[2017-06-01] MEDS: HYDROCHLOROTHIAZIDE 25 MG TAB PO SCH (09:43)
[2017-06-01] MEDS: FERROUS SULFATE 325 MG (65 MG ELEMENTAL IRON) TAB PO SCH ×2 (09:43→22:04)
[2017-06-01] MEDS: CARVEDILOL 12.5 MG TAB PO SCH ×2 (09:44→22:04)
[2017-06-01] MEDS: SUCRALFATE 1 GM/10 ML CUP PO SCH ×4 (09:44→22:04)
[2017-06-01] MEDS: DOCUSATE SODIUM 50 MG/SENNA 8.6 MG TAB PO SCH ×2 (09:44→21:00)
--- NOTE | 2017-06-01 10:08 | HHI.NSPN ---
(Ani Langley) Note Status Status: Progress Note (Ani Langley) Interval History Interval History Ms. Landis is a 37 year old female with history of idiopathic intracranial hypertension underwent placement of INTERIOR ASSEMBLIES INSTALLER shunt on 04/28/17 due to nonfunctioning LP shunt placed 10 years ago. She was recently seen in the office a few weeks ago and a f/u CT Head was ordered at that time but was not completed. She presents to the ED for worsening headaches and nausea. She also complains of numbness of the left arm. A CT Head has been complete which shows shunt in good position without acute intracranial findings. A shunt study also obtained and is intact. 05/30: reports vision better following shunt adjustment yesterday. acute mental status change last night with stable f/u CT Head. LP pending. denies fevers or chills. 05/31: headaches slowly improving and feeling much better this morning. going down for LP now. 06/01: opening pressure from LP = 60+ cm H20. headaches returning. (Ani Langley) Labs, Micro, & Vital Signs Results Date Time Temp Pulse Resp B/P (MAP) Pulse Ox O2 Delivery O2 Flow Rate FiO2 06/01/17 08:38 98.4 80 20 177/100 (125) 98 06/01/17 04:30 98.6 83 17 165/94 (117) 98 06/01/17 03:24 99.2 68 16 175/84 (114) 99 06/01/17 00:41 75 182/101 (128) 06/01/17 00:14 98.2 71 17 186/107 (133) 95 05/31/17 20:30 98.3 77 17 173/97 (122) 96 05/31/17 16:00 98.4 83 18 140/90 (107) 98 05/31/17 12:00 97.6 83 19 165/97 (119) 96 Constitutional Vital Signs Date Time Temp Pulse Resp B/P (MAP) Pulse Ox O2 Delivery O2 Flow Rate FiO2 06/01/17 08:38 98.4 80 20 177/100 (125) 98 06/01/17 04:30 98.6 83 17 165/94 (117) 98 06/01/17 03:24 99.2 68 16 175/84 (114) 99 06/01/17 00:41 75 182/101 (128) 06/01/17 00:14 98.2 71 17 186/107 (133) 95 05/31/17 20:30 98.3 77 17 173/97 (122) 96 05/31/17 16:00 98.4 83 18 140/90 (107) 98 05/31/17 12:00 97.6 83 19 165/97 (119) 96 (Ani Langley) Physical Exam Ms. Boby licona appears uncomfortable with complaints of headaches. Oriented x 3, follows commands well. Right INTERIOR ASSEMBLIES INSTALLER shunt palpated Cranial nerve: pupils equal, round and reactive to light. Facial motor symmetric. gross eoms intact. Muscle strength: moves all four extremities well (Ani Langley) Medications Current Medications Current Medications Medications (Trade) Dose Ordered Sig/David Route PRN Reason Start Time Stop Time Status Last Admin Dose Admin Sodium Chloride (NS Flush) 2 ml UNSCH PRN IV FLUSH FLUSH AFTER USING IV ACCESS 05/28/17 13:15 05/31/17 06:12 Sodium Chloride (NS Flush) 2 ml BID IV FLUSH 05/28/17 21:00 05/31/17 21:00 Acetaminophen (Tylenol) 650 mg Q4H PRN PO TEMP > 100.4 05/28/17 13:15 05/29/17 05:26 Ondansetron HCl (Zofran Inj) 4 mg Q6H PRN IVP NAUSEA OR VOMITING 05/28/17 13:15 06/01/17 01:05 Prochlorperazine (Compazine Supp) 25 mg Q12H PRN RECTAL NAUSEA OR VOMITING 05/28/17 13:15 Naloxone HCl (Narcan Inj) 0.4 mg UNSCH PRN IV PUSH SEE LABEL COMMENTS 05/28/17 13:15 Senna/Docusate Sodium (Mary-Colace) 1 tab BID PO 05/28/17 21:00 06/01/17 09:44 Magnesium Hydroxide (Milk Of Magnesia Liq) 30 ml Q12H PRN PO Mild constipation 05/28/17 13:15 Sennosides (Senokot) 17.2 mg Q12H PRN PO Moderate constipation 05/28/17 13:15 Bisacodyl (Dulcolax Supp) 10 mg DAILY PRN RECTAL SEVERE CONSITIPATION 05/28/17 13:15 Lactulose (Lactulose Liq) 30 ml DAILY PRN PO SEVERE CONSITIPATION 05/28/17 13:15 Amlodipine Besylate (Norvasc) 10 mg DAILY PO 05/29/17 09:00 06/01/17 09:42 Carvedilol (Coreg) 25 mg BID PO 05/28/17 21:00 06/01/17 09:44 Ferrous Sulfate (Ferrous Sulfate) 325 mg BID PO 05/28/17 21:00 06/01/17 09:43 Hydralazine HCl (Apresoline) 50 mg Q8HR PO 05/28/17 14:00 06/01/17 05:06 Hydrochlorothiazide (Hydrodiuril) 25 mg DAILY PO 05/29/17 09:00 06/01/17 09:43 Lisinopril (Prinivil) 20 mg Q12HR PO 05/28/17 21:00 06/01/17 09:43 Tramadol HCl (Ultram) 50 mg Q6H PRN PO BREAKTHROUGH PAIN 05/28/17 13:15 05/30/17 04:29 Sodium Chloride 1,000 ml @ 30 mls/hr Q24H IV 05/28/17 16:30 05/31/17 21:28 Morphine Sulfate (Morphine Inj) 4 mg Q3H PRN IV PUSH pain 6-10 05/28/17 16:30 06/01/17 09:48 Sucralfate (Carafate Liq) 1 gm ACHS PO 05/29/17 17:00 06/01/17 09:44 Famotidine (Pepcid Inj) 20 mg Q12H IV PUSH 05/29/17 18:00 06/01/17 05:06 Enalaprilat (Vasotec Inj) 1.25 mg Q8H PRN IV PUSH SBP> OR = 180, DBP> OR = 100 06/01/17 09:30 UNV (Ani Langley) Medical Decision Making MDM Remarks 37 y/o female with idiopathic intracranial hypertension, s/p placement of [employer] INSTALLER shunt 04/28/17. presents for headaches, nausea and vomiting AMS, with repeat CT Brain 05/29 w/o acute findings LP opening pressures 60+ cm H20, [employer] INST[employer]ER shunt reprogrammed to 40 mm H20 06/01/17, unable to confirm via visual/audible confirmation (Ani Langley) Plan Plan Remarks f/u final CSF cultures, INTER[employer] INSTALLER shunt decreased to 40 mm H20 - await xray confirmation Neurology following, appreciate assistance (Ani Langley) Attending Statement Using a Telinet, the shunt was reprogrammed as follows: Ultrasound gel was placed over the valve and the transfuser was calibrated at a pressure of 40 mm/H20. The shunt was then reprogrammed and an audible sound confirmed the new settings. The patient tolerated the procedure well without complication. ''' The exam, history, and the medical decision-making described in the above note were completed with the assistance of the mid-level provider. I reviewed and agree with the findings presented. I attest that I had a [id number] encounter with the patient on the same day, and personally performed and documented my assessment and findings in the medical record. (Shreyas Dumont MD) Ani Langley Jun 01, 2017 10:08 Shreyas Dumont MD Jun 01, 2017 21:18
[2017-06-01 13:57] LABS: BICARBONATE 30.4 MEQ/L (21.0-32.0)
[2017-06-01 14:12] LABS: POTASSIUM 2.9 MEQ/L (3.5-5.1)
--- NOTE | 2017-06-01 16:49 | RADRPT ---
EXAM DATE/TIME: 06/01/2017 13:28 [facility] COMPARISON: No previous studies available for comparison. INDICATIONS : BOOK COVERER shunt valve setting. MEDICAL HISTORY : Hypertension. SURGICAL HISTORY : BOOK COVERER shunt ENCOUNTER: Subsequent ACUITY: 2 days PAIN SCORE: 0/10 LOCATION: cranial FINDINGS: Shunt setting appears to be between 40 and 50 CONCLUSION: Shunt setting 40-50. Robb Kahn MD FACR on June 01, 2017 at 16:41 Board Certified Radiologist. This report was verified electronically.
[2017-06-01] MEDS: traMADol HCL 50 MG TAB PO PRN (19:17)
[2017-06-02] VITALS (7 sets, daily range): BP systolic 114–138; BP diastolic 65–93; PULSE 86–93; RESP 18–20; TEMP 97.6–98.5; O2SAT 95–100
[2017-06-02] MEDS: traMADol HCL 50 MG TAB PO PRN ×3 (05:03→22:32)
[2017-06-02] MEDS: FAMOTIDINE 20 MG/2 ML VIAL IV PUSH SCH ×2 (05:04→17:17)
[2017-06-02] MEDS: hydrALAZINE HCL 50 MG TAB PO SCH ×3 (05:04→22:27)
[2017-06-02] MEDS: SODIUM CHLORIDE 0.9% FLUSH 10 ML FLUSH IV FLUSH SCH ×2 (09:00→22:28)
[2017-06-02] MEDS: LISINOPRIL 20 MG TAB PO SCH ×2 (09:00→21:00)
[2017-06-02] MEDS: HYDROCHLOROTHIAZIDE 25 MG TAB PO SCH (09:00)
--- NOTE | 2017-06-02 09:02 | HHI.PR ---
Subjective Remarks in no acute distress. headache has much improved. no new complaints. Objective Vitals Vital Signs Date Time Temp Pulse Resp B/P (MAP) Pulse Ox O2 Delivery O2 Flow Rate FiO2 06/02/17 04:00 98.5 90 18 117/70 (86) 100 06/02/17 00:00 98.5 88 18 130/84 (99) 99 06/01/17 20:00 98.7 89 18 146/88 (107) 95 06/01/17 16:00 98.8 79 20 140/77 (98) 99 06/01/17 12:00 98.5 82 20 161/96 (117) 96 I/O 06/01/17 06/01/17 06/01/17 06/02/17 06/02/17 06/02/17 07:00 15:00 23:00 07:00 15:00 23:00 Intake Total 120 ml 480 ml Balance 120 ml 480 ml Intake Oral 120 ml 480 ml # Voids 1 3 2 4 Result Diagram: 05/29/17 1450 06/01/17 1253 Imaging Last Impressions Skull X-Ray 06/01/17 0000 Signed Impressions: Service Date/Time: Thursday, June 01, 2017 13:28 - CONCLUSION: Shunt setting 40-50. Robb Kahn MD FACR Lumbar Puncture Fluoroscopy 05/31/17 0000 Signed Impressions: Service Date/Time: Wednesday, May 31, 2017 11:16 - CONCLUSION: Uncomplicated fluoroscopically guided lumbar puncture with pressures as above. Anil Ca MD Head CT 05/29/17 0000 Signed Impressions: Service Date/Time: Tuesday, May 30, 2017 00:03 - CONCLUSION: SPREADER shunt in unchanged position with distal catheter crossing the left frontal horn and terminating in the left basal ganglia. Ventricles are normal in size and slightly smaller than the study from 2 days ago. Wilian Miguel MD Shunt Study (Imaging) 05/28/17 0000 Signed Impressions: Service Date/Time: Sunday, May 28, 2017 10:45 - CONCLUSION: Intact shunt. Kendrick Jimenez Jr., MD Objective Remarks GENERAL: This is a well-nourished, well-developed patient, in no apparent distress. CARDIOVASCULAR: Regular rate and regular rhythm without murmurs, gallops, or rubs. RESPIRATORY: Clear to auscultation. Breath sounds equal bilaterally. No wheezes , rales, or rhonchi. GASTROINTESTINAL: Abdomen soft, non-tender, nondistended. Normal, active bowel sounds MUSCULOSKELETAL: Extremities without clubbing, cyanosis, or edema. NEURO: Alert & Oriented x4 to person, place, time, situation. Moves all ext x4 Procedures LP Medications and IVs Current Medications Sodium Chloride (NS Flush) 2 ml UNSCH PRN IV FLUSH FLUSH AFTER USING IV ACCESS ; Start 05/28/17 at 10:30; Stop 05/28/17 at 13:17; Status DC Hydromorphone HCl (Dilaudid Pf Inj) 1 mg ONCE ONCE IV PUSH Last administered on 05/28/17 11:39; Start 05/28/17 at 11:15; Stop 05/28/17 at 11:17; Status DC Ondansetron HCl (Zofran Inj) 4 mg ONCE ONCE IV PUSH Last administered on 11:39; Start 05/28/17 at 11:15; Stop 05/28/17 at 11:17; Status DC Potassium Chloride (KCl) 40 meq ONCE ONCE PO Last administered on 05/28/17 11 :40; Start 05/28/17 at 11:30; Stop 05/28/17 at 11:31; Status DC Sodium Chloride (NS Flush) 2 ml UNSCH PRN IV FLUSH FLUSH AFTER USING IV ACCESS Last administered on 05/31/17 06:12; Start 05/28/17 at 13:15 Sodium Chloride (NS Flush) 2 ml BID IV FLUSH Last administered on 06/01/17 22: 59; Start 05/28/17 at 21:00 Acetaminophen (Tylenol) 650 mg Q4H PRN PO TEMP > 100.4 Last administered on 05:26; Start 05/28/17 at 13:15 Ondansetron HCl (Zofran Inj) 4 mg Q6H PRN IVP NAUSEA OR VOMITING Last administered on 06/01/17 01:05; Start 05/28/17 at 13:15 Prochlorperazine (Compazine Supp) 25 mg Q12H PRN RECTAL NAUSEA OR VOMITING; Start 05/28/17 at 13:15 Naloxone HCl (Narcan Inj) 0.4 mg UNSCH PRN IV PUSH SEE LABEL COMMENTS; Start 05/28/17 at 13:15 Senna/Docusate Sodium (Mary-Colace) 1 tab BID PO Last administered on 09:44; Start 05/28/17 at 21:00 Magnesium Hydroxide (Milk Of Magnesia Liq) 30 ml Q12H PRN PO Mild constipation ; Start 05/28/17 at 13:15 Sennosides (Senokot) 17.2 mg Q12H PRN PO Moderate constipation; Start 05/28/17 at 13:15 Bisacodyl (Dulcolax Supp) 10 mg DAILY PRN RECTAL SEVERE CONSITIPATION; Start 05/28/17 at 13:15 Lactulose (Lactulose Liq) 30 ml DAILY PRN PO SEVERE CONSITIPATION; Start at 13:15 Potassium Chloride 100 ml @ 100 mls/hr Q1H IV Last administered on 05/29/17 07:33; Start 05/28/17 at 13:15; Stop 05/28/17 at 19:15; Status DC Amlodipine Besylate (Norvasc) 10 mg DAILY PO Last administered on 06/01/17 09: 42; Start 05/29/17 at 09:00 Carvedilol (Coreg) 25 mg BID PO Last administered on 06/01/17 22:04; Start at 21:00 Ferrous Sulfate (Ferrous Sulfate) 325 mg BID PO Last administered on 06/01/17 22:04; Start 05/28/17 at 21:00 Hydralazine HCl (Apresoline) 50 mg Q8HR PO Last administered on 06/02/17 05:04 ; Start 05/28/17 at 14:00 Hydrochlorothiazide (Hydrodiuril) 25 mg DAILY PO Last administered on 09:43; Start 05/29/17 at 09:00 Lisinopril (Prinivil) 20 mg Q12HR PO Last administered on 06/01/17 22:04; Start 05/28/17 at 21:00 Tramadol HCl (Ultram) 50 mg Q6H PRN PO BREAKTHROUGH PAIN Last administered on 06/02/17 05:03; Start 05/28/17 at 13:15 Sodium Chloride 1,000 ml @ 30 mls/hr Q24H IV Last administered on 05/31/17 21 :28; Start 05/28/17 at 16:30 Morphine Sulfate (Morphine Inj) 4 mg Q3H PRN IV PUSH pain 6-10 Last administered on 06/01/17 22:58; Start 05/28/17 at 16:30 Sucralfate (Carafate Liq) 1 gm ACHS PO Last administered on 06/01/17 22:04; Start 05/29/17 at 17:00 Famotidine (Pepcid Inj) 20 mg Q12H IV PUSH Last administered on 06/02/17 05:04 ; Start 05/29/17 at 18:00 Potassium Chloride 100 ml @ 50 mls/hr Q2H IV Last administered on 05/30/17 18 :00; Start 05/30/17 at 10:00; Stop 05/30/17 at 13:59; Status DC Magnesium Sulfate/ Dextrose 100 ml @ 100 mls/hr Q1H IV Last administered on 06:11; Start 05/30/17 at 15:00; Stop 05/30/17 at 16:59; Status DC Magnesium Sulfate/ Dextrose 100 ml @ 100 mls/hr Q1H IV Last administered on 23:00; Start 05/30/17 at 23:00; Stop 05/31/17 at 00:59; Status DC Clonidine (Catapres) 0.1 mg ONCE ONCE PO Last administered on 06/01/17 01:54 ; Start 06/01/17 at 01:45; Stop 06/01/17 at 01:46; Status DC Sumatriptan Succinate (Imitrex) 25 mg ONCE ONCE PO Last administered on 01:45; Start 06/01/17 at 01:45; Stop 06/01/17 at 01:46; Status DC Enalaprilat (Vasotec Inj) 1.25 mg Q8H PRN IV PUSH SBP> OR = 180, DBP> OR = 100 ; Start 06/01/17 at 09:30 A/P Assessment and Plan 1. Pseudotumor cerebri- headache has improved. Patient status post SPREADER shunt placement on 04/28/17 s/p LP. SPREADER shunt decreased to 40 mm H20. neurology follow-up appreciated; awaiting MRI/MRV of the brain . neurosurgery following. 2. hypokalemia; repeated level today pending. 3. Hypertension- continue amlodipine,HCTZ,coreg,hydralazine and lisinopril- vasotec as needed. 4. Iron deficiency anemia;Continue home ferrous sulfate Discharge Planning when cleared by neurology and neurosurgery. Jacquelyn Issa MD Jun 02, 2017 09:02
[2017-06-02] MEDS: SUCRALFATE 1 GM/10 ML CUP PO SCH ×4 (09:03→22:28)
[2017-06-02] MEDS: DOCUSATE SODIUM 50 MG/SENNA 8.6 MG TAB PO SCH ×2 (09:04→22:27)
[2017-06-02] MEDS: CARVEDILOL 12.5 MG TAB PO SCH ×2 (09:04→22:28)
[2017-06-02] MEDS: FERROUS SULFATE 325 MG (65 MG ELEMENTAL IRON) TAB PO SCH ×2 (09:04→22:27)
--- NOTE | 2017-06-02 09:58 | RADRPT ---
EXAM DATE/TIME: 06/02/2017 09:21 [facility] COMPARISON: No previous studies available for comparison. INDICATIONS : Cephalgia. MEDICAL HISTORY : None. 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 TECHNIQUE: 3D time of flight MRA was performed. Source images, multiplanar STS MIP, and 3D volume MIP reconstru ctions were reviewed. FINDINGS: There is excellent visualization of the major intracranial arteries out to the second-order branch ve ssels. There is no evidence for aneurysm, vessel truncation or stenosis, and no evidence for vascula r malformation. There are patent posterior communicating arteries bilaterally. CONCLUSION: 1. Unremarkable MR angiography of the brain. Albaro Walker MD on June 02, 2017 at 9:53 Board Certified Radiologist. This report was verified electronically.
--- NOTE | 2017-06-02 10:01 | RADRPT ---
EXAM DATE/TIME: 06/02/2017 09:21 [facility] COMPARISON: No previous studies available for comparison. INDICATIONS : Cephalgia. MEDICAL HISTORY : None. 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 FINDINGS: MRI of the brain is performed in sagittal, axial and coronal planes. The craniocervical junction and midline structures are unremarkable. Diffusion weighted images demonstrate no abnormality. There is n o evidence of acute cortical infarction, acute hemorrhage, mass effect or midline shift is seen. Ther e is susceptibility artifact in the right proper region from the shunt. Shunt catheter is in the body of the left lateral ventricle. Posterior fossa structures are unremarkable. CONCLUSION: 1. No evidence of acute intracranial pathology. No masses are identified. Albaro Walker MD on June 02, 2017 at 9:57 Board Certified Radiologist. This report was verified electronically.
--- NOTE | 2017-06-02 11:21 | RADRPT ---
EXAM DATE/TIME: 06/02/2017 09:21 COMPARISON: MRI BRAIN W/O CONTRAST, June 02, 2017, 9:21. INDICATIONS : Cephalgia. CONTRAST: 20 cc Omniscan (gadodiamide) IV MEDICAL HISTORY : None. SURGICAL HISTORY : CELLAR PUMPER shunt ENCOUNTER: Subsequent ACUITY: 4-6 days PAIN SCORE: 0/10 LOCATION: cranial FINDINGS: No thrombosis is identified. There are findings of stenosis involving the dominant right transverse s inus at its junction with the sigmoid sinus as well as involving the more hypoplastic left transverse sinus. The deep cerebral veins are patent. The superior subdural sinus is also patent. A small arach noid granulation is present in the left transverse sinus. CONCLUSION: 1. Findings the bilateral transverse sinus stenosis involving both the dominant right side and more h ypoplastic left side without thrombus. Albaro Walker MD on June 02, 2017 at 11:01 Board Certified Radiologist. This report was verified electronically.
[2017-06-02] MEDS ORDERED: GADODIAMIDE PF 287 MG/ML 20 ML VIAL (for RAD MRI) IV PUSH ONE (11:35)
--- NOTE | 2017-06-02 13:01 | HHI.NSPN ---
(Ani Langley) Note Status Status: Progress Note (Ani Langley) Interval History Interval History Ms. Landis is a 37 year old female with history of idiopathic intracranial hypertension underwent placement of SET UP AND LAY OUT INSPECTOR shunt on 04/28/17 due to nonfunctioning LP shunt placed 10 years ago. She was recently seen in the office a few weeks ago and a f/u CT Head was ordered at that time but was not completed. She presents to the ED for worsening headaches and nausea. She also complains of numbness of the left arm. A CT Head has been complete which shows shunt in good position without acute intracranial findings. A shunt study also obtained and is intact. 05/30: reports vision better following shunt adjustment yesterday. acute mental status change last night with stable f/u CT Head. LP pending. denies fevers or chills. 05/31: headaches slowly improving and feeling much better this morning. going down for LP now. 06/01: opening pressure from LP = 60+ cm H20. headaches returning. 06/02: s/p MRI, MRA. reports headaches and visual symptoms improving following shunt readjustment yesterday (Ani Langley) Labs, Micro, & Vital Signs Results Date Time Temp Pulse Resp B/P (MAP) Pulse Ox O2 Delivery O2 Flow Rate FiO2 06/02/17 08:00 97.6 93 20 125/85 (98) 100 06/02/17 04:00 98.5 90 18 117/70 (86) 100 06/02/17 00:00 98.5 88 18 130/84 (99) 99 06/01/17 20:00 98.7 89 18 146/88 (107) 95 06/01/17 16:00 98.8 79 20 140/77 (98) 99 Constitutional Vital Signs Date Time Temp Pulse Resp B/P (MAP) Pulse Ox O2 Delivery O2 Flow Rate FiO2 06/02/17 08:00 97.6 93 20 125/85 (98) 100 06/02/17 04:00 98.5 90 18 117/70 (86) 100 06/02/17 00:00 98.5 88 18 130/84 (99) 99 06/01/17 20:00 98.7 89 18 146/88 (107) 95 06/01/17 16:00 98.8 79 20 140/77 (98) 99 (Ani Langley) Review of Systems Eyes: COMPLAINS OF: Blurred vision Neurologic: COMPLAINS OF: Headache (Ani Langley) Physical Exam Ms. Landis awake and eating her lunch. Oriented x 3, follows commands well. Right SET UP AND LAY OUT INSPECTOR shunt palpated Cranial nerve: pupils equal, round and reactive to light. Facial motor symmetric. gross eoms intact. Muscle strength: moves all four extremities well Neck: soft, supple (Ani Langley) Medications Current Medications Current Medications Medications (Trade) Dose Ordered Sig/David Route PRN Reason Start Time Stop Time Status Last Admin Dose Admin Sodium Chloride (NS Flush) 2 ml UNSCH PRN IV FLUSH FLUSH AFTER USING IV ACCESS 05/28/17 13:15 05/31/17 06:12 Sodium Chloride (NS Flush) 2 ml BID IV FLUSH 05/28/17 21:00 06/02/17 09:00 Acetaminophen (Tylenol) 650 mg Q4H PRN PO TEMP > 100.4 05/28/17 13:15 05/29/17 05:26 Ondansetron HCl (Zofran Inj) 4 mg Q6H PRN IVP NAUSEA OR VOMITING 05/28/17 13:15 06/01/17 01:05 Prochlorperazine (Compazine Supp) 25 mg Q12H PRN RECTAL NAUSEA OR VOMITING 05/28/17 13:15 Naloxone HCl (Narcan Inj) 0.4 mg UNSCH PRN IV PUSH SEE LABEL COMMENTS 05/28/17 13:15 Senna/Docusate Sodium (Mary-Colace) 1 tab BID PO 05/28/17 21:00 06/02/17 09:04 Magnesium Hydroxide (Milk Of Magnesia Liq) 30 ml Q12H PRN PO Mild constipation 05/28/17 13:15 Sennosides (Senokot) 17.2 mg Q12H PRN PO Moderate constipation 05/28/17 13:15 Bisacodyl (Dulcolax Supp) 10 mg DAILY PRN RECTAL SEVERE CONSITIPATION 05/28/17 13:15 Lactulose (Lactulose Liq) 30 ml DAILY PRN PO SEVERE CONSITIPATION 05/28/17 13:15 Amlodipine Besylate (Norvasc) 10 mg DAILY PO 05/29/17 09:00 06/02/17 09:04 Carvedilol (Coreg) 25 mg BID PO 05/28/17 21:00 06/02/17 09:04 Ferrous Sulfate (Ferrous Sulfate) 325 mg BID PO 05/28/17 21:00 06/02/17 09:04 Hydralazine HCl (Apresoline) 50 mg Q8HR PO 05/28/17 14:00 06/02/17 12:50 Hydrochlorothiazide (Hydrodiuril) 25 mg DAILY PO 05/29/17 09:00 06/01/17 09:43 Lisinopril (Prinivil) 20 mg Q12HR PO 05/28/17 21:00 06/01/17 22:04 Tramadol HCl (Ultram) 50 mg Q6H PRN PO BREAKTHROUGH PAIN 05/28/17 13:15 06/02/17 12:51 Sodium Chloride 1,000 ml @ 30 mls/hr Q24H IV 05/28/17 16:30 05/31/17 21:28 Morphine Sulfate (Morphine Inj) 4 mg Q3H PRN IV PUSH pain 6-10 05/28/17 16:30 06/01/17 22:58 Sucralfate (Carafate Liq) 1 gm ACHS PO 05/29/17 17:00 06/02/17 12:51 Famotidine (Pepcid Inj) 20 mg Q12H IV PUSH 05/29/17 18:00 06/02/17 05:04 Enalaprilat (Vasotec Inj) 1.25 mg Q8H PRN IV PUSH SBP> OR = 180, DBP> OR = 100 06/01/17 09:30 (Ani Langley) Medical Decision Making MDM Remarks 37 y/o female with idiopathic intracranial hypertension, s/p placement of SET UP AND LAY OUT INSPECTOR shunt 04/28/17. presents for headaches, nausea and vomiting AMS, with repeat CT Brain 05/29 w/o acute findings LP opening pressures 60+ cm H20, SET UP AND LAY OUT INSPECTOR shunt reprogrammed to 40 mm H20 06/01/17, unable to confirm via visual/audible confirmation CSF cultures negative for infection (Ani Langley) Plan Plan Remarks SET UP AND LAY OUT INSPECTOR shunt reprogrammed to 40 mm H20 following MRI today, MRI studies unremarkable - will defer to Neurology who is following cont medical management clear to dc home from NRS standpoint (Ani Langley) Attending Statement Using a [employer] computer, the shunt was reprogrammed as follows: Ultrasound gel was placed over the valve and the transfuser was calibrated at a pressure of 40 mm/H20. The shunt was then reprogrammed and an audible sound confirmed the new settings. The patient tolerated the procedure well without complication. The exam, history, and the medical decision-making described in the above note were completed with the assistance of the mid-level provider. I reviewed and agree with the findings presented. I attest that I had a [id number] encounter with the patient on the same day, and personally performed and documented my assessment and findings in the medical record. (Shreysa Dumont MD) Ani Langley Jun 02, 2017 13:01 Shreyas Dumont MD Jun 02, 2017 20:21
[2017-06-02] MEDS ORDERED: POTASSIUM CHLOR 20 MEQ PREMIX 100 ML IV ONE (13:45)
[2017-06-02] MEDS ORDERED: POTASSIUM CHLORIDE 10 MEQ CONTROLLED RELEASE TAB PO ONE ×2 (13:45→18:00)
[2017-06-02] MEDS ORDERED: MORPHINE SULFATE 4 MG/ML INJ IV PUSH PRN (16:30)
[2017-06-02] MEDS: SODIUM CHLOR 0.9% 1000 ML INJ 1,000 ML IV SCH (16:39)
[2017-06-03 01:21] VITALS: BP 92/55; PULSE 86; RESP 16; TEMP 98.3; O2SAT 98
[2017-06-03] MEDS: traMADol HCL 50 MG TAB PO PRN ×2 (05:17→09:25)
[2017-06-03] MEDS: FAMOTIDINE 20 MG/2 ML VIAL IV PUSH SCH (05:17)
[2017-06-03] MEDS: hydrALAZINE HCL 50 MG TAB PO SCH ×2 (05:18→13:19)
[2017-06-03 05:25] VITALS: BP 100/59; PULSE 86; RESP 16; TEMP 98.7; O2SAT 99
--- NOTE | 2017-06-03 06:28 | HHI.PR ---
Review/Management Diagnosis/Plan: (1) Pseudotumor cerebri ICD Codes: G93.2 - Benign intracranial hypertension Status: Chronic Plan: neuro stable rt 6th nerve paresis LP 05/31- opening pressure 60 mri/mra brain nml. mrv jos transverse sinus stenosis recs vp analysis shunt settings adjusted by nsx pt wants to hold off any po preventative meds until she is tolerating po better. consider topamax which could be started at 25mg qhs (2) Cephalgia ICD Codes: R51 - Headache Status: Chronic (3) Cubital tunnel syndrome on left ICD Codes: G56.22 - Lesion of ulnar nerve, left upper limb Status: Chronic Plan: probable no motor/sensory deficit avoid excessive arm flexion/extension Subjective Subjective Comments No acute events reported No headache No chest pain No dyspnea Active Medications Current Medications Medications (Trade) Dose Ordered Sig/David Route Start Time Stop Time Status Last Admin (NS Flush) 2 ml UNSCH PRN IV FLUSH 05/28/17 13:15 05/31/17 06:12 (NS Flush) 2 ml BID IV FLUSH 05/28/17 21:00 06/02/17 22:28 (Tylenol) 650 mg Q4H PRN PO 05/28/17 13:15 05/29/17 05:26 (Zofran Inj) 4 mg Q6H PRN IVP 05/28/17 13:15 06/01/17 01:05 (Compazine Supp) 25 mg Q12H PRN RECTAL 05/28/17 13:15 (Narcan Inj) 0.4 mg UNSCH PRN IV PUSH 05/28/17 13:15 (Mary-Colace) 1 tab BID PO 05/28/17 21:00 06/02/17 22:27 (Milk Of Magnesia Liq) 30 ml Q12H PRN PO 05/28/17 13:15 (Senokot) 17.2 mg Q12H PRN PO 05/28/17 13:15 (Dulcolax Supp) 10 mg DAILY PRN RECTAL 05/28/17 13:15 (Lactulose Liq) 30 ml DAILY PRN PO 05/28/17 13:15 (Norvasc) 10 mg DAILY PO 05/29/17 09:00 06/02/17 09:04 (Coreg) 25 mg BID PO 05/28/17 21:00 06/02/17 22:28 (Ferrous Sulfate) 325 mg BID PO 05/28/17 21:00 06/02/17 22:27 (Apresoline) 50 mg Q8HR PO 05/28/17 14:00 06/03/17 05:18 (Hydrodiuril) 25 mg DAILY PO 05/29/17 09:00 06/01/17 09:43 (Prinivil) 20 mg Q12HR PO 05/28/17 21:00 06/01/17 22:04 (Ultram) 50 mg Q6H PRN PO 05/28/17 13:15 06/03/17 05:17 Sodium Chloride 1,000 ml @ 30 mls/hr Q24H IV 05/28/17 16:30 06/02/17 16:39 (Carafate Liq) 1 gm ACHS PO 05/29/17 17:00 06/02/17 22:28 (Pepcid Inj) 20 mg Q12H IV PUSH 05/29/17 18:00 06/03/17 05:17 (Vasotec Inj) 1.25 mg Q8H PRN IV PUSH 06/01/17 09:30 (Morphine Inj) 2 mg Q3H PRN IV PUSH 06/02/17 16:30 06/02/17 17:27 Allergies Allergies Coded Allergies amoxicillin (Unverified Allergy, Mild, Hives, 05/28/17) Review of Systems All other ROS: ROS reviewed as documented in chart Exam I&O / VS Vital Signs Date Time Temp Pulse Resp B/P (MAP) Pulse Ox O2 Delivery O2 Flow Rate FiO2 06/03/17 05:25 98.7 86 16 100/59 (73) 99 06/03/17 01:21 98.3 86 16 92/55 (67) 98 06/02/17 20:59 98.3 93 18 114/70 (85) 95 06/02/17 16:00 97.6 86 20 129/93 (105) 99 06/02/17 12:00 98.3 86 20 125/77 (93) 98 06/02/17 08:00 97.6 93 20 125/85 (98) 100 General: Alert and Oriented, No acute distress Eye: EOMI Respiratory: Non-labored respirations Neurologic: Alert, Oriented Psychiatric: Cooperative Exam Comments ox 3, slow speech, rt 6th paresis, ou 3-2mm, face sym, [place] to gravity, 5/5, no drift Objective Micro and Labs Laboratory Tests Test 06/02/17 11:46 06/02/17 19:45 Potassium Level 2.6 3.3 Date/Time Source Procedure Growth Status 05/31/17 10:18 Cerebral Spinal Fluid Lumbar Puncture Fungal Smear - Final NO FUNGAL ELEMENTS SEEN. Resulted 05/31/17 10:18 Cerebral Spinal Fluid Lumbar Puncture Fungal Culture Pending Resulted Emigdio Sepulveda MD Jun 03, 2017 06:28
[2017-06-03 07:59] VITALS: BP 128/65; PULSE 88; RESP 16; TEMP 98.9; O2SAT 99
[2017-06-03] MEDS: FERROUS SULFATE 325 MG (65 MG ELEMENTAL IRON) TAB PO SCH (09:00)
[2017-06-03] MEDS: LISINOPRIL 20 MG TAB PO SCH (09:00)
[2017-06-03] MEDS: DOCUSATE SODIUM 50 MG/SENNA 8.6 MG TAB PO SCH (09:22)
[2017-06-03] MEDS: CARVEDILOL 12.5 MG TAB PO SCH (09:22)
[2017-06-03] MEDS: HYDROCHLOROTHIAZIDE 25 MG TAB PO SCH (09:23)
--- NOTE | 2017-06-03 09:23 | HHI.PR ---
Review/Management Diagnosis/Plan: (1) Pseudotumor cerebri ICD Codes: G93.2 - Benign intracranial hypertension Status: Chronic Plan: neuro stable rt 6th nerve paresis LP 05/31- opening pressure 60 mri/mra brain nml. 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 s/b d/w pt d/w pt/spouse. reviewed imaging findings (2) Cephalgia ICD Codes: R51 - Headache Status: Chronic (3) Cubital tunnel syndrome on left ICD Codes: G56.22 - Lesion of ulnar nerve, left upper limb Status: Chronic Plan: probable no motor/sensory deficit avoid excessive arm flexion/extension Subjective Subjective Comments No acute events reported headache better No chest pain No dyspnea Active Medications Current Medications Medications (Trade) Dose Ordered Sig/David Route Start Time Stop Time Status Last Admin (NS Flush) 2 ml UNSCH PRN IV FLUSH 05/28/17 13:15 05/31/17 06:12 (NS Flush) 2 ml BID IV FLUSH 05/28/17 21:00 06/02/17 22:28 (Tylenol) 650 mg Q4H PRN PO 05/28/17 13:15 05/29/17 05:26 (Zofran Inj) 4 mg Q6H PRN IVP 05/28/17 13:15 06/01/17 01:05 (Compazine Supp) 25 mg Q12H PRN RECTAL 05/28/17 13:15 (Narcan Inj) 0.4 mg UNSCH PRN IV PUSH 05/28/17 13:15 (Mary-Colace) 1 tab BID PO 05/28/17 21:00 06/02/17 22:27 (Milk Of Magnesia Liq) 30 ml Q12H PRN PO 05/28/17 13:15 (Senokot) 17.2 mg Q12H PRN PO 05/28/17 13:15 (Dulcolax Supp) 10 mg DAILY PRN RECTAL 05/28/17 13:15 (Lactulose Liq) 30 ml DAILY PRN PO 05/28/17 13:15 (Norvasc) 10 mg DAILY PO 05/29/17 09:00 06/02/17 09:04 (Coreg) 25 mg BID PO 05/28/17 21:00 06/02/17 22:28 (Ferrous Sulfate) 325 mg BID PO 05/28/17 21:00 06/02/17 22:27 (Apresoline) 50 mg Q8HR PO 05/28/17 14:00 06/03/17 05:18 (Hydrodiuril) 25 mg DAILY PO 05/29/17 09:00 06/01/17 09:43 (Prinivil) 20 mg Q12HR PO 05/28/17 21:00 06/01/17 22:04 (Ultram) 50 mg Q6H PRN PO 05/28/17 13:15 06/03/17 05:17 Sodium Chloride 1,000 ml @ 30 mls/hr Q24H IV 05/28/17 16:30 06/02/17 16:39 (Carafate Liq) 1 gm ACHS PO 05/29/17 17:00 06/02/17 22:28 (Pepcid Inj) 20 mg Q12H IV PUSH 05/29/17 18:00 06/03/17 05:17 (Vasotec Inj) 1.25 mg Q8H PRN IV PUSH 06/01/17 09:30 (Morphine Inj) 2 mg Q3H PRN IV PUSH 06/02/17 16:30 06/02/17 17:27 Allergies Allergies Coded Allergies amoxicillin (Unverified Allergy, Mild, Hives, 05/28/17) Review of Systems All other ROS: ROS reviewed as documented in chart Exam I&O / VS Vital Signs Date Time Temp Pulse Resp B/P (MAP) Pulse Ox O2 Delivery O2 Flow Rate FiO2 06/03/17 07:59 98.9 88 16 128/65 (86) 99 06/03/17 05:25 98.7 86 16 100/59 (73) 99 06/03/17 01:21 98.3 86 16 92/55 (67) 98 06/02/17 20:59 98.3 93 18 114/70 (85) 95 06/02/17 16:00 97.6 86 20 129/93 (105) 99 06/02/17 12:00 98.3 86 20 125/77 (93) 98 General: Alert and Oriented, No acute distress Eye: EOMI Respiratory: Non-labored respirations Neurologic: Alert, Oriented Psychiatric: Cooperative Exam Comments ox 3, speech better, rt 6th paresis-better able to cross midline, ou 3-2mm, face sym, [place] to gravity, 5/5, no drift Objective Micro and Labs Laboratory Tests Test 06/02/17 11:46 06/02/17 19:45 Potassium Level 2.6 3.3 Date/Time Source Procedure Growth Status 05/31/17 10:18 Cerebral Spinal Fluid Lumbar Puncture Fungal Smear - Final NO FUNGAL ELEMENTS SEEN. Resulted 05/31/17 10:18 Cerebral Spinal Fluid Lumbar Puncture Fungal Culture Pending Resulted Emigdio Sepulveda MD Jun 03, 2017 09:23
[2017-06-03] MEDS: SODIUM CHLORIDE 0.9% FLUSH 10 ML FLUSH IV FLUSH SCH (09:24)
[2017-06-03] MEDS: SUCRALFATE 1 GM/10 ML CUP PO SCH ×2 (09:27→11:39)
[2017-06-03] MEDS ORDERED: TOPIRAMATE 25 MG TAB PO SCH (09:30)
--- NOTE | 2017-06-03 09:53 | HHI.PR ---
Subjective Remarks in no acute distress. headache has much improved. no new complaints. Objective Vitals Vital Signs Date Time Temp Pulse Resp B/P (MAP) Pulse Ox O2 Delivery O2 Flow Rate FiO2 06/03/17 07:59 98.9 88 16 128/65 (86) 99 06/03/17 05:25 98.7 86 16 100/59 (73) 99 06/03/17 01:21 98.3 86 16 92/55 (67) 98 06/02/17 20:59 98.3 93 18 114/70 (85) 95 06/02/17 16:00 97.6 86 20 129/93 (105) 99 06/02/17 12:00 98.3 86 20 125/77 (93) 98 I/O 06/02/17 06/02/17 06/02/17 06/03/17 06/03/17 06/03/17 07:00 15:00 23:00 07:00 15:00 23:00 # Voids 4 5 3 # Bowel Movements 0 Result Diagram: 06/02/171944 Imaging Last Impressions Head/Brain Mag Res Venography 06/02/17 0000 Signed Impressions: Service Date/Time: Friday, June 02, 2017 09:21 - CONCLUSION: 1. Findings the bilateral transverse sinus stenosis involving both the dominant right side and more hypoplastic left side without thrombus. Albaro Walker MD Head Magnetic Resonance Angiography 06/02/17 0000 Signed Impressions: Service Date/Time: Friday, June 02, 2017 09:21 - CONCLUSION: 1. Unremarkable MR angiography of the brain. Albaro Walker MD Brain MRI 06/02/17 0000 Signed Impressions: Service Date/Time: Friday, June 02, 2017 09:21 - CONCLUSION: 1. No evidence of acute intracranial pathology. No masses are identified. Albaro Walker MD Skull X-Ray 06/01/17 0000 Signed Impressions: Service Date/Time: Thursday, June 01, 2017 13:28 - CONCLUSION: Shunt setting 40-50. Robb Kahn MD FACR Lumbar Puncture Fluoroscopy 05/31/17 0000 Signed Impressions: Service Date/Time: Wednesday, May 31, 2017 11:16 - CONCLUSION: Uncomplicated fluoroscopically guided lumbar puncture with pressures as above. Anil Ca MD Head CT 05/29/17 0000 Signed Impressions: Service Date/Time: Tuesday, May 30, 2017 00:03 - CONCLUSION: LITHOGRAPHIC PROOFER APPRENTICE shunt in unchanged position with distal catheter crossing the left frontal horn and terminating in the left basal ganglia. Ventricles are normal in size and slightly smaller than the study from 2 days ago. Wilian Miguel MD Shunt Study (Imaging) 05/28/17 0000 Signed Impressions: Service Date/Time: Sunday, May 28, 2017 10:45 - CONCLUSION: Intact shunt. Kendrick Jimenez Jr., MD Objective Remarks GENERAL: This is a well-nourished, well-developed patient, in no apparent distress. CARDIOVASCULAR: Regular rate and regular rhythm without murmurs, gallops, or rubs. RESPIRATORY: Clear to auscultation. Breath sounds equal bilaterally. No wheezes , rales, or rhonchi. GASTROINTESTINAL: Abdomen soft, non-tender, nondistended. Normal, active bowel sounds MUSCULOSKELETAL: Extremities without clubbing, cyanosis, or edema. NEURO: Alert & Oriented x4 to person, place, time, situation. Moves all ext x4 Procedures LP Medications and IVs Current Medications Sodium Chloride (NS Flush) 2 ml UNSCH PRN IV FLUSH FLUSH AFTER USING IV ACCESS ; Start 05/28/17 at 10:30; Stop 05/28/17 at 13:17; Status DC Hydromorphone HCl (Dilaudid Pf Inj) 1 mg ONCE ONCE IV PUSH Last administered on 05/28/17 11:39; Start 05/28/17 at 11:15; Stop 05/28/17 at 11:17; Status DC Ondansetron HCl (Zofran Inj) 4 mg ONCE ONCE IV PUSH Last administered on 11:39; Start 05/28/17 at 11:15; Stop 05/28/17 at 11:17; Status DC Potassium Chloride (KCl) 40 meq ONCE ONCE PO Last administered on 05/28/17 11 :40; Start 05/28/17 at 11:30; Stop 05/28/17 at 11:31; Status DC Sodium Chloride (NS Flush) 2 ml UNSCH PRN IV FLUSH FLUSH AFTER USING IV ACCESS Last administered on 05/31/17 06:12; Start 05/28/17 at 13:15 Sodium Chloride (NS Flush) 2 ml BID IV FLUSH Last administered on 06/03/17 09: 24; Start 05/28/17 at 21:00 Acetaminophen (Tylenol) 650 mg Q4H PRN PO TEMP > 100.4 Last administered on 05:26; Start 05/28/17 at 13:15 Ondansetron HCl (Zofran Inj) 4 mg Q6H PRN IVP NAUSEA OR VOMITING Last administered on 06/01/17 01:05; Start 05/28/17 at 13:15 Prochlorperazine (Compazine Supp) 25 mg Q12H PRN RECTAL NAUSEA OR VOMITING; Start 05/28/17 at 13:15 Naloxone HCl (Narcan Inj) 0.4 mg UNSCH PRN IV PUSH SEE LABEL COMMENTS; Start 05/28/17 at 13:15 Senna/Docusate Sodium (Mary-Colace) 1 tab BID PO Last administered on 09:22; Start 05/28/17 at 21:00 Magnesium Hydroxide (Milk Of Magnesia Liq) 30 ml Q12H PRN PO Mild constipation Last administered on 06/03/17 09:25; Start 05/28/17 at 13:15 Sennosides (Senokot) 17.2 mg Q12H PRN PO Moderate constipation; Start 05/28/17 at 13:15 Bisacodyl (Dulcolax Supp) 10 mg DAILY PRN RECTAL SEVERE CONSITIPATION; Start 05/28/17 at 13:15 Lactulose (Lactulose Liq) 30 ml DAILY PRN PO SEVERE CONSITIPATION; Start at 13:15 Potassium Chloride 100 ml @ 100 mls/hr Q1H IV Last administered on 05/29/17 07:33; Start 05/28/17 at 13:15; Stop 05/28/17 at 19:15; Status DC Amlodipine Besylate (Norvasc) 10 mg DAILY PO Last administered on 06/03/17 09: 22; Start 05/29/17 at 09:00 Carvedilol (Coreg) 25 mg BID PO Last administered on 06/03/17 09:22; Start at 21:00 Ferrous Sulfate (Ferrous Sulfate) 325 mg BID PO Last administered on 06/02/17 22:27; Start 05/28/17 at 21:00 Hydralazine HCl (Apresoline) 50 mg Q8HR PO Last administered on 06/03/17 05:18 ; Start 05/28/17 at 14:00 Hydrochlorothiazide (Hydrodiuril) 25 mg DAILY PO Last administered on 09:23; Start 05/29/17 at 09:00 Lisinopril (Prinivil) 20 mg Q12HR PO Last administered on 06/01/17 22:04; Start 05/28/17 at 21:00 Tramadol HCl (Ultram) 50 mg Q6H PRN PO PAIN 6-10 Last administered on 09:25; Start 05/28/17 at 13:15 Sodium Chloride 1,000 ml @ 30 mls/hr Q24H IV Last administered on 06/02/17 16 :39; Start 05/28/17 at 16:30 Morphine Sulfate (Morphine Inj) 4 mg Q3H PRN IV PUSH pain 6-10 Last administered on 06/01/17 22:58; Start 05/28/17 at 16:30; Stop 06/02/17 at 13:42 ; Status DC Sucralfate (Carafate Liq) 1 gm ACHS PO Last administered on 06/03/17 09:27; Start 05/29/17 at 17:00 Famotidine (Pepcid Inj) 20 mg Q12H IV PUSH Last administered on 06/03/17 05:17 ; Start 05/29/17 at 18:00 Potassium Chloride 100 ml @ 50 mls/hr Q2H IV Last administered on 05/30/17 18 :00; Start 05/30/17 at 10:00; Stop 05/30/17 at 13:59; Status DC Magnesium Sulfate/ Dextrose 100 ml @ 100 mls/hr Q1H IV Last administered on 06:11; Start 05/30/17 at 15:00; Stop 05/30/17 at 16:59; Status DC Magnesium Sulfate/ Dextrose 100 ml @ 100 mls/hr Q1H IV Last administered on 23:00; Start 05/30/17 at 23:00; Stop 05/31/17 at 00:59; Status DC Clonidine (Catapres) 0.1 mg ONCE ONCE PO Last administered on 06/01/17 01:54 ; Start 06/01/17 at 01:45; Stop 06/01/17 at 01:46; Status DC Sumatriptan Succinate (Imitrex) 25 mg ONCE ONCE PO Last administered on 01:45; Start 06/01/17 at 01:45; Stop 06/01/17 at 01:46; Status DC Enalaprilat (Vasotec Inj) 1.25 mg Q8H PRN IV PUSH SBP> OR = 180, DBP> OR = 100 ; Start 06/01/17 at 09:30 Gadodiamide (Omniscan Pf Inj) 20 ml STK-MED ONCE IV PUSH Last administered on 06/02/17 11:35; Start 06/02/17 at 11:35; Stop 06/02/17 at 11:45; Status DC Morphine Sulfate (Morphine Inj) 2 mg Q3H PRN IV PUSH BREAKTHROUGH PAIN Last administered on 06/02/17 17:27; Start 06/02/17 at 16:30 Potassium Chloride 100 ml @ 50 mls/hr BOLUS ONCE IV Last administered on 06/02 13:45; Start 06/02/17 at 13:45; Stop 06/02/17 at 15:44; Status DC Potassium Chloride (KCl) 40 meq ONCE ONCE PO Last administered on 06/02/17 13 :45; Start 06/02/17 at 13:45; Stop 06/02/17 at 13:51; Status DC Potassium Chloride (KCl) 40 meq ONCE ONCE PO Last administered on 06/02/17 17 :16; Start 06/02/17 at 18:00; Stop 06/02/17 at 18:01; Status DC Topiramate (Topamax) 25 mg Q12HR PO Last administered on 06/03/17 09:46; Start 06/03/17 at 09:30 A/P Assessment and Plan 1. Pseudotumor cerebri- headache has improved. Patient status post LITHOGRAPHIC PROOFER APPRENTICE shunt placement on 04/28/17 s/p LP. LITHOGRAPHIC PROOFER APPRENTICE shunt decreased to 40 mm H20. neurosurgery follow-up appreciated and cleared for discharge. started on Topamax per neurology. 2. hypokalemia; improved. 3. Hypertension- continue amlodipine,HCTZ,coreg,hydralazine and lisinopril- vasotec as needed. 4. Iron deficiency anemia;Continue home ferrous sulfate Discharge Planning hopefully soon- when cleared by neurology. see med list. f/u; by pcp , neurology and neurosurgery. d/w the patient. d/w neurosurgery. time spent 35 min. Jacquelyn Issa MD Jun 03, 2017 09:53
[2017-06-03] MEDS ORDERED: TOPI25 PO (09:55)
[2017-06-03] MEDS ORDERED: TRAM50TA PO (09:55)
--- NOTE | 2017-06-03 09:57 | HHI.DS ---
Discharge Summary Admission Date May 28, 2017 at 13:13 Discharge Date: Jun 03, 2017 Admitting Diagnosis INTRACTABLE HEADACHE (1) Cephalgia ICD Code: R51 - Headache Status: Chronic Procedures LP Brief History - From Admission 37-year-old female with past medical history significant for pseudotumor cerebri status post DIETARY DIRECTOR shunt placement and hypertension who presents to the emergency department with intractable vomiting and headache since her discharge on 05/04/17. The patient is status post placement of DIETARY DIRECTOR shunt on 04/28 which was then readjusted on 05/01. She was seen in clinic today where she continued to complain of intractable emesis and headache and referred to the emergency department for further workup. Head CT and shunt study showed a stable brain appearance with no ventricular dilation, shunt is intact. Patient was also found to be hypokalemic with a potassium of 2.6. CBC/BMP: 06/02/17 1945 Significant Findings Laboratory Tests Test 05/31/17 10:18 06/01/17 12:53 06/02/17 11:46 06/02/17 19:45 CSF Gross Blood (Tube 1) TRACE (0) CSF RBC (Tube 4) 23 /MM3 (NONE) Blood Urea Nitrogen 4 MG/DL (7-18) Random Glucose 129 MG/DL (74-106) Sodium Level 135 MEQ/L (136-145) Potassium Level 2.9 MEQ/L (3.5-5.1) 2.6 MEQ/L (3.5-5.1) 3.3 MEQ/L (3.5-5.1) Chloride Level 97 MEQ/L (98-107) Imaging Last Impressions Head/Brain Mag Res Venography 06/02/17 0000 Signed Impressions: Service Date/Time: Friday, June 02, 2017 09:21 - CONCLUSION: 1. Findings the bilateral transverse sinus stenosis involving both the dominant right side and more hypoplastic left side without thrombus. Albaro Walker MD Head Magnetic Resonance Angiography 06/02/17 0000 Signed Impressions: Service Date/Time: Friday, June 02, 2017 09:21 - CONCLUSION: 1. Unremarkable MR angiography of the brain. Albaro Walker MD Brain MRI 06/02/17 0000 Signed Impressions: Service Date/Time: Friday, June 02, 2017 09:21 - CONCLUSION: 1. No evidence of acute intracranial pathology. No masses are identified. Albaro Walker MD Skull X-Ray 06/01/17 0000 Signed Impressions: Service Date/Time: Thursday, June 01, 2017 13:28 - CONCLUSION: Shunt setting 40-50. Robb Kahn MD FACR Lumbar Puncture Fluoroscopy 05/31/17 0000 Signed Impressions: Service Date/Time: Wednesday, May 31, 2017 11:16 - CONCLUSION: Uncomplicated fluoroscopically guided lumbar puncture with pressures as above. Anil Ca MD Head CT 05/29/17 0000 Signed Impressions: Service Date/Time: Tuesday, May 30, 2017 00:03 - CONCLUSION: DIETARY DIRECTOR shunt in unchanged position with distal catheter crossing the left frontal horn and terminating in the left basal ganglia. Ventricles are normal in size and slightly smaller than the study from 2 days ago. Wilian Miguel MD Shunt Study (Imaging) 05/28/17 0000 Signed Impressions: Service Date/Time: Sunday, May 28, 2017 10:45 - CONCLUSION: Intact shunt. Kendrick Jimenez Jr., MD PE at Discharge GENERAL: This is a well-nourished, well-developed patient, in no apparent distress. CARDIOVASCULAR: Regular rate and regular rhythm without murmurs, gallops, or rubs. RESPIRATORY: Clear to auscultation. Breath sounds equal bilaterally. No wheezes , rales, or rhonchi. GASTROINTESTINAL: Abdomen soft, non-tender, nondistended. Normal, active bowel sounds MUSCULOSKELETAL: Extremities without clubbing, cyanosis, or edema. NEURO: Alert & Oriented x4 to person, place, time, situation. Moves all ext x4 Hospital Course patient was admitted with intractable headache. patient was seen by neurology and neurosurgery. LP was performed and DIETARY DIRECTOR shunt was adjusted by neurosurgery after which the headache improved. patient was cleared by neurosurgery for discharge. Pt Condition on Discharge: Fair Discharge Disposition: Discharge Home Discharge Time: > 30 minutes Discharge Instructions DIET: Follow Instructions for: Heart Healthy Diet Activities you can perform: Regular-No Restrictions Follow up Referrals: Neurology Neurosurgery PCP Follow-up New Medications: Topiramate (Topamax) 25 Mg Tab 25 MG PO Q12HR for headache for 30 Days, TAB 0 Refills Continued Medications: Acetaminophen (Tylenol) 325 Mg Tab 650 MG PO Q6H PRN for PAIN SCALE 1 TO 4, #20 TAB 0 Refills Amlodipine (Amlodipine) 10 Mg Tab 10 MG PO DAILY for Blood Pressure Management, #30 TAB 0 Refills Carvedilol (Carvedilol) 25 Mg Tab 25 MG PO BID, #60 TAB 0 Refills Ferrous Sulfate (Ferosul) 325 Mg (65 Mg Iron) Tablet 325 MG PO BID, #60 TAB Hydralazine HCl (Hydralazine HCl) 50 Mg Tablet 50 MG PO Q8HR, #90 TAB Hydrochlorothiazide (Hydrochlorothiazide) 25 Mg Tab 25 MG PO DAILY, #30 TAB Lisinopril (Lisinopril) 20 Mg Tab 20 MG PO Q12HR, #60 TAB Ondansetron Odt (Ondansetron Odt) 4 Mg Tab 4 MG SL Q8HR PRN for Nausea/Vomiting, #90 TAB 0 Refills Tramadol (Tramadol) 50 Mg Tab 50 MG PO Q6H PRN for BREAKTHROUGH PAIN, #20 TAB 0 Refills (This prescription has been renewed) To be used if Tylenol and ibuprofen have not brought pain down to a 3 or less Jacquelyn Issa MD Jun 03, 2017 09:57
--- NOTE | 2017-06-03 11:02 | HHI.FF ---
Face to Face Verification Diagnosis: (1) Pseudotumor cerebri Physical Therapy Order: Evaluate and Treat Home Health Nursing Order: Medical education Signs/symptoms of disease process Medication education-adverse effect Nursing assessment with vital signs I have seen patient Jennifer Landis on 06/03/17. My clinical findings support the need for the requested home health care services because: Ltd mobility - disease progression I certify that my clinical findings support that this patient is homebound because: Unsteady gait/balance Jacquelyn Issa MD Jun 03, 2017 11:02
[2017-06-03 12:00] VITALS: BP 114/57; PULSE 88; RESP 20; TEMP 98.1; O2SAT 98
[2017-06-03] MEDS: SODIUM CHLOR 0.9% 1000 ML INJ 1,000 ML IV SCH (13:07)
[2017-06-03] MEDS ORDERED: ACETAMINOPHEN/HYDROcodone 325 MG/5 MG TAB PO ONE (14:00)
[2017-06-03] MEDS ORDERED: POTASSIUM CHLORIDE 10 MEQ CONTROLLED RELEASE TAB PO ONE (14:00)
--- NOTE | 2017-06-03 14:42 | HHI.NSPN ---
Note Status Status: Progress Note Interval History Interval History Ms. Landis is a 37 year old female with history of idiopathic intracranial hypertension underwent placement of SENIOR PRINCIPAL ARCHITECT shunt on 04/28/17 due to nonfunctioning LP shunt placed 10 years ago. She was recently seen in the office a few weeks ago and a f/u CT Head was ordered at that time but was not completed. She presents to the ED for worsening headaches and nausea. She also complains of numbness of the left arm. A CT Head has been complete which shows shunt in good position without acute intracranial findings. A shunt study also obtained and is intact. 05/30: reports vision better following shunt adjustment yesterday. acute mental status change last night with stable f/u CT Head. LP pending. denies fevers or chills. 05/31: headaches slowly improving and feeling much better this morning. going down for LP now. 06/01: opening pressure from LP = 60+ cm H20. headaches returning. 06/02: s/p MRI, MRA. reports headaches and visual symptoms improving following shunt readjustment yesterday 06/03: pt seen this am during rounds, feeling much better, eating her breakfast more comfortably today. Labs, Micro, & Vital Signs Results Date Time Temp Pulse Resp B/P (MAP) Pulse Ox O2 Delivery O2 Flow Rate FiO2 06/03/17 12:00 98.1 88 20 114/57 (76) 98 06/03/17 07:59 98.9 88 16 128/65 (86) 99 06/03/17 05:25 98.7 86 16 100/59 (73) 99 06/03/17 01:21 98.3 86 16 92/55 (67) 98 06/02/17 20:59 98.3 93 18 114/70 (85) 95 06/02/17 16:00 97.6 86 20 129/93 (105) 99 Constitutional Vital Signs Date Time Temp Pulse Resp B/P (MAP) Pulse Ox O2 Delivery O2 Flow Rate FiO2 06/03/17 12:00 98.1 88 20 114/57 (76) 98 06/03/17 07:59 98.9 88 16 128/65 (86) 99 06/03/17 05:25 98.7 86 16 100/59 (73) 99 06/03/17 01:21 98.3 86 16 92/55 (67) 98 06/02/17 20:59 98.3 93 18 114/70 (85) 95 06/02/17 16:00 97.6 86 20 129/93 (105) 99 Physical Exam Ms. Landis awake appears more comfortable. Oriented x 3, follows commands well. Right SENIOR PRINCIPAL ARCHITECT shunt palpated Cranial nerve: pupils equal, round and reactive to light. Facial motor symmetric. gross eoms intact. Muscle strength: moves all four extremities well Neck: soft, supple Medications Current Medications Current Medications Medications (Trade) Dose Ordered Sig/David Route PRN Reason Start Time Stop Time Status Last Admin Dose Admin Sodium Chloride (NS Flush) 2 ml UNSCH PRN IV FLUSH FLUSH AFTER USING IV ACCESS 05/28/17 13:15 05/31/17 06:12 Sodium Chloride (NS Flush) 2 ml BID IV FLUSH 05/28/17 21:00 06/03/17 09:24 Acetaminophen (Tylenol) 650 mg Q4H PRN PO TEMP > 100.4 05/28/17 13:15 05/29/17 05:26 Ondansetron HCl (Zofran Inj) 4 mg Q6H PRN IVP NAUSEA OR VOMITING 05/28/17 13:15 06/01/17 01:05 Prochlorperazine (Compazine Supp) 25 mg Q12H PRN RECTAL NAUSEA OR VOMITING 05/28/17 13:15 Naloxone HCl (Narcan Inj) 0.4 mg UNSCH PRN IV PUSH SEE LABEL COMMENTS 05/28/17 13:15 Senna/Docusate Sodium (Mary-Colace) 1 tab BID PO 05/28/17 21:00 06/03/17 09:22 Magnesium Hydroxide (Milk Of Magnesia Liq) 30 ml Q12H PRN PO Mild constipation 05/28/17 13:15 06/03/17 09:25 Sennosides (Senokot) 17.2 mg Q12H PRN PO Moderate constipation 05/28/17 13:15 Bisacodyl (Dulcolax Supp) 10 mg DAILY PRN RECTAL SEVERE CONSITIPATION 05/28/17 13:15 Lactulose (Lactulose Liq) 30 ml DAILY PRN PO SEVERE CONSITIPATION 05/28/17 13:15 Amlodipine Besylate (Norvasc) 10 mg DAILY PO 05/29/17 09:00 06/03/17 09:22 Carvedilol (Coreg) 25 mg BID PO 05/28/17 21:00 06/03/17 09:22 Ferrous Sulfate (Ferrous Sulfate) 325 mg BID PO 05/28/17 21:00 06/02/17 22:27 Hydralazine HCl (Apresoline) 50 mg Q8HR PO 05/28/17 14:00 06/03/17 13:19 Hydrochlorothiazide (Hydrodiuril) 25 mg DAILY PO 05/29/17 09:00 06/03/17 09:23 Lisinopril (Prinivil) 20 mg Q12HR PO 05/28/17 21:00 06/01/17 22:04 Tramadol HCl (Ultram) 50 mg Q6H PRN PO PAIN 6-10 05/28/17 13:15 06/03/17 09:25 Sodium Chloride 1,000 ml @ 30 mls/hr Q24H IV 05/28/17 16:30 06/02/17 16:39 Sucralfate (Carafate Liq) 1 gm ACHS PO 05/29/17 17:00 06/03/17 11:39 Famotidine (Pepcid Inj) 20 mg Q12H IV PUSH 05/29/17 18:00 06/03/17 05:17 Enalaprilat (Vasotec Inj) 1.25 mg Q8H PRN IV PUSH SBP> OR = 180, DBP> OR = 100 06/01/17 09:30 Morphine Sulfate (Morphine Inj) 2 mg Q3H PRN IV PUSH BREAKTHROUGH PAIN 06/02/17 16:30 06/02/17 17:27 Topiramate (Topamax) 25 mg Q12HR PO 06/03/17 09:30 06/03/17 09:46 Medical Decision Making MDM Remarks 37 y/o female with idiopathic intracranial hypertension, s/p placement of SENIOR PRINCIPAL ARCHITECT shunt 04/28/17. presents for headaches, nausea and vomiting AMS, with repeat CT Brain 05/29 w/o acute findings LP opening pressures 60+ cm H20, SENIOR PRINCIPAL ARCHITECT shunt reprogrammed to 40 mm H20 06/01/17, CSF cultures negative for infection Plan Plan Remarks cont w/u and mgt per Neurology cont medical management clear to dc home from NRS standpoint Ani Langley Jun 03, 2017 14:42
== END 2017-06-03 16:45 | disposition home or self-care (01) | DRG 103 ==
LOC: NEPE 10:02 → NEDA 12:33 → OBSVTOIN 13:13 → N05B 14:09
PROVIDERS: ADMIT Internal Medicine; ATTEND Internal Medicine
PROC: 009U3ZX Drainage of Spinal Canal, Percutaneous Approach, Diagnostic (ICD-10-PCS; principal; 2017-05-31)
PROC: B01B1ZZ Fluoroscopy of Spinal Cord using Low Osmolar Contrast (ICD-10-PCS; 2017-05-31)
DX: G93.2 Benign intracranial hypertension (principal); I10 Essential (primary) hypertension; E87.6 Hypokalemia; Z98.2 Presence of cerebrospinal fluid drainage device; D50.9 Iron deficiency anemia, unspecified; G56.22 Lesion of ulnar nerve, left upper limb; F32.9 Major depressive disorder, single episode, unspecified; Z82.3 Family history of stroke; Z82.49 Family history of ischemic heart disease and other diseases of the circulatory system
CPT/HCPCS: 62270; 70250; 70450; 70544; 70546; 70551; 71010; 72040; 74000; 76937; 77003; 80048; 80053; 82607; 82945; 83690; 83735; 84100; 84132; 84157; 84443; 84484; 85025; 85027; 85610; 85652; 85730; 86140; 87015; 87070; 87102; 87116; 87205; 87206; 89051; 96374; 96375; A9579; J1170; J2270; J2405; J3475; J3480; J7030

== ENCOUNTER 2017-06-11 14:48 | Emergency (ER) | payer OTHER, MEDICAID ==
[~2017-06-11] VITALS: Ht 165.1 cm; Wt 92.0 kg
[~2017-06-11 14:48] MED LIST changes: +TOPI25 PO
[2017-06-11 14:49] VITALS: BP 185/115; PULSE 101; RESP 14; TEMP 98.3; O2SAT 100
[2017-06-11] MEDS ORDERED: PROCHLORPERAZINE INJ 10 MG/2 ML VIAL IV PUSH ONE (15:15)
--- NOTE | 2017-06-11 15:37 | RADRPT ---
EXAM DATE/TIME: 06/11/2017 15:15 [facility] COMPARISON: SHUNT SERIES, May 28, 2017, 10:45. INDICATIONS : Patient complains of headaches status post new shunt being placed in April. MEDICAL HISTORY : None. SURGICAL HISTORY : Shunt. ENCOUNTER: Initial ACUITY: 1 week PAIN SCORE: 6/10 LOCATION: cranial FINDINGS: Radiograph of the skull, neck, chest and abdomen performed to evaluate shunt patency. The shunt cath eter is seen entering the skull via a right parietal approach with its tip crossing midline in the r egion of the body of the left ventricular area.. The catheter is continuous in its course terminating in the midabdomen No catheter disruption is iden tified. The visualized heart, lungs and abdominal structures are intact. CONCLUSION: Intact shunt. No change compared to the prior examination. Philip Fletcher MD on June 11, 2017 at 15:32 Board Certified Radiologist. This report was verified electronically.
[2017-06-11] MEDS ORDERED: KETOROLAC TROMETHAMINE 30 MG/ML (IVP) VIAL IV PUSH ONE (16:00)
[2017-06-11] MEDS ORDERED: MORPHINE SULFATE 4 MG/ML INJ IV PUSH ONE (16:00)
[2017-06-11] MEDS ORDERED: diphenhydrAMINE HCL 50 MG/ML VIAL IV PUSH ONE (16:00)
[2017-06-11 16:18] LABS: BASOPHIL % 0.5 % (0.0-2.0); EOSINOPHIL # 0.1 TH/MM3 (0-0.4); EOSINOPHIL % 0.9 % (0.0-4.0); HEMATOCRIT 28.9 % (35.0-46.0); HEMOGLOBIN 9.6 GM/DL (11.6-15.3); LYMPH % 16.5 % (9.0-44.0); LYMPHOCYTE # 1.7 TH/MM3 (1.0-4.8); MEAN CELL VOLUME 73.6 FL (80.0-100.0); MEAN CORPUSCULAR HEMOGLOBIN 24.4 PG (27.0-34.0); MEAN CORPUSCULAR HGB CONC 33.2 % (32.0-36.0); MEAN PLATELET VOLUME 7.2 FL (7.0-11.0); MONO % 5.3 % (0.0-8.0); MONOCYTE # 0.5 TH/MM3 (0-0.9); NEUT % 76.8 % (16.0-70.0); PLATELET COUNT 410 TH/MM3 (150-450); RED BLOOD COUNT 3.92 MIL/MM3 (4.00-5.30); RED CELL DISTRIBUTION WIDTH 19.9 % (11.6-17.2); WHITE BLOOD COUNT 10.4 TH/MM3 (4.0-11.0)
--- NOTE | 2017-06-11 16:25 | PD ---
HPI Chief Complaint: Headache Time Seen by Provider: 15:01 Travel History International Travel<30 days: No Contact w/Intl Traveler<30days: No Traveled to known affect area: No History of Present Illness HPI Patient is a 37-year-old female who comes in complaining of headache. 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 She has been here a few times over the past month for this. She was was recently discharged June 03. She says she is having pain behind her eyes, pain that goes down her neck and into her left arm. She says her vision is blurry. All the symptoms are similar to when she was here previously. She denies fever or chills. She has been taking pain medicine and Topamax at home, without relief. She denies any falls or head injuries. PFSH Past Medical History Autoimmune Disease: No Blood Disorders: No Anxiety: No Depression: Yes Cancer: No Cardiovascular Problems: Yes (HTN) Chemotherapy: No Cerebrovascular Accident: Yes (NOT SURE) Diabetes: No Diminished Hearing: No Endocrine: No Gastrointestinal Disorders: No Genitourinary: No Headaches: Yes Hypertension: Yes Immune Disorder: No Implanted Vascular Access Dvce: Yes Musculoskeletal: No Neurologic: Yes (PSEUDO-TUMOR CEREBRAL) Psychiatric: No Reproductive: No Respiratory: No Migraines: Yes Radiation Therapy: No ?: Unknown : 2 Para: 2 Miscarriage: 0 : 0 Tubal Ligation: Yes Past Surgical History AICD: No Body Medical Devices: PERITONEAL SHUNT IN BACK Section: Yes (X1) Cholecystectomy: Yes Gynecologic Surgery: Yes () Neurologic Surgery: Yes (LUMBAR SHUNT 2009) Pacemaker: No Other Surgery: Yes (LUMBAR SHUNT 2009) Social History Alcohol Use: No Tobacco Use: No Substance Use: No Allergies-Medications (Allergen,Severity, Reaction): Coded Allergies: amoxicillin (Unverified Allergy, Mild, Hives, 05/28/17) Reported Meds & Prescriptions Reported Meds & Active Scripts Active Topamax (Topiramate) 25 Mg Tab 25 Mg PO Q12HR 30 Days Tramadol (Tramadol HCl) 50 Mg Tab 50 Mg PO Q6H PRN To be used if Tylenol and ibuprofen have not brought pain down to a 3 or less Amlodipine (Amlodipine Besylate) 10 Mg Tab 10 Mg PO DAILY Ondansetron Odt 4 Mg Tab 4 Mg SL Q8HR PRN Hydrochlorothiazide 25 Mg Tab 25 Mg PO DAILY Lisinopril 20 Mg Tab 20 Mg PO Q12HR Carvedilol 25 Mg Tab 25 Mg PO BID Hydralazine HCl 50 Mg Tablet 50 Mg PO Q8HR Ferosul (Ferrous Sulfate) 325 Mg (65 Mg Iron) Tablet 325 Mg PO BID Tylenol (Acetaminophen) 325 Mg Tab 650 Mg PO Q6H PRN Review of Systems Except as stated in HPI: all other systems reviewed are Neg General / Constitutional: No: Fever, Chills Eyes: Positive: Blurred Vision HENT: Positive: Headaches Cardiovascular: No: Chest Pain or Discomfort Respiratory: No: Shortness of Breath Gastrointestinal: Positive: Nausea, Vomiting, No: Abdominal Pain Musculoskeletal: No: Myalgias, Edema Skin: No Rash, No Change in Pigmentation Neurologic: No: Weakness, Dizziness Physical Exam Narrative GENERAL: Awake and alert, in no acute distress. SKIN: Focused skin assessment warm/dry. HEAD: Atraumatic. Normocephalic. EYES: Pupils equal and round and reactive. No scleral icterus. Extraocular movements intact. ENT: Mucous membranes pink and moist. NECK: Trachea midline. No JVD. CARDIOVASCULAR: Regular rate and rhythm. No murmur appreciated. RESPIRATORY: No accessory muscle use. Clear to auscultation. Breath sounds equal bilaterally. GASTROINTESTINAL: Abdomen soft, non-tender, nondistended. MUSCULOSKELETAL: No obvious deformities. No clubbing. No cyanosis. No edema. NEUROLOGICAL: Awake and alert. No obvious cranial nerve deficits. Motor grossly within normal limits. Normal speech. PSYCHIATRIC: Appropriate mood and affect; insight and judgment normal. Data Data Last Documented VS Vital Signs Date Time Temp Pulse Resp B/P (MAP) Pulse Ox O2 Delivery O2 Flow Rate FiO2 06/11/17 14:49 98.3 101 14 185/115 (138) 100 Orders Orders Iv Access Insert/Monitor (06/11/17 15:02) Complete Blood Count With Diff (06/11/17 15:02) Comprehensive Metabolic Panel (06/11/17 15:02) Ct Brain W/O Iv Contrast(Rout) (06/11/17 ) Ed Urine Pregnancytest Poc (06/11/17 15:02) Shunt Series (06/11/17 ) Prochlorperazine Inj (Compazine Inj) (12/15/17 15:15) Diphenhydramine Inj (Benadryl Inj) (06/11/17 16:00) Morphine Inj (Morphine Inj) (06/11/17 16:00) Ketorolac Inj (Toradol Inj) (06/11/17 16:00) Sumatriptan Succinate (Imitrex) (06/11/17 16:45) Potassium Chloride (Kcl) (06/11/17 17:30) Labs Laboratory Tests Test 06/11/17 16:00 White Blood Count 10.4 TH/MM3 Red Blood Count 3.92 MIL/MM3 Hemoglobin 9.6 GM/DL Hematocrit 28.9 % Mean Corpuscular Volume 73.6 FL Mean Corpuscular Hemoglobin 24.4 PG Mean Corpuscular Hemoglobin Concent 33.2 % Red Cell Distribution Width 19.9 % Platelet Count 410 TH/MM3 Mean Platelet Volume 7.2 FL Neutrophils (%) (Auto) 76.8 % Lymphocytes (%) (Auto) 16.5 % Monocytes (%) (Auto) 5.3 % Eosinophils (%) (Auto) 0.9 % Basophils (%) (Auto) 0.5 % Neutrophils # (Auto) 8.0 TH/MM3 Lymphocytes # (Auto) 1.7 TH/MM3 Monocytes # (Auto) 0.5 TH/MM3 Eosinophils # (Auto) 0.1 TH/MM3 Basophils # (Auto) 0.0 TH/MM3 CBC Comment DIFF FINAL Differential Comment Blood Urea Nitrogen 5 MG/DL Creatinine 0.87 MG/DL Random Glucose 103 MG/DL Total Protein 7.7 GM/DL Albumin 3.3 GM/DL Calcium Level 9.1 MG/DL Alkaline Phosphatase 91 U/L Aspartate Amino Transf (AST/SGOT) 14 U/L Alanine Aminotransferase (ALT/SGPT) 14 U/L Total Bilirubin 0.5 MG/DL Sodium Level 138 MEQ/L Potassium Level 3.0 MEQ/L Chloride Level 101 MEQ/L Carbon Dioxide Level 28.0 MEQ/L Anion Gap 9 MEQ/L Estimat Glomerular Filtration Rate 90 ML/MIN MDM Medical Decision Making Medical Screen Exam Complete: Yes Emergency Medical Condition: Yes Medical Record Reviewed: Yes Differential Diagnosis Shunt malfunction versus migraine versus tension headache Narrative Course Patient is a 37-year-old female comes in complaining of headache. She has been here multiple times for this, most recently she was discharged week ago. IV established, labs sent. Labs show no acute abnormalities other than a potassium of 3.0, which was replaced. Given Compazine, Benadryl, morphine. CT head and shunt series are within normal limits. I spoke with Dr. Luz who suggests Diamox and Imitrex. Patient is feeling better after medications. She will be discharged with prescriptions and advised follow-up with neurology. Advised to return to the ED as needed for any worsening symptoms. She and her mother are comfortable with this plan. Diagnosis Primary Impression: Cephalgia Qualified Codes: R51 - Headache Patient Instructions: Acute Headache (ED), General Instructions Additional Instructions: Take the Diamox twice a day and Imitrex for headaches. Follow-up with neurology. Return to the ED as needed for any worsening symptoms. Scripts Hydrocodone-Acetaminophen ([place]) 5 Mg-325 Mg Tab 1 TAB PO Q6H Y for PAIN, #12 TAB 0 Refills Prov: Marta Zarco MD 06/11/17 Acetazolamide ER 12 HR (Diamox Sequels ER 12 HR) 500 Mg Cap 250 MG PO Q12HR, #60 CAP 0 Refills Prov: Marta Zarco MD 06/11/17 Sumatriptan (Imitrex) 25 Mg Tab 25 MG PO ONCE Y for MIGRAINE HEADACHE, #15 TAB 0 Refills If a satisfactory response has not been obtained at 2 hours, a second dose may be administered Prov: Marta Zarco MD 06/11/17 Disposition: 01 DISCHARGE HOME Condition: Stable Marat Zarco MD Jun 11, 2017 16:25
[2017-06-11 16:37] LABS: ALBUMIN 3.3 GM/DL (3.4-5.0); AST (GOT) 14 U/L (15-37); BLOOD UREA NITROGEN 5 MG/DL (7-18); CALCIUM 9.1 MG/DL (8.5-10.1); CHLORIDE 101 MEQ/L (98-107); CREATININE 0.87 MG/DL (0.50-1.00); GLOMERULAR FILTRATION RATE 90 ML/MIN (>89); GLUCOSE,RANDOM 103 MG/DL (74-106); SODIUM (NA) 138 MEQ/L (136-145)
[2017-06-11 16:41] LABS: ALKALINE PHOSPHATASE 91 U/L (45-117); ALT (GPT) 14 U/L (10-53); TOTAL BILIRUBIN ADULT 0.5 MG/DL (0.2-1.0); TOTAL PROTEIN 7.7 GM/DL (6.4-8.2)
[2017-06-11] MEDS ORDERED: SUMAtriptan SUCCINATE 50 MG TAB PO ONE (16:45)
--- NOTE | 2017-06-11 16:48 | RADRPT ---
EXAM DATE/TIME: 06/11/2017 16:32 [facility] COMPARISON: CT BRAIN W/O CONTRAST, May 30, 2017, 0:03. INDICATIONS : Headache. RADIATION DOSE: 33.74 CTDIvol (mGy) MEDICAL HISTORY : Hypertension. Pseudotumor of the brain. SURGICAL HISTORY : Lumbar shunt ENCOUNTER: Initial ACUITY: 1 day PAIN SCALE: 6/10 LOCATION: cranial TECHNIQUE: Multiple contiguous axial images were obtained of the head. Using automated exposure control and adj ustment of the mA and/or kV according to patient size, radiation dose was kept as low as reasonably a chievable to obtain optimal diagnostic quality images. DICOM format image data is available electro nically for review and comparison. FINDINGS: CEREBRUM: The ventricles are normal for age. No evidence of midline shift, mass lesion, hemorrhage or acute in farction. No extra-axial fluid collections are seen. There continues to be a right ventricular marshall ter crossing midline over the left frontal horn and terminating in the left basal ganglia. This is un changed in position compared to the prior examination. POSTERIOR FOSSA: The cerebellum and brainstem are intact. The 4th ventricle is midline. The cerebellopontine angle i s unremarkable. EXTRACRANIAL: The visualized portion of the orbits is intact. SKULL: The calvaria is intact. No evidence of skull fracture. CONCLUSION: 1. Stable CT scan of the brain compared to the prior examination. 2. No acute intracranial pathology. 3. No change with the right ventricular catheter position with its tip terminating in the left basal ganglia. Philip Fletcher MD on June 11, 2017 at 16:44 Board Certified Radiologist. This report was verified electronically.
[2017-06-11] MEDS ORDERED: POTASSIUM CHLORIDE 10 MEQ CONTROLLED RELEASE TAB PO ONE (17:30)
[2017-06-11] MEDS ORDERED: IMIT25TA PO (17:49)
[2017-06-11] MEDS ORDERED: ACETA500 PO (17:49)
[2017-06-11] MEDS ORDERED: NORC5TAB PO (17:51)
== END 2017-06-11 18:44 | disposition home or self-care (01) ==
LOC: NEPE 14:48
DX: R51 Headache (principal); H53.8 Other visual disturbances; R11.2 Nausea with vomiting, unspecified; M54.2 Cervicalgia; M79.602 Pain in left arm; G93.2 Benign intracranial hypertension; I10 Essential (primary) hypertension; F32.9 Major depressive disorder, single episode, unspecified; Z98.2 Presence of cerebrospinal fluid drainage device
CPT/HCPCS: 70250; 70450; 71010; 72040; 74000; 80053; 84703; 85025; 96374; 96375; 99285; J0780; J1200; J1885; J2270

== ENCOUNTER 2017-06-30 16:21 | Inpatient (IN) | payer OTHER, MEDICAID ==
[~2017-06-30] VITALS: Ht 165.1 cm; Wt 91.8 kg
[~2017-06-30 16:21] MED LIST changes: +ACETA500 PO; +IMIT25TA PO; +NORC5TAB PO
[2017-06-30 16:23] VITALS: BP 201/113; PULSE 102; RESP 20; TEMP 99.5; O2SAT 96
[2017-06-30] MEDS ORDERED: SODIUM CHLOR 0.9% 1000 ML INJ 1,000 ML IV ONE (18:05)
[2017-06-30] MEDS ORDERED: diphenhydrAMINE HCL 50 MG/ML VIAL IVP ONE (18:15)
[2017-06-30] MEDS ORDERED: SODIUM CHLORIDE 0.9% FLUSH 10 ML FLUSH IVF PRN (18:15)
[2017-06-30] MEDS ORDERED: PROCHLORPERAZINE INJ 10 MG/2 ML VIAL IVP ONE (18:15)
[2017-06-30] MEDS ORDERED: ACETAMINOPHEN 1000 MG/100 ML 100 ML IV ONE (18:15)
[2017-06-30 18:29] VITALS: O2SAT 100
--- NOTE | 2017-06-30 18:30 | RADRPT ---
EXAM DATE/TIME: 06/30/2017 18:05 [facility] COMPARISON: CT BRAIN W/O CONTRAST, May 30, 2017, 0:03. INDICATIONS : Dizzines,vomiting paresthesisas from hands up arm,vision loss RADIATION DOSE: 56.35 CTDIvol (mGy) MEDICAL HISTORY : Cerebrovascular disease. Hypertension. SURGICAL HISTORY : Tubal ligation. Lumbar shunt ENCOUNTER: Initial ACUITY: 1 day PAIN SCALE: 10/10 LOCATION: cranial TECHNIQUE: Multiple contiguous axial images were obtained of the head. Using automated exposure control and adj ustment of the mA and/or kV according to patient size, radiation dose was kept as low as reasonably a chievable to obtain optimal diagnostic quality images. DICOM format image data is available electro nically for review and comparison. FINDINGS: There is no evidence for intracranial hemorrhage, mass effect, mass lesions, edema, or extra-axial fl uid collections. The visualized bony structures appear intact. The ventricles are normal size for t he patient's age. There are no signs of acute infarction for technique. Ventricular tube is again se en with tip in the left basal ganglia region not significantly changed. CONCLUSION: No appreciable change. Silvano Larios MD on June 30, 2017 at 18:27 Board Certified Radiologist. This report was verified electronically.
[2017-06-30 18:47] LABS: AUTOMATED NEUTROPHIL # 6.5 TH/MM3 (1.8-7.7); BASOPHIL # 0.1 TH/MM3 (0-0.2); EOSINOPHIL # 0.2 TH/MM3 (0-0.4); EOSINOPHIL % 2.2 % (0.0-4.0); HEMATOCRIT 27.1 % (35.0-46.0); HEMOGLOBIN 8.9 GM/DL (11.6-15.3); LYMPH % 26.3 % (9.0-44.0); LYMPHOCYTE # 2.6 TH/MM3 (1.0-4.8); MEAN CELL VOLUME 75.1 FL (80.0-100.0); MEAN CORPUSCULAR HEMOGLOBIN 24.6 PG (27.0-34.0); MEAN CORPUSCULAR HGB CONC 32.8 % (32.0-36.0); MEAN PLATELET VOLUME 7.1 FL (7.0-11.0); MONO % 5.2 % (0.0-8.0); MONOCYTE # 0.5 TH/MM3 (0-0.9); NEUT % 65.3 % (16.0-70.0); PLATELET COUNT 432 TH/MM3 (150-450); RED BLOOD COUNT 3.61 MIL/MM3 (4.00-5.30); RED CELL DISTRIBUTION WIDTH 18.7 % (11.6-17.2); WHITE BLOOD COUNT 9.9 TH/MM3 (4.0-11.0)
[2017-06-30 19:06] LABS: ALKALINE PHOSPHATASE 79 U/L (45-117); ALT (GPT) 11 U/L (10-53); TOTAL BILIRUBIN ADULT 0.3 MG/DL (0.2-1.0); TOTAL PROTEIN 7.3 GM/DL (6.4-8.2)
[2017-06-30 19:07] VITALS: BP 190/107; PULSE 90; RESP 18; TEMP 98.2; O2SAT 99
[2017-06-30 19:07] LABS: AST (GOT) 18 U/L (15-37); BICARBONATE 28.1 MEQ/L (21.0-32.0); BLOOD UREA NITROGEN 6 MG/DL (7-18); CALCIUM 8.7 MG/DL (8.5-10.1); CHLORIDE 103 MEQ/L (98-107); CREATININE 0.91 MG/DL (0.50-1.00); GLOMERULAR FILTRATION RATE 85 ML/MIN (>89); GLUCOSE,RANDOM 104 MG/DL (74-106); MAGNESIUM 1.7 MG/DL (1.5-2.5); SODIUM (NA) 140 MEQ/L (136-145)
--- NOTE | 2017-06-30 19:26 | PD ---
HPI Chief Complaint: Headache Time Seen by Provider: 17:43 Travel History International Travel<30 days: No Contact w/Intl Traveler<30days: No Traveled to known affect area: No History of Present Illness HPI 37-year-old presents emergent from complaining of ongoing headache, left-sided numbness and tingling in her arms and fingertips, pain in her head, worsening vision, vomiting, ongoing for the past week or so. She is a history of pseudotumor. She had an LP shunt revised to a CREDIT HISTORIAN shunt in April 28 of this [address] by Dr. Dumont. She's had worsening symptoms ongoing since then. She seen her decal cutter in the retina specialist who said they think that her vision symptoms are from worsening pressure in her head. She also is due to see another specialist for what sounds like optic nerve edema. She is taking other medicines including diarrhetic. 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 History Past Medical History Tetanus Vaccination: > 5 Years Influenza Vaccination: No : 2 Para: 2 Social History Alcohol Use: No Tobacco Use: No Allergies-Medications (Allergen,Severity, Reaction): Coded Allergies: amoxicillin (Unverified Allergy, Mild, Hives, 05/28/17) Reported Meds & Prescriptions Reported Meds & Active Scripts Active Diamox Sequels ER 12 HR (Acetazolamide) 500 Mg Cap 250 Mg PO Q12HR Imitrex (Sumatriptan Succinate) 25 Mg Tab 25 Mg PO ONCE PRN If a satisfactory response has not been obtained at 2 hours, a second dose may be administered Topamax (Topiramate) 25 Mg Tab 25 Mg PO Q12HR 30 Days Tramadol (Tramadol HCl) 50 Mg Tab 50 Mg PO Q6H PRN To be used if Tylenol and ibuprofen have not brought pain down to a 3 or less Amlodipine (Amlodipine Besylate) 10 Mg Tab 10 Mg PO DAILY Ondansetron Odt 4 Mg Tab 4 Mg SL Q8HR PRN Hydrochlorothiazide 25 Mg Tab 25 Mg PO DAILY Lisinopril 20 Mg Tab 20 Mg PO Q12HR Carvedilol 25 Mg Tab 25 Mg PO BID Hydralazine HCl 50 Mg Tablet 50 Mg PO Q8HR Ferosul (Ferrous Sulfate) 325 Mg (65 Mg Iron) Tablet 325 Mg PO BID Tylenol (Acetaminophen) 325 Mg Tab 650 Mg PO Q6H PRN Review of Systems Except as stated in HPI: all other systems reviewed are Neg Physical Exam Narrative GENERAL: 37-year-old woman, appears uncomfortable. SKIN: Focused skin assessment warm/dry. HEAD: Atraumatic. Normocephalic. EYES: Pupils equal and round. No scleral icterus. No injection or drainage. A fair pupillary defect bilaterally. She is no light perception in the right eye. Finger counting at 3-4 feet out of the left eye. Optic nerve edema on funduscopic exam on the right eye. ENT: No nasal bleeding or discharge. Mucous membranes pink and moist. NECK: Trachea midline. No JVD. CARDIOVASCULAR: Regular rate and rhythm. No murmur appreciated. RESPIRATORY: No accessory muscle use. Clear to auscultation. Breath sounds equal bilaterally. GASTROINTESTINAL: Abdomen soft, non-tender, nondistended. Hepatic and splenic margins not palpable. MUSCULOSKELETAL: No obvious deformities. No edema. NEUROLOGICAL: Awake and alert. No obvious cranial nerve deficits. Motor grossly within normal limits. Normal speech. PSYCHIATRIC: Appropriate mood and affect; insight and judgment normal. Data Data Last Documented VS Vital Signs Date Time Temp Pulse Resp B/P (MAP) Pulse Ox O2 Delivery O2 Flow Rate FiO2 06/30/17 19:07 98.2 90 18 190/107 (134) 99 Room Air Orders Orders Complete Blood Count With Diff (06/30/17 18:02) Comprehensive Metabolic Panel (06/30/17 18:02) Magnesium (Mg) (06/30/17 18:02) Iv Access Insert/Monitor (06/30/17 18:02) Ct Brain W/O Iv Contrast(Rout) (06/30/17 ) Shunt Series (06/30/17 ) Shuntogram (06/30/17 ) Consult Neurosurgery (06/30/17 ) Ecg Monitoring (06/30/17 18:05) Oximetry (06/30/17 18:05) Sodium Chloride 0.9% Flush (Ns Flush) (06/30/17 18:15) Prochlorperazine Inj (Compazine Inj) (06/30/17 18:15) Diphenhydramine Inj (Benadryl Inj) (06/30/17 18:15) Sodium Chlor 0.9% 1000 Ml Inj (Ns 1000 M (06/30/17 18:05) Acetaminophen 1000 Mg/100 Ml (Ofirmev 10 (06/30/17 18:15) Beta Hcg (Quant/Titer) (06/30/17 18:10) Labs Laboratory Tests Test 06/30/17 18:10 White Blood Count 9.9 TH/MM3 Red Blood Count 3.61 MIL/MM3 Hemoglobin 8.9 GM/DL Hematocrit 27.1 % Mean Corpuscular Volume 75.1 FL Mean Corpuscular Hemoglobin 24.6 PG Mean Corpuscular Hemoglobin Concent 32.8 % Red Cell Distribution Width 18.7 % Platelet Count 432 TH/MM3 Mean Platelet Volume 7.1 FL Neutrophils (%) (Auto) 65.3 % Lymphocytes (%) (Auto) 26.3 % Monocytes (%) (Auto) 5.2 % Eosinophils (%) (Auto) 2.2 % Basophils (%) (Auto) 1.0 % Neutrophils # (Auto) 6.5 TH/MM3 Lymphocytes # (Auto) 2.6 TH/MM3 Monocytes # (Auto) 0.5 TH/MM3 Eosinophils # (Auto) 0.2 TH/MM3 Basophils # (Auto) 0.1 TH/MM3 CBC Comment DIFF FINAL Differential Comment Blood Urea Nitrogen 6 MG/DL Creatinine 0.91 MG/DL Random Glucose 104 MG/DL Total Protein 7.3 GM/DL Albumin 3.0 GM/DL Calcium Level 8.7 MG/DL Magnesium Level 1.7 MG/DL Alkaline Phosphatase 79 U/L Aspartate Amino Transf (AST/SGOT) 18 U/L Alanine Aminotransferase (ALT/SGPT) 11 U/L Total Bilirubin 0.3 MG/DL Sodium Level 140 MEQ/L Potassium Level 3.5 MEQ/L Chloride Level 103 MEQ/L Carbon Dioxide Level 28.1 MEQ/L Anion Gap 9 MEQ/L Estimat Glomerular Filtration Rate 85 ML/MIN [facility] Medical Decision Making Medical Screen Exam Complete: Yes Emergency Medical Condition: Yes Differential Diagnosis Worsening intracranial hypertension, pseudotumor, optic nerve edema, headache, migraines, other Narrative Course Medical decision making 30 50 worsening headache, vomiting, visual symptoms, suggestive of worsening intracranial pressure. Spoke with Dr. Dumont, with neurosurgery. Recommends admission, shuntogram study. Also spoke with Dr. Gray, with the [facility] family practice program. Will admit patient. Diagnosis Primary Impression: Pseudotumor cerebri Admitting Information Admitting Physician Requests: Observation Alessandro Lynne MD Jun 30, 2017 19:26
[2017-06-30 19:56] VITALS: BP 177/98; PULSE 75; RESP 18; O2SAT 100
--- NOTE | 2017-06-30 20:01 | RADRPT ---
EXAM DATE/TIME: 06/30/2017 18:26 [facility] COMPARISON: SHUNT SERIES, June 11, 2017, 15:15. SHUNT SERIES, April 27, 2017, 11:37. INDICATIONS : Dizziness, headaches, vomiting for 2 weeks MEDICAL HISTORY : Cerebrovascular disease. Hypertension SURGICAL HISTORY : Tubal ligation. Lumbar shunt ENCOUNTER: Initial ACUITY: 2 weeks PAIN SCORE: 10/10 LOCATION: Cranial FINDINGS: Ventricular shunt is present distal tip coiled overlapping the L1 vertebrae and not changed. There is a separate line which enters the right abdominal area with distal tip overlapping T9 vertebrae proba tram within the intrathecal sac at this site. Neither of these tubings demonstrated break within them. CONCLUSION: There appears to be 2 separate shunts as above both of them appear intact without a d efinite break. Silvano Larios MD on June 30, 2017 at 19:55 Board Certified Radiologist. This report was verified electronically.
--- NOTE | 2017-06-30 20:04 | HHI.HP ---
[facility] Service Family Medicine Primary Care Physician Olivier Sullivan MD Admission Diagnosis headache, shunt malfunction Diagnoses: International Travel<30 Days: No Contact w/Intl Traveler<30days: No Known Affected Area: No History of Present Illness Ms. Landis is a 37 yo F with PMH of Pseudotumor cerebri, HTN, cephalgia, and suspected L arm cubital tunnel syndrome who presents with headache, orbital pressure, and left arm tingling and numbness. Patient reports ~1 days history of headache and pressure behind her eyes. 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 Patient can now see shadows with her L eye but cannot see much otherwise. Patient describes her headache as different than her chronic headache that she has had previously. Patient reports having her L arm tingling and numbness for ~1 week; this is predominately on her lateral aspect of upper extremity and was associated with L 4th and 5th digits. Patient also reports increased left thigh and left arm weakness and tenderness for ~1 week. Patient otherwise reports that she is doing well; she does not have respiratory concerns, urinary complaints, or abnormal bowel movements. Patient reports stress due to her mood but that she feels her mood is stable. Patient reviewed her recent medical history regarding her visual impairment and pseudotumor cerebri: patient reports last seeing Dr. Dumont in 05/2017. 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 Patient reports having seen an Photographer Portrait 05/2017; patient was given glasses at that time but these glasses did not improve her left eye visual acuity [per history by ED providers, patient with retinal pathology 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 pseudotumor; patient referred to retinal specialist]. Patient has had stable pain control since arriving in ED. No respiratory concerns, no urinary problems. Normal bowel movements. Patient reports stable mood but she has been more stressed. Patient feels that her pain is under control right now. Interval History: CT head obtained in ED; without change. ED physician spoke with Neurosurgery; admission and shuntogram study recommended. Shuntogram showed 2 separate shunts. Patient given Compazine and Benadryl in ED which improved headache. Review of Systems Constitutional: DENIES: Fever, Chills Eyes: COMPLAINS OF: Blurred vision, Vision loss Respiratory: DENIES: Cough, Shortness of breath Cardiovascular: DENIES: Chest pain, Lower Extremity Edema Gastrointestinal: DENIES: Abdominal pain, Diarrhea Musculoskeletal: DENIES: Joint pain, Muscle aches, Back pain Integumentary: DENIES: Abnormal pigmentation, Rash Hematologic/lymphatic: DENIES: Bruising, Lymphadenopathy Neurologic: COMPLAINS OF: Headache, DENIES: Abnormal gait Psychiatric: DENIES: Anxiety, Confusion Past Family Social History Past Medical History per EMR Hypertension Pseudotumor cerebri retinal pathology- 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 pseudotumor cerebri Past Surgical History Per EMR Bilateral tubal ligation Cholecystectomy LP shunt placement (distant past) 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) Reported Medications Reported Meds & Active Scripts Active Diamox Sequels ER 12 HR (Acetazolamide) 500 Mg Cap 250 Mg PO Q12HR Imitrex (Sumatriptan Succinate) 25 Mg Tab 25 Mg PO ONCE PRN If a satisfactory response has not been obtained at 2 hours, a second dose may be administered Topamax (Topiramate) 25 Mg Tab 25 Mg PO Q12HR 30 Days xxx doesnt take xxx Tramadol (Tramadol HCl) 50 Mg Tab 50 Mg PO Q6H PRN To be used if Tylenol and ibuprofen have not brought pain down to a 3 or less Amlodipine (Amlodipine Besylate) 10 Mg Tab 10 Mg PO DAILY Ondansetron Odt 4 Mg Tab 4 Mg SL Q8HR PRN Hydrochlorothiazide 25 Mg Tab 25 Mg PO DAILY Lisinopril 20 Mg Tab 20 Mg PO Q12HR Carvedilol 25 Mg Tab 25 Mg PO BID Hydralazine HCl 50 Mg Tablet 50 Mg PO Q8HR Ferosul (Ferrous Sulfate) 325 Mg (65 Mg Iron) Tablet 325 Mg PO BID Tylenol (Acetaminophen) 325 Mg Tab 650 Mg PO Q6H PRN Allergies: Coded Allergies: amoxicillin (Unverified Allergy, Mild, Hives, 05/28/17) Family History Per mother- T2DM, HTN, CVA in family Social History Per EMR No tobacco, alcohol, or illicit drugs Patient lives with and gets support from family (mother, siblings) Physical Exam Vital Signs Vital Signs Date Time Temp Pulse Resp B/P (MAP) Pulse Ox O2 Delivery O2 Flow Rate FiO2 06/30/17 19:07 98.2 90 18 190/107 (134) 99 Room Air 06/30/17 18:29 100 Room Air 06/30/17 17:40 100 18 100 Room Air 06/30/17 16:23 99.5 102 20 201/113 (142) 96 Room Air Physical Exam GENERAL: Patient appears comfortable, in no acute distress. SKIN: Warm and dry, no rashes appreciated EYES: No scleral icterus, injection, or drainage. Pupillary diameter normal; pupillary light reflex seemed intact on left. Funduscopy not attempted HENT: Head: Normocephalic. Mouth: No lesions appreciated. Pharynx: Benign exam without erythema or exudate. NECK: No appreciated lymphadenopathy or thyromegaly CARDIOVASCULAR: Regular rate and rhythm without murmurs. Normal peripheral perfusion in lower extremities. RESPIRATORY: Normal respiratory rate. Lungs clear to auscultation bilaterally. GASTROINTESTINAL: Abdomen soft, nondistended, nontender. Bowel sounds normal. MUSCULOSKELETAL: No lower extremity swelling. No appreciated calf asymmetry. NEURO/PSYCH: Awake, alert, and oriented. Cranial nerves grossly normal. Grossly normal motor and sensory function; sensation altered (numbness/tingling ) in left upper extremity but still present. Laboratory Laboratory Tests Test 06/30/17 18:10 White Blood Count 9.9 Red Blood Count 3.61 Hemoglobin 8.9 Hematocrit 27.1 Mean Corpuscular Volume 75.1 Mean Corpuscular Hemoglobin 24.6 Mean Corpuscular Hemoglobin Concent 32.8 Red Cell Distribution Width 18.7 Platelet Count 432 Mean Platelet Volume 7.1 Neutrophils (%) (Auto) 65.3 Lymphocytes (%) (Auto) 26.3 Monocytes (%) (Auto) 5.2 Eosinophils (%) (Auto) 2.2 Basophils (%) (Auto) 1.0 Neutrophils # (Auto) 6.5 Lymphocytes # (Auto) 2.6 Monocytes # (Auto) 0.5 Eosinophils # (Auto) 0.2 Basophils # (Auto) 0.1 CBC Comment DIFF FINAL Differential Comment Blood Urea Nitrogen 6 Creatinine 0.91 Random Glucose 104 Total Protein 7.3 Albumin 3.0 Calcium Level 8.7 Magnesium Level 1.7 Alkaline Phosphatase 79 Aspartate Amino Transf (AST/SGOT) 18 Alanine Aminotransferase (ALT/SGPT) 11 Total Bilirubin 0.3 Sodium Level 140 Potassium Level 3.5 Chloride Level 103 Carbon Dioxide Level 28.1 Anion Gap 9 Estimat Glomerular Filtration Rate 85 Human Chorionic Gonadotropin, Quant LESS THAN 1 Result Diagram: 06/30/17180906/30/171809 Imaging Last Impressions Shunt Study (Imaging) 06/30/17 0000 Signed Impressions: Service Date/Time: Friday, June 30, 2017 18:26 - CONCLUSION: There appears to be 2 separate shunts as above both of them appear intact without a definite break. Silvano Larios MD Head CT 06/30/17 0000 Signed Impressions: Service Date/Time: Friday, June 30, 2017 18:05 - CONCLUSION: No appreciable change. MD Taylor Yuan VTE Risk Assessment Caprini VTE Risk Assessment: No/Low Risk (score <= 1) Caprini Risk Assessment Model Point Value = 1 Point Value = 2 Point Value = 3 Point Value = 5 Age 41-60 Minor surgery BMI > 25 kg/m2 Swollen legs Varicose veins or History of unexplained or recurrent spontaneous Oral contraceptives or hormone replacement Sepsis (< 1 month) Serious lung disease, including pneumonia (< 1 month) Abnormal pulmonary function Acute myocardial infarction Congestive heart failure (< 1 month) History of inflammatory bowel disease Medical patient at bed rest Age 61-74 Arthroscopic surgery Major open surgery (> 45 min) Laparoscopic surgery (> 45 min) Malignancy Confined to bed (> 72 hours) Immobilizing plaster cast Central venous access Age >= 75 History of VTE Family history of VTE Factor V Leiden Prothrombin [id number] Lupus anticoagulant Anticardiolipin antibodies Elevated serum homocysteine Heparin-induced thrombocytopenia Other congenital or acquired thrombophilia Stroke (< 1 month) Elective arthroplasty Hip, pelvis, or leg fracture Acute spinal cord injury (< 1 month) Prophylaxis Regimen Total Risk Factor Score Risk Level Prophylaxis Regimen 0-1 Low Early ambulation 2 Moderate Order ONE of the following: *Sequential Compression Device (SCD) *Heparin 5000 units SQ BID 3-4 Higher Order ONE of the following medications: *Heparin 5000 units SQ TID *Enoxaparin/Lovenox 40 mg SQ daily (WT < 150 kg, CrCl > 30 mL/min) *Enoxaparin/Lovenox 30 mg SQ daily (WT < 150 kg, CrCl > 10-29 mL/min) *Enoxaparin/Lovenox 30 mg SQ BID (WT < 150 kg, CrCl > 30 mL/min) AND/OR *Sequential Compression Device (SCD) 5 or more Highest Order ONE of the following medications: *Heparin 5000 units SQ TID (Preferred with Epidurals) *Enoxaparin/Lovenox 40 mg SQ daily (WT < 150 kg, CrCl > 30 mL/min) *Enoxaparin/Lovenox 30 mg SQ daily (WT < 150 kg, CrCl > 10-29 mL/min) *Enoxaparin/Lovenox 30 mg SQ BID (WT < 150 kg, CrCl > 30 mL/min) AND *Sequential Compression Device (SCD) Assessment and Plan Assessment and Plan Ms. 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 Patient subsequently developed worsening headaches; LP performed 05/31/2017 showing LP opening pressure of 60+cm H20. Shunt readjusted 06/01/2017 to 40mm H20. CSF cultures were reportedly negative for infection.] 06/30/2016- Shuntogram showed 2 separate shunts. MRV 06/02/2017- bilateral transverse sinus stenosis MRI 06/02- no acute pathology -Dr. Dumont consulted after discussion between ED and Dr. Dumont' office -Continue Acetazolamide 250mg BID (2) Cephalgia ICD Codes: R51 - Headache Status: Chronic Plan: -Continue Topamax 25mg BID per Neurology -Can consider uptitrating -Sumatriptan as needed for headache -Will plan to discontinue due to coexistent hypertension -Tramadol 50mg q6hrs for breakthrough pain Impression: Worsening headache recently; improved with Compazine 10mg, IV Tylenol, and Benadryl 25 mg IV in ED (3) HTN (hypertension) ICD Codes: I10 - Essential (primary) hypertension Status: Chronic Plan: Impression: Patient with HTN; seemingly refractory to >4 agents. Per discussion with patient and EMR, no knowledge of renal fibromuscular dysplasia -Continue home antihypertensives -Hydralazine 50mg q8hrs -Carvedilol 25mg BID -Amlodipine 10mg daily -Lisinopril 20mg BID -HCTZ 25mg daily -Consider eval for renal arteries/fibromuscular dysplasia (4) Cubital tunnel syndrome on left ICD Codes: G56.22 - Lesion of ulnar nerve, left upper limb Status: Chronic Plan: Impression: Prior presumptive diagnosis per Neurology; explains patient' s LUE symptoms of pain, numbness, and tingling. No loss of sensation on exam; normal strength -Follow-up with Neurology as an outpatient -Will try Gabapentin for pain (5) Blindness ICD Codes: H54.7 - Unspecified visual loss Status: Acute Plan: Impression: Chronic R eye blindness with recent worsening of vision in L eye. Per ED documentation, patient scheduled to see retinal specialist. Patient reportedly prescribed glasses recently which did not help -Consider Ophthalmology consult based on Neurosurgical recommendation? (6) DVT Prophylaxis Status: Acute Plan: -Bilateral SCD's (7) Fluids, Electrolytes, and Nutrition Status: Acute Plan: Fluids: will defer at this time Electrolytes: metabolic panel wnl on admission Nutrition: regular diet as tolerated Physician Certification 2 Midnight Certification Type: Admission for Inpatient Services Order for Inpatient Services The services are ordered in accordance with Medicare regulations or non- Medicare payer requirements, as applicable. In the case of services not specified as inpatient-only, they are appropriately provided as inpatient services in accordance with the 2-midnight benchmark. Estimated LOS (days): 3 days is the estimated time the patient will need to remain in the hospital, assuming treatment plan goals are met and no additional complications. Post-Hospital Plan: Home Problem Qualifiers (1) Cephalgia: Qualified Codes: R51 - Headache (2) HTN (hypertension): Qualified Codes: I10 - Essential (primary) hypertension Jose Chandra MD, R3 Jun 30, 2017 20:04
[2017-06-30] MEDS ORDERED: BISACODYL 10 MG SUPP RECTAL PRN (20:15)
[2017-06-30] MEDS ORDERED: LACTULOSE SYRUP 20 GM/30 ML CUP PO PRN (20:15)
[2017-06-30] MEDS ORDERED: SODIUM CHLORIDE 0.9% FLUSH 10 ML FLUSH IV FLUSH PRN (20:15)
[2017-06-30] MEDS ORDERED: NALOXONE HCL 0.4 MG/ML AMP IV PUSH PRN (20:15)
[2017-06-30] MEDS ORDERED: SENNOSIDES 8.6 MG TAB PO PRN (20:15)
[2017-06-30] MEDS ORDERED: MAGNESIUM HYDROXIDE SUSP 30 ML CUP PO PRN (20:15)
[2017-06-30] MEDS: DOCUSATE SODIUM 50 MG/SENNA 8.6 MG TAB PO SCH (21:00)
[2017-06-30] MEDS: SODIUM CHLORIDE 0.9% FLUSH 10 ML FLUSH IV FLUSH SCH (21:00)
[2017-06-30 23:11] VITALS: BP 180/108; PULSE 99; RESP 18; TEMP 97.5; O2SAT 98
[2017-07-01] MEDS: acetaZOLAMIDE 250 MG TAB PO SCH ×3 (00:30→21:56)
[2017-07-01] MEDS ORDERED: GABAPENTIN 300 MG CAP PO ONE (00:30)
[2017-07-01] MEDS ORDERED: SUMAtriptan SUCCINATE 25 MG TAB PO PRN (00:30)
[2017-07-01] MEDS ORDERED: ONDANSETRON ODT 4 MG TAB SL PRN (00:30)
[2017-07-01] MEDS ORDERED: traMADol HCL 50 MG TAB PO PRN (00:30)
[2017-07-01] MEDS ORDERED: ACETAMINOPHEN 325 MG TAB PO PRN ×2 (00:30→03:15)
[2017-07-01] MEDS: CARVEDILOL 12.5 MG TAB PO SCH ×3 (02:03→21:57)
[2017-07-01] MEDS: hydrALAZINE HCL 50 MG TAB PO SCH ×3 (02:03→15:36)
[2017-07-01] MEDS: TOPIRAMATE 25 MG TAB PO SCH ×3 (02:03→21:57)
[2017-07-01 03:20] VITALS: BP 156/85; PULSE 97; RESP 18; TEMP 98.6; O2SAT 96
[2017-07-01 07:15] VITALS: BP 171/100; PULSE 97; RESP 18; TEMP 98.2; O2SAT 98
[2017-07-01 07:21] LABS: AUTOMATED NEUTROPHIL # 5.3 TH/MM3 (1.8-7.7); BASOPHIL % 0.5 % (0.0-2.0); EOSINOPHIL # 0.2 TH/MM3 (0-0.4); EOSINOPHIL % 2.5 % (0.0-4.0); HEMATOCRIT 24.6 % (35.0-46.0); HEMOGLOBIN 8.2 GM/DL (11.6-15.3); LYMPH % 25.3 % (9.0-44.0); MEAN CELL VOLUME 74.7 FL (80.0-100.0); MEAN CORPUSCULAR HEMOGLOBIN 24.9 PG (27.0-34.0); MEAN CORPUSCULAR HGB CONC 33.3 % (32.0-36.0); MEAN PLATELET VOLUME 6.9 FL (7.0-11.0); MONO % 4.6 % (0.0-8.0); MONOCYTE # 0.4 TH/MM3 (0-0.9); NEUT % 67.1 % (16.0-70.0); PLATELET COUNT 382 TH/MM3 (150-450); RED CELL DISTRIBUTION WIDTH 18.6 % (11.6-17.2); WHITE BLOOD COUNT 7.9 TH/MM3 (4.0-11.0)
[2017-07-01] MEDS: LISINOPRIL 20 MG TAB PO SCH ×2 (07:41→21:57)
[2017-07-01] MEDS: HYDROCHLOROTHIAZIDE 25 MG TAB PO SCH (07:41)
[2017-07-01] MEDS: GABAPENTIN 300 MG CAP PO SCH (07:42)
[2017-07-01] MEDS: DOCUSATE SODIUM 50 MG/SENNA 8.6 MG TAB PO SCH ×2 (07:44→21:00)
[2017-07-01] MEDS: FERROUS SULFATE 325 MG (65 MG ELEMENTAL IRON) TAB PO SCH ×2 (07:44→21:00)
[2017-07-01] MEDS: SODIUM CHLORIDE 0.9% FLUSH 10 ML FLUSH IV FLUSH SCH ×2 (07:44→21:57)
[2017-07-01 07:52] LABS: CALCIUM 8.3 MG/DL (8.5-10.1); CREATININE 0.71 MG/DL (0.50-1.00)
[2017-07-01 08:18] VITALS: BP_SYST 162; BP_SYST 191; BP_DIAS 74; BP_DIAS 86; PULSE 78; RESP 22; TEMP 97.3; O2SAT 96
[2017-07-01] MEDS: ACETAMINOPHEN 325 MG TAB PO SCH ×3 (09:40→18:45)
[2017-07-01] MEDS ORDERED: POTASSIUM CHLORIDE 10 MEQ CONTROLLED RELEASE TAB PO ONE (11:00)
[2017-07-01 11:36] VITALS: BP 155/97; PULSE 87; RESP 18; TEMP 97.6; O2SAT 97
[2017-07-01 12:24] LABS: PROTHROMBIN TIME - PATIENT 10.6 SEC (9.8-11.6)
--- NOTE | 2017-07-01 12:43 | PD.CONS ---
[facility] Service Neurosurgery Consult Requested By Dr Lynne Reason for Consult Speuidotumor cerebri Primary Care Physician Olivier Sullivan MD History of Present Illness Ms. Landis is a 37 yo F with history of Pseudotumor cerebri, HTN, chronic headaches and suspected left cubital tunnel syndrome, who presents with headache , orbital pressure, and left arm tingling and numbness. She reports 1 days history of headache and pressure behind her eyes. 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 She can see only shadows with her L eye but cannot see much more. Patient describes her headache as different than her chronic headaches that she has had previously. Lesion, she is reports left arm tingling and numbness for ~ 1 week; this is predominately on her lateral aspect of upper extremity and was associated with numbness in her left 4th and 5th digits. She also reports increased left thigh and left arm weakness and tenderness for ~1 week. She has chronic visual impairment and pseudotumor cerebri: patient reports last seeing in 05/2017. She had BATHROOM TILING PROFESSIONAL shunt placed 04/2017 which resolved her prior back aches. Patient reports having seen an Physical Aerodynamicist on 05/2017 and she was given glasses at that time. The glasses did not improve her left eye visual acuity She has been referred to retinal specialist and I have recommended evaluation at the [facility] for a possible optic nerve fenestration No respiratory concerns, no urinary problems. Normal bowel movements. CT head obtained in ED ; without changes. Shunt studies showed 2 separate shunts. She was given Compazine and Benadryl in ED which improved headaches. Neurosurgical consultation was requested Review of Systems Constitutional: DENIES: Fever, Chills Eyes: COMPLAINS OF: Blurred vision, Vision loss Respiratory: DENIES: Cough, Shortness of breath Cardiovascular: DENIES: Chest pain, Lower Extremity Edema Gastrointestinal: DENIES: Abdominal pain, Diarrhea Musculoskeletal: DENIES: Joint pain, Muscle aches, Back pain Integumentary: DENIES: Abnormal pigmentation, Rash Hematologic/lymphatic: DENIES: Bruising, Lymphadenopathy Neurologic: COMPLAINS OF: Headache, DENIES: Abnormal gait Psychiatric: DENIES: Anxiety, Confusion Past Family Social History Allergies: Coded Allergies: amoxicillin (Unverified Allergy, Mild, Hives, 05/28/17) Past Medical History Hypertension Pseudotumor cerebri retinal pathology- 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 pseudotumor cerebri Past Surgical History Bilateral tubal ligation Cholecystectomy LP shunt placement (distant past) BATHROOM TILING PROFESSIONAL shunt placement (04/2017) Reported Medications Diamox Sequels ER 12 HR (Acetazolamide) 500 Mg Cap 250 Mg PO Q12HR Imitrex (Sumatriptan Succinate) 25 Mg Tab 25 Mg PO ONCE PRN If a satisfactory response has not been obtained at 2 hours, a second dose may be administered Topamax (Topiramate) 25 Mg Tab 25 Mg PO Q12HR 30 Days xxx doesnt take xxx Tramadol (Tramadol HCl) 50 Mg Tab 50 Mg PO Q6H PRN To be used if Tylenol and ibuprofen have not brought pain down to a 3 or less Amlodipine (Amlodipine Besylate) 10 Mg Tab 10 Mg PO DAILY Ondansetron Odt 4 Mg Tab 4 Mg SL Q8HR PRN Hydrochlorothiazide 25 Mg Tab 25 Mg PO DAILY Lisinopril 20 Mg Tab 20 Mg PO Q12HR Carvedilol 25 Mg Tab 25 Mg PO BID Hydralazine HCl 50 Mg Tablet 50 Mg PO Q8HR Ferosul (Ferrous Sulfate) 325 Mg (65 Mg Iron) Tablet 325 Mg PO BID Tylenol (Acetaminophen) 325 Mg Tab 650 Mg PO Q6H PRN Active Ordered Medications Current Medications Sodium Chloride (NS Flush) 2 ml UNSCH PRN IVF FLUSH AFTER USING IV ACCESS Last administered on 06/30/17at 18:42; Start 06/30/17 at 18:15; Stop 06/30/17 at 20:30; Status DC Prochlorperazine Edisylate (Compazine Inj) 10 mg ONCE ONCE IVP Last administered on 06/30/17at 18:42; Start 06/30/17 at 18:15; Stop 06/30/17 at 18:16; Status DC Diphenhydramine HCl (Benadryl Inj) 25 mg ONCE ONCE IVP Last administered on 06/30/17at 18:42; Start 06/30/17 at 18:15; Stop 06/30/17 at 18:16; Status DC Sodium Chloride 1,000 ml @ 1,000 mls/hr Q1H ONCE IV Last administered on at 18:41; Start 06/30/17 at 18:05; Stop 06/30/17 at 19:04; Status DC Acetaminophen 100 ml @ 400 mls/hr ONCE ONCE IV Last administered on 06/30/17at 19:09; Start 06/30/17 at 18:15; Stop 07/01/17 at 08:40; Status DC Sodium Chloride (NS Flush) 2 ml UNSCH PRN IV FLUSH FLUSH AFTER USING IV ACCESS ; Start 06/30/17 at 20:15 Sodium Chloride (NS Flush) 2 ml BID IV FLUSH Last administered on 07/01/17at 07: 44; Start 06/30/17 at 21:00 Naloxone HCl (Narcan Inj) 0.4 mg UNSCH PRN IV PUSH SEE LABEL COMMENTS; Start at 20:15 Senna/Docusate Sodium (Mary-Colace) 1 tab BID PO Last administered on 06/30/17at 21:00; Start 06/30/17 at 21:00 Magnesium Hydroxide (Milk Of Magnesia Liq) 30 ml Q12H PRN PO Mild constipation ; Start 06/30/17 at 20:15 Sennosides (Senokot) 17.2 mg Q12H PRN PO Moderate constipation; Start 06/30/17 at 20:15 Bisacodyl (Dulcolax Supp) 10 mg DAILY PRN RECTAL SEVERE CONSITIPATION; Start at 20:15 Lactulose (Lactulose Liq) 30 ml DAILY PRN PO SEVERE CONSITIPATION; Start at 20:15 Acetaminophen (Tylenol) 650 mg Q6H PRN PO PAIN SCALE 1 TO 4; Start 07/01/17 at 00:30; Stop 07/01/17 at 08:40; Status DC Acetazolamide (Diamox) 250 mg Q12HR PO Last administered on 07/01/17at 07:39; Start 07/01/17 at 00:30 Amlodipine Besylate (Norvasc) 10 mg DAILY PO Last administered on 07/01/17at 07: 41; Start 07/01/17 at 09:00 Carvedilol (Coreg) 25 mg BID PO Last administered on 07/01/17at 07:40; Start 07/01 at 00:30 Ferrous Sulfate (Ferrous Sulfate) 325 mg BID PO ; Start 07/01/17 at 09:00 Hydralazine HCl (Apresoline) 50 mg Q8HR PO Last administered on 07/01/17at 06:00 ; Start 07/01/17 at 00:30 Hydrochlorothiazide (Hydrodiuril) 25 mg DAILY PO Last administered on 07/01/17at 07:41; Start 07/01/17 at 09:00 Lisinopril (Prinivil) 20 mg Q12HR PO Last administered on 07/01/17at 07:41; Start 07/01/17 at 09:00 Ondansetron HCl (Zofran Odt) 4 mg Q8HR PRN SL Nausea/Vomiting; Start 07/01/17 at 00:30; Stop 07/01/17 at 08:40; Status DC Sumatriptan Succinate (Imitrex) 25 mg ONCE PRN PO MIGRAINE HEADACHE; Start 07/01 at 00:30; Stop 07/01/17 at 03:17; Status DC Topiramate (Topamax) 25 mg Q12HR PO Last administered on 07/01/17at 07:42; Start 07/01/17 at 00:30 Tramadol HCl (Ultram) 50 mg Q6H PRN PO BREAKTHROUGH PAIN Last administered on at 06:21; Start 07/01/17 at 00:30 Gabapentin (Neurontin) 300 mg ONCE ONCE PO Last administered on 07/01/17at 02:03 ; Start 07/01/17 at 00:30; Stop 07/01/17 at 00:35; Status DC Acetaminophen (Tylenol) 650 mg Q6HR PRN PO PAIN 1-10 AND/OR FEVER >101F; Start 07/01/17 at 03:15; Stop 07/01/17 at 08:40; Status DC Gabapentin (Neurontin) 300 mg DAILY PO Last administered on 07/01/17at 07:42; Start 07/01/17 at 09:00 Morphine Sulfate (Morphine Inj) 2 mg Q4H PRN IV PUSH PAIN SCALE 6 TO 10; Start 07/01/17 at 08:45 Acetaminophen (Tylenol) 650 mg Q6HR PO ; Start 07/01/17 at 08:45 Ondansetron HCl (Zofran Inj) 4 mg Q6HR PRN IV PUSH NAUSEA; Start 07/01/17 at 08: 45 Oxycodone HCl (Roxicodone) 5 mg Q4H PRN PO PAIN SCALE 1 TO 5 Last administered on 07/01/17at 09:41; Start 07/01/17 at 08:45 Potassium Chloride (KCl) 40 meq ONCE ONCE PO Last administered on 07/01/17at 11: 01; Start 07/01/17 at 11:00; Stop 07/01/17 at 11:01; Status DC Family History Family history was reviewed. History ofDM, HTN, CVA in family Social History No tobacco, alcohol, or illicit drugs She lives with and gets support from family Physical Exam Vital Signs Vital Signs Date Time Temp Pulse Resp B/P (MAP) Pulse Ox O2 Delivery O2 Flow Rate FiO2 07/01/17 11:36 97.6 87 18 155/97 (116) 97 07/01/17 08:18 97.3 78 22 191/86 (121) 96 162/74 (103) 07/01/17 07:15 98.2 97 18 171/100 (123) 98 07/01/17 03:20 98.6 97 18 156/85 (108) 96 06/30/17 23:11 97.5 99 18 180/108 (132) 98 06/30/17 19:56 75 18 177/98 (124) 100 Room Air 06/30/17 19:07 98.2 90 18 190/107 (134) 99 Room Air 06/30/17 18:29 100 Room Air 06/30/17 17:40 100 18 100 Room Air 06/30/17 16:23 99.5 102 20 201/113 (142) 96 Room Air Physical Exam The patient is alert, awake and oriented to time, place and person. Speech is fluent. Higher cognitive functions are normal. Cranial nerve examination demonstrates the pupils to be equal, round, and reactive to light. Extra-ocular movements are intact. Vision is decreased, concentric visual field loss but able to see me difficulty with reading, left gaze nystagmus. Can see shadows in left eye. Possible papiledema. Facial motor and sensory function are normal and symmetrical. Gross hearing is intact, bilaterally. The uvula is midline and elevates symmetrically with the soft palate. Sternocleidomastoid and trapezius muscles have normal and symmetrical strength. Other cranial nerves are intact. Neck is soft and supple. Cervical spine has a full range of motion in anterior flexion, extension, lateral bending, and rotation without pain. There is no tenderness to palpation to the spinous processes or paraspinal muscles. Muscle testing reveals normal bulk and tone overall without rigidity, spasticity , fasciculations, or atrophy. Muscle strength is 5/5 in all muscle groups of both upper extremities including deltoid, biceps, triceps, brachioradialis, wrist extension and oiler and greaser. In the lower extremities, strength is 5/5 in both iliopsoas, quadriceps, hamstrings, plantar flexion, dorsiflexion, and extensor hallicus longus. Sensory examination is intact to light touch and sharp/dull discrimination in both the upper and lower extremities, symmetrically. Deep tendon reflexes are 2+ and symmetrical in the biceps, triceps, and brachioradialis, bilaterally, in the upper extremities. In the lower extremities , the patellar and Achilles are 2+, bilaterally. There is a bilateral plantar flexion response. Hoffmanns sign is negative. There is no clonus or other abnormal reflexes noted. Cerebellar examination is intact to [id number] test, rapid rhythmic alternating motion. There is no dysmetria, dysdiadochokinesia, truncal ataxia, or tremor. Laboratory Laboratory Tests Test 06/30/17 18:10 07/01/17 06:29 07/01/17 11:49 White Blood Count 9.9 7.9 Red Blood Count 3.61 3.30 Hemoglobin 8.9 8.2 Hematocrit 27.1 24.6 Mean Corpuscular Volume 75.1 74.7 Mean Corpuscular Hemoglobin 24.6 24.9 Mean Corpuscular Hemoglobin Concent 32.8 33.3 Red Cell Distribution Width 18.7 18.6 Platelet Count 432 382 Mean Platelet Volume 7.1 6.9 Neutrophils (%) (Auto) 65.3 67.1 Lymphocytes (%) (Auto) 26.3 25.3 Monocytes (%) (Auto) 5.2 4.6 Eosinophils (%) (Auto) 2.2 2.5 Basophils (%) (Auto) 1.0 0.5 Neutrophils # (Auto) 6.5 5.3 Lymphocytes # (Auto) 2.6 2.0 Monocytes # (Auto) 0.5 0.4 Eosinophils # (Auto) 0.2 0.2 Basophils # (Auto) 0.1 0.0 CBC Comment DIFF FINAL DIFF FINAL Differential Comment Blood Urea Nitrogen 6 4 Creatinine 0.91 0.71 Random Glucose 104 96 Total Protein 7.3 Albumin 3.0 Calcium Level 8.7 8.3 Magnesium Level 1.7 Alkaline Phosphatase 79 Aspartate Amino Transf (AST/SGOT) 18 Alanine Aminotransferase (ALT/SGPT) 11 Total Bilirubin 0.3 Sodium Level 140 143 Potassium Level 3.5 3.1 Chloride Level 103 107 Carbon Dioxide Level 28.1 29.0 Anion Gap 9 7 Estimat Glomerular Filtration Rate 85 113 Human Chorionic Gonadotropin, Quant LESS THAN 1 Prothrombin Time 10.6 Prothromb Time International Ratio 1.0 Activated Partial Thromboplast Time 24.9 Result Diagram: 07/01/17 0629 07/01/17 0629 Imaging Last 48 hours Impressions Shunt Study (Imaging) 06/30/17 0000 Signed Impressions: Service Date/Time: Friday, June 30, 2017 18:26 - CONCLUSION: There appears to be 2 separate shunts as above both of them appear intact without a definite break. Silvano Larios MD Head CT 06/30/17 0000 Signed Impressions: Service Date/Time: Friday, June 30, 2017 18:05 - CONCLUSION: No appreciable change. Silvano Larios MD Assessment and Plan Assessment and Plan Assessment and Plan Assessment and Plan Caprini VTE Risk Assessment Caprini VTE Risk Assessment Caprini VTE Risk Assessment: No/Low Risk (score <= 1) Caprini Risk Assessment Model Point Value = 1 Point Value = 2 Point Value = 3 Point Value = 5 Age 41-60 Minor surgery BMI > 25 kg/m2 Swollen legs Varicose veins or History of unexplained or recurrent spontaneous Oral contraceptives or hormone replacement Sepsis (< 1 month) Serious lung disease, including pneumonia (< 1 month) Abnormal pulmonary function Acute myocardial infarction Congestive heart failure (< 1 month) History of inflammatory bowel disease Medical patient at bed rest Age 61-74 Arthroscopic surgery Major open surgery (> 45 min) Laparoscopic surgery (> 45 min) Malignancy Confined to bed (> 72 hours) Immobilizing plaster cast Central venous access Age >= 75 History of VTE Family history of VTE Factor V Leiden Prothrombin [id number] Lupus anticoagulant Anticardiolipin antibodies Elevated serum homocysteine Heparin-induced thrombocytopenia Other congenital or acquired thrombophilia Stroke (< 1 month) Elective arthroplasty Hip, pelvis, or leg fracture Acute spinal cord injury (< 1 month) Prophylaxis Regimen Total Risk Factor Score Risk Level Prophylaxis Regimen 0-1 Low Early ambulation 2 Moderate Order ONE of the following: *Sequential Compression Device (SCD) *Heparin 5000 units SQ BID 3-4 Higher Order ONE of the following medications: *Heparin 5000 units SQ TID *Enoxaparin/Lovenox 40 mg SQ daily (WT < 150 kg, CrCl > 30 mL/min) *Enoxaparin/Lovenox 30 mg SQ daily (WT < 150 kg, CrCl > 10-29 mL/min) *Enoxaparin/Lovenox 30 mg SQ BID (WT < 150 kg, CrCl > 30 mL/min) AND/OR *Sequential Compression Device (SCD) 5 or more Highest Order ONE of the following medications: *Heparin 5000 units SQ TID (Preferred with Epidurals) *Enoxaparin/Lovenox 40 mg SQ daily (WT < 150 kg, CrCl > 30 mL/min) *Enoxaparin/Lovenox 30 mg SQ daily (WT < 150 kg, CrCl > 10-29 mL/min) *Enoxaparin/Lovenox 30 mg SQ BID (WT < 150 kg, CrCl > 30 mL/min) AND *Sequential Compression Device (SCD) Attending Statement Pseudotumor cerebri ICD Codes: G93.2 - Benign intracranial hypertension Recomined to obtain shunt series and LP for opening pressure assessment and for symptomatic relief. by draining CSF If her shunt is functional rehabilitation just to affect a lower setting. If her shunt is not patent recommend revision of the ventriculoperitoneal shunt NPO after midnight I don't think a shunt will be a permanent solution. She has been referred to the [facility] in the past for evaluation for an optic nerve fenestration If her shunt is not working will proceed with placement of a ventriculoperitoneal shunt. We have discussed the details including the step-by- step details of the surgical procedure, its indications, alternatives, risks, and potential complications. Risks and potential complications include, but are not limited to, infection, blood loss, CSF leak, partial or complete loss of sight in one or both eyes, paresis, paralysis, permanent pain or difficulty swallowing, loss of bowel or bladder function, complications from anesthesia, blood clot, stroke, myocardial infarction, or even . - Morphine 4 mg IV q4h prn pain - Zofran as needed for nausea - Continue carbonic anhydrase inhibitors for resolution of acute symptoms unless symptoms are adequately controlled with repair of LP shunt HTN (hypertension) ICD Codes: I10 - Essential (primary) hypertension Status: Chronic Plan: Continue labetalol 10 mg IV prn BP > 180/100 Cubital tunnel syndrome on left ICD Codes: G56.22 - Lesion of ulnar nerve, left upper limb Status: Chronic Plan: Impression: Prior presumptive diagnosis per Neurology; explains patient' s LUE symptoms of pain, numbness, and tingling. No loss of sensation on exam; normal strength Follow-up with Neurology as an outpatient. She is stablioshed with dr rubia Cazares for pain Consult hand surgeon Protonix for prophylaxis of stress ulcer MATA hose and sequential compression devices for deep venous thrombosis prophylaxis Shreyas Dumont MD Jul 01, 2017 12:43
--- NOTE | 2017-07-01 15:12 | PD.RAD ---
Post Procedure Progress Note Pre Procedure Diagnosis: (1) Cephalgia (2) Pseudotumor cerebri Post Procedure Diagnosis: (1) Pseudotumor cerebri (2) Cephalgia Procedure Date: Jul 01, 2017 Supervising Radiologist: Adrián Kahn Anesthesia: Local Plan of Activity Patient to Unit: Other Patient Condition: Fair Additional Comments: LP completed. CSF clear. Opening pressure was greater than [id number]. Shunt accessed with a 25ga needle. No immediate fluid return. shunt aspirated with a 1cc syringe. Small amount of yellow tinged fluid returned. This was sent for Gram stain, culture and sensitivity, afb, fungal Results called to Dr. Dumont See PACS Report for procedural detail/treatment Adrián Kahn MD Jul 01, 2017 15:12
[2017-07-01 15:30] VITALS: BP 139/86; PULSE 90; RESP 18; TEMP 98; O2SAT 97
--- NOTE | 2017-07-01 15:50 | RADRPT ---
EXAM DATE/TIME: 07/01/2017 14:48 [facility] COMPARISON: LUMBAR PUNCTURE W/OPENING PRESSURES, May 31, 2017, 11:16. INDICATIONS : Patient presents with headache, orbital pressure and left arm tingling and numbness. 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 FLUID: 33 cc of clear CSF was collected and sent to the laboratory for analysis. PROCEDURE : 1. Fluoroscopic guided lumbar puncture. 2. Recording of opening pressure. The risks, benefits and alternatives to the procedure were explained and verbal and written consent w as obtained. The site was prepped in sterile fashion. Full sterile technique was used, including ca p, mask, sterile gloves and gown and a large sterile sheet. Hand hygiene and 2% chlorhexidine and/or betadine/alcohol prep was utilized per protocol for cutaneous antisepsis. The skin and subcutaneous tissues were infiltrated with local anesthetic solution. With fluoroscopic guidance the lumbar thecal sac was punctured at a L3/L4 level and the opening press ure was recorded. The above described fluid was removed without difficulty. The patient tolerated the procedure well and there were no complications. CONCLUSION: 1. Opening pressure was greater than 65 CM H2O. 2. Closing pressure was approximately 5 CM H2O. 3. 33 cc of clear CSF was obtained. Adrián Kahn MD on July 01, 2017 at 15:46 Board Certified Radiologist. This report was verified electronically.
--- NOTE | 2017-07-01 15:52 | RADRPT ---
EXAM DATE/TIME: 07/01/2017 14:48 [facility] COMPARISON: LUMBAR PUNCTURE W/OPENING PRESSURES, May 31, 2017, 11:16. INDICATIONS : Patient presents with headache, orbital pressure, and left arm tingling. 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 Fluoroscopically guided shuntogram. The risks, benefits and alternatives to the procedure were explained and verbal and written consent w as obtained. The site was prepped in sterile fashion. Full sterile technique was used, including ca p, mask, sterile gloves and gown and a large sterile sheet. Hand hygiene and 2% chlorhexidine and/or betadine/alcohol prep was utilized per protocol for cutaneous antisepsis. The skin and subcutaneous tissues were infiltrated with local anesthetic solution. With fluoroscopic guidance the previously placed shunt was accessed with a 25 gauge needle. Despite f luoroscopic imaging demonstrating direct access into the shunt no return of CSF was obtained. The don nt was gently aspirated with a 1 cc syringe. There was return of approximately 0.2 cc of yellow tinge d fluid. This fluid was sent for Gram stain culture and sensitivity. No contrast was administered int o the shunt. CONCLUSION: 1. Initial placement of the needle within the shunt yielded approximately 0.2 cc of yellow fluid. Thi s was sent to the lab for Gram stain, culture and sensitivity. Adrián Kahn MD on July 01, 2017 at 15:48 Board Certified Radiologist. This report was verified electronically.
--- NOTE | 2017-07-01 16:13 | HHI.FPPN ---
Subjective Remarks Sitting up in bed, has headaches this morning. Feels pressure behind her eyes. Has been nauseous, vomited twice. No abdominal pain. No chest pain or shortness of breath. Has numbness and tingling going down her left arm that is chronic. Also has chronic left sided neck pain. No acute neck stiffness present. 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 She states she is seeing shadows out of her left eye only. (Olivier aRmires MD R3) Objective Vitals Vital Signs Date Time Temp Pulse Resp B/P (MAP) Pulse Ox O2 Delivery O2 Flow Rate FiO2 07/01/17 15:30 98.0 90 18 139/86 (103) 97 07/01/17 11:36 97.6 87 18 155/97 (116) 97 07/01/17 08:18 97.3 78 22 191/86 (121) 96 162/74 (103) 07/01/17 07:15 98.2 97 18 171/100 (123) 98 07/01/17 03:20 98.6 97 18 156/85 (108) 96 06/30/17 23:11 97.5 99 18 180/108 (132) 98 06/30/17 19:56 75 18 177/98 (124) 100 Room Air 06/30/17 19:07 98.2 90 18 190/107 (134) 99 Room Air 06/30/17 18:29 100 Room Air 06/30/17 17:40 100 18 100 Room Air 06/30/17 16:23 99.5 102 20 201/113 (142) 96 Room Air I/O 06/30/17 06/30/17 06/30/17 07/01/17 07/01/17 07/01/17 07:00 15:00 23:00 07:00 15:00 23:00 Intake Total 1100 ml Balance 1100 ml Intake IV Total 1100 ml (Olivier Ramires MD R3) Result Diagram: 07/01/17 0629 07/01/17 0629 Imaging Last 72 hours Impressions Shunt Study 07/01/17 0000 Signed Impressions: Service Date/Time: June 14:48 - CONCLUSION: 1. Initial placement of the needle within the shunt yielded approximately 0.2 cc of yellow fluid. This was sent to the lab for Gram stain, culture and sensitivity. Adrián Kahn MD Lumbar Puncture Fluoroscopy 07/01/17 0000 Signed Impressions: Service Date/Time: June 14:48 - CONCLUSION: 1. Opening pressure was greater than 65 CM H2O. 2. Closing pressure was approximately 5 CM H2O. 3. 33 cc of clear CSF was obtained. Adrián Kahn MD Shunt Study (Imaging) 06/30/17 0000 Signed Impressions: Service Date/Time: Friday, June 30, 2017 18:26 - CONCLUSION: There appears to be 2 separate shunts as above both of them appear intact without a definite break. Silvano Larios MD Head CT 06/30/17 0000 Signed Impressions: Service Date/Time: Friday, June 30, 2017 18:05 - CONCLUSION: No appreciable change. Silvano Larios MD Objective Remarks GENERAL: Sitting up in bed, no acute distress SKIN: No rashes or lesions HEENT: Normocephalic, no conjunctivitis, no nasal discharge Neck: No thyromegaly or lymphadenopathy CV: RRR, no murmurs, rubs, or gallops, normal cap refill and pulses. Lungs: CTAB Abdomen: Soft, nontender, nondistended, normal bowel sounds Ext: No swelling or pain Neuro: Awake, alert, PERRLA, EOMI, CN intact, poor visual acuity, normal strength and sensation in bilateral upper extremities, reports numbness going down to left hand that is chronic. (Olivier Ramires MD R3) A/P Assessment and Plan Ms. Landis is a 37 yo F with pseudotumor cerebri and WOMEN'S LACROSSE COACH shunt with increasing headache and visual loss. Discharge Planning Pending assessment of shunt and follow up on CSF studies, recommendations from neurosurgery. Will need to follow up with neurosurgery and ophthalmology closely as an outpatient. (Olivier Ramires MD R3) Attending Attestation THIS CASE WAS DISCUSSED WITH THE RESIDENT PHYSICIAN Dr Edwardo Ramires, Patient seen and examined. I HAVE REVIEWED THE RECORD AND AGREE WITH THE ABOVE NOTE AND PLAN OF CARE WAS DISCUSSED. I HAVE AUTHORIZED THE ORDER SET (Vicente Araujo MD) Problem List: (1) Pseudotumor cerebri ICD Codes: G93.2 - Benign intracranial hypertension Status: Chronic Plan: [Per EMR review, patient underwent WOMEN'S LACROSSE COACH shunt placement 04/28/2017 due to nonfunctioning prior LP shunt from distant past. Patient subsequently developed worsening headaches; LP performed 05/31/2017 showing LP opening pressure of 60+ cm H20. Shunt readjusted 06/01/2017 to 40mm H20. CSF cultures were reportedly negative for infection.] 06/30/2016- Shuntogram showed 2 separate shunts. MRV 06/02/2017- bilateral transverse sinus stenosis MRI 06/02- no acute pathology LP completed on 07/01/17: opening pressure greater than 65 cmH20. - Neurosurgery on board, Dr. Dumont aware of patient. - Follow up shunt series and LP for opening pressure, gram stain and culture. - Neurosurgery may lower pressure setting for her WOMEN'S LACROSSE COACH shunt for further relief of symptoms. - Neurosurgery may revise the shunt if it is not patent. - She will be NPO after midnight for WOMEN'S LACROSSE COACH shunt assessment. - She has been referred to the [facility] for possible optic nerve fenestration which she can follow up on. - She will need to be followed by ophthalmology as an outpatient. - Continue pain management with morphine 4 mg IV q4hrs PRN and Ibuprofen scheduled. - Continue Acetazolamide 250mg BID, may be able to discontinue if shunt proves effective for symptom relief. - Ondansetron for nausea/vomiting - Follow up CSF studies. (2) Blindness ICD Codes: H54.7 - Unspecified visual loss Status: Acute Plan: Chronic R eye blindness with recent worsening of vision in L eye. Per ED documentation, patient scheduled to see retinal specialist. Patient reportedly prescribed glasses recently which did not help. Likely secondary to pseudotumor cerebri. Recent MRI was normal. - Will need to follow up with ophthalmology as an outpatient. - Has referral to [place] for possible optic nerve fenestration. - See plan for pseudotumor cerebri. - Precautions for visually impaired - Recommended outpatient center that provides resources for the visually impaired. (3) Cephalgia ICD Codes: R51 - Headache Status: Acute Plan: Worsening headache recently, likely due to increased intracranial pressure. - Continue Topamax 25mg BID per Neurology - Continue oxycodone 5 mg for pain 1-5, morphine 2 mg for pain 6-10, increase as needed - Continue scheduled Tylenol q6hrs (4) HTN (hypertension) ICD Codes: I10 - Essential (primary) hypertension Status: Chronic Plan: Patient with HTN; seemingly refractory to >4 agents. Per discussion with patient and EMR, no knowledge of renal fibromuscular dysplasia -Continue home antihypertensives -Hydralazine 50mg q8hrs -Carvedilol 25mg BID -Amlodipine 10mg daily -Lisinopril 20mg BID -HCTZ 25mg daily -Consider evaluation for renal arteries/fibromuscular dysplasia (5) Cubital tunnel syndrome on left ICD Codes: G56.22 - Lesion of ulnar nerve, left upper limb Status: Chronic Plan: Prior presumptive diagnosis per Neurology; explains patient's LUE symptoms of pain, numbness, and tingling. No loss of sensation on exam; normal strength -Follow-up with Neurology as an outpatient -Will try Gabapentin 300 mg tid for pain - Could consider MRI of the neck if pain not resolving. (6) DVT Prophylaxis Status: Acute Plan: -Bilateral SCD's (7) Fluids, Electrolytes, and Nutrition Status: Acute Plan: Fluids: PO fluids Electrolytes: Monitor Nutrition: regular diet as tolerated (Olivier Ramires MD R3) Problem Qualifiers (1) Cephalgia: Qualified Codes: R51 - Headache (2) HTN (hypertension): Qualified Codes: I10 - Essential (primary) hypertension Olivier Ramires MD R3 Jul 01, 2017 16:13 Vicente Araujo MD Jul 02, 2017 15:25
[2017-07-01 17:19] LABS: SUPERNATE COLOR TUBE #1 CLEAR (CLEAR)
[2017-07-01 17:20] LABS: CSF LYMPHOCYTES 0 %; CSF NEUTROPHILS 0 %; RBC TUBE #4 5 /MM3; WBC TUBE #4 0 /MM3 (0-10)
[2017-07-01 18:18] LABS: RETIC # 76.9 MIL/L (20.0-150.0); RETIC % 2.1 % (0.4-3.0)
[2017-07-01 18:38] LABS: % SATURATION IRON PROFILE 7.7 % (20-50); IRON (FE) 28 MCG/DL (50-170); LDH SERUM 138 U/L (84-246); TOTAL IRON BINDING CAPACITY 365 MCG/DL (250-450)
[2017-07-01 18:40] LABS: FERRITIN 10 NG/ML (8-252)
[2017-07-01 20:56] VITALS: BP 119/75; PULSE 97; RESP 18; TEMP 98.3; O2SAT 96
[2017-07-01] MEDS: MORPHINE SULFATE 2 MG/ML INJ IV PUSH PRN (22:07)
[2017-07-02 00:11] VITALS: BP 112/65; PULSE 101; RESP 18; TEMP 97.7; O2SAT 96
[2017-07-02] MEDS: hydrALAZINE HCL 50 MG TAB PO SCH ×4 (00:18→21:36)
[2017-07-02] MEDS: ACETAMINOPHEN 325 MG TAB PO SCH ×3 (00:18→13:41)
[2017-07-02 04:57] VITALS: BP 126/73; PULSE 98; RESP 18; TEMP 98; O2SAT 95
[2017-07-02] MEDS: MORPHINE SULFATE 2 MG/ML INJ IV PUSH PRN ×2 (05:25→23:06)
[2017-07-02 07:06] LABS: HEMATOCRIT 25.5 % (35.0-46.0); HEMOGLOBIN 8.5 GM/DL (11.6-15.3); MEAN CELL VOLUME 74.7 FL (80.0-100.0); MEAN CORPUSCULAR HGB CONC 33.4 % (32.0-36.0); MEAN PLATELET VOLUME 7.1 FL (7.0-11.0); PLATELET COUNT 410 TH/MM3 (150-450); RED BLOOD COUNT 3.41 MIL/MM3 (4.00-5.30); RED CELL DISTRIBUTION WIDTH 18.9 % (11.6-17.2); WHITE BLOOD COUNT 9.2 TH/MM3 (4.0-11.0)
[2017-07-02 07:25] LABS: BICARBONATE 25.2 MEQ/L (21.0-32.0); CALCIUM 8.5 MG/DL (8.5-10.1); CREATININE 1.06 MG/DL (0.50-1.00)
[2017-07-02 08:20] VITALS: BP 135/70; PULSE 103; RESP 20; TEMP 98.2; O2SAT 98
[2017-07-02] MEDS: DOCUSATE SODIUM 50 MG/SENNA 8.6 MG TAB PO SCH ×2 (09:00→21:37)
[2017-07-02] MEDS: FERROUS SULFATE 325 MG (65 MG ELEMENTAL IRON) TAB PO SCH ×2 (09:00→21:37)
[2017-07-02] MEDS: SODIUM CHLORIDE 0.9% FLUSH 10 ML FLUSH IV FLUSH SCH ×2 (09:06→21:00)
[2017-07-02] MEDS: GABAPENTIN 300 MG CAP PO SCH (09:06)
[2017-07-02] MEDS: acetaZOLAMIDE 250 MG TAB PO SCH ×2 (09:06→22:44)
[2017-07-02] MEDS: HYDROCHLOROTHIAZIDE 25 MG TAB PO SCH (09:08)
[2017-07-02] MEDS: LISINOPRIL 20 MG TAB PO SCH ×2 (09:09→21:37)
[2017-07-02] MEDS: TOPIRAMATE 25 MG TAB PO SCH ×2 (09:09→22:44)
[2017-07-02] MEDS: CARVEDILOL 12.5 MG TAB PO SCH ×2 (09:11→21:37)
[2017-07-02] MEDS ORDERED: SODIUM CHLOR 0.9% 1000 ML INJ 1,000 ML IV SCH (10:30)
[2017-07-02] MEDS ORDERED: POTASSIUM CHLORIDE 20 MEQ CONTROLLED RELEASE TAB PO ONE (10:45)
--- NOTE | 2017-07-02 11:42 | HHI.FPPN ---
Subjective Remarks No acute events overnight. Mother and sister in the room this morning. Continues to have headaches and nausea, but improved with Zofran and pain medication. Visual changes are the same as yesterday. No chest pain or shortness of breath. No abdominal pain, vomiting, or diarrhea. No calf tenderness or swelling. No neurological deficits besides the visual changes. (Olivier Ramires MD R3) Objective Vitals Vital Signs Date Time Temp Pulse Resp B/P (MAP) Pulse Ox O2 Delivery O2 Flow Rate FiO2 07/02/17 08:20 98.2 103 20 135/70 (91) 98 07/02/17 05:48 18 07/02/17 05:48 18 07/02/17 04:57 98.0 98 18 126/73 (90) 95 07/02/17 00:11 97.7 101 18 112/65 (81) 96 07/01/17 20:56 98.3 97 18 119/75 (90) 96 07/01/17 16:38 18 07/01/17 15:30 98.0 90 18 139/86 (103) 97 (Olivier Ramires MD R3) Result Diagram: 07/02/17 0553 07/02/17 0553 Objective Remarks GENERAL: Sitting up in bed, no acute distress SKIN: No rashes or lesions HEENT: Normocephalic, no conjunctivitis, no nasal discharge Neck: No thyromegaly or lymphadenopathy CV: RRR, no murmurs, rubs, or gallops, normal cap refill and pulses. Lungs: CTAB Abdomen: Soft, nontender, nondistended, normal bowel sounds Ext: No swelling or pain Neuro: Awake, alert (Olivier Ramires MD R3) A/P Assessment and Plan Ms. 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 Discharge Planning Pending assessment of shunt and follow up on CSF studies, recommendations from neurosurgery. Will need to follow up with neurosurgery and ophthalmology closely as an outpatient. (Olivier Ramires MD R3) Attending Attestation THIS CASE WAS DISCUSSED WITH THE RESIDENT PHYSICIAN Dr Edwardo Ramires, Patient seen and examined. I HAVE REVIEWED THE RECORD AND AGREE WITH THE ABOVE NOTE AND PLAN OF CARE WAS DISCUSSED. I HAVE AUTHORIZED THE ORDER SET (Vicente Araujo MD) Problem List: (1) Pseudotumor cerebri ICD Codes: G93.2 - Benign intracranial hypertension Status: Chronic Plan: [Per EMR review, patient underwent LIFE SKILLS COACH shunt placement 04/28/2017 due to nonfunctioning prior LP shunt from distant past. Patient subsequently developed worsening headaches; LP performed 05/31/2017 showing LP opening pressure of 60+ cm H20. Shunt readjusted 06/01/2017 to 40mm H20. CSF cultures were reportedly negative for infection.] 06/30/2016- Shuntogram showed 2 separate shunts. MRV 06/02/2017- bilateral transverse sinus stenosis MRI 06/02- no acute pathology LP completed on 07/01/17: opening pressure greater than 65 cmH20. CSF studies reassuring. - Neurosurgery on board, Dr. Dumont aware of patient. - Neurosurgery may lower pressure setting for her LIFE SKILLS COACH shunt for further relief of symptoms. - Neurosurgery may revise the shunt if it is not patent. - She has been referred to the [facility] for possible optic nerve fenestration which she can follow up on. - She will need to be followed by ophthalmology as an outpatient. - Continue Acetazolamide 250mg BID, may be able to discontinue if shunt proves effective for symptom relief. - Ondansetron for nausea/vomiting (2) Blindness ICD Codes: H54.7 - Unspecified visual loss Status: Acute Plan: Chronic R eye blindness with recent worsening of vision in L eye. Per ED documentation, patient scheduled to see retinal specialist. Patient reportedly prescribed glasses recently which did not help. Likely secondary to pseudotumor cerebri. Recent MRI was normal. - Will need to follow up with ophthalmology as an outpatient. - Has referral to [place] for possible optic nerve fenestration. - See plan for pseudotumor cerebri. - Precautions for visually impaired - Recommended outpatient center that provides resources for the visually impaired. (3) Cephalgia ICD Codes: R51 - Headache Status: Acute Plan: Worsening headache recently, likely due to increased intracranial pressure. - Continue Topamax 25mg BID per Neurology - Continue oxycodone 5 mg for pain 1-5, morphine 2 mg for pain 6-10, increase as needed - Continue scheduled Tylenol q6hrs (4) HTN (hypertension) ICD Codes: I10 - Essential (primary) hypertension Status: Chronic Plan: Patient with HTN; seemingly refractory to >4 agents. Per discussion with patient and EMR, no knowledge of renal fibromuscular dysplasia -Continue home antihypertensives -Hydralazine 50mg q8hrs -Carvedilol 25mg BID -Amlodipine 10mg daily -Lisinopril 20mg BID -HCTZ 25mg daily -Consider evaluation for renal arteries/fibromuscular dysplasia as an outpatient (5) Cubital tunnel syndrome on left ICD Codes: G56.22 - Lesion of ulnar nerve, left upper limb Status: Chronic Plan: Prior presumptive diagnosis per Neurology; explains patient's LUE symptoms of pain, numbness, and tingling. No loss of sensation on exam; normal strength -Follow-up with Neurology as an outpatient -Will try Gabapentin 300 mg tid for pain - Could consider MRI of the neck if pain not resolving. (6) DVT Prophylaxis Status: Acute Plan: -Bilateral SCD's -Hold on any anticoagulants due to LP (7) Fluids, Electrolytes, and Nutrition Status: Acute Plan: Fluids: PO fluids after procedure, IVF with normal saline at maintenance before then Electrolytes: Monitor Nutrition: NPO until after shunt procedure, then can resume regular diet (Olivier Ramires MD R3) Problem Qualifiers (1) Cephalgia: Qualified Codes: R51 - Headache (2) HTN (hypertension): Qualified Codes: I10 - Essential (primary) hypertension Olivier Ramires MD R3 Jul 02, 2017 11:42 Vicente Araujo MD Jul 02, 2017 15:33
[2017-07-02] MEDS ORDERED: ROCURONIUM INJ 50 MG/5 ML SYRINGE IV PUSH ONE (12:00)
[2017-07-02] MEDS ORDERED: GLYCOPYRROLATE 1 MG/5 ML SYRINGE IV PUSH ONE (12:00)
[2017-07-02] MEDS ORDERED: DEXAMETHASONE SOD PHOS 4 MG/ML VIAL IV ONE (12:00)
[2017-07-02] MEDS ORDERED: PHENYLEPH/NS 1000 MCG/10 ML SYR IV ONE (12:00)
[2017-07-02] MEDS ORDERED: NEOSTIGMINE 5 MG/5 ML SYRINGE IV PUSH ONE (12:00)
[2017-07-02] MEDS ORDERED: PROPOFOL 200 MG/20 ML AMP IV ONE (12:00)
[2017-07-02] MEDS ORDERED: LIDOCAINE HCL 1% PF 5 ML SYRINGE OTHER ONE (12:00)
[2017-07-02] MEDS ORDERED: ceFAZolin INJ 1,000 MG VIAL IV ONE ×2 (12:00→17:51)
[2017-07-02] MEDS ORDERED: LACTATED RINGER'S 1000 ML INJ 1,000 ML IV ONE (12:00)
[2017-07-02] MEDS ORDERED: ONDANSETRON HCL 4 MG/2 ML VIAL IV PUSH ONE (12:00)
[2017-07-02] MEDS ORDERED: GELATIN 12 MM/7 MM FOAM ONE (15:03)
[2017-07-02] MEDS ORDERED: BACITRACIN TOP OINT 15 GM TUBE ONE (15:03)
[2017-07-02] MEDS ORDERED: GENTAMICIN SULFATE 80 MG/2 ML VIAL ONE (15:03)
[2017-07-02] MEDS ORDERED: THROMBIN (TOPICAL) 5,000 UNIT VIAL ONE (15:03)
[2017-07-02] MEDS ORDERED: LIDOCAINE 1%/EPINEPHrine 1:100,000 SOLN 20 ML VIAL ONE (15:06)
[2017-07-02] MEDS ORDERED: NS + KCL 20 MEQ INJ 1,000 ML IV SCH ×2 (17:12→17:16)
[2017-07-02] MEDS ORDERED: ACETAMINOPHEN/HYDROcodone 325 MG/10 MG TAB PO PRN ×3 (17:15→17:30)
[2017-07-02] MEDS ORDERED: ceFAZolin 2 GM PREMIX 50 ML IV SCH ×2 (17:15→17:30)
[2017-07-02] MEDS ORDERED: ACETAMINOPHEN 325 MG TAB PO PRN ×2 (17:15→17:30)
[2017-07-02] MEDS ORDERED: MORPHINE SULFATE 4 MG/ML INJ IV PUSH PRN ×2 (17:30)
--- NOTE | 2017-07-02 18:15 | PD.OP ---
Operative Report Date of Surgery: Jul 02, 2017 Preoperative Diagnosis: Pseudotumor cerebri. Suspected ventriculitis Postoperative Diagnosis: Pseudotumor cerebri. Suspected ventriculitis Procedure: Right frontal justina hole. Placement of ventriculostomy Removal of ventriculoperitoneal shunt Surgeon: Shreyas Dumont Confidential Investigator(s): Bill Operation and Findings: INDICATIONS FOR THE PROCEDURE The patient is 37 year old female who was brought to [facility] with intractable headaches and visual loss. She had a history of pseudotumor cerebri and a ventriculoperitoneal shunt. A shuntogram was attempted which retrieve some would recommend fluid. Removal of the ventriculoperitoneal shunt and placement of a venriculostomy catheter was indicated as recommended by the [employer] The [id number] details of the procedure, its indications, alternatives, risks and potential complications were fully discussed with the patients family. She fully understood. All questions were answered. No guarantees were given. The patient voiced requesting the procedure and provided informed consents. The patient was offered the alternative of not having aggressive management. DETAILS OF THE SURGICAL PROCEDURE After the induction of general anesthesia, endotracheal intubation was performed. A Ybarra catheter, bilateral MATA hose and sequential compression devices were placed and kept throughout the procedure. The patient was positioned supine on a 30-80 table with the head over a gel doughnut. All pressure points were carefully padded with eggcrate mattress. The right frontotemporal parietal area was shaved prepped and draped in the usual sterile fashion, as well as the neck , chest and abdomen. An incision was made adjacent to the valve with a #10 blade. Small subcutaneous bleeders were controlled with the bipolar. Using the Bovie the valve, including the proximal and distal connections were exposed. Initially the valve was disconnected at its distal point from the from the peritoneal catheter. Purulent fluid was obtained from the valve. The valve was tapped with a syringe and he was full of purulent fluid. Cultures were sent for stat Gram stain I aerobic and anaerobic AFB and fungus cultures. Then, the valve and the complete ventriculoperitoneal shunt were removed. A justina hole was made with the craniotome attachment. The dura was carefully opened and a ventriculostomy catheter was advanced into the ventricular system. At a depth of 60 millimeters, cerebrospinal fluid was obtained. Opening pressure was greater than 20 centimeters of water. A specimen of cerebrospinal fluid was collected and sent to the lab for analysis of the glucose, protein, cell count and cultures. The catheter was then tunneled under the galea and externalized through a separate stab incision. The incision was closed with 3-0 Vycril for the galea. [place] were applied to the skin. The patient tolerated the procedure well. COMPLICATIONS There were no intraoperative complications. BLOOD LOSS Blood loss was minimal. Shreyas Dumont MD Jul 02, 2017 18:15
[2017-07-02] MEDS ORDERED: SUGAMMADEX SODIUM 200 MG/2 ML VIAL IV PUSH ONE (18:20)
[2017-07-02] MEDS ORDERED: DO NOT ADM ANY ANTICOAGULANT DRUGS PRN (18:52)
[2017-07-02] MEDS ORDERED: MIDAZOLAM HCL 2 MG/2 ML VIAL ONE (19:04)
[2017-07-02] MEDS ORDERED: *RESP: ALBUTEROL 2.5 MG/3 ML NEB (PRN) PERIprocedural Use ONLY NEB ONE (19:33)
[2017-07-02] MEDS ORDERED: cefTRIAXone INJ 2,000 MG in SODIUM CHLORIDE 0.9% INJ 100 ML IV SCH (20:00)
--- NOTE | 2017-07-02 20:21 | RADRPT ---
EXAM DATE/TIME: 07/02/2017 20:00 [place] COMPARISON: No previous studies available for comparison. INDICATIONS : Shortness of breath MEDICAL HISTORY : Cerebrovascular disease. Hypertension SURGICAL HISTORY : None. ENCOUNTER: Initial ACUITY: 1 day PAIN SCORE: Non-responsive. LOCATION: Bilateral chest FINDINGS: There is perihilar airspace consolidation and also bibasilar opacity. Cardiomegaly present. No signif icant effusion. No pneumothorax. CONCLUSION: 1. Cardiomegaly with bilateral perihilar airspace disease and basilar airspace disease. Differential diagnosis includes edema and infection. Clint Olivia MD on July 02, 2017 at 20:17 Board Certified Radiologist. This report was verified electronically.
[2017-07-02 20:30] VITALS: PULSE 90
[2017-07-02 20:50] VITALS: O2SAT 99
--- NOTE | 2017-07-02 21:09 | PD.CONS ---
[facility] Service Critical Care Medicine Consult Requested By Anesthesia Reason for Consult Patient on Ventimask at 35% satting 99%. Primary Care Physician Olivier Sullivan MD History of Present Illness This is a 37-year-old AA female. Date of admission 06/30/2017. Date of call station 07/02/2017. Past medical history includes pseudotumor cerebri, hypertension, seizure disorder, headaches and left carpal tunnel syndrome. He is originally seen 05/14 for placement of a SENIOR APPLICATIONS ARCHITECT shunt due to pseudotumor pseudotumor. She presented to [facility] on 06/30 with chief complaints diffuse headache,, eye discomfort and left upper extremity tingling and numbness. She reports 1 days history of headache and pressure behind her eyes. 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 She can see only shadows with her L eye but cannot see much more. Patient describes her headache as different than her chronic headaches that she has had previously. She normally treats these with topiramate along with sumatriptan, however this time this without success also, she is reports left arm tingling and numbness for ~1 week; located lateral aspect of upper extremity associated with within 50 paresthesias. Patient reports having seen an Senior Medical Transcriptionist on 05/2017 and she was given glasses at that time. The glasses did not improve her left eye visual acuity She has been referred to retinal specialist and Dr. Dumont recommended evaluation at the [facility] for a possible optic nerve fenestration initial Shunt studies showed 2 separate shunts. Initial lumbar punctures on 07/02 revealed negative Gram stain. She is been started on vancomycin and ceftriaxone. Today, patient underwent removal SENIOR APPLICATIONS ARCHITECT shunt and placement of ventriculostomy/right -sided by Dr. Dumont. 1000 crystalloid. 50 cc estimate blood loss. 500 cc urine output. Patient received 2 g of cefazolin. Postoperatively, patient was hypoxic and placed on Venturi mask. We are asked to see in consultation by anesthesia. Review of Systems ROS Limitations: Clinical Condition, Altered Mental Status Past Family Social History Allergies: Coded Allergies: amoxicillin (Unverified Allergy, Mild, Hives, 05/28/17) Past Medical History Pseudotumor cerebri Headaches Left eye blindness Seizure disorder Microcytic anemia Hypertension Past Surgical History Tubal ligation bilateral Placement of lumbar drain Cholecystectomy SENIOR APPLICATIONS ARCHITECT shunt Reported Medications Diamox Sequels ER 12 HR (Acetazolamide) 500 Mg Cap 250 Mg PO Q12HR Imitrex (Sumatriptan Succinate) 25 Mg Tab 25 Mg PO ONCE PRN If a satisfactory response has not been obtained at 2 hours, a second dose may be administered Topamax (Topiramate) 25 Mg Tab 25 Mg PO Q12HR 30 Days Tramadol (Tramadol HCl) 50 Mg Tab 50 Mg PO Q6H PRN To be used if Tylenol and ibuprofen have not brought pain down to a 3 or less Amlodipine (Amlodipine Besylate) 10 Mg Tab 10 Mg PO DAILY Ondansetron Odt 4 Mg Tab 4 Mg SL Q8HR PRN Hydrochlorothiazide 25 Mg Tab 25 Mg PO DAILY Lisinopril 20 Mg Tab 20 Mg PO Q12HR Carvedilol 25 Mg Tab 25 Mg PO BID Hydralazine HCl 50 Mg Tablet 50 Mg PO Q8HR Ferosul (Ferrous Sulfate) 325 Mg (65 Mg Iron) Tablet 325 Mg PO BID Tylenol (Acetaminophen) 325 Mg Tab 650 Mg PO Q6H PRN Active Ordered Medications Reviewed in EMR Family History Per mother- T2DM, HTN, CVA in family Social History No tobacco, alcohol or illicit drug use Physical Exam Vital Signs Vital Signs Date Time Temp Pulse Resp B/P (MAP) Pulse Ox O2 Delivery O2 Flow Rate FiO2 07/02/17 08:20 98.2 103 20 135/70 (91) 98 07/02/17 05:48 18 07/02/17 05:48 18 07/02/17 04:57 98.0 98 18 126/73 (90) 95 07/02/17 00:11 97.7 101 18 112/65 (81) 96 Physical Exam GENERAL: 37 YO AA female resting in bed in no acute distress the shunt clean dry and intact SKIN: Warm and dry. HEAD: Atraumatic. Normocephalic. EYES: Pupils equal and round. No scleral icterus. No injection or drainage. ENT: No nasal bleeding or discharge. Mucous membranes pink and moist. NECK: Trachea midline. No JVD. CARDIOVASCULAR: Regular rate and rhythm. RESPIRATORY: No accessory muscle use. Clear to auscultation. Breath sounds equal bilaterally. GASTROINTESTINAL: Abdomen soft, non-tender, nondistended. Hepatic and splenic margins not palpable. MUSCULOSKELETAL: Extremities without clubbing, cyanosis, or edema. No obvious deformities. NEUROLOGICAL: Awake and alert. No obvious cranial nerve deficits. Motor grossly within normal limits. Five out of 5 muscle strength in the arms and legs. Normal speech. Laboratory Laboratory Tests Test 07/02/17 05:53 White Blood Count 9.2 Red Blood Count 3.41 Hemoglobin 8.5 Hematocrit 25.5 Mean Corpuscular Volume 74.7 Mean Corpuscular Hemoglobin 25.0 Mean Corpuscular Hemoglobin Concent 33.4 Red Cell Distribution Width 18.9 Platelet Count 410 Mean Platelet Volume 7.1 Blood Urea Nitrogen 5 Creatinine 1.06 Random Glucose 104 Calcium Level 8.5 Sodium Level 139 Potassium Level 3.2 Chloride Level 105 Carbon Dioxide Level 25.2 Anion Gap 9 Estimat Glomerular Filtration Rate 71 Date/Time Source Procedure Growth Status 07/02/17 17:47 Fluid Other Gram Stain - Final Resulted 07/02/17 17:47 Fluid Other Body Fluid Culture Pending Resulted Result Diagram: 07/02/17 0553 07/02/17 0553 Imaging Last Impressions Chest X-Ray 07/02/17 0000 Signed Impressions: Service Date/Time: Sunday, July 02, 2017 20:00 - CONCLUSION: 1. Cardiomegaly with bilateral perihilar airspace disease and basilar airspace disease. Differential diagnosis includes edema and infection. Clint Olivia MD Shunt Study 07/01/17 0000 Signed Impressions: Service Date/Time: June 14:48 - CONCLUSION: 1. Initial placement of the needle within the shunt yielded approximately 0.2 cc of yellow fluid. This was sent to the lab for Gram stain, culture and sensitivity. Adrián Kahn MD Lumbar Puncture Fluoroscopy 07/01/17 0000 Signed Impressions: Service Date/Time: June 14:48 - CONCLUSION: 1. Opening pressure was greater than 65 CM H2O. 2. Closing pressure was approximately 5 CM H2O. 3. 33 cc of clear CSF was obtained. Adrián Kahn MD Shunt Study (Imaging) 06/30/17 0000 Signed Impressions: Service Date/Time: Friday, June 30, 2017 18:26 - CONCLUSION: There appears to be 2 separate shunts as above both of them appear intact without a definite break. Silvano Larios MD Head CT 06/30/17 0000 Signed Impressions: Service Date/Time: Friday, June 30, 2017 18:05 - CONCLUSION: No appreciable change. Silvano Larios MD Septic Shock Reassessment Septic shock perfusion: reassessment completed Assessment and Plan Assessment and Plan Neuro/Psych: Post op day #0 removal of SENIOR APPLICATIONS ARCHITECT shunt and placement of ventriculostomy Pseudotumor cerebri Chronic headaches Right eye blindness Left carpal tunnel syndrome Management of ventriculostomy for Dr. Julia Dumont recommended referral to tube mounter [facility] - - rule out optic nerve fenestration Hydrocodone/acetaminophen 10/325 one EVERY 4 hours when necessary pain Morphine sulfate 2-4 mg every 2 hours when necessary breakthrough pain Acetaminophen 650 mg every 6 hours when necessary fever Continue acetazolamide 250 mill grams twice a day for PTC Continue topiramate 25 mg by mouth every 12 hours for headaches Continue gabapentin carpal tunnel syndrome. OT evaluate and treat. Currently holding sumatriptan for headaches. CV: Hypertension Currently on normal saline with KCl at 100 cc an hour Continue amlodipine 10 mg daily, carvedilol 25 mg twice a day, hydralazine 50 mg every 8 hours, lisinopril 20 mg twice a day and hydrocortisone 25 mg daily As needed labetalol/hydralazine systolic blood pressure less than 160 Resp: Currently Venturi mask at 35% to keep saturations greater than equal to 92% Incentive spirometry while awake EZPap Acappella every 6 hours Chest x-ray - Cardiomegaly with bilateral perihilar airspace disease and basilar airspace disease. Differential diagnosis includes edema and infection. GI: Advance diet per neurosurgery Pantoprazole for GI prophylaxis Docusate sodium less than 1 tablet twice a day for bowel regimen : No indication for Ybarra catheter Endo: Sliding-scale insulin only if indicated to maintain euglycemia Renal: Creatinine currently within normal limits Monitor urine output accurate I's nose Heme: Microcytic anemia Continue ferrous sulfate 325 mg by mouth twice a day No indications for transfusion of blood products at this time ID: Currently on ceftriaxone 2 g every 12 hours and vancomycin 1 g every 12 hours Pertinent cultures CSF Gram stain - 1/4 - no growth CSF AFB and fungal 1/4 - no growth CSF Gram stain - 1/5 - no growth MSK: PT evaluate and treat FEN: Replace electrolytes as clinically indicated Access - Utilize peripheral IV. Central line if indicated Prophylaxis - GI - pantoprazole - DVT - SCD/holding pharmacological prophylaxis until okay with neurosurgery Level II consult Code Status Full code Discussed Condition With Patient. ISC RN. Care plan discussed and all questions answered. Jluis Penny MD Jul 02, 2017 21:09
[2017-07-02] MEDS ORDERED: LABETALOL HCL 100 MG/20 ML VIAL IV PUSH PRN (21:45)
[2017-07-02] MEDS ORDERED: hydrALAZINE HCL 20 MG/ML VIAL IV PUSH PRN (21:45)
[2017-07-02] MEDS: ACETAMINOPHEN/HYDROcodone 325 MG/10 MG TAB PO PRN (21:50)
[2017-07-02 22:35] VITALS: O2SAT 100
[2017-07-02] MEDS: VANCOMYCIN INJ 1,000 MG in SODIUM CHLOR 0.9% 250 ML INJ 250 ML IV SCH (23:05)
[2017-07-03] VITALS (8 sets, daily range): BP systolic 131–143; BP diastolic 72–83; PULSE 86–115; RESP 12–20; TEMP 97.7–99.7; O2SAT 95–100
[2017-07-03] MEDS: ACETAMINOPHEN/HYDROcodone 325 MG/10 MG TAB PO PRN ×3 (04:10→20:37)
[2017-07-03] MEDS: MORPHINE SULFATE 2 MG/ML INJ IV PUSH PRN ×3 (04:50→18:01)
--- NOTE | 2017-07-03 04:58 | RADRPT ---
EXAM DATE/TIME: 07/03/2017 04:32 [facility] COMPARISON: CT BRAIN W/O CONTRAST, June 30, 2017, 18:05. INDICATIONS : Follow up shunt malfunction; post op shunt revision. RADIATION DOSE: 61.32 CTDIvol (mGy) ; Tabletop CT Head MEDICAL HISTORY : Cerebrovascular disease. Hypertension. SURGICAL HISTORY : Tubal ligation. Lumbar shunt ENCOUNTER: Subsequent ACUITY: 3 days PAIN SCALE: 5/10 LOCATION: cranial TECHNIQUE: Multiple contiguous axial images were obtained of the head. Using automated exposure control and adj ustment of the mA and/or kV according to patient size, radiation dose was kept as low as reasonably a chievable to obtain optimal diagnostic quality images. DICOM format image data is available electro nically for review and comparison. FINDINGS: CEREBRUM: Right frontal ventriculostomy catheter is in place with the tip in the region of the left lateral sherin tricle anterior horn. Ventricles are normal in size. No evidence of acute intracranial hemorrhage or extra-axial fluid collection. No mass effect or midline shift. Ibarra matter-white matter differentiati on within normal limits. POSTERIOR FOSSA: The cerebellum and brainstem are intact. The 4th ventricle is midline. The cerebellopontine angle i s unremarkable. EXTRACRANIAL: The visualized portion of the orbits is intact. SKULL: The calvaria is intact. No evidence of skull fracture. CONCLUSION: Right frontal ventriculostomy catheter in place with the tip now in the region of the anterior horn l eft lateral ventricle. No acute intracranial findings. Mg Kaur MD on July 03, 2017 at 4:49 Board Certified Radiologist. This report was verified electronically.
[2017-07-03] MEDS: hydrALAZINE HCL 50 MG TAB PO SCH ×3 (05:38→22:38)
[2017-07-03 05:50] LABS: HEMATOCRIT 26.6 % (35.0-46.0); HEMOGLOBIN 8.4 GM/DL (11.6-15.3); MEAN CELL VOLUME 75.1 FL (80.0-100.0); MEAN CORPUSCULAR HEMOGLOBIN 23.8 PG (27.0-34.0); MEAN CORPUSCULAR HGB CONC 31.7 % (32.0-36.0); MEAN PLATELET VOLUME 6.9 FL (7.0-11.0); PLATELET COUNT 423 TH/MM3 (150-450); RED BLOOD COUNT 3.54 MIL/MM3 (4.00-5.30); RED CELL DISTRIBUTION WIDTH 18.4 % (11.6-17.2); WHITE BLOOD COUNT 13.2 TH/MM3 (4.0-11.0)
[2017-07-03 06:20] LABS: BICARBONATE 25.3 MEQ/L (21.0-32.0); CALCIUM 8.4 MG/DL (8.5-10.1); CREATININE 0.94 MG/DL (0.50-1.00); MAGNESIUM 1.6 MG/DL (1.5-2.5); PHOSPHORUS 4.2 MG/DL (2.5-4.9)
--- NOTE | 2017-07-03 08:05 | HHI.CCPN ---
Subjective Remarks/Hospital Course This is a 37-year-old AA female. Date of admission 06/30/2017. Date of call station 07/02/2017. Past medical history includes pseudotumor cerebri, hypertension, seizure disorder, headaches and left carpal tunnel syndrome. Originally seen 05/14 for placement of a ASSOCIATE PROFESSOR OF ECONOMICS shunt due to pseudotumor pseudotumor. She presented to [place] on 06/30 with chief complaints diffuse headache,, eye discomfort and left upper extremity tingling and numbness. She reports 1 days history of headache and pressure behind her eyes. 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 She can see only shadows with her L eye but cannot see much more. Patient describes her headache as different than her chronic headaches that she has had previously. She normally treats these with topiramate along with sumatriptan, however this time this without success also, she is reports left arm tingling and numbness for ~1 week; located lateral aspect of upper extremity associated with within 50 paresthesias. Patient reports having seen an Mushroom Cutter on 05/2017 and she was given glasses at that time. The glasses did not improve her left eye visual acuity She has been referred to retinal specialist and Dr. Dumont recommended evaluation at the [facility] for a possible optic nerve fenestration initial Shunt studies showed 2 separate shunts. Initial lumbar punctures on 07/02 revealed negative Gram stain. She is been started on vancomycin and ceftriaxone. Today, patient underwent removal ASSOCIATE PROFESSOR OF ECONOMICS shunt and placement of ventriculostomy/right-sided by Dr. Dumont. 1000 crystalloid. 50 cc estimate blood loss. 500 cc urine output. Patient received 2 g of cefazolin. Postoperatively, patient was hypoxic and placed on Venturi mask. We are asked to see in consultation by anesthesia. SUBJ 07/03/17: Patient is lying comfortably in bed. No acute distress. Good oxygen saturation on 3 L nasal cannula. Chest x-ray shows persistent infiltrate /pulmonary edema. IV Lasix 40 mg 1 ordered, with potassium replacement. Check 2-D echo Objective Vital Signs Date Time Temp Pulse Resp B/P (MAP) Pulse Ox O2 Delivery O2 Flow Rate FiO2 07/03/17 04:00 92 07/03/17 04:00 99.7 19 140/81 (100) 100 07/02/17 22:35 Nasal Cannula 3.00 07/02/17 20:50 50 Intake and Output 07/03/17 07/03/17 07/04/17 08:00 16:00 00:00 Intake Total 950 ml Output Total 1390 ml Balance -440 ml Result Diagram: 07/03/17 0449 07/03/17 0449 Imaging Last Impressions Chest X-Ray 07/02/17 0000 Signed Impressions: Service Date/Time: Sunday, July 02, 2017 20:00 - CONCLUSION: 1. Cardiomegaly with bilateral perihilar airspace disease and basilar airspace disease. Differential diagnosis includes edema and infection. Clint Olivia MD Shunt Study 07/01/17 0000 Signed Impressions: Service Date/Time: June 14:48 - CONCLUSION: 1. Initial placement of the needle within the shunt yielded approximately 0.2 cc of yellow fluid. This was sent to the lab for Gram stain, culture and sensitivity. Adrián Kahn MD Lumbar Puncture Fluoroscopy 07/01/17 Signed Impressions: Service Date/Time: June 14:48 - CONCLUSION: 1. Opening pressure was greater than 65 CM H2O. 2. Closing pressure was approximately 5 CM H2O. 3. 33 cc of clear CSF was obtained. Adrián Kahn MD Shunt Study (Imaging) 06/30/17 Signed Impressions: Service Date/Time: Friday, June 30, 2017 18:26 - CONCLUSION: There appears to be 2 separate shunts as above both of them appear intact without a definite break. Silvano Larios MD Head CT 06/30/17 Signed Impressions: Service Date/Time: Friday, June 30, 2017 18:05 - CONCLUSION: No appreciable change. Silvano Larios MD Objective Remarks GENERAL: 37 YO AA female resting in bed in no acute distress, the shunt clean dry and intact SKIN: Warm and dry. HEAD: Atraumatic. Normocephalic. EYES: Pupils equal and round. No scleral icterus. No injection or drainage. ENT: No nasal bleeding or discharge. Mucous membranes pink and moist. NECK: Trachea midline. No JVD. CARDIOVASCULAR: Regular rate and rhythm. RESPIRATORY: No accessory muscle use. Clear to auscultation. Breath sounds equal bilaterally. GASTROINTESTINAL: Abdomen soft, non-tender, nondistended. MUSCULOSKELETAL: Extremities without clubbing, cyanosis, or edema. No obvious deformities. NEUROLOGICAL: Awake and alert. No obvious cranial nerve deficits. Motor grossly within normal limits. Five out of 5 muscle strength in the arms and legs. Normal speech. A/P Assessment and Plan Neuro/Psych: Post op day #1 removal of ASSOCIATE PROFESSOR OF ECONOMICS shunt and placement of ventriculostomy Pseudotumor cerebri Chronic headaches Right eye blindness Left carpal tunnel syndrome Management of ventriculostomy for Dr. Julia Dumont recommended referral to bait painter [facility] Hydrocodone/acetaminophen 10/325 one EVERY 4 hours when necessary pain Morphine sulfate 2-4 mg every 2 hours when necessary breakthrough pain Acetaminophen 650 mg every 6 hours when necessary fever Continue acetazolamide 250 mill grams twice a day for PTC Continue topiramate 25 mg by mouth every 12 hours for headaches Continue gabapentin carpal tunnel syndrome. OT evaluate and treat. Currently holding sumatriptan for headaches. CV: Hypertension Currently on normal saline with KCl at 100 cc an hour Continue amlodipine 10 mg daily, carvedilol 25 mg twice a day, hydralazine 50 mg every 8 hours, lisinopril 20 mg twice a day and hydrocortisone 25 mg daily As needed labetalol/hydralazine systolic blood pressure less than 160 Resp: Currently on 3L NC to keep saturations greater than equal to 92% Incentive spirometry while awake. EZPap Acappella every 6 hours Chest x-ray - Cardiomegaly with bilateral perihilar airspace disease and basilar airspace disease. Differential diagnosis includes edema and infection. CV: Pulmonary edema on chest x-ray IV Lasix 40 mg 1 with potassium replacement Check 2-D echo GI: Advance diet per neurosurgery Pantoprazole for GI prophylaxis Docusate sodium less than 1 tablet twice a day for bowel regimen : No indication for Ybarra catheter Endo: Sliding-scale insulin only if indicated to maintain euglycemia Renal: Creatinine currently within normal limits Monitor urine output accurate I's nose Heme: Microcytic anemia Continue ferrous sulfate 325 mg by mouth twice a day No indications for transfusion of blood products at this time ID: Currently on ceftriaxone 2 g every 12 hours and vancomycin 1 g every 12 hours Pertinent cultures CSF Gram stain - / - no growth CSF AFB and fungal 07/01 - no growth CSF Gram stain - 07/02 - no growth MSK: PT evaluate and treat, OOB up to chair FEN: Replace electrolytes as clinically indicated Access - Utilize peripheral IV. Central line if indicated Prophylaxis - GI - pantoprazole - DVT - SCD/holding pharmacological prophylaxis until okay with neurosurgery Level II Kiko Cedeno MD Jul 03, 2017 08:05
--- NOTE | 2017-07-03 08:12 | RADRPT ---
EXAM DATE/TIME: 07/03/2017 07:48 [facility] COMPARISON: CHEST SINGLE AP, July 02, 2017, 20:00. INDICATIONS : Shortness of breath. MEDICAL HISTORY : Cerebrovascular disease. Hypertension. SURGICAL HISTORY : Tubal ligation. Lumbar shunt. ENCOUNTER: Subsequent ACUITY: 2 days PAIN SCORE: 0/10 LOCATION: Bilateral chest FINDINGS: There has been interval worsening perihilar infiltrates consistent with worsening pulmonary vascular congestion or pneumonia. Clinical correlation is recommended. The heart is enlarged. CONCLUSION: 1. Worsening perihilar infiltrates consistent with worsening pulmonary vascular congestion or pneumon ia. Clinical correlation is recommended. 2. Cardiomegaly. Sundeep Bolton MD on July 03, 2017 at 8:09 Board Certified Radiologist. This report was verified electronically.
[2017-07-03] MEDS: acetaZOLAMIDE 250 MG TAB PO SCH ×2 (08:13→20:35)
[2017-07-03] MEDS: GABAPENTIN 300 MG CAP PO SCH (08:13)
[2017-07-03] MEDS: TOPIRAMATE 25 MG TAB PO SCH ×2 (08:13→20:49)
[2017-07-03] MEDS: PANTOPRAZOLE SODIUM 40 MG VIAL IVP SCH (08:13)
[2017-07-03] MEDS: CARVEDILOL 12.5 MG TAB PO SCH ×2 (08:14→20:35)
[2017-07-03] MEDS: SODIUM CHLORIDE 0.9% FLUSH 10 ML FLUSH IV FLUSH SCH ×2 (08:14→21:43)
[2017-07-03] MEDS: cefTRIAXone INJ 2,000 MG in SODIUM CHLORIDE 0.9% INJ 100 ML IV SCH ×2 (08:14→20:34)
[2017-07-03] MEDS ORDERED: FUROSEMIDE 40 MG/4 ML VIAL IV PUSH ONE (08:15)
[2017-07-03] MEDS ORDERED: POTASSIUM CHLORIDE 10 MEQ CONTROLLED RELEASE TAB PO ONE (08:15)
[2017-07-03] MEDS: FERROUS SULFATE 325 MG (65 MG ELEMENTAL IRON) TAB PO SCH ×3 (08:47→21:00)
[2017-07-03] MEDS: LISINOPRIL 20 MG TAB PO SCH ×2 (08:48→20:35)
[2017-07-03] MEDS: DOCUSATE SODIUM 50 MG/SENNA 8.6 MG TAB PO SCH ×2 (08:48→20:35)
[2017-07-03] MEDS: HYDROCHLOROTHIAZIDE 25 MG TAB PO SCH (08:48)
[2017-07-03] MEDS ORDERED: PANTOPRAZOLE SODIUM 40 MG VIAL IVP SCH (09:00)
--- NOTE | 2017-07-03 10:53 | HHI.FPPN ---
Subjective Remarks Patient is status post day 1 after ventriculostomy. She developed hypoxia after the procedure and required transfer to the ICU with molder fitting consultation. She required Venturi mask for oxygen supplementation. This morning she is sitting up in bed in no distress. She is somewhat drowsy. She has external ventriculostomy tube in place. She is awake and answering questions. She reports significant improvement in her headaches and nausea. She reports no changes or improvement in her vision. She is currently on 3L O2 via nasal cannula and not in any respiratory distress. She has no chest pain or shortness of breath. She reports no abdominal pain. She has no calf tenderness or swelling. Objective Vitals Vital Signs Date Time Temp Pulse Resp B/P (MAP) Pulse Ox O2 Delivery O2 Flow Rate FiO2 07/03/17 08:37 21 07/03/17 04:00 92 07/03/17 04:00 99.7 92 19 140/81 (100) 100 07/03/17 00:00 98.5 115 18 140/81 (100) 95 07/03/17 00:00 115 07/02/17 22:35 100 Nasal Cannula 3.00 07/02/17 20:50 99 Venturi Mask 6.00 50 07/02/17 20:30 90 07/02/17 20:00 98.4 94 18 120/69 (86) 92 Venturi Mask 40 07/02/17 19:45 80 10 123/71 (88) 92 Venturi Mask 40 07/02/17 19:30 91 17 130/73 (92) 88 Venturi Mask 40 07/02/17 19:15 79 18 138/80 (99) 94 Nasal Cannula 5 07/02/17 19:00 85 12 139/83 (101) 93 Nasal Cannula 4 07/02/17 18:52 98.7 93 12 142/83 (102) 100 Nasal Cannula 4 I/O 07/02/17 07/02/17 07/02/17 07/03/17 07/03/17 07/03/17 07:00 15:00 23:00 07:00 15:00 23:00 Intake Total 1150 ml 950 ml Output Total 695 ml 1390 ml Balance 455 ml -440 ml Intake Oral 0 ml 700 ml IV Total 150 ml 250 ml Other 1000 ml Output Urine Total 150 ml 1250 ml Drainage Total 35 ml 140 ml Estimated Blood Loss 10 ml Other 500 ml Result Diagram: 07/03/17 0449 07/03/17 0449 Imaging Last [address] 07/03/17 Signed Impressions: Service Date/Time: Monday, July 03, 2017 04:32 - CONCLUSION: Right frontal ventriculostomy catheter in place with the tip now in the region of the anterior horn left lateral ventricle. No acute intracranial findings. Mg Kaur MD Chest X-Ray 07/03/17 Signed Impressions: Service Date/Time: Monday, July 03, 2017 07:48 - CONCLUSION: 1. Worsening perihilar infiltrates consistent with worsening pulmonary vascular congestion or pneumonia. Clinical correlation is recommended. 2. Cardiomegaly. Sundeep Bolton MD Chest X-Ray 07/02/17 Signed Impressions: Service Date/Time: Sunday, July 02, 2017 20:00 - CONCLUSION: 1. Cardiomegaly with bilateral perihilar airspace disease and basilar airspace disease. Differential diagnosis includes edema and infection. Clint Olivia MD Shunt Study 07/01/17 Signed Impressions: Service Date/Time: June 14:48 - CONCLUSION: 1. Initial placement of the needle within the shunt yielded approximately 0.2 cc of yellow fluid. This was sent to the lab for Gram stain, culture and sensitivity. Adrián Kahn MD Lumbar Puncture Fluoroscopy 07/01/17 Signed Impressions: Service Date/Time: June 14:48 - CONCLUSION: 1. Opening pressure was greater than 65 CM H2O. 2. Closing pressure was approximately 5 CM H2O. 3. 33 cc of clear CSF was obtained. Adrián Kahn MD Objective Remarks GENERAL: Sitting up in bed, no acute distress SKIN: No rashes or lesions HEENT: Normocephalic, no conjunctivitis, no nasal discharge Neck: No thyromegaly or lymphadenopathy CV: RRR, no murmurs, rubs, or gallops, normal cap refill and pulses. Lungs: CTAB Abdomen: Soft, nontender, nondistended, normal bowel sounds Ext: No swelling or pain Neuro: Awake, somewhat drowsy, PERRLA, EOMI, CN intact, poor visual acuity, normal strength and sensation in bilateral upper extremities. External ventriculostomy tube is in place, with about 150 ccs drainage this morning. Procedures DATA REPORT ANALYST shunt revision, external ventriculostomy tube placement on 07/02/17 A/P Assessment and Plan 37 yo F with pseudotumor cerebri and DATA REPORT ANALYST shunt malfunction with increasing headache and visual loss. She is now status post external ventriculostomy drain placement. Discharge Planning Pending clinical stability and recommendations from neurosurgery, and external ventriculostomy drain management. Will need to follow up with neurosurgery and ophthalmology closely as an outpatient. Problem List: (1) Pseudotumor cerebri ICD Codes: G93.2 - Benign intracranial hypertension Status: Chronic Plan: [Per EMR review, patient underwent DATA REPORT ANALYST shunt placement 04/28/2017 due to nonfunctioning prior LP shunt from distant past. Patient subsequently developed worsening headaches; LP performed 05/31/2017 showing LP opening pressure of 60+ cm H20. Shunt readjusted 06/01/2017 to 40mm H20. CSF cultures were reportedly negative for infection.] 06/30/2016- Shuntogram showed 2 separate shunts. MRV 06/02/2017- bilateral transverse sinus stenosis MRI 06/02- no acute pathology LP completed on 07/01/17: opening pressure greater than 65 cmH20. CSF studies reassuring. Status post external ventricular drain placement on 07/03/17 - Neurosurgery on board, Dr. Dumont aware of patient. - She has been referred to the [facility] for possible optic nerve fenestration which she can follow up on. - She will need to be followed by ophthalmology as an outpatient. - Continue Acetazolamide 250mg BID, may be able to discontinue if shunt proves effective for symptom relief. - Ondansetron for nausea/vomiting - Vancomycin and Rocephin started 07/02/17 (2) Pulmonary edema ICD Codes: J81.1 - Chronic pulmonary edema Plan: Pulmonary edema with kiki-hilar infiltrates and cardiomegaly, hypoxia after the procedure that required transfer to the ICU. Now on 3L O2 via nasal cannula and respiratory status improved. 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 Per ED documentation, patient scheduled to see retinal specialist. Patient reportedly prescribed glasses recently which did not help. Likely secondary to pseudotumor cerebri. Recent MRI was normal. - Will need to follow up with ophthalmology as an outpatient. - Has referral to [facility] for possible optic nerve fenestration. - See plan for pseudotumor cerebri. - Precautions for visually impaired - Recommended outpatient center that provides resources for the visually impaired. (4) Cephalgia ICD Codes: R51 - Headache Status: Acute Plan: Worsening headache recently, likely due to increased intracranial pressure. Headaches much better now. - Continue Topamax 25mg BID per Neurology - Continue morphine 2 mg q2hrs PRN for pain 1-6, morphine 4 mg PRN pain 7-10. (5) HTN (hypertension) ICD Codes: I10 - Essential (primary) hypertension Status: Chronic Plan: Patient with HTN; seemingly refractory to >4 agents. Per discussion with patient and EMR, no knowledge of renal fibromuscular dysplasia -Continue home antihypertensives -Hydralazine 50mg q8hrs -Carvedilol 25mg BID -Amlodipine 10mg daily -Lisinopril 20mg BID -HCTZ 25mg daily -Consider evaluation for renal arteries/fibromuscular dysplasia as an outpatient (6) Cubital tunnel syndrome on left ICD Codes: G56.22 - Lesion of ulnar nerve, left upper limb Status: Chronic Plan: Prior presumptive diagnosis per Neurology; explains patient's LUE symptoms of pain, numbness, and tingling. No loss of sensation on exam; normal strength - Follow-up with Neurology as an outpatient - Will try Gabapentin 300 mg tid for pain - Could consider MRI of the neck if pain not resolving. (7) DVT Prophylaxis Status: Acute Plan: -Bilateral SCD's -Hold on any anticoagulants due to LP and ventriculostomy drain placement (8) Fluids, Electrolytes, and Nutrition Status: Acute Plan: Fluids: PO fluids Electrolytes: Monitor Nutrition: clear liquid diet, advance as tolerated Problem Qualifiers (1) Pulmonary edema: Qualified Codes: J81.0 - Acute pulmonary edema (2) Cephalgia: Qualified Codes: R51 - Headache (3) HTN (hypertension): Qualified Codes: I10 - Essential (primary) hypertension Olivier Ramires MD R3 Jul 03, 2017 10:52
[2017-07-03] MEDS: VANCOMYCIN INJ 1,000 MG in SODIUM CHLOR 0.9% 250 ML INJ 250 ML IV SCH ×2 (11:17→22:38)
--- NOTE | 2017-07-03 11:34 | HHI.NSPN ---
(Ani Langley) Note Status Status: Progress Note (Ani Langley) Status: Progress Note (Shreyas Dumont MD) Interval History Interval History 07/03/17: s/p a ventriculoperitoneal shunt and placement of external ventriculostomy drain 07/02/17. Doing well postoperatively, stable moderate headaches without change in visual deficits. Awaiting cultures (Ani Langley) Labs, Micro, & Vital Signs Results Date Time Temp Pulse Resp B/P (MAP) Pulse Ox O2 Delivery O2 Flow Rate FiO2 07/03/17 10:33 100 21 07/03/17 08:37 21 07/03/17 08:00 95 07/03/17 04:00 92 07/03/17 04:00 99.7 92 19 140/81 (100) 100 07/03/17 00:00 98.5 115 18 140/81 (100) 95 07/03/17 00:00 115 07/02/17 22:35 100 Nasal Cannula 3.00 07/02/17 20:50 99 Venturi Mask 6.00 50 07/02/17 20:30 90 07/02/17 20:00 98.4 94 18 120/69 (86) 92 Venturi Mask 40 07/02/17 19:45 80 10 123/71 (88) 92 Venturi Mask 40 07/02/17 19:30 91 17 130/73 (92) 88 Venturi Mask 40 07/02/17 19:15 79 18 138/80 (99) 94 Nasal Cannula 5 07/02/17 19:00 85 12 139/83 (101) 93 Nasal Cannula 4 07/02/17 18:52 98.7 93 12 142/83 (102) 100 Nasal Cannula 4 Constitutional Vital Signs Date Time Temp Pulse Resp B/P (MAP) Pulse Ox O2 Delivery O2 Flow Rate FiO2 07/03/17 10:33 100 21 07/03/17 08:37 21 07/03/17 08:00 95 07/03/17 04:00 92 07/03/17 04:00 99.7 92 19 140/81 (100) 100 07/03/17 00:00 98.5 115 18 140/81 (100) 95 07/03/17 00:00 115 07/02/17 22:35 100 Nasal Cannula 3.00 07/02/17 20:50 99 Venturi Mask 6.00 50 07/02/17 20:30 90 07/02/17 20:00 98.4 94 18 120/69 (86) 92 Venturi Mask 40 07/02/17 19:45 80 10 123/71 (88) 92 Venturi Mask 40 07/02/17 19:30 91 17 130/73 (92) 88 Venturi Mask 40 07/02/17 19:15 79 18 138/80 (99) 94 Nasal Cannula 5 07/02/17 19:00 85 12 139/83 (101) 93 Nasal Cannula 4 07/02/17 18:52 98.7 93 12 142/83 (102) 100 Nasal Cannula 4 (Ani Langley) Physical Exam Ms. Landis awake and oriented to time, place and person. Speech is soft but fluent. Appearing minimal discomfort due to headache. Right ventriculostomy drain intact at 0 cm H20, CSF draining currently clear Cranial nerve examination: pupils equal . Neck is soft and supple Muscle strength is normal in all muscle groups of both upper and lower extremities. Sensory examination is intact to light touch in both the upper and lower extremities. (Ani Langley) Medications Current Medications Current Medications Medications (Trade) Dose Ordered Sig/David Route PRN Reason Start Time Stop Time Status Last Admin Dose Admin Sodium Chloride (NS Flush) 2 ml UNSCH PRN IV FLUSH FLUSH AFTER USING IV ACCESS 06/30/17 20:15 Sodium Chloride (NS Flush) 2 ml BID IV FLUSH 06/30/17 21:00 07/03/17 08:14 Naloxone HCl (Narcan Inj) 0.4 mg UNSCH PRN IV PUSH SEE LABEL COMMENTS 06/30/17 20:15 Senna/Docusate Sodium (Mary-Colace) 1 tab BID PO 06/30/17 21:00 07/02/17 21:37 Magnesium Hydroxide (Milk Of Magnesia Liq) 30 ml Q12H PRN PO Mild constipation 06/30/17 20:15 Sennosides (Senokot) 17.2 mg Q12H PRN PO Moderate constipation 06/30/17 20:15 Bisacodyl (Dulcolax Supp) 10 mg DAILY PRN RECTAL SEVERE CONSITIPATION 06/30/17 20:15 Lactulose (Lactulose Liq) 30 ml DAILY PRN PO SEVERE CONSITIPATION 06/30/17 20:15 Acetazolamide (Diamox) 250 mg Q12HR PO 07/01/17 00:30 07/03/17 08:13 Amlodipine Besylate (Norvasc) 10 mg DAILY PO 07/01/17 09:00 07/03/17 08:13 Carvedilol (Coreg) 25 mg BID PO 07/01/17 00:30 07/03/17 08:14 Ferrous Sulfate (Ferrous Sulfate) 325 mg BID PO 07/01/17 09:00 07/02/17 21:37 Hydralazine HCl (Apresoline) 50 mg Q8HR PO 07/01/17 00:30 07/03/17 05:38 Hydrochlorothiazide (Hydrodiuril) 25 mg DAILY PO 07/01/17 09:00 07/03/17 08:48 Lisinopril (Prinivil) 20 mg Q12HR PO 07/01/17 09:00 07/02/17 21:37 Topiramate (Topamax) 25 mg Q12HR PO 07/01/17 00:30 07/03/17 08:13 Tramadol HCl (Ultram) 50 mg Q6H PRN PO BREAKTHROUGH PAIN 07/01/17 00:30 07/01/17 06:21 Gabapentin (Neurontin) 300 mg DAILY PO 07/01/17 09:00 07/03/17 08:13 Ondansetron HCl (Zofran Inj) 4 mg Q6HR PRN IV PUSH NAUSEA 07/01/17 08:45 Acetaminophen/ Hydrocodone Bitart ([place] 10-325 Mg) 1 tab Q4H PRN PO PAIN SCALE 1 TO 5 07/02/17 17:15 Acetaminophen/ Hydrocodone Bitart ([place] 10-325 Mg) 2 tab Q4H PRN PO PAIN SCALE 6 TO 10 07/02/17 17:15 07/03/17 04:10 Morphine Sulfate (Morphine Inj) 2 mg Q2H PRN IV PUSH PAIN SCALE 1 TO 6 07/02/17 17:15 Morphine Sulfate (Morphine Inj) 4 mg Q2H PRN IV PUSH PAIN SCALE 7 TO 10 07/02/17 17:15 07/03/17 08:11 Acetaminophen (Tylenol) 650 mg Q4H PRN PO TEMPERATURE > 100.4 F 07/02/17 17:15 Potassium Chloride/Sodium Chloride 1,000 ml @ 100 mls/hr Q10H IV 07/02/17 17:16 07/02/17 19:15 Pantoprazole Sodium (Protonix Inj) 40 mg DAILY IVP 07/03/17 09:00 07/03/17 08:13 Vancomycin HCl 1000 mg/Sodium Chloride 250 ml @ 250 mls/hr Q12H IV 07/02/17 23:00 07/03/17 11:17 Miscellaneous Information ALL NURSING DEPARTME... UNSCH PRN .XX SEE LABEL COMMENTS 07/02/17 18:52 07/03/17 18:51 Ceftriaxone Sodium 2000 mg/ Sodium Chloride 100 ml @ 200 mls/hr Q12HR IV 07/03/17 09:00 07/03/17 08:14 Labetalol HCl (Trandate Inj) 10 mg Q1HR PRN IV PUSH SBP>160, DBP>90, HR>65 07/02/17 21:45 Hydralazine HCl (Apresoline Inj) 10 mg Q1HR PRN IV PUSH SBP>160, DBP>90 07/02/17 21:45 (Ani Langley) Medical Decision Making MDM Remarks 37 -year-old female with history of idiopathic intracranial hypertension, ventriculoperitoneal shunt placement Ventriculitis, status post removal of QUARRYING SPECIALIST shunt with placement of ventriculostomy drain 07/02/17 (Ani Langley) Plan Plan Remarks cont ventriculostomy draining cont neuro checks cont IV vancomycin and Rocephin (Ani Langley) Attending Statement The exam, history, and the medical decision-making described in the above note were completed with the assistance of the mid-level provider. I reviewed and agree with the findings presented. I attest that I had a [id number] encounter with the patient on the same day, and personally performed and documented my assessment and findings in the medical record. (Shreyas Dumont MD) Ani Langley Jul 03, 2017 11:34 Shreyas Dumont MD Jul 04, 2017 12:55
[2017-07-03] MEDS ORDERED: MAGNESIUM SULFATE 1 GM PREMIX 100 ML IV ONE (12:15)
[2017-07-04] VITALS (9 sets, daily range): BP systolic 101–142; BP diastolic 62–88; PULSE 82–96; RESP 11–27; TEMP 98–98.8; O2SAT 94–95
[2017-07-04] MEDS: MORPHINE SULFATE 2 MG/ML INJ IV PUSH PRN ×3 (01:26→19:30)
--- NOTE | 2017-07-04 05:17 | RADRPT ---
EXAM DATE/TIME: 07/04/2017 04:01 [facility] COMPARISON: CHEST SINGLE AP, July 03, 2017, 7:48. INDICATIONS : Respiratory diesease. MEDICAL HISTORY : Cerebrovascular disease. Hypertension SURGICAL HISTORY : Tubal ligation. Lumbar shunt. ENCOUNTER: Subsequent ACUITY: 3 days PAIN SCORE: 0/10 LOCATION: Bilateral chest FINDINGS: Single AP view of the chest. Cardiac silhouette is mildly enlarged unchanged. Patchy perihilar opacit ies left greater than right not significantly changed. No evidence of pleural effusion or pneumothora x. CONCLUSION: No significant interval change with persistent patchy bilateral perihilar pulmonary parenchymal opaci ty left greater than right. Mg Kaur MD on July 04, 2017 at 5:14 Board Certified Radiologist. This report was verified electronically.
[2017-07-04] MEDS: ACETAMINOPHEN/HYDROcodone 325 MG/10 MG TAB PO PRN ×2 (05:51→15:47)
[2017-07-04] MEDS: hydrALAZINE HCL 50 MG TAB PO SCH ×3 (06:00→22:01)
[2017-07-04 06:04] LABS: AUTOMATED NEUTROPHIL # 5.5 TH/MM3 (1.8-7.7); BASOPHIL % 0.4 % (0.0-2.0); EOSINOPHIL # 0.4 TH/MM3 (0-0.4); EOSINOPHIL % 5.2 % (0.0-4.0); HEMATOCRIT 23.6 % (35.0-46.0); HEMOGLOBIN 7.9 GM/DL (11.6-15.3); LYMPH % 20.5 % (9.0-44.0); LYMPHOCYTE # 1.7 TH/MM3 (1.0-4.8); MEAN CELL VOLUME 76.3 FL (80.0-100.0); MEAN CORPUSCULAR HEMOGLOBIN 25.6 PG (27.0-34.0); MEAN CORPUSCULAR HGB CONC 33.5 % (32.0-36.0); MEAN PLATELET VOLUME 6.9 FL (7.0-11.0); MONOCYTE # 0.7 TH/MM3 (0-0.9); NEUT % 65.9 % (16.0-70.0); PLATELET COUNT 354 TH/MM3 (150-450); RED CELL DISTRIBUTION WIDTH 18.4 % (11.6-17.2); WHITE BLOOD COUNT 8.4 TH/MM3 (4.0-11.0)
[2017-07-04 06:28] LABS: ALBUMIN 2.6 GM/DL (3.4-5.0); ALKALINE PHOSPHATASE 60 U/L (45-117); ALT (GPT) 9 U/L (10-53); AST (GOT) 14 U/L (15-37); BICARBONATE 27.8 MEQ/L (21.0-32.0); BLOOD UREA NITROGEN 6 MG/DL (7-18); CALCIUM 8.3 MG/DL (8.5-10.1); CHLORIDE 103 MEQ/L (98-107); CREATININE 0.88 MG/DL (0.50-1.00); GLOMERULAR FILTRATION RATE 88 ML/MIN (>89); GLUCOSE,RANDOM 90 MG/DL (74-106); MAGNESIUM 1.8 MG/DL (1.5-2.5); SODIUM (NA) 140 MEQ/L (136-145); TOTAL BILIRUBIN ADULT 0.3 MG/DL (0.2-1.0); TOTAL PROTEIN 6.2 GM/DL (6.4-8.2)
[2017-07-04] MEDS ORDERED: POTASSIUM CHLORIDE 10 MEQ CONTROLLED RELEASE TAB PO ONE (07:15)
[2017-07-04] MEDS: LISINOPRIL 20 MG TAB PO SCH ×2 (09:00→21:00)
--- NOTE | 2017-07-04 09:46 | HHI.NSPN ---
(Ani Langley) Note Status Status: Progress Note (Ani Langley) Status: Progress Note (Shreyas Dumont MD) Interval History Interval History 07/03/17: s/p a ventriculoperitoneal shunt and placement of external ventriculostomy drain 07/02/17. Doing well postoperatively, stable moderate headaches without change in visual deficits. Awaiting cultures 07/04/17: reports headaches better today, no overall changes in vision. final CSF cultures pending (Ani Langley) Labs, Micro, & Vital Signs Results Date Time Temp Pulse Resp B/P (MAP) Pulse Ox O2 Delivery O2 Flow Rate FiO2 07/04/17 04:00 98.5 84 11 101/69 (80) 07/04/17 04:00 84 07/04/17 00:00 82 07/04/17 00:00 98.4 82 11 111/65 (80) 07/03/17 20:03 98 21 07/03/17 20:00 96 07/03/17 20:00 98.2 86 12 141/80 (100) 07/03/17 18:27 15 07/03/17 16:00 92 07/03/17 16:00 98.1 96 20 140/75 (96) 07/03/17 12:45 16 07/03/17 12:00 108 07/03/17 12:00 97.7 108 18 143/83 (103) 07/03/17 10:33 100 21 Constitutional Vital Signs Date Time Temp Pulse Resp B/P (MAP) Pulse Ox O2 Delivery O2 Flow Rate FiO2 07/04/17 04:00 98.5 84 11 101/69 (80) 07/04/17 04:00 84 07/04/17 00:00 82 07/04/17 00:00 98.4 82 11 111/65 (80) 07/03/17 20:03 98 21 07/03/17 20:00 96 07/03/17 20:00 98.2 86 12 141/80 (100) 07/03/17 18:27 15 07/03/17 16:00 92 07/03/17 16:00 98.1 96 20 140/75 (96) 07/03/17 12:45 16 07/03/17 12:00 108 07/03/17 12:00 97.7 108 18 143/83 (103) 07/03/17 10:33 100 21 (Ani Langley) Review of Systems Constitutional: DENIES: Fever Eyes: COMPLAINS OF: Vision loss Neurologic: COMPLAINS OF: Headache (improved), DENIES: Localized weakness, Seizures (Ani Langley) Physical Exam Ms. Landis alert, awake and oriented to time, place and person. Speech is fluent. Appears more comfortable today. Right ventriculostomy drain intact at 0 cm H20, CSF draining currently clear Neck is soft and supple Motor: moves major muscle groups of both upper and lower extremities with good strength. Sensory examination is intact to light touch in both the upper and lower extremities. (Ani Langley) Medications Current Medications Current Medications Medications (Trade) Dose Ordered Sig/David Route PRN Reason Start Time Stop Time Status Last Admin Dose Admin Sodium Chloride (NS Flush) 2 ml UNSCH PRN IV FLUSH FLUSH AFTER USING IV ACCESS 06/30/17 20:15 Sodium Chloride (NS Flush) 2 ml BID IV FLUSH 06/30/17 21:00 07/03/17 21:43 Naloxone HCl (Narcan Inj) 0.4 mg UNSCH PRN IV PUSH SEE LABEL COMMENTS 06/30/17 20:15 Senna/Docusate Sodium (Mary-Colace) 1 tab BID PO 06/30/17 21:00 07/03/17 20:35 Magnesium Hydroxide (Milk Of Magnesia Liq) 30 ml Q12H PRN PO Mild constipation 06/30/17 20:15 Sennosides (Senokot) 17.2 mg Q12H PRN PO Moderate constipation 06/30/17 20:15 Bisacodyl (Dulcolax Supp) 10 mg DAILY PRN RECTAL SEVERE CONSITIPATION 06/30/17 20:15 Lactulose (Lactulose Liq) 30 ml DAILY PRN PO SEVERE CONSITIPATION 06/30/17 20:15 Acetazolamide (Diamox) 250 mg Q12HR PO 07/01/17 00:30 07/03/17 20:35 Amlodipine Besylate (Norvasc) 10 mg DAILY PO 07/01/17 09:00 07/03/17 08:13 Carvedilol (Coreg) 25 mg BID PO 07/01/17 00:30 07/03/17 20:35 Ferrous Sulfate (Ferrous Sulfate) 325 mg BID PO 07/01/17 09:00 07/02/17 21:37 Hydralazine HCl (Apresoline) 50 mg Q8HR PO 07/01/17 00:30 07/03/17 22:38 Hydrochlorothiazide (Hydrodiuril) 25 mg DAILY PO 07/01/17 09:00 07/03/17 08:48 Lisinopril (Prinivil) 20 mg Q12HR PO 07/01/17 09:00 07/03/17 20:35 Topiramate (Topamax) 25 mg Q12HR PO 07/01/17 00:30 07/03/17 20:49 Tramadol HCl (Ultram) 50 mg Q6H PRN PO BREAKTHROUGH PAIN 07/01/17 00:30 07/01/17 06:21 Gabapentin (Neurontin) 300 mg DAILY PO 07/01/17 09:00 07/03/17 08:13 Ondansetron HCl (Zofran Inj) 4 mg Q6HR PRN IV PUSH NAUSEA 07/01/17 08:45 Acetaminophen/ Hydrocodone Bitart ([place] 10-325 Mg) 1 tab Q4H PRN PO PAIN SCALE 1 TO 5 07/02/17 17:15 Acetaminophen/ Hydrocodone Bitart ([place] 10-325 Mg) 2 tab Q4H PRN PO PAIN SCALE 6 TO 10 07/02/17 17:15 07/04/17 05:51 Morphine Sulfate (Morphine Inj) 2 mg Q2H PRN IV PUSH PAIN SCALE 1 TO 6 07/02/17 17:15 Morphine Sulfate (Morphine Inj) 4 mg Q2H PRN IV PUSH PAIN SCALE 7 TO 10 07/02/17 17:15 07/04/17 01:26 Acetaminophen (Tylenol) 650 mg Q4H PRN PO TEMPERATURE > 100.4 F 07/02/17 17:15 Pantoprazole Sodium (Protonix Inj) 40 mg DAILY IVP 07/03/17 09:00 07/03/17 08:13 Vancomycin HCl 1000 mg/Sodium Chloride 250 ml @ 250 mls/hr Q12H IV 07/02/17 23:00 07/03/17 22:38 Ceftriaxone Sodium 2000 mg/ Sodium Chloride 100 ml @ 200 mls/hr Q12HR IV 07/03/17 09:00 07/03/17 20:34 Labetalol HCl (Trandate Inj) 10 mg Q1HR PRN IV PUSH SBP>160, DBP>90, HR>65 07/02/17 21:45 Hydralazine HCl (Apresoline Inj) 10 mg Q1HR PRN IV PUSH SBP>160, DBP>90 07/02/17 21:45 Magnesium Sulfate/ Dextrose 100 ml @ 100 mls/hr Q1H IV 07/04/17 08:00 07/04/17 09:59 Potassium Chloride (KCl) 40 meq BID PO 07/04/17 09:00 07/04/17 21:01 Potassium Chloride 100 ml @ 100 mls/hr Q1H IV 07/04/17 08:00 07/04/17 10:59 (Ani Langley) Medical Decision Making MDM Remarks 37 -year-old female with history of idiopathic intracranial hypertension, ventriculoperitoneal shunt placement Ventriculitis, status post removal of APPLIED PSYCHOLOGY CHAIR shunt with placement of ventriculostomy drain 07/02/17, final cultures from shunt tap 07/01/16 reports no growth, awaiting intraoperative cultures (Ani Langley) Plan Plan Remarks cont ventriculostomy draining follow up final intraoperative cultures cont neuro checks cont IV vancomycin and Rocephin, consult ID for assistance and abx recs PT, ook OOB, keep EVD level of tragus dw nursing (Ani Langley) Attending Statement The exam, history, and the medical decision-making described in the above note were completed with the assistance of the mid-level provider. I reviewed and agree with the findings presented. I attest that I had a [id number] encounter with the patient on the same day, and personally performed and documented my assessment and findings in the medical record. (Shreyas Dumont MD) Ani Lnagley Jul 04, 2017 09:46 Shreyas Dumont MD Jul 04, 2017 12:55
--- NOTE | 2017-07-04 10:08 | HHI.FPPN ---
Subjective Remarks Sitting up in bed, awake, alert, no distress. Reports moderate headaches this morning, nausea without vomiting. No changes in her visual status. No chest pain or shortness of breath. No abdominal pain. No calf tenderness or swelling. Objective Vitals Vital Signs Date Time Temp Pulse Resp B/P (MAP) Pulse Ox O2 Delivery O2 Flow Rate FiO2 07/04/17 04:00 98.5 84 11 101/69 (80) 07/04/17 04:00 84 07/04/17 00:00 82 07/04/17 00:00 98.4 82 11 111/65 (80) 07/03/17 20:03 98 21 07/03/17 20:00 96 07/03/17 20:00 98.2 86 12 141/80 (100) 07/03/17 18:27 15 07/03/17 16:00 92 07/03/17 16:00 98.1 96 20 140/75 (96) 07/03/17 12:45 16 07/03/17 12:00 108 07/03/17 12:00 97.7 108 18 143/83 (103) 07/03/17 10:33 100 21 I/O 07/03/17 07/03/17 07/03/17 07/04/17 07/04/17 07/04/17 07:00 15:00 23:00 07:00 15:00 23:00 Intake Total 950 ml 1200 ml 750 ml Output Total 1390 ml 2120 ml 1650 ml Balance -440 ml -920 ml -900 ml Intake Oral 700 ml 1200 ml 750 ml IV Total 250 ml Output Urine Total 1250 ml 2000 ml 1500 ml Drainage Total 140 ml 120 ml 150 ml Result Diagram: 07/04/17 0536 07/04/17 0536 Objective Remarks GENERAL: Sitting up in bed, no distress, more alert than yesterday SKIN: No rashes or lesions HEENT: Normocephalic, no conjunctivitis, no nasal discharge Neck: No thyromegaly or lymphadenopathy CV: RRR, no murmurs, rubs, or gallops, normal cap refill and pulses. Lungs: CTAB Abdomen: Soft, nontender, nondistended, normal bowel sounds Ext: No swelling or pain Neuro: Awake, alert, PERRLA, EOMI, CN intact, poor visual acuity, normal strength and sensation in bilateral upper extremities. External ventriculostomy tube is in place, clear fluid, pressure at zero. Procedures INTERNAL MEDICINE NURSE PRACTITIONER shunt revision, external ventriculostomy tube placement on 07/02/17 A/P Assessment and Plan 37 yo F with pseudotumor cerebri and INTERNAL MEDICINE NURSE PRACTITIONER shunt malfunction with increasing headache and visual loss. She is now status post external ventriculostomy drain placement. Discharge Planning Pending clinical stability and recommendations from neurosurgery, and external ventriculostomy drain management. Will need to follow up with neurosurgery and ophthalmology closely as an outpatient. Problem List: (1) Pseudotumor cerebri ICD Codes: G93.2 - Benign intracranial hypertension Status: Chronic Plan: [Per EMR review, patient underwent INTERNAL MEDICINE NURSE PRACTITIONER shunt placement 04/28/2017 due to nonfunctioning prior LP shunt from distant past. Patient subsequently developed worsening headaches; LP performed 05/31/2017 showing LP opening pressure of 60+ cm H20. Shunt readjusted 06/01/2017 to 40mm H20. CSF cultures were reportedly negative for infection.] 06/30/2016- Shuntogram showed 2 separate shunts. MRV 06/02/2017- bilateral transverse sinus stenosis MRI 06/02- no acute pathology LP completed on 07/01/17: opening pressure greater than 65 cmH20. CSF studies reassuring. Status post external ventricular drain placement on 07/03/17 - Neurosurgery on board - She has been referred to the [facility] for possible optic nerve fenestration which she can follow up on. - She will need to be followed by ophthalmology as an outpatient. - Continue Acetazolamide 250mg BID, may be able to discontinue if shunt proves effective for symptom relief. - Ondansetron for nausea/vomiting - Vancomycin and Rocephin started 07/02/17 for ventriculitis, ID consulted for antibiotic recommendations (2) Pulmonary edema ICD Codes: J81.1 - Chronic pulmonary edema Plan: Pulmonary edema with kiki-hilar infiltrates and cardiomegaly, hypoxia after the procedure that required transfer to the ICU. Now on room air and respiratory status improved. 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 Per ED documentation, patient scheduled to see retinal specialist. Patient reportedly prescribed glasses recently which did not help. Likely secondary to pseudotumor cerebri. Recent MRI was normal. - Will need to follow up with ophthalmology as an outpatient. - Has referral to [place] for possible optic nerve fenestration. - See plan for pseudotumor cerebri. - Precautions for visually impaired - Recommended outpatient center that provides resources for the visually impaired. (4) Cephalgia ICD Codes: R51 - Headache Status: Acute Plan: Worsening headache recently, likely due to increased intracranial pressure. Headaches much better now. - Continue Topamax 25mg BID per Neurology - Continue morphine 2 mg q2hrs PRN for pain 1-6, morphine 4 mg PRN pain 7-10. (5) HTN (hypertension) ICD Codes: I10 - Essential (primary) hypertension Status: Chronic Plan: Patient with HTN; seemingly refractory to >4 agents. Per discussion with patient and EMR, no knowledge of renal fibromuscular dysplasia -Continue home antihypertensives -Hydralazine 50mg q8hrs -Carvedilol 25mg BID -Amlodipine 10mg daily -Lisinopril 20mg BID -HCTZ 25mg daily -Consider evaluation for renal arteries/fibromuscular dysplasia as an outpatient (6) Cubital tunnel syndrome on left ICD Codes: G56.22 - Lesion of ulnar nerve, left upper limb Status: Chronic Plan: Prior presumptive diagnosis per Neurology; explains patient's LUE symptoms of pain, numbness, and tingling. No loss of sensation on exam; normal strength - Follow-up with Neurology as an outpatient - Will try Gabapentin 300 mg tid for pain - Could consider MRI of the neck if pain not resolving. (7) DVT Prophylaxis Status: Acute Plan: -Bilateral SCD's -Hold on any anticoagulants due to LP and ventriculostomy drain placement -Will get out of bed and into chair today with help of PT (8) Fluids, Electrolytes, and Nutrition Status: Acute Plan: Fluids: PO fluids Electrolytes: Hypokalemia, KCl at 40 meQ bid. Monitor and replace magnesium. Nutrition: clear liquid diet, advance as tolerated Problem Qualifiers (1) Pulmonary edema: Qualified Codes: J81.0 - Acute pulmonary edema (2) Cephalgia: Qualified Codes: R51 - Headache (3) HTN (hypertension): Qualified Codes: I10 - Essential (primary) hypertension Olivier Ramires MD R3 Jul 04, 2017 10:08
[2017-07-04] MEDS: cefTRIAXone INJ 2,000 MG in SODIUM CHLORIDE 0.9% INJ 100 ML IV SCH ×2 (10:18→22:07)
[2017-07-04] MEDS: CARVEDILOL 12.5 MG TAB PO SCH ×2 (10:19→22:01)
[2017-07-04] MEDS: GABAPENTIN 300 MG CAP PO SCH (10:19)
[2017-07-04] MEDS: PANTOPRAZOLE SODIUM 40 MG VIAL IVP SCH (10:20)
[2017-07-04] MEDS: acetaZOLAMIDE 250 MG TAB PO SCH ×2 (10:20→22:01)
[2017-07-04] MEDS: DOCUSATE SODIUM 50 MG/SENNA 8.6 MG TAB PO SCH ×2 (10:20→22:02)
[2017-07-04] MEDS: HYDROCHLOROTHIAZIDE 25 MG TAB PO SCH (10:20)
[2017-07-04] MEDS: POTASSIUM CHLOR 10 MEQ PREMIX 100 ML IV SCH ×3 (10:21→15:47)
[2017-07-04] MEDS: TOPIRAMATE 25 MG TAB PO SCH ×2 (10:21→22:01)
[2017-07-04] MEDS: SODIUM CHLORIDE 0.9% FLUSH 10 ML FLUSH IV FLUSH SCH ×2 (10:22→21:00)
[2017-07-04] MEDS: MAGNESIUM SULFATE 1 GM PREMIX 100 ML IV SCH ×2 (10:22→13:10)
--- NOTE | 2017-07-04 10:40 | HHI.FPPN ---
Addendum to progress note ADDENDUM Reason for addendum: Additonal documentation Additional information OFF SERVICE NOTE 37 year old female with a history of idiopathic intracranial hypertension and a DEVULCANIZER LOADER shunt since 04/28/17 presented to the ED on 06/30/16 with increasing headaches, nausea, and visual loss. Neurosurgery was consulted. She underwent external ventriculostomy drain placement on 07/02/17. After her procedure she became acutely hypoxic and required transfer to the ICU with solar designer consultation, who is now on board. She did not require mechanical ventilation but did require Venturi mask. Her respiratory status is now back to her baseline. Imagining showed cardiomegaly and pulmonary congestion, and she was given IV Lasix once. She has an ECHO pending. Her CSF studies are negative to date, and CSF studies from intra-operation are still pending and need to be followed up. She is being treated with vancomycin and ceftriaxone for ventriculitis, and ID was consulted today for further antibiotic recommendations. Her headaches are somewhat improved and nausea somewhat improved but they are still present. Vision has remained the same since admission. After discharge the plan is for her to follow up at [place] for possible optic nerve fenestration. She will continue acetazolamide for elevated intracranial pressure until DEVULCANIZER LOADER shunt is working appropriately and she no longer needs it. She needs to follow up with ophthalmology, neurosurgery, and primary care after discharge. Olivier Ramires MD R3 Jul 04, 2017 10:40
[2017-07-04] MEDS: VANCOMYCIN INJ 1,000 MG in SODIUM CHLOR 0.9% 250 ML INJ 250 ML IV SCH ×2 (13:10→22:06)
--- NOTE | 2017-07-04 13:38 | MB ---
cc: PAPA VOGT M.D., FRANKLYN F. MD DATE OF CONSULTATION: 07/04/[address] Vogt. REASON FOR CONSULTATION: Ventriculitis. HISTORY OF PRESENT ILLNESS This is a 37-year-old white female who has known pseudotumor cerebri. The patient has been treated for this problem with initially lumbar peritoneal shunt and then she had intractable headaches, and underwent placement of a ventriculoperitoneal shunt. She now has blindness in both eyes. The patient underwent removal of the ventriculoperitoneal shunt and placement of ventriculostomy by Dr. Vogt. Fluid was sent for evaluation and cultures. This consultation is now requested for Infectious Disease evaluation. The patient is awake and alert. She tells me that she gets nausea, vomiting and headache. She has the ventriculostomy catheter in place. The CSF is clear. She has no fever and the white blood cell count is normal, except for one elevated white count yesterday of 13.2. The CSF from 07/02 has no growth at 48 hours. CSF shunt fluid was also sent on 07/01 and has no growth at 72 hours. The CSF fluid count revealed zero white cells on 07/01. The patient denies other symptomatology. PAST MEDICAL HISTORY: 1. Pseudotumor cerebri. 2. . 3. Cholecystectomy. ALLERGIES Amoxicillin. MEDICATIONS 1. Ceftriaxone. 2. Vancomycin. 3. Protonix. 4. Potassium. 5. [place] 10. 6. Norvasc. 7. Hydrochlorothiazide. 8. Prinivil. 9. Neurontin. 10. Topamax. 11. Ultram. SOCIAL HISTORY No tobacco, alcohol or illicit drugs. FAMILY HISTORY: Family history is significant for strokes in the patient's mom and also hypertension in the patient's parents. REVIEW OF SYSTEMS: Significant for nausea, vomiting, headache and visual loss. PHYSICAL EXAMINATION: This is a moderately obese female who is awake and alert and in no acute distress. Vital signs: Include temperature 98.5, blood pressure 101/69, heart rate 72, respirations 18. HEENT: The head has a ventriculostomy exiting with the catheter containing clear CSF fluid. The head is otherwise atraumatic. The sclerae is nonicteric. Oropharynx: moist mucosa without lesions. Neck: Supple. No adenopathy. Lungs: Clear, decreased breath sounds. Heart: Regular S1-S2 without murmurs. Abdomen: Bowel sounds present, soft, no tenderness appreciated. Rectal: Not performed. Extremities: No clubbing, cyanosis or edema. Skin: No rash. Neuro: No gross focal findings. Psych: Calm and cooperative. LABORATORY DATA: WBC 8.4, platelet count 354, hemoglobin 7.9, creatinine 0.88, BUN 6, sodium 140. X-RAYS: Chest x-ray from 07/04 read as patchy bilateral perihilar pulmonary parenchymal opacity, left greater than right. IMPRESSION 1. Patient status post ventriculostomy. CSF fluid studies unremarkable. I do not think this patient has ventriculitis. However, the culture of the CSF needs to be followed for 72 hours. 2. Abnormal chest x-ray reported by the radiological reading. The patient's has no pulmonary symptoms to suggest pneumonia. 3. History of pseudotumor cerebri. Since I do not think the patient has ventriculitis I would not treat her with antibiotics unless the CSF culture becomes positive. If the CSF culture is negative at 48 hours and should be followed through 72 hours, after that if it is negative I think we can discontinue the vancomycin and ceftriaxone. Thank you for this consultation. Henri Powell MD FD/SAULO /12:30 PM /1:00 PM
--- NOTE | 2017-07-04 14:28 | HHI.CCPN ---
Subjective Remarks/Hospital Course This is a 37-year-old AA female. Date of admission 06/30/2017. Date of call station 07/02/2017. Past medical history includes pseudotumor cerebri, hypertension, seizure disorder, headaches and left carpal tunnel syndrome. Originally seen 05/14 for placement of a COMPUTERIZED MILL MILL RECORDER shunt due to pseudotumor pseudotumor. She presented to [facility] on 06/30 with chief complaints diffuse headache,, eye discomfort and left upper extremity tingling and numbness. She reports 1 days history of headache and pressure behind her eyes. 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 She can see only shadows with her L eye but cannot see much more. Patient describes her headache as different than her chronic headaches that she has had previously. She normally treats these with topiramate along with sumatriptan, however this time this without success also, she is reports left arm tingling and numbness for ~1 week; located lateral aspect of upper extremity associated with within 50 paresthesias. Patient reports having seen an Spun Paste Machine Operator on 05/2017 and she was given glasses at that time. The glasses did not improve her left eye visual acuity She has been referred to retinal specialist and Dr. Dumont recommended evaluation at the [facility] for a possible optic nerve fenestration initial Shunt studies showed 2 separate shunts. Initial lumbar punctures on 07/02 revealed negative Gram stain. She is been started on vancomycin and ceftriaxone. Today, patient underwent removal COMPUTERIZED MILL MILL RECORDER shunt and placement of ventriculostomy/right-sided by Dr. Dumont. 1000 crystalloid. 50 cc estimate blood loss. 500 cc urine output. Patient received 2 g of cefazolin. Postoperatively, patient was hypoxic and placed on Venturi mask. We are asked to see in consultation by anesthesia. 07/03/17: Patient is lying comfortably in bed. No acute distress. Good oxygen saturation on 3 L nasal cannula. Chest x-ray shows persistent infiltrate/ pulmonary edema. IV Lasix 40 mg 1 ordered, with potassium replacement. Check 2-D echo Subjective 07/04/17: Afebrile. Resting in bed on nasal cannula in no acute distress. Low potassium currently replaced. Advancing diet to full liquids today. Objective Vital Signs Date Time Temp Pulse Resp B/P (MAP) Pulse Ox O2 Delivery O2 Flow Rate FiO2 07/04/17 13:55 95 21 1/7/18 10:35 18 07/04/17 04:00 98.5 84 101/69 (80) 07/02/17 22:35 Nasal Cannula 3.00 Intake and Output 07/04/17 07/04/17 07/05/17 08:00 16:00 00:00 Intake Total 750 ml Output Total 1650 ml Balance -900 ml Result Diagram: 07/04/17 0536 07/04/17 0536 Other Results Microbiology Date/Time Source Procedure Growth Status 07/02/17 17:47 Cerebral Spinal Fluid Shunt Fluid Gram Stain - Final Resulted 07/02/17 17:47 Cerebral Spinal Fluid Shunt Fluid CSF Culture - Preliminary NO GROWTH IN 48 HOURS. Resulted Imaging Last Impressions Chest X-Ray 07/04/17 0600 Signed Impressions: Service Date/Time: Tuesday, July 04, 2017 04:01 - CONCLUSION: No significant interval change with persistent patchy bilateral perihilar pulmonary parenchymal opacity left greater than right. Mg Kaur MD Head CT 07/03/17 0000 Signed Impressions: Service Date/Time: Monday, July 03, 2017 04:32 - CONCLUSION: Right frontal ventriculostomy catheter in place with the tip now in the region of the anterior horn left lateral ventricle. No acute intracranial findings. Mg Kaur MD Shunt Study 07/01/17 0000 Signed Impressions: Service Date/Time: June 14:48 - CONCLUSION: 1. Initial placement of the needle within the shunt yielded approximately 0.2 cc of yellow fluid. This was sent to the lab for Gram stain, culture and sensitivity. Adrián Kahn MD Lumbar Puncture Fluoroscopy 07/01/17 0000 Signed Impressions: Service Date/Time: June 14:48 - CONCLUSION: 1. Opening pressure was greater than 65 CM H2O. 2. Closing pressure was approximately 5 CM H2O. 3. 33 cc of clear CSF was obtained. Adrián Kahn MD Shunt Study (Imaging) 06/30/17 0000 Signed Impressions: Service Date/Time: Friday, June 30, 2017 18:26 - CONCLUSION: There appears to be 2 separate shunts as above both of them appear intact without a definite break. Silvano Larios MD Objective Remarks GENERAL: 37 YO AA female resting in bed in no acute distress HEAD: Atraumatic. Normocephalic. Right-sided COMPUTERIZED MILL MILL RECORDER shunt is clean dry and intact EYES: Pupils equal and round about 3 mm bilaterally and reactive. No scleral icterus. No injection or drainage. ENT: No nasal bleeding or discharge. Mucous membranes pink and moist. NECK: Trachea midline. No JVD. CARDIOVASCULAR: Regular rate and rhythm. S1, S2. No S4. Without murmur RESPIRATORY: No accessory muscle use. Clear to auscultation. Breath sounds equal bilaterally. GASTROINTESTINAL: Abdomen soft, non-tender, nondistended. MUSCULOSKELETAL: Extremities without significant edema. No obvious deformities. NEUROLOGICAL: Awake and alert. No obvious cranial nerve deficits. Motor grossly within normal limits. Five out of 5 muscle strength in the arms and legs. Normal speech. A/P Assessment and Plan Neuro/Psych: Post op day #2removal of COMPUTERIZED MILL MILL RECORDER shunt and placement of ventriculostomy Pseudotumor cerebri Chronic headaches Right eye blindness Left carpal tunnel syndrome Management of ventriculostomy for Dr. Julia Dumont recommended referral to physical integration practitioner [facility] - consultation placed your 07/04 Hydrocodone/acetaminophen 10/325 one EVERY 4 hours when necessary pain Morphine sulfate 2-4 mg every 2 hours when necessary breakthrough pain Tramadol 50 mg every 6 hours when necessary breakthrough pain Acetaminophen 650 mg every 6 hours when necessary fever Continue acetazolamide 250 mill grams twice a day for PTC Continue topiramate 25 mg by mouth every 12 hours for headaches Continue gabapentin 300 mg daily/home medication OT evaluate and treat for carpal tunnel syndrome Currently holding sumatriptan for headaches. - 270 cc clear 0cm H2O from ventriculostomy overnight CV: Hypertension Continue amlodipine 10 mg daily, carvedilol 25 mg twice a day, hydralazine 50 mg every 8 hours, lisinopril 20 mg twice a day and hydrochlorothiazide 25 mg daily As needed labetalol/hydralazine systolic blood pressure less than 160 2-D echocardiogram has been ordered. Received furosemide 40 mg IV 1 yesterday Resp: Currently on nasal cannula to keep saturations greater than equal to 92% Incentive spirometry while awake. EZPap Acappella every 6 hours Chest x-ray 07/03 - Cardiomegaly with bilateral perihilar airspace disease and basilar airspace disease. Differential diagnosis includes edema and infection. GI: Advance diet per neurosurgery. Currently on full liquid diet Pantoprazole for GI prophylaxis Docusate sodium/senna 1 tablet twice a day for bowel regimen : No indication for Ybarra catheter Endo: Sliding-scale insulin only if indicated to maintain euglycemia Renal: Creatinine currently within normal limits Monitor urine output Accurate I's and O's Heme: Microcytic anemia Continue ferrous sulfate 325 mg by mouth twice a day No indications for transfusion of blood products at this time ID: Currently on ceftriaxone 2 g every 12 hours and vancomycin 1 g every 12 hours Pertinent cultures CSF Gram stain - 07/01 - no growth CSF AFB and fungal 07/01 - no growth CSF Gram stain - 07/02 - no growth Infectious disease consulted. Recommended cessation S likely not ventriculitis if cultures remain negative MSK: PT evaluate and treat, OOB up to chair FEN: Hypopotassemia Replace electrolytes as clinically indicated. 20 mEq IV and 80 mEq by mouth 1 today. Recheck in AM. 2 g mag sulfate IV 1 now. Access - Utilize peripheral IV. Central line if indicated Prophylaxis - GI - pantoprazole - DVT - SCD/holding pharmacological prophylaxis until okay with neurosurgery Level II follow-up Jluis Penny MD Jul 04, 2017 14:28
[2017-07-04] MEDS: POTASSIUM CHLORIDE 10 MEQ CONTROLLED RELEASE TAB PO SCH ×2 (15:47→22:06)
--- NOTE | 2017-07-04 17:02 | ECHRPT ---
Indication: Shortness of breath CONCLUSIONS Normal left ventricular size and wall thickness. The left ventricular systolic function is normal wi th an estimated ejection fraction in the range of 60-65%. Left ventricular diastolic function parameters a re normal. BP: 101 / 69 HR: 80 Rhythm: Sinus MEASUREMENTS (Male / Female) Normal Values Technical Quality:Good 2D ECHO LV Diastolic Diameter PLAX 4.8 cm 4.2 - 5.9 / 3.9 - 5.3 cm LV Systolic Diameter PLAX 3.5 cm IVS Diastolic Thickness 0.9 cm 0.6 - 1.0 / 0.6 - 0.9 cm LVPW Diastolic Thickness 0.9 cm 0.6 - 1.0 / 0.6 - 0.9 cm LV Relative Wall Thickness 0.4 LVOT Diameter 2.1 cm M-MODE Aortic Root Diameter MM 3.2 cm LA Systolic Diameter MM 2.8 cm LA Ao Ratio MM 0.9 AV Cusp Separation MM 2.1 cm DOPPLER AV Peak Velocity 114.0 cm/s AV Peak Gradient 5.2 mmHg LVOT Peak Velocity 83.9 cm/s LVOT Peak Gradient 2.8 mmHg AV Area Cont Eq pk 2.5 cm LV E' Lateral Velocity 10.3 cm/s PV Peak Velocity 92.3 cm/s PV Peak Gradient 3.4 mmHg FINDINGS LEFT VENTRICLE Normal left ventricular size and wall thickness. The left ventricular systolic function is normal wi th an estimated ejection fraction in the range of 60-65%. Left ventricular diastolic function parameters a re normal. RIGHT VENTRICLE Normal right ventricular size and systolic function. LEFT ATRIUM The left atrial size is normal. RIGHT ATRIUM The right atrial size is normal. ATRIAL SEPTUM Normal atrial septal thickness without atrial level shunting by limited color doppler interrogation. AORTA The aortic root and proximal ascending aorta are normal in size on limited imaging. MITRAL VALVE Structurally normal mitral valve. No mitral valve stenosis or regurgitation. AORTIC VALVE Trileaflet aortic valve. No aortic valve stenosis or regurgitation. TRICUSPID VALVE Structurally normal tricuspid valve. No tricuspid valve stenosis or regurgitation. PULMONARY VALVE The pulmonary valve is not well visualized. VESSELS The inferior vena cava is normal in size. PERICARDIUM No pericardial effusion. Dane Shoemaker MD (Electronically Signed) Final Date:04 July 2017 17:00
[2017-07-04] MEDS: FERROUS SULFATE 325 MG (65 MG ELEMENTAL IRON) TAB PO SCH (22:01)
[2017-07-05] VITALS (13 sets, daily range): BP systolic 113–148; BP diastolic 61–91; PULSE 87–98; RESP 12–22; TEMP 98.6–99.6; O2SAT 97–100
[2017-07-05 04:50] LABS: HEMATOCRIT 25.4 % (35.0-46.0); HEMOGLOBIN 8.5 GM/DL (11.6-15.3); MEAN CELL VOLUME 77.3 FL (80.0-100.0); MEAN CORPUSCULAR HEMOGLOBIN 25.9 PG (27.0-34.0); MEAN CORPUSCULAR HGB CONC 33.5 % (32.0-36.0); MEAN PLATELET VOLUME 7.1 FL (7.0-11.0); PLATELET COUNT 345 TH/MM3 (150-450); RED BLOOD COUNT 3.29 MIL/MM3 (4.00-5.30); RED CELL DISTRIBUTION WIDTH 18.6 % (11.6-17.2); WHITE BLOOD COUNT 9.3 TH/MM3 (4.0-11.0)
[2017-07-05 05:13] LABS: ALBUMIN 2.7 GM/DL (3.4-5.0); AST (GOT) 3 U/L (15-37); BICARBONATE 26.6 MEQ/L (21.0-32.0); BLOOD UREA NITROGEN 7 MG/DL (7-18); CALCIUM 8.6 MG/DL (8.5-10.1); CHLORIDE 106 MEQ/L (98-107); CREATININE 0.99 MG/DL (0.50-1.00); GLOMERULAR FILTRATION RATE 77 ML/MIN (>89); GLUCOSE,RANDOM 96 MG/DL (74-106); MAGNESIUM 1.9 MG/DL (1.5-2.5); SODIUM (NA) 139 MEQ/L (136-145)
[2017-07-05 05:14] LABS: ALT (GPT) 10 U/L (10-53)
[2017-07-05 05:17] LABS: ALKALINE PHOSPHATASE 61 U/L (45-117); TOTAL BILIRUBIN ADULT 0.1 MG/DL (0.2-1.0); TOTAL PROTEIN 6.5 GM/DL (6.4-8.2)
[2017-07-05] MEDS: hydrALAZINE HCL 50 MG TAB PO SCH ×3 (06:00→22:00)
--- NOTE | 2017-07-05 07:53 | HHI.CCPN ---
Subjective Remarks/Hospital Course This is a 37-year-old AA female. Date of admission 06/30/2017. Date of call station 07/02/2017. Past medical history includes pseudotumor cerebri, hypertension, seizure disorder, headaches and left carpal tunnel syndrome. Originally seen 05/14 for placement of a ADHESIVE BONDING MACHINE OPERATOR shunt due to pseudotumor pseudotumor. She presented to [facility] on 06/30 with chief complaints diffuse headache,, eye discomfort and left upper extremity tingling and numbness. She reports 1 days history of headache and pressure behind her eyes. 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 She can see only shadows with her L eye but cannot see much more. Patient describes her headache as different than her chronic headaches that she has had previously. She normally treats these with topiramate along with sumatriptan, however this time this without success also, she is reports left arm tingling and numbness for ~1 week; located lateral aspect of upper extremity associated with within 50 paresthesias. Patient reports having seen an Reclamation Supervisor on 05/2017 and she was given glasses at that time. The glasses did not improve her left eye visual acuity She has been referred to retinal specialist and Dr. Dumont recommended evaluation at the [facility] for a possible optic nerve fenestration initial Shunt studies showed 2 separate shunts. Initial lumbar punctures on 07/02 revealed negative Gram stain. She is been started on vancomycin and ceftriaxone. Today, patient underwent removal ADHESIVE BONDING MACHINE OPERATOR shunt and placement of ventriculostomy/right-sided by Dr. Dumont. 1000 crystalloid. 50 cc estimate blood loss. 500 cc urine output. Patient received 2 g of cefazolin. Postoperatively, patient was hypoxic and placed on Venturi mask. We are asked to see in consultation by anesthesia. 07/03/17: Patient is lying comfortably in bed. No acute distress. Good oxygen saturation on 3 L nasal cannula. Chest x-ray shows persistent infiltrate/ pulmonary edema. IV Lasix 40 mg 1 ordered, with potassium replacement. Check 2-D echo Subjective 07/04/17: Afebrile. Resting in bed on nasal cannula in no acute distress. Low potassium currently replaced. Advancing diet to full liquids today. 07/05: Resting in bed. Ventriculostomy remains in place. Being followed by neurosurgery. Not in any acute distress. Denies any shortness of breath. Objective Vital Signs Date Time Temp Pulse Resp B/P (MAP) Pulse Ox O2 Delivery O2 Flow Rate FiO2 07/05/17 04:00 88 07/05/17 04:00 99.1 15 116/61 (79) 98 07/04/17 19:55 21 07/02/17 22:35 Nasal Cannula 3.00 Intake and Output 07/05/17 07/05/17 07/06/17 08:00 16:00 00:00 Intake Total 120 ml Output Total 62 ml Balance 58 ml Result Diagram: 07/05/173 07/05/173 Imaging Last Impressions Chest X-Ray 07/04/17 0600 Signed Impressions: Service Date/Time: Tuesday, July 04, 2017 04:01 - CONCLUSION: No significant interval change with persistent patchy bilateral perihilar pulmonary parenchymal opacity left greater than right. Mg Kaur MD Head CT 07/03/17 0000 Signed Impressions: Service Date/Time: Monday, July 03, 2017 04:32 - CONCLUSION: Right frontal ventriculostomy catheter in place with the tip now in the region of the anterior horn left lateral ventricle. No acute intracranial findings. Mg Kaur MD Shunt Study 07/01/17 0000 Signed Impressions: Service Date/Time: June 14:48 - CONCLUSION: 1. Initial placement of the needle within the shunt yielded approximately 0.2 cc of yellow fluid. This was sent to the lab for Gram stain, culture and sensitivity. Adrián Kahn MD Lumbar Puncture Fluoroscopy 07/01/17 0000 Signed Impressions: Service Date/Time: June 14:48 - CONCLUSION: 1. Opening pressure was greater than 65 CM H2O. 2. Closing pressure was approximately 5 CM H2O. 3. 33 cc of clear CSF was obtained. Adrián Kahn MD Shunt Study (Imaging) 06/30/17 0000 Signed Impressions: Service Date/Time: Friday, June 30, 2017 18:26 - CONCLUSION: There appears to be 2 separate shunts as above both of them appear intact without a definite break. Silvano Larios MD Objective Remarks GENERAL: 37 YO AA female resting in bed in no acute distress HEAD: Atraumatic. Normocephalic. Right-sided ADHESIVE BONDING MACHINE OPERATOR shunt is clean dry and intact EYES: Pupils equal and round about 3 mm bilaterally and reactive. No scleral icterus. No injection or drainage. ENT: No nasal bleeding or discharge. Mucous membranes pink and moist. NECK: Trachea midline. No JVD. CARDIOVASCULAR: Regular rate and rhythm. S1, S2. No S4. Without murmur RESPIRATORY: No accessory muscle use. Clear to auscultation. Breath sounds equal bilaterally. GASTROINTESTINAL: Abdomen soft, non-tender, nondistended. MUSCULOSKELETAL: Extremities without significant edema. No obvious deformities. NEUROLOGICAL: Awake and alert. No obvious cranial nerve deficits. Motor grossly within normal limits. Five out of 5 muscle strength in the arms and legs. Normal speech. A/P Assessment and Plan Neuro/Psych: Post op day #3removal of ADHESIVE BONDING MACHINE OPERATOR shunt and placement of ventriculostomy Pseudotumor cerebri Chronic headaches Right eye blindness Left carpal tunnel syndrome Management of ventriculostomy for Dr. Julia Dumont recommended referral to emergency dispatch operator [facility] - consultation placed 07/04 Hydrocodone/acetaminophen 10/325 one EVERY 4 hours when necessary pain Morphine sulfate 2-4 mg every 2 hours when necessary breakthrough pain Tramadol 50 mg every 6 hours when necessary breakthrough pain Acetaminophen 650 mg every 6 hours when necessary fever Continue acetazolamide 250 mill grams twice a day for PTC Continue topiramate 25 mg by mouth every 12 hours for headaches Continue gabapentin 300 mg daily/home medication OT evaluate and treat for carpal tunnel syndrome Currently holding sumatriptan for headaches. - 270 cc clear 0cm H2O from ventriculostomy overnight CV: Hypertension Continue amlodipine 10 mg daily, carvedilol 25 mg twice a day, hydralazine 50 mg every 8 hours, lisinopril 20 mg twice a day and hydrochlorothiazide 25 mg daily As needed labetalol/hydralazine systolic blood pressure less than 160 2-D echocardiogram has been ordered. Received furosemide 40 mg IV 1 yesterday Resp: Currently on nasal cannula to keep saturations greater than equal to 92% Incentive spirometry while awake. EZPap Acappella every 6 hours Chest x-ray 07/03 - Cardiomegaly with bilateral perihilar airspace disease and basilar airspace disease. Differential diagnosis includes edema and infection. GI: Advance diet per neurosurgery. Currently on full liquid diet Pantoprazole for GI prophylaxis Docusate sodium/senna 1 tablet twice a day for bowel regimen : No indication for Ybarra catheter Endo: Sliding-scale insulin only if indicated to maintain euglycemia Renal: Creatinine currently within normal limits Monitor urine output Accurate I's and O's Heme: Microcytic anemia Continue ferrous sulfate 325 mg by mouth twice a day No indications for transfusion of blood products at this time ID: Currently on ceftriaxone 2 g every 12 hours and vancomycin 1 g every 12 hours Pertinent cultures CSF Gram stain - 07/01 - no growth CSF AFB and fungal 07/01 - no growth CSF Gram stain - 07/02 - no growth Infectious disease consulted. Recommended cessation S likely not ventriculitis if cultures remain negative MSK: PT evaluate and treat, OOB up to chair FEN: Hypopotassemia Replace electrolytes as clinically indicated. 20 mEq IV and 80 mEq by mouth 1 today. Recheck in AM. 2 g mag sulfate IV 1 now. Access - Utilize peripheral IV. Central line if indicated Prophylaxis - GI - pantoprazole - DVT - SCD/holding pharmacological prophylaxis until okay with neurosurgery Patient being followed by family medicine and neurosurgery. Further management of ventriculostomy per Dr. Dumont. Jose Phoenix MD Jul 05, 2017 07:53
[2017-07-05] MEDS: SODIUM CHLORIDE 0.9% FLUSH 10 ML FLUSH IV FLUSH SCH ×2 (08:46→21:00)
[2017-07-05] MEDS: cefTRIAXone INJ 2,000 MG in SODIUM CHLORIDE 0.9% INJ 100 ML IV SCH ×2 (08:46→20:04)
[2017-07-05] MEDS: PANTOPRAZOLE SODIUM 40 MG VIAL IVP SCH (08:46)
[2017-07-05] MEDS: acetaZOLAMIDE 250 MG TAB PO SCH ×2 (08:47→22:37)
[2017-07-05] MEDS: TOPIRAMATE 25 MG TAB PO SCH ×2 (08:47→22:37)
[2017-07-05] MEDS: ACETAMINOPHEN/HYDROcodone 325 MG/10 MG TAB PO PRN ×3 (08:47→12:53)
[2017-07-05] MEDS: FERROUS SULFATE 325 MG (65 MG ELEMENTAL IRON) TAB PO SCH ×2 (08:48→20:10)
[2017-07-05] MEDS: DOCUSATE SODIUM 50 MG/SENNA 8.6 MG TAB PO SCH ×2 (08:48→20:03)
[2017-07-05] MEDS: CARVEDILOL 12.5 MG TAB PO SCH ×2 (08:49→20:03)
[2017-07-05] MEDS: LISINOPRIL 20 MG TAB PO SCH ×2 (08:49→21:00)
[2017-07-05] MEDS: GABAPENTIN 300 MG CAP PO SCH (08:49)
[2017-07-05] MEDS: HYDROCHLOROTHIAZIDE 25 MG TAB PO SCH (08:49)
[2017-07-05] MEDS ORDERED: POTASSIUM CHLORIDE 20 MEQ CONTROLLED RELEASE TAB PO SCH (09:00)
[2017-07-05] MEDS: ONDANSETRON HCL 4 MG/2 ML VIAL IV PUSH PRN (09:10)
--- NOTE | 2017-07-05 10:03 | PD.CONS ---
History of Present Illness Service Ophthalmology Consult Requested By Reason for Consult decreased vision OU Primary Care Physician Olivier Sullivan MD Diagnoses: History of Present Illness 37 yo F with h/o of pseudotumor cerebri who presented to ED with headache, orbital pressure, and left arm tingling and numbness. She is a poor historian ( most of the history was obtained from outpatient medical records). She states she has been "blind" in her right eye since her CRANE CHASER shunt surgery 04/2017. She reports vision in her left eye starting to decrease a couple of weeks ago. She saw adventure challenge instructor Dr. Russell Pierce who referred her to retina specialist Dr. Fito Craig. He saw her on 06/17/17 and diagnosed her with bilateral optic nerve edema and central retinal vein occlusion in her right eye. He referred her to Dr. Mariee, Neuro Music Intern, in [place] - her appt was 06/23/17 but the patient says she was unable to make it. LP done on 07/01/17 showed opening pressure >65. On 07/02 underwent removal of CRANE CHASER shunt and ventriculostomy. Past Family Social History Allergies: Coded Allergies: amoxicillin (Unverified Allergy, Mild, Hives, 05/28/17) Physical Exam Vital Signs Vital Signs Date Time Temp Pulse Resp B/P (MAP) Pulse Ox O2 Delivery O2 Flow Rate FiO2 07/05/17 09:11 98 07/05/17 04:00 88 07/05/17 04:00 99.1 88 15 116/61 (79) 98 07/05/17 02:00 88 07/05/17 00:00 95 07/05/17 00:00 98.8 95 20 113/75 (88) 97 07/04/17 22:00 96 07/04/17 20:00 98.8 94 22 106/64 (78) 94 07/04/17 20:00 88 07/04/17 19:55 95 21 07/04/17 16:55 16 07/04/17 16:00 94 07/04/17 16:00 98.2 88 27 142/88 (106) 07/04/17 13:55 95 21 07/04/17 12:00 88 07/04/17 12:00 98.2 88 17 132/72 (92) 07/04/17 10:35 18 Physical Exam Va sc at near NLP, 20/400 EOM full OU, no diplopia CVF unable Pupils 2-1, APD OD IOP normal to palpation OU Anterior exam OD - normal eyelid, C/S W&Q, K clear, AC deep, pupil round, lens clear OS - normal eyelid, C/S W&Q, K clear, AC deep, pupil round, lens clear Dilated exam OD - optic nerve edema, heme in all 4 quadrants with dilated tortuous vessels OS - optic nerve edema, vit clear, retina flat Laboratory Laboratory Tests Test 07/05/17 04:03 White Blood Count 9.3 Red Blood Count 3.29 Hemoglobin 8.5 Hematocrit 25.4 Mean Corpuscular Volume 77.3 Mean Corpuscular Hemoglobin 25.9 Mean Corpuscular Hemoglobin Concent 33.5 Red Cell Distribution Width 18.6 Platelet Count 345 Mean Platelet Volume 7.1 Blood Urea Nitrogen 7 Creatinine 0.99 Random Glucose 96 Total Protein 6.5 Albumin 2.7 Calcium Level 8.6 Magnesium Level 1.9 Alkaline Phosphatase 61 Aspartate Amino Transf (AST/SGOT) 3 Alanine Aminotransferase (ALT/SGPT) 10 Total Bilirubin 0.1 Sodium Level 139 Potassium Level 3.3 Chloride Level 106 Carbon Dioxide Level 26.6 Anion Gap 6 Estimat Glomerular Filtration Rate 77 Date/Time Source Procedure Growth Status 07/02/17 17:47 Cerebral Spinal Fluid Shunt Fluid Gram Stain - Final Complete 07/02/17 17:47 Cerebral Spinal Fluid Shunt Fluid CSF Culture - Final NO GROWTH IN 72 HRS.--AEROBICALLY OR ... 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 Has been followed by 2 outpatient Ophthalmologists here in [facility] (Dr. Russell Pierce and Dr.Karl Craig). Was referred to Dr. Mariee (Neuro Ophthalmology) in [place] but did not go to appt. Recommend follow up in [place] once discharged. (2) Central retinal vein occlusion of right eye ICD Codes: H34.8112 - Central retinal vein occlusion, right eye, stable Plan: Secondary to optic nerve edema in right eye. Treat underlying condition. Griselda Steve MD Jul 05, 2017 10:03
--- NOTE | 2017-07-05 11:07 | HHI.NSPN ---
(Ani Langley) Note Status Status: Progress Note (Ani Langley) Interval History Interval History 07/03/17: s/p a ventriculoperitoneal shunt and placement of external ventriculostomy drain 07/02/17. Doing well postoperatively, stable moderate headaches without change in visual deficits. Awaiting cultures 07/04/17: reports headaches better today, no overall changes in vision. final CSF cultures pending 07/05/17: nausea, vomiting, awaiting Zofran. cultures today remains negative, still awaiting final (Ani Langley) Labs, Micro, & Vital Signs Results Date Time Temp Pulse Resp B/P (MAP) Pulse Ox O2 Delivery O2 Flow Rate FiO2 07/05/17 09:11 98 07/05/17 04:00 88 07/05/17 04:00 99.1 88 15 116/61 (79) 98 07/05/17 02:00 88 07/05/17 00:00 95 07/05/17 00:00 98.8 95 20 113/75 (88) 97 07/04/17 22:00 96 07/04/17 20:00 98.8 94 22 106/64 (78) 94 07/04/17 20:00 88 07/04/17 19:55 95 21 07/04/17 16:55 16 07/04/17 16:00 94 07/04/17 16:00 98.2 88 27 142/88 (106) 07/04/17 13:55 95 21 07/04/17 12:00 88 07/04/17 12:00 98.2 88 17 132/72 (92) Constitutional Vital Signs Date Time Temp Pulse Resp B/P (MAP) Pulse Ox O2 Delivery O2 Flow Rate FiO2 07/05/17 09:11 98 07/05/17 04:00 88 07/05/17 04:00 99.1 88 15 116/61 (79) 98 07/05/17 02:00 88 07/05/17 00:00 95 07/05/17 00:00 98.8 95 20 113/75 (88) 97 07/04/17 22:00 96 07/04/17 20:00 98.8 94 22 106/64 (78) 94 07/04/17 20:00 88 07/04/17 19:55 95 21 07/04/17 16:55 16 07/04/17 16:00 94 07/04/17 16:00 98.2 88 27 142/88 (106) 07/04/17 13:55 95 21 07/04/17 12:00 88 07/04/17 12:00 98.2 88 17 132/72 (92) (Ani Langley) Review of Systems Constitutional: DENIES: Fever Gastrointestinal: COMPLAINS OF: Nausea, Vomiting Neurologic: COMPLAINS OF: Headache (Ani Langley) Physical Exam Ms. Landis moderate discomfort with nausea and vomiting. Speech is fluent. Right ventriculostomy drain intact at 0 cm H20, draining well, clear and colorless CSF. Site is clean with dressing. Neck is soft and supple Motor: moves major muscle groups of both upper and lower extremities with good strength Cranial nerves: pupils 2 mm bilaterally, gross EOMs intact (Ani Langley) Medications Current Medications Current Medications Medications (Trade) Dose Ordered Sig/David Route PRN Reason Start Time Stop Time Status Last Admin Dose Admin Sodium Chloride (NS Flush) 2 ml UNSCH PRN IV FLUSH FLUSH AFTER USING IV ACCESS 06/30/17 20:15 Sodium Chloride (NS Flush) 2 ml BID IV FLUSH 06/30/17 21:00 07/05/17 08:46 Naloxone HCl (Narcan Inj) 0.4 mg UNSCH PRN IV PUSH SEE LABEL COMMENTS 06/30/17 20:15 Senna/Docusate Sodium (Mary-Colace) 1 tab BID PO 06/30/17 21:00 07/05/17 08:48 Magnesium Hydroxide (Milk Of Magnesia Liq) 30 ml Q12H PRN PO Mild constipation 06/30/17 20:15 Sennosides (Senokot) 17.2 mg Q12H PRN PO Moderate constipation 06/30/17 20:15 Bisacodyl (Dulcolax Supp) 10 mg DAILY PRN RECTAL SEVERE CONSITIPATION 06/30/17 20:15 Lactulose (Lactulose Liq) 30 ml DAILY PRN PO SEVERE CONSITIPATION 06/30/17 20:15 Acetazolamide (Diamox) 250 mg Q12HR PO 07/01/17 00:30 07/05/17 08:47 Amlodipine Besylate (Norvasc) 10 mg DAILY PO 07/01/17 09:00 07/05/17 08:47 Carvedilol (Coreg) 25 mg BID PO 07/01/17 00:30 07/05/17 08:49 Ferrous Sulfate (Ferrous Sulfate) 325 mg BID PO 07/01/17 09:00 07/05/17 08:48 Hydralazine HCl (Apresoline) 50 mg Q8HR PO 07/01/17 00:30 07/04/17 22:01 Hydrochlorothiazide (Hydrodiuril) 25 mg DAILY PO 07/01/17 09:00 07/05/17 08:49 Lisinopril (Prinivil) 20 mg Q12HR PO 07/01/17 09:00 07/03/17 20:35 Topiramate (Topamax) 25 mg Q12HR PO 07/01/17 00:30 07/05/17 08:47 Tramadol HCl (Ultram) 50 mg Q6H PRN PO BREAKTHROUGH PAIN 07/01/17 00:30 07/01/17 06:21 Gabapentin (Neurontin) 300 mg DAILY PO 07/01/17 09:00 07/05/17 08:49 Ondansetron HCl (Zofran Inj) 4 mg Q6HR PRN IV PUSH NAUSEA 07/01/17 08:45 Acetaminophen/ Hydrocodone Bitart (Erin 10-325 Mg) 1 tab Q4H PRN PO PAIN SCALE 1 TO 5 07/02/17 17:15 07/05/17 04:14 Acetaminophen/ Hydrocodone Bitart (Erin 10-325 Mg) 2 tab Q4H PRN PO PAIN SCALE 6 TO 10 07/02/17 17:15 07/05/17 08:47 Morphine Sulfate (Morphine Inj) 2 mg Q2H PRN IV PUSH PAIN SCALE 1 TO 6 07/02/17 17:15 07/04/17 19:30 Morphine Sulfate (Morphine Inj) 4 mg Q2H PRN IV PUSH PAIN SCALE 7 TO 10 07/02/17 17:15 07/04/17 10:26 Acetaminophen (Tylenol) 650 mg Q4H PRN PO TEMPERATURE > 100.4 F 07/02/17 17:15 Pantoprazole Sodium (Protonix Inj) 40 mg DAILY IVP 07/03/17 09:00 07/05/17 08:46 Vancomycin HCl 1000 mg/Sodium Chloride 250 ml @ 250 mls/hr Q12H IV 07/02/17 23:00 07/04/17 22:06 Ceftriaxone Sodium 2000 mg/ Sodium Chloride 100 ml @ 200 mls/hr Q12HR IV 07/03/17 09:00 07/05/17 08:46 Labetalol HCl (Trandate Inj) 10 mg Q1HR PRN IV PUSH SBP>160, DBP>90, HR>65 07/02/17 21:45 Hydralazine HCl (Apresoline Inj) 10 mg Q1HR PRN IV PUSH SBP>160, DBP>90 07/02/17 21:45 (Ani Langley) Medical Decision Making MDM Remarks 37 -year-old female with history of idiopathic intracranial hypertension, ventriculoperitoneal shunt placement Ventriculitis, status post removal of CLOTHING SALES ASSISTANT shunt with placement of ventriculostomy drain 07/02/17, final cultures from shunt tap 07/01/16 reports no growth, awaiting final intraoperative cultures ID consultation noted, not suspecting ventriculitis per CSF studies (Ani Langley) Plan Plan Remarks cont ventriculostomy draining follow up final intraoperative cultures cont neuro checks cont IV vancomycin and Rocephin for now, if final cultures negative, may dc abx per ID dw previously, consider replacement of CLOTHING SALES ASSISTANT vs LP shunt cont PT, ook OOB, keep EVD level of tragus appreciate Opthalmology evaluation - referral to neuro a p manager outpatient appreciate ID evaluation dw nursing (Ani Langley) Attending Statement The exam, history, and the medical decision-making described in the above note were completed with the assistance of the mid-level provider. I reviewed and agree with the findings presented. I attest that I had a [id number] encounter with the patient on the same day, and personally performed and documented my assessment and findings in the medical record. (Shreyas Dumont MD) Ani Langley Jul 05, 2017 11:07 Shreyas Dumont MD Jul 06, 2017 13:51
--- NOTE | 2017-07-05 11:08 | HHI.FPPN ---
Subjective Remarks No acute events overnight. Vital signs unremarkable. This morning patient states that she continues to have headaches but without vomiting. Also continues to have eye pain. Denies diarrhea, chest pain, SOB. (Veda Melvin MD, R3) Objective Vitals Vital Signs Date Time Temp Pulse Resp B/P (MAP) Pulse Ox O2 Delivery O2 Flow Rate FiO2 07/05/17 09:11 98 07/05/17 04:00 88 07/05/17 04:00 99.1 88 15 116/61 (79) 98 07/05/17 02:00 88 07/05/17 00:00 95 07/05/17 00:00 98.8 95 20 113/75 (88) 97 07/04/17 22:00 96 07/04/17 20:00 98.8 94 22 106/64 (78) 94 07/04/17 20:00 88 07/04/17 19:55 95 21 07/04/17 16:55 16 07/04/17 16:00 94 07/04/17 16:00 98.2 88 27 142/88 (106) 07/04/17 13:55 95 21 07/04/17 12:00 88 07/04/17 12:00 98.2 88 17 132/72 (92) I/O 07/04/17 07/04/17 07/04/17 07/05/17 07/05/17 07/05/17 07:00 15:00 23:00 07:00 15:00 23:00 Intake Total 750 ml 1020 ml 120 ml Output Total 1650 ml 343 ml 1010 ml 762 ml Balance -900 ml -343 ml 10 ml -642 ml Intake Oral 750 ml 1020 ml 120 ml Output Urine Total 1500 ml 250 ml 950 ml 700 ml Drainage Total 150 ml 93 ml 60 ml 62 ml # Voids 1 # Bowel Movements 0 (Veda Melvin MD, R3) Result Diagram: 07/05/1740207/05/17402 Objective Remarks GEN: Well-developed, well-nourished patient. No acute distress. CV: Regular rate and rhythm without obvious murmurs LUNGS: Clear to auscultation bilaterally. Normal respiratory effort. No wheezes , rales, rhonchi. GI: Nondistended EXT: No edema. No calf tenderness. NEURO/PSYCH: Awake, alert. Appropriate insight and judgment. Normal speech Procedures METALWORKING INSTRUCTOR shunt revision, external ventriculostomy tube placement on 07/02/17 (Veda Melvin MD, R3) A/P Assessment and Plan 37 yo F with pseudotumor cerebri and METALWORKING INSTRUCTOR shunt malfunction with increasing headache and visual loss. She is now status post external ventriculostomy drain placement. Discharge Planning Pending clinical stability and recommendations from neurosurgery, and external ventriculostomy drain management. Will need to follow up with neurosurgery and ophthalmology closely as an outpatient. * will not need PT on discharge sdw Dr. Araujo (Veda Melvin MD, R3) Attending Attestation THIS CASE WAS DISCUSSED WITH THE RESIDENT PHYSICIAN DR Edwardo DANG.PATIENT SEEN AND EXAMINED, I HAVE REVIEWED THE RECORD AND AGREE WITH THE ABOVE NOTE AND PLAN OF CARE WAS DISCUSSED. I HAVE AUTHORIZED THE ORDER SET (Vicente Araujo MD) Problem List: (1) Pseudotumor cerebri ICD Codes: G93.2 - Benign intracranial hypertension Status: Chronic Plan: Hx of severe symptoms that have required repeat shunt adjustments and re- evaluations. Pt with chronic right eye blindness that will require [place] follow up. Current under the care of fern gatherer. Continues to have significant Headaches. 06/30/2016- Shuntogram showed 2 separate shunts. LP completed on 07/01/17: opening pressure greater than 65 cmH20. Status post external ventricular drain placement on 07/02/17 CSF studies reassuring. Neurosurgery consulted: appreciate recommendations * continue neuro checks * per discussion with fern gatherer on 07/05/17: will resent CSF fluid for repeat cultures due to clinical concern of infection when drain was placed on 07/02/17 * referred to the [facility] for possible optic nerve fenestration Ophtho consulted by Neurosurgery: appreciate recommendations ID consulted by Neurosurgery: appreciate recommendations * ventriculitis not suspected. Discontinue abx if CSF cultures are negative after 72hrs. Medications: * Continue Acetazolamide 250mg BID, may be able to discontinue if shunt proves effective for symptom relief. * Ondansetron for nausea/vomiting * Vancomycin and Rocephin started 07/02/17 for ventriculitis * Hydrocodone/acetaminophen 10/325 q4 PRN pain * Morphine sulfate 2-4 mg q2hr PRN * Tramadol 50 mg every 6 hours PRN * Topiramate 25 mg by mouth every 12 hours for headaches * Gabapentin 300 mg daily/home medication * Currently holding sumatriptan for headaches. Relevant PMH: Per EMR review, patient underwent METALWORKING INSTRUCTOR shunt placement 04/28/2017 due to nonfunctioning prior LP shunt from distant past. Patient subsequently developed worsening headaches; LP performed 05/31/2017 showing LP opening pressure of 60+ cm H20. Shunt readjusted 06/01/2017 to 40mm H20. CSF cultures were reportedly negative for infection. (2) Pulmonary edema ICD Codes: J81.1 - Chronic pulmonary edema Plan: Pulmonary edema with kiki-hilar infiltrates and cardiomegaly, hypoxia after the procedure that required transfer to the ICU on 07/02/17. Now on room air and respiratory status improved. - Received IV Lasix X1, repeat as needed for fluid overload - O2 supplementation as needed, keep O2 above 92% - ECHO normal with EF 60-65% (3) HTN (hypertension) ICD Codes: I10 - Essential (primary) hypertension Status: Chronic Plan: Patient with HTN; seemingly refractory to >4 agents. Per discussion with patient and EMR, no knowledge of renal fibromuscular dysplasia. BP well controlled currently. -Continue home antihypertensives -Hydralazine 50mg q8hrs -Carvedilol 25mg BID -Amlodipine 10mg daily -Lisinopril 20mg BID -HCTZ 25mg daily -Consider evaluation for aldosterone adenoma as etiology for HTN as outpatient. (4) Cubital tunnel syndrome on left ICD Codes: G56.22 - Lesion of ulnar nerve, left upper limb Status: Chronic Plan: Prior presumptive diagnosis per Neurology; explains patient's LUE symptoms of pain, numbness, and tingling. No loss of sensation on exam; normal strength - Follow-up with Neurology as an outpatient (5) DVT Prophylaxis Status: Acute Plan: -Bilateral SCD's -Hold on any anticoagulants until cleared by neurosurgery (6) Fluids, Electrolytes, and Nutrition Status: Acute Plan: Fluids: PO fluids Electrolytes: Hypokalemia, KCl at 40 meQ bid. Monitor and replace magnesium. Nutrition: clear liquid diet, advance as tolerated (Veda Melvin MD, R3) Problem Qualifiers (1) Pulmonary edema: Qualified Codes: J81.0 - Acute pulmonary edema (2) HTN (hypertension): Qualified Codes: I10 - Essential (primary) hypertension Veda Melvin MD, R3 Jul 05, 2017 11:08 Vicente Araujo MD Jul 06, 2017 09:52
[2017-07-05] MEDS: VANCOMYCIN INJ 1,000 MG in SODIUM CHLOR 0.9% 250 ML INJ 250 ML IV SCH ×2 (12:34→23:00)
--- NOTE | 2017-07-05 15:11 | HHI.FPPN ---
Addendum to progress note ADDENDUM Reason for addendum: Additonal documentation Additional information SUBJECTIVE: Received page from nurse stating because I was concerned about right-sided facial swelling. Patient was unaware of swelling that she is blind out of the right eye. Went to evaluate patient. She reports that she had not noticed the swelling and denies any increase in confusion or changes neurologically. Nurse also reports that patient is neurologically at her baseline. Patient reports that the headache and pain that she typically has is located on the right aspect of her face. Denies laying more prominently on the right hand side. Nurse does report she called neurosurgery who reports that he swelling related to the procedure would be more occipital. OBJECTIVE: Gen: Well-appearing in no acute distress. Skin: Very minimal swelling along the right zygomatic bone. Nontender to palpation. No crepitus, erythema. Neuro/psych: No acute focal neurological changes. Patient oriented to person, place, and time. Face is otherwise symmetric. A/P: 37-year-old female with pseudotumor cerebri admitted for [employer] shunt malfunction with increasing headache and visual loss. noted swelling on patient's right side of face. Physical exam significant for very mild superficial swelling along the zygomatic bone. May be related to position even though patient denies favoring the right side. Patient neurologically at her baseline otherwise. -No indication for further imaging at this time. -Recommend cold compresses -Patient reassured with explanation -Continue to closely monitor for any acute neurological changes or worsening swelling. radha vanegas patient's nurse who was in the room. Veda Melvin MD, R3 Jul 05, 2017 15:11
[2017-07-05] MEDS: MORPHINE SULFATE 2 MG/ML INJ IV PUSH PRN ×2 (15:35→20:02)
[2017-07-06] VITALS: BP 144/88; PULSE 94; RESP 22; TEMP 99.2; O2SAT 96
[2017-07-06] MEDS: MORPHINE SULFATE 2 MG/ML INJ IV PUSH PRN ×8 (01:04→23:48)
[2017-07-06 04:00] VITALS: BP 130/73; PULSE 93; RESP 14; TEMP 99.5; O2SAT 97
[2017-07-06 05:32] LABS: HEMATOCRIT 25.1 % (35.0-46.0); HEMOGLOBIN 8.3 GM/DL (11.6-15.3); MEAN CELL VOLUME 75.5 FL (80.0-100.0); MEAN CORPUSCULAR HGB CONC 33.1 % (32.0-36.0); PLATELET COUNT 364 TH/MM3 (150-450); RED BLOOD COUNT 3.33 MIL/MM3 (4.00-5.30); RED CELL DISTRIBUTION WIDTH 18.7 % (11.6-17.2); WHITE BLOOD COUNT 10.9 TH/MM3 (4.0-11.0)
[2017-07-06 05:56] LABS: BICARBONATE 25.7 MEQ/L (21.0-32.0); CALCIUM 8.7 MG/DL (8.5-10.1); CREATININE 0.91 MG/DL (0.50-1.00)
[2017-07-06] MEDS: hydrALAZINE HCL 50 MG TAB PO SCH ×3 (06:00→21:58)
[2017-07-06] MEDS ORDERED: POTASSIUM CHLORIDE 20 MEQ CONTROLLED RELEASE TAB PO ONE (07:00)
[2017-07-06 07:32] VITALS: O2SAT 99
[2017-07-06 08:00] VITALS: BP 131/71; PULSE 92; RESP 14; TEMP 98; O2SAT 99
[2017-07-06] MEDS: GABAPENTIN 300 MG CAP PO SCH (08:37)
[2017-07-06] MEDS: acetaZOLAMIDE 250 MG TAB PO SCH ×2 (08:37→21:58)
[2017-07-06] MEDS: FERROUS SULFATE 325 MG (65 MG ELEMENTAL IRON) TAB PO SCH ×2 (08:37→21:01)
[2017-07-06] MEDS: HYDROCHLOROTHIAZIDE 25 MG TAB PO SCH (08:37)
[2017-07-06] MEDS: DOCUSATE SODIUM 50 MG/SENNA 8.6 MG TAB PO SCH ×2 (08:38→21:01)
[2017-07-06] MEDS: LISINOPRIL 20 MG TAB PO SCH ×2 (08:38→21:01)
[2017-07-06] MEDS: CARVEDILOL 12.5 MG TAB PO SCH ×2 (08:38→21:03)
[2017-07-06] MEDS: cefTRIAXone INJ 2,000 MG in SODIUM CHLORIDE 0.9% INJ 100 ML IV SCH (08:39)
[2017-07-06] MEDS: ONDANSETRON HCL 4 MG/2 ML VIAL IV PUSH PRN (08:39)
[2017-07-06] MEDS: PANTOPRAZOLE SODIUM 40 MG VIAL IVP SCH (08:40)
[2017-07-06] MEDS: SODIUM CHLORIDE 0.9% FLUSH 10 ML FLUSH IV FLUSH SCH ×2 (08:40→21:01)
[2017-07-06] MEDS: TOPIRAMATE 25 MG TAB PO SCH ×2 (09:15→21:02)
--- NOTE | 2017-07-06 09:56 | HHI.FPPN ---
Subjective Remarks No acute events overnight. Vital signs unremarkable. This morning she states that she continues to have her headaches are most prominent on the right side of her face. Swelling on the right side of face is unchanged from yesterday. Denies any chest pain, SOB, abdominal pain. Does state that she has not had a bowel movement for the last few days. (Veda Melvin MD, R3) Objective Vitals Vital Signs Date Time Temp Pulse Resp B/P (MAP) Pulse Ox O2 Delivery O2 Flow Rate FiO2 07/06/17 07:32 99 21 07/06/17 04:00 99.5 93 14 130/73 (92) 97 07/06/17 04:00 93 07/06/17 00:00 94 07/06/17 00:00 99.2 94 22 144/88 (106) 96 07/05/17 22:00 93 07/05/17 20:00 93 07/05/17 20:00 98.6 91 14 148/79 (102) 98 07/05/17 19:28 100 21 07/05/17 18:00 94 07/05/17 16:00 98 07/05/17 16:00 99.6 98 12 139/81 (100) 100 07/05/17 14:00 95 07/05/17 12:00 99.4 93 20 148/70 (96) 99 07/05/17 12:00 93 07/05/17 10:00 90 I/O 07/05/17 07/05/17 07/05/17 07/06/17 07/06/17 07/06/17 06:59 14:59 22:59 06:59 14:59 22:59 Intake Total 120 ml 550 ml 900 ml 360 ml Output Total 762 ml 850 ml 751 ml 566 ml Balance -642 ml -300 ml 149 ml -206 ml Intake Oral 120 ml 900 ml 360 ml IV Total 550 ml Output Urine Total 700 ml 750 ml 675 ml 500 ml Emesis 100 ml Drainage Total 62 ml 76 ml 66 ml # Voids 1 3 # Bowel Movements 0 0 0 (Veda Melvin MD, R3) Result Diagram: 07/06/17 0326 07/06/17 0326 Objective Remarks GEN: Well-developed, well-nourished patient. No acute distress. Skin: Very minimal swelling along the right zygomatic bone. Nontender to palpation. No crepitus, erythema. No occipital swelling. Unchanged from yesterday CV: Regular rate and rhythm without obvious murmurs LUNGS: Clear to auscultation bilaterally. Normal respiratory effort. No wheezes , rales, rhonchi. GI: Soft, nontender, nondistended. No palpable masses. EXT: No edema. No calf tenderness. NEURO/PSYCH: Awake, alert. Appropriate insight and judgment. Normal speech. Able to move bilateral upper and lower extremities without issues. Procedures CAMPUS WELLNESS COORDINATOR shunt revision, external ventriculostomy tube placement on 07/02/17 (Veda Melvin MD, R3) A/P Assessment and Plan 37 yo F with pseudotumor cerebri and CAMPUS WELLNESS COORDINATOR shunt malfunction with increasing headache and visual loss. She is now status post external ventriculostomy drain placement. Discharge Planning Pending clinical stability and recommendations from neurosurgery, and external ventriculostomy drain management. Will need to follow up with neurosurgery and ophthalmology closely as an outpatient. * will not need PT on discharge * We will fill out [place] papers per patient's request sdw Dr. Araujo (Veda Melvin MD, R3) Attending Attestation Medical rounds were performed with Dr Ca, Patient was interviewed and examined, Agree with the contents of this note, See Assessment and Plan (Vicente Araujo MD) Problem List: (1) Pseudotumor cerebri ICD Codes: G93.2 - Benign intracranial hypertension Status: Chronic Plan: Hx of severe symptoms that have required repeat shunt adjustments and re- evaluations. Pt with chronic right eye blindness that will require [place] follow up. Current under the care of construction assistant. Continues to have significant Headaches. 06/30/2016- Shuntogram showed 2 separate shunts. LP completed on 07/01/17: opening pressure greater than 65 cmH20. Status post external ventricular drain placement on 07/02/17 CSF studies reassuring. * Will wait on evaluation by neurosurgery today to make sure they're not planning to resend CSF fluid as it was not obtained on 07/05/17 prior to discontinuation of antibiotics. Neurosurgery consulted: appreciate recommendations * continue neuro checks * per discussion with construction assistant on 07/05/17: will resend CSF fluid for repeat cultures due to clinical concern of infection when drain was placed on 07/02/17 * referred to the [facility] for possible optic nerve fenestration Ophtho consulted by Neurosurgery: appreciate recommendations * Optic nerve edema: Recommend follow up in [place] once discharged. 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 Treat underlying condition ID consulted by Neurosurgery: appreciate recommendations * ventriculitis not suspected. Discontinue abx if CSF cultures are negative after 72hrs. Medications: * Continue Acetazolamide 250mg BID, may be able to discontinue if shunt proves effective for symptom relief. * Ondansetron for nausea/vomiting * Vancomycin and Rocephin started 07/02/17 for ventriculitis * Hydrocodone/acetaminophen 10/325 q4 PRN pain * Morphine sulfate 2-4 mg q2hr PRN * Tramadol 50 mg every 6 hours PRN * Topiramate 25 mg by mouth every 12 hours for headaches * Gabapentin 300 mg daily/home medication * Currently holding sumatriptan for headaches. Relevant PMH: Per EMR review, patient underwent CAMPUS WELLNESS COORDINATOR shunt placement 04/28/2017 due to nonfunctioning prior LP shunt from distant past. Patient subsequently developed worsening headaches; LP performed 05/31/2017 showing LP opening pressure of 60+ cm H20. Shunt readjusted 06/01/2017 to 40mm H20. CSF cultures were reportedly negative for infection. (2) Pulmonary edema ICD Codes: J81.1 - Chronic pulmonary edema Status: Resolved Plan: Pulmonary edema with kiki-hilar infiltrates and cardiomegaly, hypoxia after the procedure that required transfer to the ICU on 07/02/17. Now on room air and respiratory status improved. - Received IV Lasix X1, repeat as needed for fluid overload - O2 supplementation as needed, keep O2 above 92% - ECHO normal with EF 60-65% (3) HTN (hypertension) ICD Codes: I10 - Essential (primary) hypertension Status: Chronic Plan: Patient with HTN; controlled at this time -Continue home antihypertensives -Hydralazine 50mg q8hrs -Carvedilol 25mg BID -Amlodipine 10mg daily -Lisinopril 20mg BID -HCTZ 25mg daily -Due to repeated hypokalemia, will provide daily dose of potassium 20meq (4) Cubital tunnel syndrome on left ICD Codes: G56.22 - Lesion of ulnar nerve, left upper limb Status: Chronic Plan: Prior presumptive diagnosis per Neurology; explains patient's LUE symptoms of pain, numbness, and tingling. No loss of sensation on exam; normal strength - Follow-up with Neurology as an outpatient (5) DVT Prophylaxis Status: Acute Plan: -Bilateral SCD's -Hold on any anticoagulants until cleared by neurosurgery (6) Fluids, Electrolytes, and Nutrition Status: Acute Plan: Fluids: PO fluids Electrolytes: Hypokalemia, KCl at 20 daily Nutrition: Heart healthy GI PPX: Not indicated at this time (Veda Melvin MD, R3) Problem Qualifiers (1) Pulmonary edema: Qualified Codes: J81.0 - Acute pulmonary edema (2) HTN (hypertension): Qualified Codes: I10 - Essential (primary) hypertension Veda Melvin MD, R3 Jul 06, 2017 09:56 Vicente Araujo MD Jul 07, 2017 14:49
--- NOTE | 2017-07-06 10:28 | HHI.NSPN ---
(Ani Langley) Note Status Status: Progress Note (Ani Langley) Interval History Interval History 07/03/17: s/p a ventriculoperitoneal shunt and placement of external ventriculostomy drain 07/02/17. Doing well postoperatively, stable moderate headaches without change in visual deficits. Awaiting cultures 07/04/17: reports headaches better today, no overall changes in vision. final CSF cultures pending 07/05/17: nausea, vomiting, awaiting Zofran. cultures today remains negative, still awaiting final 07/06/17: all final CSF cultures are negative for growth. we had discussed at length in detail with the patient and the pros and cons of a HOGSHEAD WEIGHER vs LP shunt. Ms. Landis requests to replace a HOGSHEAD WEIGHER shunt. (Ani Langley) Labs, Micro, & Vital Signs Results Date Time Temp Pulse Resp B/P (MAP) Pulse Ox O2 Delivery O2 Flow Rate FiO2 07/06/17 07:32 99 21 07/06/17 04:00 99.5 93 14 130/73 (92) 97 07/06/17 04:00 93 07/06/17 00:00 94 07/06/17 00:00 99.2 94 22 144/88 (106) 96 07/05/17 22:00 93 07/05/17 20:00 93 07/05/17 20:00 98.6 91 14 148/79 (102) 98 07/05/17 19:28 100 21 07/05/17 18:00 94 07/05/17 16:00 98 07/05/17 16:00 99.6 98 12 139/81 (100) 100 07/05/17 14:00 95 07/05/17 12:00 99.4 93 20 148/70 (96) 99 07/05/17 12:00 93 Constitutional Vital Signs Date Time Temp Pulse Resp B/P (MAP) Pulse Ox O2 Delivery O2 Flow Rate FiO2 07/06/17 07:32 99 21 07/06/17 04:00 99.5 93 14 130/73 (92) 97 07/06/17 04:00 93 07/06/17 00:00 94 07/06/17 00:00 99.2 94 22 144/88 (106) 96 07/05/17 22:00 93 07/05/17 20:00 93 07/05/17 20:00 98.6 91 14 148/79 (102) 98 07/05/17 19:28 100 21 07/05/17 18:00 94 07/05/17 16:00 98 07/05/17 16:00 99.6 98 12 139/81 (100) 100 07/05/17 14:00 95 07/05/17 12:00 99.4 93 20 148/70 (96) 99 07/05/17 12:00 93 (Ani Langley) Review of Systems Eyes: COMPLAINS OF: Vision loss Neurologic: COMPLAINS OF: Headache, DENIES: Localized weakness (Ani Langley) Physical Exam Ms. Landis is awake, alert. Speech is fluent. Conversing well. Right ventriculostomy drain intact at 7 cm H20, draining well, clear and colorless CSF. Site is clean with dressing. Neck is soft and supple Motor: moves major muscle groups of both upper and lower extremities with good strength Cranial nerves: pupils 2 mm bilaterally, gross EOMs intact (Ani Langley) Medications Current Medications Current Medications Medications (Trade) Dose Ordered Sig/David Route PRN Reason Start Time Stop Time Status Last Admin Dose Admin Sodium Chloride (NS Flush) 2 ml UNSCH PRN IV FLUSH FLUSH AFTER USING IV ACCESS 06/30/17 20:15 Sodium Chloride (NS Flush) 2 ml BID IV FLUSH 06/30/17 21:00 07/06/17 08:40 Naloxone HCl (Narcan Inj) 0.4 mg UNSCH PRN IV PUSH SEE LABEL COMMENTS 06/30/17 20:15 Senna/Docusate Sodium (Mary-Colace) 1 tab BID PO 06/30/17 21:00 07/06/17 08:38 Magnesium Hydroxide (Milk Of Magnesia Liq) 30 ml Q12H PRN PO Mild constipation 06/30/17 20:15 Sennosides (Senokot) 17.2 mg Q12H PRN PO Moderate constipation 06/30/17 20:15 Bisacodyl (Dulcolax Supp) 10 mg DAILY PRN RECTAL SEVERE CONSITIPATION 06/30/17 20:15 Lactulose (Lactulose Liq) 30 ml DAILY PRN PO SEVERE CONSITIPATION 06/30/17 20:15 Acetazolamide (Diamox) 250 mg Q12HR PO 07/01/17 00:30 07/06/17 08:37 Amlodipine Besylate (Norvasc) 10 mg DAILY PO 07/01/17 09:00 07/06/17 08:37 Carvedilol (Coreg) 25 mg BID PO 07/01/17 00:30 07/06/17 08:38 Ferrous Sulfate (Ferrous Sulfate) 325 mg BID PO 07/01/17 09:00 07/06/17 08:37 Hydralazine HCl (Apresoline) 50 mg Q8HR PO 07/01/17 00:30 07/05/17 12:53 Hydrochlorothiazide (Hydrodiuril) 25 mg DAILY PO 07/01/17 09:00 07/06/17 08:37 Lisinopril (Prinivil) 20 mg Q12HR PO 07/01/17 09:00 07/06/17 08:38 Topiramate (Topamax) 25 mg Q12HR PO 07/01/17 00:30 07/06/17 09:15 Tramadol HCl (Ultram) 50 mg Q6H PRN PO BREAKTHROUGH PAIN 07/01/17 00:30 07/01/17 06:21 Gabapentin (Neurontin) 300 mg DAILY PO 07/01/17 09:00 07/06/17 08:37 Ondansetron HCl (Zofran Inj) 4 mg Q6HR PRN IV PUSH NAUSEA 07/01/17 08:45 07/06/17 08:39 Acetaminophen/ Hydrocodone Bitart (Gerton 10-325 Mg) 1 tab Q4H PRN PO PAIN SCALE 1 TO 5 07/02/17 17:15 07/05/17 04:14 Acetaminophen/ Hydrocodone Bitart (Gerton 10-325 Mg) 2 tab Q4H PRN PO PAIN SCALE 6 TO 10 07/02/17 17:15 07/05/17 12:53 Morphine Sulfate (Morphine Inj) 2 mg Q2H PRN IV PUSH PAIN SCALE 1 TO 6 07/02/17 17:15 07/06/17 08:39 Morphine Sulfate (Morphine Inj) 4 mg Q2H PRN IV PUSH PAIN SCALE 7 TO 10 07/02/17 17:15 07/06/17 03:35 Acetaminophen (Tylenol) 650 mg Q4H PRN PO TEMPERATURE > 100.4 F 07/02/17 17:15 Pantoprazole Sodium (Protonix Inj) 40 mg DAILY IVP 07/03/17 09:00 07/06/17 08:40 Vancomycin HCl 1000 mg/Sodium Chloride 250 ml @ 250 mls/hr Q12H IV 07/02/17 23:00 07/05/17 23:00 Ceftriaxone Sodium 2000 mg/ Sodium Chloride 100 ml @ 200 mls/hr Q12HR IV 07/03/17 09:00 07/06/17 08:39 Labetalol HCl (Trandate Inj) 10 mg Q1HR PRN IV PUSH SBP>160, DBP>90, HR>65 07/02/17 21:45 07/05/17 15:35 Hydralazine HCl (Apresoline Inj) 10 mg Q1HR PRN IV PUSH SBP>160, DBP>90 07/02/17 21:45 Potassium Chloride (KCl) 20 meq DAILY PO 07/07/17 09:00 (Ani Langley) Medical Decision Making MDM Remarks 37 -year-old female with history of idiopathic intracranial hypertension, ventriculoperitoneal shunt placement Ventriculitis, status post removal of HOGSHEAD WEIGHER shunt with placement of ventriculostomy drain 07/02/17, final cultures from shunt tap 07/01/16 reports no growth, awaiting final intraoperative cultures ID consultation noted, not suspecting ventriculitis per CSF studies, all final CSF cultures with no growth (Ani Langley) Plan Plan Remarks f/u ID for clearance for surgery tomorrow anticipate to OR tomorrow for HOGSHEAD WEIGHER shunt placement cont ventriculostomy draining today, clamp tonight for HOGSHEAD WEIGHER shunt placement tomorrow cont neuro checks cont PT, ook OOB, keep EVD level of tragus case mgt to aid in obtaining appt with neuro scaffold worker in [place] next week NPO tonight at midnight consents obtained in chart (Ani Langley) Attending Statement The exam, history, and the medical decision-making described in the above note were completed with the assistance of the mid-level provider. I reviewed and agree with the findings presented. I attest that I had a [id number] encounter with the patient on the same day, and personally performed and documented my assessment and findings in the medical record. (Shreyas Dumont MD) Ani Langley Jul 06, 2017 10:28 Shreyas Dumont MD Jul 11, 2017 09:15
[2017-07-06] MEDS: VANCOMYCIN INJ 1,000 MG in SODIUM CHLOR 0.9% 250 ML INJ 250 ML IV SCH (11:00)
[2017-07-06 12:00] VITALS: BP 129/77; PULSE 95; RESP 16; TEMP 99; O2SAT 99
--- NOTE | 2017-07-06 14:26 | HHI.IDPN ---
Note Infectious Disease Note Patient is drowsy. Arouses easily. Afebrile. Kala headache. CSF fluid clear in ventriculostomy catheter. CSF cultures has no growth. 37-year-old white female who has known pseudotumor cerebri. The patient has been treated for this problem with initially lumbar peritoneal shunt and then she had intractable headaches, and underwent placement of a ventriculoperitoneal shunt. She now has blindness in both eyes. The patient underwent removal of the ventriculoperitoneal shunt and placement of ventriculostomy. PAST MEDICAL HISTORY: 1. Pseudotumor cerebri. 2. . 3. Cholecystectomy. ALLERGIES Amoxicillin. MEDICATIONS 1. Ceftriaxone. 2. Vancomycin. Current Medications Medications (Trade) Dose Ordered Sig/David Route PRN Reason Start Time Stop Time Status Last Admin Dose Admin Sodium Chloride (NS Flush) 2 ml UNSCH PRN IV FLUSH FLUSH AFTER USING IV ACCESS 06/30/17 20:15 Sodium Chloride (NS Flush) 2 ml BID IV FLUSH 06/30/17 21:00 07/06/17 08:40 Naloxone HCl (Narcan Inj) 0.4 mg UNSCH PRN IV PUSH SEE LABEL COMMENTS 06/30/17 20:15 Senna/Docusate Sodium (Mary-Colace) 1 tab BID PO 06/30/17 21:00 07/06/17 08:38 Magnesium Hydroxide (Milk Of Magnesia Liq) 30 ml Q12H PRN PO Mild constipation 06/30/17 20:15 Sennosides (Senokot) 17.2 mg Q12H PRN PO Moderate constipation 06/30/17 20:15 Bisacodyl (Dulcolax Supp) 10 mg DAILY PRN RECTAL SEVERE CONSITIPATION 06/30/17 20:15 Lactulose (Lactulose Liq) 30 ml DAILY PRN PO SEVERE CONSITIPATION 06/30/17 20:15 Acetazolamide (Diamox) 250 mg Q12HR PO 07/01/17 00:30 07/06/17 08:37 Amlodipine Besylate (Norvasc) 10 mg DAILY PO 07/01/17 09:00 07/06/17 08:37 Carvedilol (Coreg) 25 mg BID PO 07/01/17 00:30 07/06/17 08:38 Ferrous Sulfate (Ferrous Sulfate) 325 mg BID PO 07/01/17 09:00 07/06/17 08:37 Hydralazine HCl (Apresoline) 50 mg Q8HR PO 07/01/17 00:30 07/05/17 12:53 Hydrochlorothiazide (Hydrodiuril) 25 mg DAILY PO 07/01/17 09:00 07/06/17 08:37 Lisinopril (Prinivil) 20 mg Q12HR PO 07/01/17 09:00 07/06/17 08:38 Topiramate (Topamax) 25 mg Q12HR PO 07/01/17 00:30 07/06/17 09:15 Tramadol HCl (Ultram) 50 mg Q6H PRN PO BREAKTHROUGH PAIN 07/01/17 00:30 07/01/17 06:21 Gabapentin (Neurontin) 300 mg DAILY PO 07/01/17 09:00 07/06/17 08:37 Ondansetron HCl (Zofran Inj) 4 mg Q6HR PRN IV PUSH NAUSEA 07/01/17 08:45 07/06/17 08:39 Acetaminophen/ Hydrocodone Bitart ([place] 10-325 Mg) 1 tab Q4H PRN PO PAIN SCALE 1 TO 5 07/02/17 17:15 07/05/17 04:14 Acetaminophen/ Hydrocodone Bitart ([place] 10-325 Mg) 2 tab Q4H PRN PO PAIN SCALE 6 TO 10 07/02/17 17:15 07/05/17 12:53 Morphine Sulfate (Morphine Inj) 2 mg Q2H PRN IV PUSH PAIN SCALE 1 TO 6 07/02/17 17:15 07/06/17 08:39 Morphine Sulfate (Morphine Inj) 4 mg Q2H PRN IV PUSH PAIN SCALE 7 TO 10 07/02/17 17:15 07/06/17 11:35 Acetaminophen (Tylenol) 650 mg Q4H PRN PO TEMPERATURE > 100.4 F 07/02/17 17:15 Pantoprazole Sodium (Protonix Inj) 40 mg DAILY IVP 07/03/17 09:00 07/06/17 08:40 Vancomycin HCl 1000 mg/Sodium Chloride 250 ml @ 250 mls/hr Q12H IV 07/02/17 23:00 07/06/17 11:00 Ceftriaxone Sodium 2000 mg/ Sodium Chloride 100 ml @ 200 mls/hr Q12HR IV 07/03/17 09:00 07/06/17 08:39 Labetalol HCl (Trandate Inj) 10 mg Q1HR PRN IV PUSH SBP>160, DBP>90, HR>65 07/02/17 21:45 07/05/17 15:35 Hydralazine HCl (Apresoline Inj) 10 mg Q1HR PRN IV PUSH SBP>160, DBP>90 07/02/17 21:45 Potassium Chloride (KCl) 20 meq DAILY PO 07/07/17 09:00 OBJECTIVE: Vital Signs Date Time Temp Pulse Resp B/P (MAP) Pulse Ox O2 Delivery O2 Flow Rate FiO2 07/06/17 12:00 99.0 95 16 129/77 (94) 99 07/06/17 08:00 98.0 92 14 131/71 (91) 99 07/06/17 07:32 99 21 07/06/17 04:00 99.5 93 14 130/73 (92) 97 07/06/17 04:00 93 07/06/17 00:00 94 07/06/17 00:00 99.2 94 22 144/88 (106) 96 07/05/17 22:00 93 07/05/17 20:00 93 07/05/17 20:00 98.6 91 14 148/79 (102) 98 07/05/17 19:28 100 21 07/05/17 18:00 94 07/05/17 16:00 98 07/05/17 16:00 99.6 98 12 139/81 (100) 100 Laboratory Tests Test 07/05/17 04:03 07/06/17 03:26 White Blood Count 9.3 TH/MM3 10.9 TH/MM3 Red Blood Count 3.29 MIL/MM3 3.33 MIL/MM3 Hemoglobin 8.5 GM/DL 8.3 GM/DL Hematocrit 25.4 % 25.1 % Mean Corpuscular Volume 77.3 FL 75.5 FL Mean Corpuscular Hemoglobin 25.9 PG 25.0 PG Mean Corpuscular Hemoglobin Concent 33.5 % 33.1 % Red Cell Distribution Width 18.6 % 18.7 % Platelet Count 345 TH/MM3 364 TH/MM3 Mean Platelet Volume 7.1 FL 7.0 FL Laboratory Tests Test 07/05/17 04:03 07/06/17 03:26 Blood Urea Nitrogen 7 MG/DL 6 MG/DL Creatinine 0.99 MG/DL 0.91 MG/DL Random Glucose 96 MG/DL 101 MG/DL Total Protein 6.5 GM/DL Albumin 2.7 GM/DL Calcium Level 8.6 MG/DL 8.7 MG/DL Magnesium Level 1.9 MG/DL Alkaline Phosphatase 61 U/L Aspartate Amino Transf (AST/SGOT) 3 U/L Alanine Aminotransferase (ALT/SGPT) 10 U/L Total Bilirubin 0.1 MG/DL Sodium Level 139 MEQ/L 140 MEQ/L Potassium Level 3.3 MEQ/L 3.0 MEQ/L Chloride Level 106 MEQ/L 104 MEQ/L Carbon Dioxide Level 26.6 MEQ/L 25.7 MEQ/L Anion Gap 6 MEQ/L 10 MEQ/L Estimat Glomerular Filtration Rate 77 ML/MIN 85 ML/MIN PHYSICAL EXAMINATION: GENERAL: No acute distress. HEENT: The head has a ventriculostomy exiting with the catheter containing clear CSF fluid. The sclerae is nonicteric. Oropharynx: moist mucosa without lesions. Neck: Supple. No adenopathy. Lungs: Clear breath sounds. Heart: Regular S1-S2 without murmurs. Abdomen: Bowel sounds present, soft, no tenderness appreciated. Extremities: No clubbing, cyanosis or edema. Skin: No rash. Neuro: No gross focal findings. Psych: Calm and cooperative. IMPRESSION Patient status post ventriculostomy. CSF fluid studies unremarkable. CSF cultures has no growth on prior or latest culture. Okay to place ventriculoperitoneal shunt from ID standpoint. Henri Powell MD Jul 06, 2017 14:26
--- NOTE | 2017-07-06 15:05 | HHI.CCPN ---
Subjective Remarks/Hospital Course This is a 37-year-old AA female. Date of admission 06/30/2017. Date of call station 07/02/2017. Past medical history includes pseudotumor cerebri, hypertension, seizure disorder, headaches and left carpal tunnel syndrome. Originally seen 05/14 for placement of a DAIRY FEED SALES CONSULTANT shunt due to pseudotumor pseudotumor. She presented to [facility] on 06/30 with chief complaints diffuse headache,, eye discomfort and left upper extremity tingling and numbness. She reports 1 days history of headache and pressure behind her eyes. 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 She can see only shadows with her L eye but cannot see much more. Patient describes her headache as different than her chronic headaches that she has had previously. She normally treats these with topiramate along with sumatriptan, however this time this without success also, she is reports left arm tingling and numbness for ~1 week; located lateral aspect of upper extremity associated with within 50 paresthesias. Patient reports having seen an [employer] on 05/2017 and she was given glasses at that time. The glasses did not improve her left eye visual acuity She has been referred to retinal specialist and Dr. Dumont recommended evaluation at the [facility] for a possible optic nerve fenestration initial Shunt studies showed 2 separate shunts. Initial lumbar punctures on 07/02 revealed negative Gram stain. She is been started on vancomycin and ceftriaxone. Today, patient underwent removal DA[employer] FEED SALES CONSULTANT shunt and placement of ventriculostomy/right-sided by Dr. Dumont. 1000 crystalloid. 50 cc estimate blood loss. 500 cc urine output. Patient received 2 g of cefazolin. Postoperatively, patient was hypoxic and placed on Venturi mask. We are asked to see in consultation by anesthesia. 07/03/17: Patient is lying comfortably in bed. No acute distress. Good oxygen saturation on 3 L nasal cannula. Chest x-ray shows persistent infiltrate/ pulmonary edema. IV Lasix 40 mg 1 ordered, with potassium replacement. Check 2-D echo Subjective 07/04/17: Afebrile. Resting in bed on nasal cannula in no acute distress. Low potassium currently replaced. Advancing diet to full liquids today. 07/05: Resting in bed. Ventriculostomy remains in place. Being followed by neurosurgery. Not in any acute distress. Denies any shortness of breath. 07/06: Resting in bed. Vent colostomy in place. There for DA[employer] SALES CONSULTANT shunt placement by ID for tomorrow. Objective Vital Signs Date Time Temp Pulse Resp B/P (MAP) Pulse Ox O2 Delivery O2 Flow Rate FiO2 07/06/17 12:00 99.0 95 16 129/77 (94) 99 07/06/17 07:32 21 07/02/17 22:35 Nasal Cannula 3.00 Intake and Output 07/06/17 07/06/17 07/07/17 08:00 16:00 00:00 Intake Total 360 ml Output Total 566 ml Balance -206 ml Result Diagram: 07/06/17 0326 07/06/17 0326 Imaging Last Impressions Chest X-Ray 07/04/17 0600 Signed Impressions: Service Date/Time: Tuesday, July 04, 2017 04:01 - CONCLUSION: No significant interval change with persistent patchy bilateral perihilar pulmonary parenchymal opacity left greater than right. Mg Kaur MD Head CT 07/03/17 0000 Signed Impressions: Service Date/Time: Monday, July 03, 2017 04:32 - CONCLUSION: Right frontal ventriculostomy catheter in place with the tip now in the region of the anterior horn left lateral ventricle. No acute intracranial findings. Mg Kaur MD Shunt Study 07/01/17 0000 Signed Impressions: Service Date/Time: June 14:48 - CONCLUSION: 1. Initial placement of the needle within the shunt yielded approximately 0.2 cc of yellow fluid. This was sent to the lab for Gram stain, culture and sensitivity. Adrián Kahn MD Lumbar Puncture Fluoroscopy 07/01/17 0000 Signed Impressions: Service Date/Time: June 14:48 - CONCLUSION: 1. Opening pressure was greater than 65 CM H2O. 2. Closing pressure was approximately 5 CM H2O. 3. 33 cc of clear CSF was obtained. Adrián Kahn MD Shunt Study (Imaging) 06/30/17 0000 Signed Impressions: Service Date/Time: Friday, June 30, 2017 18:26 - CONCLUSION: There appears to be 2 separate shunts as above both of them appear intact without a definite break. Silvano Larios MD Objective Remarks GENERAL: 37 YO AA female resting in bed in no acute distress HEAD: Atraumatic. Normocephalic. Right-sided [employer] SAL[employer] shunt is clean dry and intact EYES: Pupils equal and round about 3 mm bilaterally and reactive. No scleral icterus. No injection or drainage. ENT: No nasal bleeding or discharge. Mucous membranes pink and moist. NECK: Trachea midline. No JVD. CARDIOVASCULAR: Regular rate and rhythm. S1, S2. No S4. Without murmur RESPIRATORY: No accessory muscle use. Clear to auscultation. Breath sounds equal bilaterally. GASTROINTESTINAL: Abdomen soft, non-tender, nondistended. MUSCULOSKELETAL: Extremities without significant edema. No obvious deformities. NEUROLOGICAL: Awake and alert. No obvious cranial nerve deficits. Motor grossly within normal limits. Five out of 5 muscle strength in the arms and legs. Normal speech. A/P Assessment and Plan Neuro/Psych: s/p removal of DA[employer] SALES CONSULTANT shunt and placement of ventriculostomy Pseudotumor cerebri Chronic headaches Right eye blindness Left carpal tunnel syndrome Management of ventriculostomy per Dr. Julia Dumont recommended referral to tension worker [facility] - consultation placed 07/04 Hydrocodone/acetaminophen 10/325 one EVERY 4 hours when necessary pain Morphine sulfate 2-4 mg every 2 hours when necessary breakthrough pain Tramadol 50 mg every 6 hours when necessary breakthrough pain Acetaminophen 650 mg every 6 hours when necessary fever Continue acetazolamide 250 mill grams twice a day for PTC Continue topiramate 25 mg by mouth every 12 hours for headaches Continue gabapentin 300 mg daily/home medication OT evaluate and treat for carpal tunnel syndrome Currently holding sumatriptan for headaches. Cleared for new DA[employer] SALES CONSULTANT shunt placement by ID. Dr. Dumont plans DA[employer] SALES [employer] shunt placement on 07/07. CV: Hypertension Continue amlodipine 10 mg daily, carvedilol 25 mg twice a day, hydralazine 50 mg every 8 hours, lisinopril 20 mg twice a day and hydrochlorothiazide 25 mg daily As needed labetalol/hydralazine systolic blood pressure less than 160 2-D echocardiogram has been ordered. Received furosemide 40 mg IV 1 yesterday Resp: Currently on nasal cannula to keep saturations greater than equal to 92% Incentive spirometry while awake. EZPap Acappella every 6 hours Chest x-ray 07/03 - Cardiomegaly with bilateral perihilar airspace disease and basilar airspace disease. Differential diagnosis includes edema and infection. GI: Advance diet per neurosurgery. Currently on full liquid diet Pantoprazole for GI prophylaxis Docusate sodium/senna 1 tablet twice a day for bowel regimen : No indication for Ybarra catheter Endo: Sliding-scale insulin only if indicated to maintain euglycemia Renal: Creatinine currently within normal limits Monitor urine output Accurate I's and O's Heme: Microcytic anemia Continue ferrous sulfate 325 mg by mouth twice a day No indications for transfusion of blood products at this time ID: Currently on ceftriaxone 2 g every 12 hours and vancomycin 1 g every 12 hours. Infectious disease consulted. Recommended cessation of antibiotics if CSF cultures remain negative at 72hrs. Stopping vancomycin and Rocephin on 07/16 as CSF cultures remain negative and ID does not feel patient has CSF infection/ ventriculitis. Pertinent cultures CSF Gram stain - 07/01 - no growth CSF AFB and fungal 07/01 - no growth CSF Gram stain - 07/02 - no growth MSK: PT evaluate and treat, OOB up to chair FEN: Hypopotassemia Replace electrolytes as clinically indicated. Access - Utilize peripheral IV. Central line if indicated Prophylaxis - GI - pantoprazole - DVT - SCD/holding pharmacological prophylaxis until okay with neurosurgery Patient being followed by family medicine and neurosurgery. Further management of ventriculostomy per Dr. Dumont. DA[employer] SAL[employer]ANT shunt placement plan for 07/07 per neurosurgery. Critical care will be available as needed. Jose Phoenix MD Jul 06, 2017 15:05
[2017-07-06 20:00] VITALS: BP 134/68; PULSE 95; RESP 16; TEMP 98.8; O2SAT 100
[2017-07-07] VITALS (10 sets, daily range): BP systolic 120–145; BP diastolic 60–80; PULSE 83–98; RESP 11–19; TEMP 98.4–99.6; O2SAT 93–100
[2017-07-07 04:39] LABS: BICARBONATE 26.7 MEQ/L (21.0-32.0); CALCIUM 8.6 MG/DL (8.5-10.1); CREATININE 0.86 MG/DL (0.50-1.00)
[2017-07-07] MEDS: hydrALAZINE HCL 50 MG TAB PO SCH ×3 (05:05→22:00)
[2017-07-07] MEDS: MORPHINE SULFATE 2 MG/ML INJ IV PUSH PRN ×3 (05:05→11:33)
[2017-07-07] MEDS: FERROUS SULFATE 325 MG (65 MG ELEMENTAL IRON) TAB PO SCH ×2 (07:46→20:30)
[2017-07-07] MEDS: DOCUSATE SODIUM 50 MG/SENNA 8.6 MG TAB PO SCH ×2 (09:00→20:29)
[2017-07-07] MEDS: LISINOPRIL 20 MG TAB PO SCH ×2 (09:00→20:29)
[2017-07-07] MEDS: PANTOPRAZOLE SODIUM 40 MG VIAL IVP SCH (09:38)
[2017-07-07] MEDS: CARVEDILOL 12.5 MG TAB PO SCH ×2 (09:38→20:28)
[2017-07-07] MEDS: acetaZOLAMIDE 250 MG TAB PO SCH ×2 (09:39→20:28)
[2017-07-07] MEDS: HYDROCHLOROTHIAZIDE 25 MG TAB PO SCH (09:39)
[2017-07-07] MEDS: POTASSIUM CHLORIDE 20 MEQ CONTROLLED RELEASE TAB PO SCH (09:39)
[2017-07-07] MEDS: TOPIRAMATE 25 MG TAB PO SCH ×2 (09:40→20:28)
[2017-07-07] MEDS: SODIUM CHLORIDE 0.9% FLUSH 10 ML FLUSH IV FLUSH SCH ×2 (09:40→20:29)
[2017-07-07] MEDS: GABAPENTIN 300 MG CAP PO SCH (09:40)
[2017-07-07] MEDS ORDERED: POTASSIUM CHLORIDE 20 MEQ CONTROLLED RELEASE TAB PO ONE (10:00)
--- NOTE | 2017-07-07 11:31 | HHI.FPPN ---
Subjective Remarks No acute events overnight. VS unremarkable. This morning patient states that she continues to have the right-sided headache with no change in her symptoms but with no acute worsening either. Denies pain of face with smiling or eating. She has no acute concerns today. Denies chest pain, SOB, abdominal pain. Did have a bowel movement yesterday. Patient is aware that she is scheduled for BUSINESS STRATEGIST shunt today. (Veda Melvin MD, R3) Objective Vitals Vital Signs Date Time Temp Pulse Resp B/P (MAP) Pulse Ox O2 Delivery O2 Flow Rate FiO2 07/07/17 09:20 100 07/07/17 05:03 98 21 07/07/17 04:00 93 07/07/17 04:00 98.7 93 13 145/71 (95) 98 07/07/17 02:00 98.8 95 19 132/72 (92) 99 07/07/17 02:00 95 07/07/17 00:00 98.7 98 15 131/72 (91) 100 07/07/17 00:00 98 07/06/17 20:00 98.8 95 16 134/68 (90) 100 07/06/17 20:00 95 07/06/17 12:00 99.0 95 16 129/77 (94) 99 I/O 07/06/17 07/06/17 07/06/17 07/07/17 07/07/17 07/07/17 07:00 15:00 23:00 07:00 15:00 23:00 Intake Total 360 ml 100 ml 870 ml Output Total 566 ml 1045 ml 7 ml Balance -206 ml 100 ml -175 ml -7 ml Intake Oral 360 ml 620 ml IV Total 100 ml 250 ml Output Urine Total 500 ml 1000 ml Drainage Total 66 ml 45 ml 7 ml # Voids 1 # Bowel Movements 0 1 1 (Veda Melvin MD, R3) Result Diagram: 07/06/17 0326 07/07/17 0348 Objective Remarks GEN: Well-developed, well-nourished patient. No acute distress. Skin: Very minimal swelling along the right zygomatic bone, unchanged. No erythema. CV: Regular rate and rhythm without obvious murmurs LUNGS: Clear to auscultation bilaterally. Normal respiratory effort. No wheezes , rales, rhonchi. GI: non distended EXT: No edema. No calf tenderness. NEURO/PSYCH: Awake, alert. Appropriate insight and judgment. Normal speech. Procedures BUSINESS STRATEGIST shunt revision, external ventriculostomy tube placement on 07/02/17 (Veda Melvin MD, R3) A/P Assessment and Plan 37 yo F with pseudotumor cerebri and BUSINESS STRATEGIST shunt malfunction with increasing headache and visual loss. She is now status post external ventriculostomy drain placement. Discharge Planning Pending clinical stability and recommendations from neurosurgery, and external ventriculostomy drain management. Will need to follow up with neurosurgery and ophthalmology closely as an outpatient. * will not need PT on discharge sdw Dr. Araujo (Veda Melvin MD, R3) Attending Attestation Medical rounds were performed with Dr Ca, Patient was interviewed and examined, Agree with the contents of this note, See Assessment and Plan (Vicente Araujo MD) Problem List: (1) Pseudotumor cerebri ICD Codes: G93.2 - Benign intracranial hypertension Status: Chronic Plan: Hx of severe symptoms that have required repeat shunt adjustments and re- evaluations. Pt with chronic right eye blindness that will require [place] follow up. Currently under the care of highway commissioner. Continues to have significant Headaches. 06/30/2016- Shuntogram showed 2 separate shunts. LP completed on 07/01/17: opening pressure greater than 65 cmH20. Status post external ventricular drain placement on 07/02/17 -Scheduled for BUSINESS STRATEGIST shunt replacement for 07/07/17 CSF studies negative x72hrs Neurosurgery consulted: appreciate recommendations * continue neuro checks * BUSINESS STRATEGIST shunt replacement scheduled for 07/07/17 * stop abx 07/06/17 * referred to the [facility] for possible optic nerve fenestration Ophtho consulted by Neurosurgery: appreciate recommendations * Optic nerve edema: Recommend follow up in [place] once discharged. 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 Treat underlying condition ID consulted by Neurosurgery: appreciate recommendations * ventriculitis not suspected. Discontinue abx if CSF cultures are negative after 72hrs. * ok to replace BUSINESS STRATEGIST shunt Medications: * Continue Acetazolamide 250mg BID, may be able to discontinue if shunt proves effective for symptom relief. * Rocephin 07/03-07/06 and Vanc 07/02-07/06 * Hydrocodone/acetaminophen 10/325 q4 PRN pain * Morphine sulfate 2-4 mg q2hr PRN * Tramadol 50 mg every 6 hours PRN * Topiramate 25 mg by mouth every 12 hours for headaches * Gabapentin 300 mg daily/home medication * Currently holding sumatriptan for headaches. Relevant PMH: Per EMR review, patient underwent BUSINESS STRATEGIST shunt placement 04/28/2017 due to nonfunctioning prior LP shunt from distant past. Patient subsequently developed worsening headaches; LP performed 05/31/2017 showing LP opening pressure of 60+ cm H20. Shunt readjusted 06/01/2017 to 40mm H20. CSF cultures were reportedly negative for infection. (2) Pulmonary edema ICD Codes: J81.1 - Chronic pulmonary edema Status: Resolved Plan: Pulmonary edema with kiki-hilar infiltrates and cardiomegaly, hypoxia after the procedure that required transfer to the ICU on 07/02/17. Now on room air and respiratory status improved. - Received IV Lasix X1, repeat as needed for fluid overload - O2 supplementation as needed, keep O2 above 92% - ECHO normal with EF 60-65% (3) HTN (hypertension) ICD Codes: I10 - Essential (primary) hypertension Status: Chronic Plan: Patient with HTN; controlled at this time -Continue home antihypertensives -Hydralazine 50mg q8hrs -Carvedilol 25mg BID -Amlodipine 10mg daily -Lisinopril 20mg BID -HCTZ 25mg daily -Due to repeated hypokalemia, will provide daily dose of potassium 20meq (4) Cubital tunnel syndrome on left ICD Codes: G56.22 - Lesion of ulnar nerve, left upper limb Status: Chronic Plan: Prior presumptive diagnosis per Neurology; explains patient's LUE symptoms of pain, numbness, and tingling. No loss of sensation on exam; normal strength - Follow-up with Neurology as an outpatient (5) DVT Prophylaxis Status: Acute Plan: -Bilateral SCD's -Hold on any anticoagulants until cleared by neurosurgery (6) Fluids, Electrolytes, and Nutrition Status: Acute Plan: Fluids: PO fluids Electrolytes: Hypokalemia, KCl at 20 daily Nutrition: Heart healthy, NPO until after BUSINESS STRATEGIST shunt replacement GI PPX: Not indicated at this time (Veda Melvin MD, R3) Problem Qualifiers (1) Pulmonary edema: Qualified Codes: J81.0 - Acute pulmonary edema (2) HTN (hypertension): Qualified Codes: I10 - Essential (primary) hypertension Veda Melvin MD, R3 Jul 07, 2017 11:31 Vicente Araujo MD Jul 07, 2017 14:55
[2017-07-07] MEDS ORDERED: ARTIFICIAL TEARS OPTH OINT 3.5 APPLIC/3.5 GM TUBO ONE (12:00)
[2017-07-07] MEDS ORDERED: ACETAMINOPHEN 1000 MG/100 ML 100 ML IV ONE (12:00)
[2017-07-07] MEDS ORDERED: ONDANSETRON HCL 4 MG/2 ML VIAL IV ONE (12:00)
[2017-07-07] MEDS ORDERED: GLYCOPYRROLATE 1 MG/5 ML SYRINGE IV PUSH ONE (12:00)
[2017-07-07] MEDS ORDERED: NEOSTIGMINE 5 MG/5 ML SYRINGE IV PUSH ONE (12:00)
[2017-07-07] MEDS ORDERED: DEXAMETHASONE SOD PHOS 4 MG/ML VIAL IV ONE (12:00)
[2017-07-07] MEDS ORDERED: LACTATED RINGER'S 1000 ML INJ 1,000 ML IV ONE (12:00)
[2017-07-07] MEDS ORDERED: LIDOCAINE HCL 1% PF 5 ML SYRINGE OTHER ONE (12:00)
[2017-07-07] MEDS ORDERED: ROCURONIUM INJ 50 MG/5 ML SYRINGE IV PUSH ONE (12:00)
[2017-07-07] MEDS ORDERED: PROPOFOL 200 MG/20 ML AMP IV ONE (12:00)
[2017-07-07] MEDS ORDERED: PHENYLEPH/NS 1000 MCG/10 ML SYR IV ONE (12:00)
[2017-07-07] MEDS ORDERED: THROMBIN (TOPICAL) 5,000 UNIT VIAL ONE (12:38)
[2017-07-07] MEDS ORDERED: BACITRACIN TOP OINT 15 GM TUBE ONE (12:39)
[2017-07-07] MEDS ORDERED: GELATIN 12 MM/7 MM FOAM ONE (12:39)
[2017-07-07] MEDS ORDERED: GENTAMICIN SULFATE 80 MG/2 ML VIAL ONE (12:41)
[2017-07-07] MEDS: NS + KCL 20 MEQ INJ 1,000 ML IV SCH (14:10)
[2017-07-07] MEDS ORDERED: ACETAMINOPHEN/HYDROcodone 325 MG/10 MG TAB PO PRN (14:15)
[2017-07-07] MEDS ORDERED: ACETAMINOPHEN 325 MG TAB PO PRN (14:15)
[2017-07-07] MEDS ORDERED: MORPHINE SULFATE 2 MG/ML INJ IV PUSH PRN (14:15)
[2017-07-07] MEDS ORDERED: LIDOCAINE HCL 1% 20 ML VIAL INFIL ONE (15:17)
[2017-07-07] MEDS ORDERED: DO NOT ADM ANY ANTICOAGULANT DRUGS PRN (15:37)
[2017-07-07] MEDS ORDERED: MIDAZOLAM HCL 2 MG/2 ML VIAL ONE (15:46)
[2017-07-07 16:44] LABS: TOTAL PROTEIN,CSF 16.5 MG/DL (15.0-45.0)
[2017-07-07] MEDS: ceFAZolin 2 GM PREMIX 50 ML IV SCH ×2 (16:51→23:31)
--- NOTE | 2017-07-07 18:16 | PD.OP ---
Operative Report Date of Surgery: Jul 07, 2017 Preoperative Diagnosis: Pseudotumor cerebri Postoperative Diagnosis: Pseudotumor cerebri Procedure: Placement of ventriculoperitoneal shunt Anesthesia: general Surgeon: Shreyas Dumont Carpet Yarn Winder Operator(s): Tracey Noel Operation and Findings: INTRAOPERATIVE FINDINGS:~ Clear cerebrospinal fluid with an opening pressure of 200 mm of water. INDICATIONS FOR THE PROCEDURE The patient is 37 year old female who was brought to [facility] with intractable headaches and visual loss. She had a history of pseudotumor cerebri and status post removak of a malfunctioning ventriculoperitoneal shunt and placement of a venriculostomy cathete> ALl her cultures were negative. Placement of ventriculoperitoneal shunt was indicated as recommended by the Trauma Comm[employer] of [employer] The [id number] details of the procedure, its indications, alternatives, risks and potential complications were fully discussed with the patients family. She fully understood. All questions were answered. No guarantees were given. The patient voiced requesting the procedure and provided informed consents. The patient was offered the alternative of not having aggressive management. DETAILS OF THE SURGICAL PROCEDURE:~ After the induction of general anesthesia, endotracheal intubation was performed. A Ybarra catheter, bilateral MATA hose and sequential compression devices were placed and kept throughout the procedure. The patient was positioned supine on a 30-80 table with the head over a gel doughnut. All pressure points were carefully padded with eggcrate mattress. The right frontotemporal parietal area was shaved prepped and draped in the usual sterile fashion, as well as the neck, chest and abdomen. A small incision was made in the patient's left upper quadrant with a #10 blade and the dissection was carried out through the subcutaneous tissue and Marga's fascia. The rectus sheath was carefully opened with Metzenbaum scissors and the rectus muscles were split along its fibers. The posterior rectus sheath was elevated and carefully opened. The peritoneum was elevated with mosquitoes and opened in the standard fashion. The peritoneal cavity was visualized and exposed. A pursestring suture was placed around the peritoneal opening. Using a tunneler a subcutaneous tunnel was created connecting the abdominal incision with the planned head incision. A small incision was made in the left frontal area and a self-retaining retractor was placed in the incision. An entry point for the catheter was selected 90 mm posterior to the supraorbital rim and 25 mm lateral to the midline. A Midas Alexander was used to create the justina hole. The dura was coagulated with the bipolar in a cruciform fashion. A peritoneal catheter was placed in the subcutaneous tunnel previously created and a pocket was created underneath the galea for placement of the valve. A ShowMe VIdeoke programmable valve has calibrated at a pressure of 50 mmHg and flushed according to the clinical psychology professor's instructions. The valve was secured to the proximal end of the peritoneal catheter using a 2-0 silk. Then, a ventricular catheter was advanced into the ventricular system. A good flow of cerebrospinal fluid was obtained.~ The catheter was connected to the valve and the connection secured with a 2-0 silk. Cerebrospinal fluid was noted to drip through the distal end of the peritoneal catheter. The peritoneal catheter was placed in the peritoneal cavity under direct visualization. The pursestring suture was carefully adjusted with special care not to strangulate the catheter. The rectus sheath was closed using interrupted 2-0 Vicryl suture. The Marga's fascia was approximated with 3-0 Vicryl, and the subcutaneous with 3-0 Vicryl. The skin was closed with running subcuticular 4-0 Vicryl in the abdomen. The skin incision was closed using interrupted 3-0 Vicryl for the galea and yari to the skin. At the end of the procedure, the sponge, needle and instrument counts were all correct. The estimated blood was less than 50 cc. No blood transfusion was given. No intraoperative complications occurred. The patient received preoperative prophylactic antibiotics. The patient was then extubated and transferred to the recovery room in stable condition. Shreyas Dumont MD Jul 07, 2017 18:16
[2017-07-07 20:11] LABS: CSF EOSINOPHILS 2 %; CSF HISTIOCYTES 1 %; CSF LYMPHOCYTES 46 %; CSF MONOCYTES 4 %; CSF NEUTROPHILS 47 %
[2017-07-07 20:15] LABS: RBC TUBE #1 1037 /MM3; WBC TUBE #1 195 /MM3 (0-10)
[2017-07-07 20:21] LABS: SUPERNATE COLOR TUBE #1 CLEAR (CLEAR)
[2017-07-07] MEDS: MORPHINE SULFATE 4 MG/ML INJ IV PUSH PRN ×2 (20:28→23:31)
--- NOTE | 2017-07-07 20:54 | EKG ---
Date Performed: 07/07/2017 Time Performed: 09:59:00 PTAGE: 37 years EKG: Sinus rhythm Reversed leads Abnormal ECG PREVIOUS TRACING : 04/28/2017 12.29 DOCTOR: Mari Salvador Interpretating Date/Time 07/07/2017 20:54:14
[2017-07-08] VITALS: BP 118/60; PULSE 96; RESP 16; TEMP 98.7; O2SAT 97
[2017-07-08] MEDS: MORPHINE SULFATE 4 MG/ML INJ IV PUSH PRN (02:42)
[2017-07-08 03:15] VITALS: O2SAT 97
[2017-07-08 04:00] VITALS: PULSE 91; RESP 12; TEMP 98.7; O2SAT 99
[2017-07-08] MEDS: hydrALAZINE HCL 50 MG TAB PO SCH ×2 (05:14→13:37)
--- NOTE | 2017-07-08 05:14 | RADRPT ---
EXAM DATE/TIME: 07/08/2017 04:46 [place] COMPARISON: CT BRAIN W/O CONTRAST, July 03, 2017, 4:32. INDICATIONS : Post operative shunt malfunction. RADIATION DOSE: 56.35 CTDIvol (mGy) MEDICAL HISTORY : Pseudo tumor. SURGICAL HISTORY : NURSE MANAGER Shunt ENCOUNTER: Initial ACUITY: 1 day PAIN SCALE: Non-responsive LOCATION: cranial TECHNIQUE: Multiple contiguous axial images were obtained of the head. Using automated exposure control and adj ustment of the mA and/or kV according to patient size, radiation dose was kept as low as reasonably a chievable to obtain optimal diagnostic quality images. DICOM format image data is available electro nically for review and comparison. FINDINGS: Noncontrast axial head CT demonstrates the ventricles to be normal in size and configuration with a n ormal sulcal pattern. No acute intracranial hemorrhage, acute cortical infarction, mass or midline sh ift is seen. Shunt enters left frontal region with its tip in the body of the right lateral ventricle . Posterior fossa structures are unremarkable. Bone windows are unremarkable. CONCLUSION: 1. Postsurgical changes as above. 2. No evidence of acute intracranial pathology. No masses are identified. Albaro Walker MD on July 08, 2017 at 5:11 Board Certified Radiologist. This report was verified electronically.
[2017-07-08] MEDS: ACETAMINOPHEN/HYDROcodone 325 MG/10 MG TAB PO PRN ×3 (05:15→18:26)
[2017-07-08 07:04] LABS: AUTOMATED NEUTROPHIL # 14.1 TH/MM3 (1.8-7.7); BASOPHIL % 0.2 % (0.0-2.0); EOSINOPHIL % 0.1 % (0.0-4.0); HEMATOCRIT 25.6 % (35.0-46.0); HEMOGLOBIN 8.3 GM/DL (11.6-15.3); LYMPH % 7.4 % (9.0-44.0); LYMPHOCYTE # 1.2 TH/MM3 (1.0-4.8); MEAN CELL VOLUME 75.7 FL (80.0-100.0); MEAN CORPUSCULAR HEMOGLOBIN 24.4 PG (27.0-34.0); MEAN CORPUSCULAR HGB CONC 32.3 % (32.0-36.0); MEAN PLATELET VOLUME 6.8 FL (7.0-11.0); MONOCYTE # 0.6 TH/MM3 (0-0.9); NEUT % 88.3 % (16.0-70.0); PLATELET COUNT 437 TH/MM3 (150-450); RED BLOOD COUNT 3.38 MIL/MM3 (4.00-5.30); RED CELL DISTRIBUTION WIDTH 18.5 % (11.6-17.2)
[2017-07-08 07:39] LABS: BICARBONATE 23.5 MEQ/L (21.0-32.0); CALCIUM 8.7 MG/DL (8.5-10.1); CREATININE 1.08 MG/DL (0.50-1.00)
[2017-07-08 08:00] VITALS: BP 111/61; PULSE 87; PULSE 88; RESP 13; TEMP 98.7; O2SAT 96
[2017-07-08] MEDS: ceFAZolin 2 GM PREMIX 50 ML IV SCH (08:00)
[2017-07-08] MEDS: TOPIRAMATE 25 MG TAB PO SCH (08:06)
[2017-07-08] MEDS: POTASSIUM CHLORIDE 20 MEQ CONTROLLED RELEASE TAB PO SCH (08:06)
[2017-07-08] MEDS: DOCUSATE SODIUM 50 MG/SENNA 8.6 MG TAB PO SCH ×2 (08:06→09:00)
[2017-07-08] MEDS: FERROUS SULFATE 325 MG (65 MG ELEMENTAL IRON) TAB PO SCH ×2 (08:06→09:00)
[2017-07-08] MEDS: GABAPENTIN 300 MG CAP PO SCH (08:06)
[2017-07-08] MEDS: acetaZOLAMIDE 250 MG TAB PO SCH (08:06)
[2017-07-08] MEDS: CARVEDILOL 12.5 MG TAB PO SCH (08:07)
[2017-07-08] MEDS: SODIUM CHLORIDE 0.9% FLUSH 10 ML FLUSH IV FLUSH SCH (09:00)
[2017-07-08] MEDS: LISINOPRIL 20 MG TAB PO SCH (09:00)
[2017-07-08] MEDS ORDERED: PANTOPRAZOLE SODIUM 40 MG VIAL IVP SCH (09:00)
[2017-07-08] MEDS: HYDROCHLOROTHIAZIDE 25 MG TAB PO SCH (09:00)
[2017-07-08] MEDS: NS + KCL 20 MEQ INJ 1,000 ML IV SCH (09:41)
[2017-07-08] MEDS ORDERED: oxyCODONE/ACETAMINOPHEN 5 MG/325 MG TAB PO ONE (09:45)
[2017-07-08] MEDS ORDERED: POTA20TA5 PO (09:45)
[2017-07-08] MEDS ORDERED: ONDA4TAB7 SL (09:45)
[2017-07-08] MEDS ORDERED: NEUR300C PO (09:45)
[2017-07-08] MEDS ORDERED: POTASSIUM CHLORIDE 20 MEQ CONTROLLED RELEASE TAB PO ONE (09:45)
[2017-07-08] MEDS ORDERED: PERC10TA27 PO (09:45)
[2017-07-08] MEDS ORDERED: oxyCODONE/ACETAMINOPHEN 10 MG/325 MG TAB PO ONE (09:45)
--- NOTE | 2017-07-08 10:38 | HHI.FPPN ---
Subjective Remarks No acute events overnight. Vital signs unremarkable. This morning patient states that she feels very well and is told that she is cleared by neurosurgery to be discharged home. Reports that the pain on the right side of her face has improved. Has been up walking around in the room without issues. Denies chest pain, SOB. Tolerating clear liquid diet this morning without issue. (Veda Melvin MD, R3) Objective Vitals Vital Signs Date Time Temp Pulse Resp B/P (MAP) Pulse Ox O2 Delivery O2 Flow Rate FiO2 07/08/17 08:00 98.7 88 13 111/61 (78) 96 07/08/17 08:00 87 07/08/17 04:00 91 07/08/17 04:00 98.7 91 12 99 07/08/17 03:15 97 07/08/17 00:00 96 07/08/17 00:00 98.7 96 16 118/60 (79) 97 07/07/17 20:00 94 07/07/17 20:00 98.6 94 14 133/68 (89) 94 07/07/17 19:29 100 07/07/17 16:30 98.5 83 14 130/60 (83) 93 07/07/17 16:30 98.5 83 14 130/64 (86) 93 07/07/17 16:15 81 14 135/75 (95) 100 Room Air 07/07/17 16:00 84 14 137/78 (97) 100 Room Air 07/07/17 15:45 84 14 144/82 (102) 100 Nasal Cannula 2 07/07/17 15:39 97.6 89 14 144/83 (103) 100 Nasal Cannula 2 07/07/17 13:00 95 14 147/78 (101) 91 07/07/17 12:50 98.3 94 14 146/81 (102) 94 07/07/17 12:50 Room Air 07/07/17 12:00 99.6 93 11 137/80 (99) 100 I/O 07/07/17 07/07/17 07/07/17 07/08/17 07/08/17 07/08/17 07:00 15:00 23:00 07:00 15:00 23:00 Intake Total 500 ml Output Total 7 ml 805 ml Balance -7 ml -305 ml Other 500 ml Output Urine Total 800 ml Drainage Total 7 ml Estimated Blood Loss 5 ml # Voids 1 2 # Bowel Movements 1 1 (Veda Melvin MD, R3) Result Diagram: 07/08/17 0637 07/08/17 0637 Objective Remarks GEN: Well-developed, well-nourished patient. No acute distress. Skin: Very minimal swelling along the right zygomatic bone, unchanged. No erythema. CV: Regular rate and rhythm without obvious murmurs LUNGS: Clear to auscultation bilaterally. Normal respiratory effort. No wheezes , rales, rhonchi. GI: non distended EXT: No edema. No calf tenderness. NEURO/PSYCH: Awake, alert. Appropriate insight and judgment. Normal speech. Procedures SOLAR ENERGY ENGINEER shunt revision, external ventriculostomy tube placement on 07/02/17. SOLAR ENERGY ENGINEER shunt replacement 07/07/17 (Veda Melvin MD, R3) A/P Assessment and Plan 37 yo F with pseudotumor cerebri and SOLAR ENERGY ENGINEER shunt malfunction with increasing headache and visual loss. She is now status post external ventriculostomy drain placement. Discharge Planning Today after repeat BMP at 1200t. Will need to follow up with neurosurgery and ophthalmology closely as an outpatient. * will not need PT on discharge * Per discussion with CM, currently faxing over information to neuro exercise physiologist certified Dr. Mariee in [place]. Once that information is received, they'll be calling back help assist in making an appointment. sdw Dr. Araujo (Veda Melvin MD, R3) Attending Attestation Medical rounds were performed with Dr Veda Melvin, patient seen and examined, Agree with documentation, See Orders (Vicente Araujo MD) Problem List: (1) Pseudotumor cerebri ICD Codes: G93.2 - Benign intracranial hypertension Status: Chronic Plan: Hx of severe symptoms that have required repeat shunt adjustments and re- evaluations. Pt with chronic right eye blindness that will require [facility] follow up. Headaches have improved. 06/30/2016- Shuntogram showed 2 separate shunts. LP completed on 07/01/17: opening pressure greater than 65 cmH20. Status post external ventricular drain placement on 07/02/17 SOLAR ENERGY ENGINEER shunt replacement for 07/07/17 * Procedure was uncomplicated and post operative recovery was unremarkable CSF studies negative x72hrs Neurosurgery consulted: appreciate recommendations * continue neuro checks * SOLAR ENERGY ENGINEER shunt replacement scheduled for 07/07/17 * stop abx 07/06/17 * referred to the [facility] for possible optic nerve fenestration * per discussion with patient and nurse, cleared for discharge. Ophtho consulted by Neurosurgery: appreciate recommendations * Optic nerve edema: Recommend follow up in [place] once discharged. 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 Treat underlying condition ID consulted by Neurosurgery: appreciate recommendations * ventriculitis not suspected. Discontinue abx if CSF cultures are negative after 72hrs. * ok to replace SOLAR ENERGY ENGINEER shunt Medications: * Continue Acetazolamide 250mg BID, * Rocephin 07/03-07/06 and Vanc 07/02-07/06 * Hydrocodone/acetaminophen 10/325 q4 PRN pain * Morphine sulfate 2-4 mg q2hr PRN * Tramadol 50 mg every 6 hours PRN * Topiramate 25 mg by mouth every 12 hours for headaches * Gabapentin 300 mg daily/home medication Relevant PMH: Per EMR review, patient underwent SOLAR ENERGY ENGINEER shunt placement 04/28/2017 due to nonfunctioning prior LP shunt from distant past. Patient subsequently developed worsening headaches; LP performed 05/31/2017 showing LP opening pressure of 60+ cm H20. Shunt readjusted 06/01/2017 to 40mm H20. CSF cultures were reportedly negative for infection. (2) Pulmonary edema ICD Codes: J81.1 - Chronic pulmonary edema Status: Resolved Plan: Pulmonary edema with kiki-hilar infiltrates and cardiomegaly, hypoxia after the procedure that required transfer to the ICU on 07/02/17. Now on room air and respiratory status improved. - Received IV Lasix X1, repeat as needed for fluid overload - O2 supplementation as needed, keep O2 above 92% - ECHO normal with EF 60-65% (3) HTN (hypertension) ICD Codes: I10 - Essential (primary) hypertension Status: Chronic Plan: Patient with HTN; controlled at this time -Continue home antihypertensives -Hydralazine 50mg q8hrs -Carvedilol 25mg BID -Amlodipine 10mg daily -Lisinopril 20mg BID -HCTZ 25mg daily -Due to repeated hypokalemia, will provide daily dose of potassium 20meq (4) Cubital tunnel syndrome on left ICD Codes: G56.22 - Lesion of ulnar nerve, left upper limb Status: Chronic Plan: Prior presumptive diagnosis per Neurology; explains patient's LUE symptoms of pain, numbness, and tingling. No loss of sensation on exam; normal strength - Follow-up with Neurology as an outpatient (5) DVT Prophylaxis Status: Acute Plan: -Bilateral SCD's -Hold on any anticoagulants until cleared by neurosurgery (6) Fluids, Electrolytes, and Nutrition Status: Acute Plan: Fluids: PO fluids Electrolytes: Hypokalemia, KCl at 20 daily. Replace with an additional 20 today Nutrition: Heart healthy GI PPX: Not indicated at this time (Veda Melvin MD, R3) Problem Qualifiers (1) Pulmonary edema: Qualified Codes: J81.0 - Acute pulmonary edema (2) HTN (hypertension): Qualified Codes: I10 - Essential (primary) hypertension Veda Melvin MD, R3 Jul 08, 2017 10:38 Vicente Araujo MD Jul 09, 2017 14:09
--- NOTE | 2017-07-08 10:44 | HHI.DCPOC ---
Discharge Care Plan Diagnosis: (1) Pseudotumor cerebri (2) Optic nerve edema (3) Hypokalemia (4) HTN (hypertension) Goals to Promote Your Health * To prevent worsening of your condition and complications * To maintain your health at the optimal level Directions to Meet Your Goals Take your medications as prescribed Follow your dietary instruction Follow activity as directed Keep your appointments as scheduled Take your immunizations and boosters as scheduled If your symptoms worsen call your PCP, if no PCP go to Urgent Care Center or Emergency Room Smoking is Dangerous to Your Health. Avoid second hand smoke Call the 24-hour hour crisis hotline for domestic abuse at Veda Melvin MD, R3 Jul 08, 2017 10:44
[2017-07-08 12:00] VITALS: BP 133/74; PULSE 92; RESP 13; TEMP 98.7; O2SAT 98
--- NOTE | 2017-07-08 12:35 | HHI.NSPN ---
(Ani Langley) Note Status Status: Progress Note (Ani Langley) Interval History Interval History 07/03/17: s/p a ventriculoperitoneal shunt and placement of external ventriculostomy drain 07/02/17. Doing well postoperatively, stable moderate headaches without change in visual deficits. Awaiting cultures 07/04/17: reports headaches better today, no overall changes in vision. final CSF cultures pending 07/05/17: nausea, vomiting, awaiting Zofran. cultures today remains negative, still awaiting final 07/06/17: all final CSF cultures are negative for growth. we had discussed at length in detail with the patient and the pros and cons of a DRY PLASTERER HELPER vs LP shunt. Ms. Landis requests to replace a DRY PLASTERER HELPER shunt. 07/08: she underwent replacement of DRY PLASTERER HELPER shunt yesterday, reports improving sight and headaches today, f/u CT Head completed (Ani Langley) Labs, Micro, & Vital Signs Results Date Time Temp Pulse Resp B/P (MAP) Pulse Ox O2 Delivery O2 Flow Rate FiO2 07/08/17 12:00 92 07/08/17 12:00 98.7 92 13 133/74 (93) 98 07/08/17 08:00 98.7 88 13 111/61 (78) 96 07/08/17 08:00 87 07/08/17 04:00 91 07/08/17 04:00 98.7 91 12 99 07/08/17 03:15 97 07/08/17 00:00 96 07/08/17 00:00 98.7 96 16 118/60 (79) 97 07/07/17 20:00 94 07/07/17 20:00 98.6 94 14 133/68 (89) 94 07/07/17 19:29 100 07/07/17 16:30 98.5 83 14 130/60 (83) 93 07/07/17 16:30 98.5 83 14 130/64 (86) 93 07/07/17 16:15 81 14 135/75 (95) 100 Room Air 07/07/17 16:00 84 14 137/78 (97) 100 Room Air 07/07/17 15:45 84 14 144/82 (102) 100 Nasal Cannula 2 07/07/17 15:39 97.6 89 14 144/83 (103) 100 Nasal Cannula 2 07/07/17 13:00 95 14 147/78 (101) 91 07/07/17 12:50 98.3 94 14 146/81 (102) 94 07/07/17 12:50 Room Air Constitutional Vital Signs Date Time Temp Pulse Resp B/P (MAP) Pulse Ox O2 Delivery O2 Flow Rate FiO2 07/08/17 12:00 92 07/08/17 12:00 98.7 92 13 133/74 (93) 98 07/08/17 08:00 98.7 88 13 111/61 (78) 96 07/08/17 08:00 87 07/08/17 04:00 91 07/08/17 04:00 98.7 91 12 99 07/08/17 03:15 97 07/08/17 00:00 96 07/08/17 00:00 98.7 96 16 118/60 (79) 97 07/07/17 20:00 94 07/07/17 20:00 98.6 94 14 133/68 (89) 94 07/07/17 19:29 100 07/07/17 16:30 98.5 83 14 130/60 (83) 93 07/07/17 16:30 98.5 83 14 130/64 (86) 93 07/07/17 16:15 81 14 135/75 (95) 100 Room Air 07/07/17 16:00 84 14 137/78 (97) 100 Room Air 07/07/17 15:45 84 14 144/82 (102) 100 Nasal Cannula 2 07/07/17 15:39 97.6 89 14 144/83 (103) 100 Nasal Cannula 2 07/07/17 13:00 95 14 147/78 (101) 91 07/07/17 12:50 98.3 94 14 146/81 (102) 94 07/07/17 12:50 Room Air (Ani Langley) Physical Exam Ms. Landis is awake, alert. Speech is fluent. Conversing well. Wound with clean dry dressing. Neck is soft and supple Motor: moves major muscle groups of both upper and lower extremities with good strength Cranial nerves: pupils 2 mm bilaterally, gross EOMs intact (Ani Langley) Medications Current Medications Current Medications Medications (Trade) Dose Ordered Sig/David Route PRN Reason Start Time Stop Time Status Last Admin Dose Admin Sodium Chloride (NS Flush) 2 ml UNSCH PRN IV FLUSH FLUSH AFTER USING IV ACCESS 06/30/17 20:15 Sodium Chloride (NS Flush) 2 ml BID IV FLUSH 06/30/17 21:00 07/07/17 20:29 Naloxone HCl (Narcan Inj) 0.4 mg UNSCH PRN IV PUSH SEE LABEL COMMENTS 06/30/17 20:15 Senna/Docusate Sodium (Mary-Colace) 1 tab BID PO 06/30/17 21:00 07/06/17 21:01 Magnesium Hydroxide (Milk Of Magnesia Liq) 30 ml Q12H PRN PO Mild constipation 06/30/17 20:15 Sennosides (Senokot) 17.2 mg Q12H PRN PO Moderate constipation 06/30/17 20:15 Bisacodyl (Dulcolax Supp) 10 mg DAILY PRN RECTAL SEVERE CONSITIPATION 06/30/17 20:15 Lactulose (Lactulose Liq) 30 ml DAILY PRN PO SEVERE CONSITIPATION 06/30/17 20:15 Acetazolamide (Diamox) 250 mg Q12HR PO 07/01/17 00:30 07/08/17 08:06 Amlodipine Besylate (Norvasc) 10 mg DAILY PO 07/01/17 09:00 07/08/17 08:05 Carvedilol (Coreg) 25 mg BID PO 07/01/17 00:30 07/08/17 08:07 Ferrous Sulfate (Ferrous Sulfate) 325 mg BID PO 07/01/17 09:00 07/07/17 20:30 Hydralazine HCl (Apresoline) 50 mg Q8HR PO 07/01/17 00:30 07/08/17 05:14 Hydrochlorothiazide (Hydrodiuril) 25 mg DAILY PO 07/01/17 09:00 07/07/17 09:39 Lisinopril (Prinivil) 20 mg Q12HR PO 07/01/17 09:00 07/07/17 20:29 Topiramate (Topamax) 25 mg Q12HR PO 07/01/17 00:30 07/08/17 08:06 Tramadol HCl (Ultram) 50 mg Q6H PRN PO BREAKTHROUGH PAIN 07/01/17 00:30 07/01/17 06:21 Gabapentin (Neurontin) 300 mg DAILY PO 07/01/17 09:00 07/08/17 08:06 Ondansetron HCl (Zofran Inj) 4 mg Q6HR PRN IV PUSH NAUSEA 07/01/17 08:45 07/06/17 08:39 Labetalol HCl (Trandate Inj) 10 mg Q1HR PRN IV PUSH SBP>160, DBP>90, HR>65 07/02/17 21:45 07/05/17 15:35 Hydralazine HCl (Apresoline Inj) 10 mg Q1HR PRN IV PUSH SBP>160, DBP>90 07/02/17 21:45 Potassium Chloride (KCl) 20 meq DAILY PO 07/07/17 09:00 07/08/17 08:06 Potassium Chloride/Sodium Chloride 1,000 ml @ 100 mls/hr Q10H IV 07/07/17 14:10 07/07/17 14:10 Pantoprazole Sodium (Protonix Inj) 40 mg DAILY IVP 07/08/17 09:00 Acetaminophen/ Hydrocodone Bitart (Osyka 10-325 Mg) 1 tab Q4H PRN PO PAIN SCALE 1 TO 5 07/07/17 14:15 07/08/17 09:56 Acetaminophen/ Hydrocodone Bitart (Osyka 10-325 Mg) 2 tab Q4H PRN PO PAIN SCALE 6 TO 10 07/07/17 14:15 07/08/17 05:15 Morphine Sulfate (Morphine Inj) 2 mg Q2H PRN IV PUSH PAIN SCALE 1 TO 6 07/07/17 14:15 Morphine Sulfate (Morphine Inj) 4 mg Q2H PRN IV PUSH PAIN SCALE 7 TO 10 07/07/17 14:15 07/08/17 02:42 Acetaminophen (Tylenol) 650 mg Q4H PRN PO TEMPERATURE > 101.5 F 07/07/17 14:15 Miscellaneous Information ALL NURSING DEPARTME... UNSCH PRN .XX SEE LABEL COMMENTS 07/07/17 15:37 07/08/17 15:36 (Ani Langley) Medical Decision Making MDM Remarks 37 -year-old female with history of idiopathic intracranial hypertension, ventriculoperitoneal shunt placement Ventriculitis, status post removal of DRY PLASTERER HELPER shunt with placement of ventriculostomy drain 07/02/17, final cultures from shunt tap 07/01/16 reports no growth, awaiting final intraoperative cultures ID consultation noted, not suspecting ventriculitis per CSF studies, all final CSF cultures with no growth s/p replacement of DRY PLASTERER HELPER shunt 07/07/17 (Ani Langley) Plan Plan Remarks f/u CT head reviewed, stable post op changes clear to dc home from [facility] standpoint f/u in 10-14 days for staple removal activity restrictions and wound care discussed (Ani Langley) Attending Statement The exam, history, and the medical decision-making described in the above note were completed with the assistance of the mid-level provider. I reviewed and agree with the findings presented. I attest that I had a [id number] encounter with the patient on the same day, and personally performed and documented my assessment and findings in the medical record. (Shreyas Dumont MD) Ani Langley Jul 08, 2017 12:35 Shreyas Dumont MD Jul 11, 2017 10:23
[2017-07-08 16:00] VITALS: BP 114/59; PULSE 97; RESP 15; TEMP 98.6; O2SAT 97
[2017-07-08 17:34] LABS: BICARBONATE 25.5 MEQ/L (21.0-32.0); CALCIUM 8.7 MG/DL (8.5-10.1); CREATININE 1.21 MG/DL (0.50-1.00)
--- NOTE | 2017-07-09 13:51 | HHI.DS ---
Discharge Summary Admission Date Jul 05, 2017 at 08:38 Discharge Date: Jul 08, 2017 Admitting Diagnosis headache, shunt malfunction (1) Pseudotumor cerebri Plan: Hx of severe symptoms that have required repeat shunt adjustments and re- evaluations. Pt with chronic right eye blindness that will require [place] follow up. Headaches have improved. 06/30/2016- Shuntogram showed 2 separate shunts. LP completed on 07/01/17: opening pressure greater than 65 cmH20. Status post external ventricular drain placement on 07/02/17 SALESPERSON SHEET [employer] shunt replacement for 07/07/17 * Procedure was uncomplicated and post operative recovery was unremarkable CSF studies negative x72hrs Neurosurgery consulted: appreciate recommendations * continue neuro checks * SALESPERSON SHE[employer] shunt replacement scheduled for 07/07/17 * stop abx 07/06/17 * referred to the [facility] for possible optic nerve fenestration * per discussion with patient and nurse, cleared for discharge. Ophtho consulted by Neurosurgery: appreciate recommendations * Optic nerve edema: Recommend follow up in [place] once discharged. 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 Treat underlying condition ID consulted by Neurosurgery: appreciate recommendations * ventriculitis not suspected. Discontinue abx if CSF cultures are negative after 72hrs. * ok to replace SALESPERSON SHEET MUSIC shunt Medications: * Continue Acetazolamide 250mg BID, * Rocephin 07/03-07/06 and Vanc 07/02-07/06 * Hydrocodone/acetaminophen 10/325 q4 PRN pain * Morphine sulfate 2-4 mg q2hr PRN * Tramadol 50 mg every 6 hours PRN * Topiramate 25 mg by mouth every 12 hours for headaches * Gabapentin 300 mg daily/home medication Relevant PMH: Per EMR review, patient underwent SALESPERSON SHEET MUSIC shunt placement 04/28/2017 due to nonfunctioning prior LP shunt from distant past. Patient subsequently developed worsening headaches; LP performed 05/31/2017 showing LP opening pressure of 60+ cm H20. Shunt readjusted 06/01/2017 to 40mm H20. CSF cultures were reportedly negative for infection. ICD Codes: G93.2 - Benign intracranial hypertension Status: Chronic (2) Pulmonary edema Plan: Pulmonary edema with kiki-hilar infiltrates and cardiomegaly, hypoxia after the procedure that required transfer to the ICU on 07/02/17. Now on room air and respiratory status improved. - Received IV Lasix X1, repeat as needed for fluid overload - O2 supplementation as needed, keep O2 above 92% - ECHO normal with EF 60-65% ICD Codes: J81.1 - Chronic pulmonary edema Status: Resolved (3) HTN (hypertension) Plan: Patient with HTN; controlled at this time -Continue home antihypertensives -Hydralazine 50mg q8hrs -Carvedilol 25mg BID -Amlodipine 10mg daily -Lisinopril 20mg BID -HCTZ 25mg daily -Due to repeated hypokalemia, will provide daily dose of potassium 20meq ICD Codes: I10 - Essential (primary) hypertension Status: Chronic (4) Cubital tunnel syndrome on left Plan: Prior presumptive diagnosis per Neurology; explains patient's LUE symptoms of pain, numbness, and tingling. No loss of sensation on exam; normal strength - Follow-up with Neurology as an outpatient ICD Codes: G56.22 - Lesion of ulnar nerve, left upper limb Status: Chronic (5) DVT Prophylaxis Plan: -Bilateral SCD's -Hold on any anticoagulants until cleared by neurosurgery Status: Acute (6) Fluids, Electrolytes, and Nutrition Plan: Fluids: PO fluids Electrolytes: Hypokalemia, KCl at 20 daily. Replace with an additional 20 today Nutrition: Heart healthy GI PPX: Not indicated at this time Status: Acute Consultants Neurosurgery Critical care Infectious disease Ophthalmology Procedures SALESPERSON SHEET MUSIC shunt revision, external ventriculostomy tube placement on 07/02/17. SALESPERSON SHEET [employer] shunt replacement 07/07/17 Brief History Ms. Landis is a 37 yo F with PMH of Pseudotumor cerebri, HTN, cephalgia, and suspected L arm cubital tunnel syndrome who presents with headache, orbital pressure, and left arm tingling and numbness. Patient reports ~1 days history of headache and pressure behind her eyes. 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 Patient can now see shadows with her L eye but cannot see much otherwise. Patient describes her headache as different than her chronic headache that she has had previously. Patient reports having her L arm tingling and numbness for ~1 week; this is predominately on her lateral aspect of upper extremity and was associated with L 4th and 5th digits. Patient also reports increased left thigh and left arm weakness and tenderness for ~1 week. Patient otherwise reports that she is doing well; she does not have respiratory concerns, urinary complaints, or abnormal bowel movements. Patient reports stress due to her mood but that she feels her mood is stable. Patient reviewed her recent medical history regarding her visual impairment and pseudotumor cerebri: patient reports last seeing Dr. Dumont in 05/2017. She had SALESPERSON SHEET MUSIC shunt placed 04/2017 which resolved her prior back aches. Patient reports having seen an Police Guard 05/2017; patient was given glasses at that time but these glasses did not improve her left eye visual acuity [per history by ED providers, patient with retinal pathology 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 pseudotumor; patient referred to retinal specialist]. Patient has had stable pain control since arriving in ED. No respiratory concerns, no urinary problems. Normal bowel movements. Patient reports stable mood but she has been more stressed. Patient feels that her pain is under control right now. Interval History: CT head obtained in ED; without change. ED physician spoke with Neurosurgery; admission and shuntogram study recommended. Shuntogram showed 2 separate shunts. Patient given Compazine and Benadryl in ED which improved headache. CBC/BMP: 07/08/17 0637 07/08/17 1620 Significant Findings Laboratory Tests Test 07/07/17 03:48 07/07/17 15:09 07/07/17 18:41 07/08/17 06:37 Random Glucose 116 MG/DL (74-106) 136 MG/DL (74-106) Potassium Level 3.0 MEQ/L (3.5-5.1) 3.2 MEQ/L (3.5-5.1) 3.0 MEQ/L (3.5-5.1) CSF Gross Blood (Tube 1) TRACE (0) CSF WBC (Tube 1) 195 /MM3 (0-10) CSF RBC (Tube 1) 1037 /MM3 (NONE) White Blood Count 16.0 TH/MM3 (4.0-11.0) Red Blood Count 3.38 MIL/MM3 (4.00-5.30) Hemoglobin 8.3 GM/DL (11.6-15.3) Hematocrit 25.6 % (35.0-46.0) Mean Corpuscular Volume 75.7 FL (80.0-100.0) Mean Corpuscular Hemoglobin 24.4 PG (27.0-34.0) Red Cell Distribution Width 18.5 % (11.6-17.2) Mean Platelet Volume 6.8 FL (7.0-11.0) Neutrophils (%) (Auto) 88.3 % (16.0-70.0) Lymphocytes (%) (Auto) 7.4 % (9.0-44.0) Neutrophils # (Auto) 14.1 TH/MM3 (1.8-7.7) Creatinine 1.08 MG/DL (0.50-1.00) Estimat Glomerular Filtration Rate 70 ML/MIN (>89) Test 07/08/17 16:20 Creatinine 1.21 MG/DL (0.50-1.00) Estimat Glomerular Filtration Rate 61 ML/MIN (>89) Imaging Last Impressions Head CT 07/08/17 0000 Signed Impressions: Service Date/Time: June 04:46 - CONCLUSION: 1. Postsurgical changes as above. 2. No evidence of acute intracranial pathology. No masses are identified. Albaro Walker MD Chest X-Ray 07/04/17 0600 Signed Impressions: Service Date/Time: Tuesday, July 04, 2017 04:01 - CONCLUSION: No significant interval change with persistent patchy bilateral perihilar pulmonary parenchymal opacity left greater than right. Mg Kaur MD Shunt Study 07/01/17 0000 Signed Impressions: Service Date/Time: June 14:48 - CONCLUSION: 1. Initial placement of the needle within the shunt yielded approximately 0.2 cc of yellow fluid. This was sent to the lab for Gram stain, culture and sensitivity. Adrián Kahn MD Lumbar Puncture Fluoroscopy 07/01/17 0000 Signed Impressions: Service Date/Time: June 14:48 - CONCLUSION: 1. Opening pressure was greater than 65 CM H2O. 2. Closing pressure was approximately 5 CM H2O. 3. 33 cc of clear CSF was obtained. Adrián Kahn MD Shunt Study (Imaging) 06/30/17 0000 Signed Impressions: Service Date/Time: Friday, June 30, 2017 18:26 - CONCLUSION: There appears to be 2 separate shunts as above both of them appear intact without a definite break. Silvano Larios MD PE at Discharge GEN: Well-developed, well-nourished patient. No acute distress. Skin: Very minimal swelling along the right zygomatic bone, unchanged. No erythema. CV: Regular rate and rhythm without obvious murmurs LUNGS: Clear to auscultation bilaterally. Normal respiratory effort. No wheezes , rales, rhonchi. GI: non distended EXT: No edema. No calf tenderness. NEURO/PSYCH: Awake, alert. Appropriate insight and judgment. Normal speech. Hospital Course 37 year old female with a history of idiopathic intracranial hypertension and a SALESPERSON SHEET MUSIC shunt since 04/28/17 presented to the ED on 06/30/16 with increasing headaches, nausea, and visual loss. Neurosurgery was consulted. She underwent external ventriculostomy drain placement on 07/02/17. After her procedure she became acutely hypoxic and required transfer to the ICU with visual artist consultation but did not require mechanical ventilation. Her respiratory status resolve without sequela. Imagining showed cardiomegaly and pulmonary congestion but was not determined. Pulmonary congestion treated with Lasix and echo was performed which was normal with EF of 60-65%. Initially there was concern for ventriculitis, but CSF studies were negative. She was treated empirically with Rocephin and vancomycin during that time. Vision loss was evaluated by ophthalmology and she recommended follow-up with neuro ophthalmology in [place]. Vision changes are due to optic nerve edema from increased intracranial pressure. After ventriculitis was ruled out, SALESPERSON SHEET [employer] shunt was replaced on 07/07/17. Patient tolerated procedure well without complication. Patient was discharged in stable condition after potassium replacement. Instructed to have close follow-up with neurosurgery, ophthalmology in [place], PCP. Pt Condition on Discharge: Stable Discharge Disposition: Discharge Home Discharge Instructions DIET: Follow Instructions for: As Tolerated, No Restrictions Activities you can perform: Regular-No Restrictions Activities to Avoid: Strenuous Activity Follow up Referrals: Neurosurgery - 1 Week with Shreyas Dumont MD Ophthalmology - 1 Week PCP Follow-up - 2 Weeks New Orders: BASIC METABOLIC PROF - 1 Week New Medications: Oxycodone-Acetaminophen (Percocet) 10-325 mg Tab 1 TAB PO Q6H PRN for PAIN, #60 TAB 0 Refills Gabapentin (Neurontin) 300 Mg Cap 300 MG PO DAILY, #30 CAP Potassium Chloride Microencaps (Potassium Chloride Microencaps) 20 Meq Tab 20 MEQ PO DAILY, #30 TAB Continued Medications: Acetazolamide ER 12 HR (Diamox Sequels ER 12 HR) 500 Mg Cap 250 MG PO Q12HR, #60 CAP 0 Refills Amlodipine (Amlodipine) 10 Mg Tab 10 MG PO DAILY for Blood Pressure Management, #30 TAB 0 Refills Carvedilol (Carvedilol) 25 Mg Tab 25 MG PO BID, #60 TAB 0 Refills Ferrous Sulfate (Ferosul) 325 Mg (65 Mg Iron) Tablet 325 MG PO BID, #60 TAB Hydralazine HCl (Hydralazine HCl) 50 Mg Tablet 50 MG PO Q8HR, #90 TAB Hydrochlorothiazide (Hydrochlorothiazide) 25 Mg Tab 25 MG PO DAILY, #30 TAB Lisinopril (Lisinopril) 20 Mg Tab 20 MG PO Q12HR, #60 TAB Ondansetron Odt (Ondansetron Odt) 4 Mg Tab 4 MG SL Q8HR PRN for Nausea/Vomiting, #30 TAB 0 Refills (This prescription has been renewed) Topiramate (Topamax) 25 Mg Tab 25 MG PO Q12HR for headache for 30 Days, TAB 0 Refills Discontinued Medications: Acetaminophen (Tylenol) 325 Mg Tab 650 MG PO Q6H PRN for PAIN SCALE 1 TO 4, #20 TAB 0 Refills Sumatriptan (Imitrex) 25 Mg Tab 25 MG PO ONCE PRN for MIGRAINE HEADACHE, #15 TAB 0 Refills If a satisfactory response has not been obtained at 2 hours, a second dose may be administered Tramadol (Tramadol) 50 Mg Tab 50 MG PO Q6H PRN for BREAKTHROUGH PAIN, #20 TAB 0 Refills To be used if Tylenol and ibuprofen have not brought pain down to a 3 or less Veda Melvin MD, R3 Jul 09, 2017 13:51
== END 2017-07-08 18:36 | disposition home or self-care (01) | DRG 26 ==
LOC: NEPC 16:21 → NEDA 19:35 → NEPFCDU 20:40 → N05B 07-02 17:26 → N03A 07-02 20:48 → OBSVTOIN 07-05 08:38
PROVIDERS: ADMIT Family Medicine; ATTEND Family Medicine
PROC: 009U3ZX Drainage of Spinal Canal, Percutaneous Approach, Diagnostic (ICD-10-PCS; 2017-07-01)
PROC: 00P63JZ Removal of Synthetic Substitute from Cerebral Ventricle, Percutaneous Approach (ICD-10-PCS; 2017-07-02)
PROC: 009600Z Drainage of Cerebral Ventricle with Drainage Device, Open Approach (ICD-10-PCS; principal; 2017-07-02 16:14)
PROC: 00160J6 Bypass Cerebral Ventricle to Peritoneal Cavity with Synthetic Substitute, Open Approach (ICD-10-PCS; 2017-07-07)
DX: T85.01XA Breakdown (mechanical) of ventricular intracranial (communicating) shunt, initial encounter (principal); J81.1 Chronic pulmonary edema; H47.11 Papilledema associated with increased intracranial pressure; I10 Essential (primary) hypertension; E87.6 Hypokalemia; D50.9 Iron deficiency anemia, unspecified; R09.02 Hypoxemia; Y75.2 Prosthetic and other implants, materials and neurological devices associated with adverse incidents; G40.909 Epilepsy, unspecified, not intractable, without status epilepticus; G56.22 Lesion of ulnar nerve, left upper limb; G93.2 Benign intracranial hypertension; H54.3 Unqualified visual loss, both eyes; M54.2 Cervicalgia; G89.29 Other chronic pain; H57.13 Ocular pain, bilateral
CPT/HCPCS: 61070; 62270; 70250; 70450; 71045; 72040; 74018; 75809; 77003; 80048; 80053; 82728; 82945; 83010; 83540; 83550; 83615; 83735; 84100; 84132; 84157; 84702; 85025; 85027; 85044; 85610; 85730; 87015; 87070; 87102; 87116; 87205; 87206; 87641; 89051; 93005; 93306; 94150; 94667; 94668; 96361; 96365; 96366; 96367; 96368; 96375; 96376; C9113; G0378; G8987-GO; G8987-GP; G8988-GO; G8988-GP; J0131; J0690; J0696; J0780; J1100; J1200; J1580; J1940; J2250; J2270; J2370; J2405; J2710; J3010; J3370; J3475; J3480; J7030; J7050; J7120; J7613

== ENCOUNTER 2017-10-26 13:38 | Emergency (ER) | payer MEDICAID, OTHER ==
[~2017-10-26] VITALS: Ht 165.1 cm; Wt 91.0 kg
[~2017-10-26 13:38] MED LIST changes: -IMIT25TA PO; +NEUR300C PO; -NORC5TAB PO; +PERC10TA27 PO; +POTA20TA5 PO; -TRAM50TA PO; -TYLE325T PO
[2017-10-26 13:42] VITALS: BP 182/104; PULSE 83; RESP 17; TEMP 98.2; O2SAT 99
--- NOTE | 2017-10-26 15:20 | PD ---
HPI Chief Complaint: Neuro Symptoms/ Deficits Time Seen by Provider: 14:49 Travel History International Travel<30 days: No Contact w/Intl Traveler<30days: No Traveled to known affect area: No History of Present Illness HPI 37-year-old female with a history of pseudotumor cerebri status post BLACK LEATHER TRIMMER shunt revision June 2017 presents emergency department for evaluation of blurred vision and white floaters that started yesterday as she was sitting at her desk. Patient states that her vision has been worse and she called her neurosurgeon, Dr. Stauffer at [facility] and he recommended she come to the emergency department to see an stamping machine operator. He was apparently concerned about a retinal detachment. Patient denies any inciting events. Denies palliative or provocative factors. Denies headache, nausea, vomiting, diarrhea, chest pain, shortness of breath. Denies any new or unusual numbness or weakness of the extremities. States that over the last week she has had some left arm weakness and has had some soreness of her bicep muscle. Patient says she has a history of hypertension however, says this is normal and has not been higher than normal. PFSH Past Medical History Autoimmune Disease: No Blood Disorders: No Anxiety: No Depression: Yes Cancer: No Cardiovascular Problems: Yes (HTN) Chemotherapy: No Cerebrovascular Accident: Yes Diabetes: No Diminished Hearing: No Endocrine: No Gastrointestinal Disorders: No Genitourinary: No Headaches: Yes Hypertension: Yes Immune Disorder: No Implanted Vascular Access Dvce: Yes Musculoskeletal: No Neurologic: Yes (PSEUDO-TUMOR CEREBRI) Psychiatric: No Reproductive: No Respiratory: No Immunizations Current: Yes Migraines: Yes Radiation Therapy: No ?: Not LMP: 09/2017 : 2 Para: 2 Miscarriage: 0 : 0 Tubal Ligation: Yes Past Surgical History AICD: No Body Medical Devices: PERITONEAL SHUNT IN BACK Section: Yes (X1) Cholecystectomy: Yes Gynecologic Surgery: Yes () Neurologic Surgery: Yes (LUMBAR SHUNT 2009, BLACK LEATHER TRIMMER SHUNT 2016) Pacemaker: No Other Surgery: Yes (LUMBAR SHUNT 2009) Social History Alcohol Use: No Tobacco Use: No Substance Use: No Allergies-Medications (Allergen,Severity, Reaction): Coded Allergies: amoxicillin (Verified Allergy, Mild, Hives, 10/26/17) Reported Meds & Prescriptions Reported Meds & Active Scripts Active Percocet (Oxycodone-Acetaminophen) 10-325 mg Tab 1 Tab PO Q6H PRN Potassium Chloride Microencaps 20 Meq Tab 20 Meq PO DAILY Neurontin (Gabapentin) 300 Mg Cap 300 Mg PO DAILY Ondansetron Odt 4 Mg Tab 4 Mg SL Q8HR PRN Diamox Sequels ER 12 HR (Acetazolamide) 500 Mg Cap 250 Mg PO Q12HR Topamax (Topiramate) 25 Mg Tab 25 Mg PO Q12HR 30 Days Amlodipine (Amlodipine Besylate) 10 Mg Tab 10 Mg PO DAILY Hydrochlorothiazide 25 Mg Tab 25 Mg PO DAILY Lisinopril 20 Mg Tab 20 Mg PO Q12HR Carvedilol 25 Mg Tab 25 Mg PO BID Hydralazine HCl 50 Mg Tablet 50 Mg PO Q8HR Ferosul (Ferrous Sulfate) 325 Mg (65 Mg Iron) Tablet 325 Mg PO BID Review of Systems Except as stated in HPI: all other systems reviewed are Neg Physical Exam Narrative GENERAL: Well-developed well-nourished no apparent distress SKIN: Focused skin assessment warm/dry. HEAD: Atraumatic. Normocephalic. EYES: Pupils equal and round. Pupils reactive to light. Left greater than right. Diminished peripheral vision of the right eye normal per patient. EOMI. ENT: No nasal bleeding or discharge. Mucous membranes pink and moist. NECK: Trachea midline. No JVD. CARDIOVASCULAR: Regular rate and rhythm. No murmur appreciated. RESPIRATORY: No accessory muscle use. Clear to auscultation. Breath sounds equal bilaterally. GASTROINTESTINAL: Abdomen soft, non-tender, nondistended. Hepatic and splenic margins not palpable. MUSCULOSKELETAL: No obvious deformities. No clubbing. No cyanosis. No edema. NEUROLOGICAL: Awake and alert. No obvious cranial nerve deficits. Motor grossly within normal limits. Normal speech. Sensation intact. PSYCHIATRIC: Appropriate mood and affect; insight and judgment normal. Data Data Last Documented VS Vital Signs Date Time Temp Pulse Resp B/P (MAP) Pulse Ox O2 Delivery O2 Flow Rate FiO2 10/26/17 16:38 80 18 194/114 (140) 99 10/26/17 16:30 Room Air 10/26/17 13:42 98.2 Orders Orders Prothrombin Time / Inr (Pt) (10/26/17 15:25) Act Partial Throm Time (Ptt) (10/26/17 15:25) Complete Blood Count With Diff (10/26/17 15:25) Comprehensive Metabolic Panel (10/26/17 15:25) Ecg Monitoring (10/26/17 15:25) Iv Access Insert/Monitor (10/26/17 15:25) Oximetry (10/26/17 15:25) Blood Glucose (10/26/17 15:25) Hydralazine Inj (Apresoline Inj) (10/26/17 16:00) Ct Brain W/O Iv Contrast(Rout) (10/26/17 ) Vital Signs (Adult) .On admission (10/26/17 16:04) Notify Radiology (10/26/17 16:04) Ed Discharge Order (10/26/17 16:40) Labs Laboratory Tests Test 10/26/17 15:30 White Blood Count 7.7 TH/MM3 Red Blood Count 4.02 MIL/MM3 Hemoglobin 10.8 GM/DL Hematocrit 32.8 % Mean Corpuscular Volume 81.6 FL Mean Corpuscular Hemoglobin 26.8 PG Mean Corpuscular Hemoglobin Concent 32.8 % Red Cell Distribution Width 19.0 % Platelet Count 320 TH/MM3 Mean Platelet Volume 7.4 FL Neutrophils (%) (Auto) 63.7 % Lymphocytes (%) (Auto) 26.4 % Monocytes (%) (Auto) 6.8 % Eosinophils (%) (Auto) 2.4 % Basophils (%) (Auto) 0.7 % Neutrophils # (Auto) 4.9 TH/MM3 Lymphocytes # (Auto) 2.0 TH/MM3 Monocytes # (Auto) 0.5 TH/MM3 Eosinophils # (Auto) 0.2 TH/MM3 Basophils # (Auto) 0.1 TH/MM3 CBC Comment DIFF FINAL Differential Comment Prothrombin Time 10.7 SEC Prothromb Time International Ratio 1.1 RATIO Activated Partial Thromboplast Time 27.2 SEC Blood Urea Nitrogen 7 MG/DL Creatinine 0.87 MG/DL Random Glucose 91 MG/DL Total Protein 7.2 GM/DL Albumin 3.6 GM/DL Calcium Level 8.8 MG/DL Alkaline Phosphatase 80 U/L Aspartate Amino Transf (AST/SGOT) 10 U/L Alanine Aminotransferase (ALT/SGPT) 15 U/L Total Bilirubin 0.3 MG/DL Sodium Level 142 MEQ/L Potassium Level 3.7 MEQ/L Chloride Level 110 MEQ/L Carbon Dioxide Level 26.1 MEQ/L Anion Gap 6 MEQ/L Estimat Glomerular Filtration Rate 90 ML/MIN MDM Medical Decision Making Medical Screen Exam Complete: Yes Emergency Medical Condition: Yes Differential Diagnosis Hypertension, ICH, pseudotumor cerebri, medication noncompliance, retinal detachment, blurred vision Narrative Course 37-year-old female with a history of pseudotumor cerebri status post BLACK LEATHER TRIMMER shunt revision June 2017 presents emergency department for evaluation of blurred vision and white floaters that started yesterday as she was sitting at her desk. Patient states that her vision has been worse and she called her neurosurgeon, Dr. Stauffer at [facility] and he recommended she come to the emergency department to see an stamping machine operator. He was apparently concerned about a retinal detachment. Patient denies any inciting events. Denies palliative or provocative factors. Denies headache, nausea, vomiting, diarrhea, chest pain, shortness of breath. Denies any new or unusual numbness or weakness of the extremities. States that over the last week she has had some left arm weakness and has had some soreness of her bicep muscle. Patient says she has a history of hypertension however, says this is normal and has not been higher than normal. She says that this blurred vision occurred at the same time of the white floaters that she describes. She has no associated signs or symptoms. Says that the last time she had any the same symptoms was in June. Note that patient received new glasses 1 week ago. She has not followed up with an stamping machine operator because of insurance issues. Review the EMR: Patient presented to the emergency department and April 2017 where a BLACK LEATHER TRIMMER shunt was placed by Dr. Dumont. She subsequently had a BLACK LEATHER TRIMMER shunt replacement July 07, 2017 and revision in July. She has chronic right eye blindness , hypokalemia, hypertension, left arm cubital tunnel syndrome. Says that her last follow-up with Dr. Stauffer, her neurosurgeon at [facility] was in July. Says she is due to follow-up with him in January. She says that Dr. Dumont evaluated her in June but has not followed up with him but says that she was not due to follow-up with him. Physical exam: VA 20/200 BL eyes. Diminished peripheral vision in R eye. Pupils reactive to light with accommodation R>L. Otherwise no obvious neuro deficits. Vital signs: hypertensive at 182/104, HR 83, SaO2 99%. Hydralazine administered for HTN. Labs ordered. CT head ordered at the recommendation of Polly Langley PA-C. She also recommended a lumbar puncture for opening pressure and possibly to remove some fluid. CBC & BMP Diagram 10/26/17 15:30 Total Protein 7.2, Albumin 3.6, Calcium Level 8.8, Alkaline Phosphatase 80, Aspartate Amino Transf (AST/SGOT) 10 L, Alanine Aminotransferase (ALT/SGPT) 15, Total Bilirubin 0.[address] 10/26/17 0000 Signed Impressions: Service Date/Time: Thursday, October 26, 2017 16:04 - CONCLUSION: 1. No acute findings in the brain. The ventricles are not dilated. 2. Ventriculostomy catheter tip near the 3rd ventricle. Kendrick Felipe MD After discussion with the patient, patient refuses lumbar puncture stating it is too painful and does not want to have this done. Risk vs benefits discussed. She says she would follow up with her neurosurgeon tomorrow. She will leave AMA. AMA: The risks of leaving against medical advice without further evaluation treatment were discussed with the patient. These risks include cardiac dysfunction, cardiac dysrhythmia, possible heart attack, possible stroke or . The patient indicated understanding of these risks and appeared to have the capacity to make this decision. Physician Communication Physician Communication I spoke with Dr. Steve, stamping machine operator who believes this is more of a neurological and neurosurgical issue. She says that she would be happy to follow the patient if she becomes an inpatient. I spoke with Polly Langley PA-C with Dr. Dumont who recommended a CT Head. She explained to me that the patient was due to see a neuro-stamping machine operator for possible optic nerve fenestration. She says that patient went to Dr. Stauffer as a second opinion instead of following up with a neuro-stamping machine operator. In addition, she says that patient likely had a revision completed in July at [facility]. Dr. Dumont recommended CT head and LP for opening pressure and possibly to remove some fluid. He recommends that patient follows up with Dr. Stauffer at [facility] as he performed a revision of her shunt most recently. Diagnosis Primary Impression: Elevated blood pressure reading Additional Impressions: Blurred vision, bilateral Pseudotumor cerebri Referrals: Neurosurgeon Primary Care Physician Additional Instructions: Follow up with your neurosurgeon as discussed. Consider follow-up with an stamping machine operator or off the neurologist as discussed previously. Take all medications as prescribed previously. Disposition: 07 AGAINST MEDICAL ADVICE Condition: Stable Skye Villareal October 26, 2017 15:19
[2017-10-26 15:47] LABS: AUTOMATED NEUTROPHIL # 4.9 TH/MM3 (1.8-7.7); BASOPHIL # 0.1 TH/MM3 (0-0.2); BASOPHIL % 0.7 % (0.0-2.0); EOSINOPHIL # 0.2 TH/MM3 (0-0.4); EOSINOPHIL % 2.4 % (0.0-4.0); HEMATOCRIT 32.8 % (35.0-46.0); HEMOGLOBIN 10.8 GM/DL (11.6-15.3); LYMPH % 26.4 % (9.0-44.0); MEAN CELL VOLUME 81.6 FL (80.0-100.0); MEAN CORPUSCULAR HEMOGLOBIN 26.8 PG (27.0-34.0); MEAN CORPUSCULAR HGB CONC 32.8 % (32.0-36.0); MEAN PLATELET VOLUME 7.4 FL (7.0-11.0); MONO % 6.8 % (0.0-8.0); MONOCYTE # 0.5 TH/MM3 (0-0.9); NEUT % 63.7 % (16.0-70.0); PLATELET COUNT 320 TH/MM3 (150-450); RED BLOOD COUNT 4.02 MIL/MM3 (4.00-5.30); WHITE BLOOD COUNT 7.7 TH/MM3 (4.0-11.0)
[2017-10-26 16:00] LABS: ALBUMIN 3.6 GM/DL (3.4-5.0); ALT (GPT) 15 U/L (10-53); AST (GOT) 10 U/L (15-37); BICARBONATE 26.1 MEQ/L (21.0-32.0); BLOOD UREA NITROGEN 7 MG/DL (7-18); CALCIUM 8.8 MG/DL (8.5-10.1); CHLORIDE 110 MEQ/L (98-107); CREATININE 0.87 MG/DL (0.50-1.00); GLOMERULAR FILTRATION RATE 90 ML/MIN (>89); GLUCOSE,RANDOM 91 MG/DL (74-106); SODIUM (NA) 142 MEQ/L (136-145)
[2017-10-26] MEDS ORDERED: hydrALAZINE HCL 20 MG/ML VIAL IV PUSH ONE (16:00)
[2017-10-26 16:03] LABS: ALKALINE PHOSPHATASE 80 U/L (45-117); TOTAL BILIRUBIN ADULT 0.3 MG/DL (0.2-1.0); TOTAL PROTEIN 7.2 GM/DL (6.4-8.2)
[2017-10-26 16:05] LABS: INTERNATIONAL NORMALIZED RATIO 1.1 RATIO; PROTHROMBIN TIME - PATIENT 10.7 SEC (9.8-11.6)
--- NOTE | 2017-10-26 16:29 | RADRPT ---
EXAM DATE/TIME: 10/26/2017 16:04 [place] COMPARISON: CT BRAIN W/O CONTRAST, July 08, 2017, 4:46. INDICATIONS : Vision changes since yesterday. RADIATION DOSE: 56.35 CTDIvol (mGy) MEDICAL HISTORY : Hypertension. psuedo tumor cerebril SURGICAL HISTORY : Tubal ligation. ENCOUNTER: Initial ACUITY: 1 day PAIN SCALE: 0/10 LOCATION: Bilateral head TECHNIQUE: Multiple contiguous axial images were obtained of the head. Using automated exposure control and adj ustment of the mA and/or kV according to patient size, radiation dose was kept as low as reasonably a chievable to obtain optimal diagnostic quality images. DICOM format image data is available electro nically for review and comparison. FINDINGS: CEREBRUM: The ventricles are normal for age. No evidence of midline shift, mass lesion, hemorrhage or acute in farction. No extra-axial fluid collections are seen the. Left frontal ventriculostomy catheter tip projects in the midline near the 3rd ventricle.. POSTERIOR FOSSA: The cerebellum and brainstem are intact. The 4th ventricle is midline. The cerebellopontine angle i s unremarkable. EXTRACRANIAL: The visualized portion of the orbits is intact. SKULL: The calvaria is intact. No evidence of skull fracture. CONCLUSION: 1. No acute findings in the brain. The ventricles are not dilated. 2. Ventriculostomy catheter tip near the 3rd ventricle. Kendrick Felipe MD on October 26, 2017 at 16:26 Board Certified Radiologist. This report was verified electronically.
[2017-10-26 16:30] VITALS: BP 194/114; PULSE 82; RESP 18; O2SAT 99
[2017-10-26 16:38] VITALS: BP 194/114
== END 2017-10-26 16:42 | disposition left against medical advice (07) ==
LOC: NEPC 13:38
DX: I10 Essential (primary) hypertension (principal); H53.8 Other visual disturbances; G93.2 Benign intracranial hypertension; Z98.2 Presence of cerebrospinal fluid drainage device
CPT/HCPCS: 70450; 80053; 85025; 85610; 85730; 96374; 99284; J0360